=== PATIENT | female | born 1950 | race Caucasian/White ===

== ENCOUNTER 2019-01-16 19:24 | Inpatient (IN) | payer MEDICARE, OTHER ==
[~2019-01-16] VITALS: Ht 172.7 cm; Wt 124.4 kg
[2019-01-16 19:25] VITALS: BP 141/76
--- OUTSIDE RECORDS SUMMARY | 2019-01-16 19:31 | XMS REPORT ---
[facility] Unknown Phone Unavailable Care Team Providers Care Thread Cutter Name Role Phone Unavailable Unavailable Payers Payer Name Policy Type Policy Number Effective Date Expiration Date Problems This patient has no known problems. Allergies, Adverse Reactions, Alerts Allergy Name Allergy Type Status Severity Reaction(s) Onset Date Inactive Date Treating Clinician Comments ciprofloxacin HCl DA Active RI 2018-10-26 00:00:00 Iodinated Contrast- Oral and IV Dye DA Active U 2018-10-26 00:00:00 Penicillins DA Active U 2018-10-26 00:00:00 Sulfa (Sulfonamide Antibiotics) DA Active U 2018-10-26 00:00:00 iodine DA Active RI 2018-10-26 00:00:00 lactose FA Active U 2018-10-26 00:00:00 tetracycline DA Active U 2018-10-26 00:00:00 pineapple FA Active U 2018-10-26 00:00:00 grape FA Active U 2018-10-26 00:00:00 latex DA Active U 2018-10-26 00:00:00 milk FA Active U 2018-10-26 00:00:00 strawberry FA Active U 2018-10-26 00:00:00 lactose DA Active U 2018-10-26 00:00:00 pineapple DA Active U 2018-10-26 00:00:00 grape DA Active U 2018-10-26 00:00:00 milk DA Active U 2018-10-26 00:00:00 MRA CONTRAST DYE DA Active SV 2018-08-31 00:00:00 Iodinated Contrast- Oral and IV Dye DA Active U 2018-05-14 00:00:00 lactose DA Active U 2018-05-14 00:00:00 TAPE DA Active MO 2018-05-14 00:00:00 ciprofloxacin HCl DA Active RI 2018-02-22 00:00:00 Penicillins DA Active U 2018-02-22 00:00:00 Sulfa (Sulfonamide Antibiotics) DA Active U 2018-02-22 00:00:00 iodine DA Active RI 2018-02-22 00:00:00 tetracycline DA Active U 2018-02-22 00:00:00 pineapple DA Active U 2018-02-22 00:00:00 grape DA Active U 2018-02-22 00:00:00 latex DA Active U 2018-02-22 00:00:00 milk DA Active U 2018-02-22 00:00:00 strawberry DA Active U 2018-02-22 00:00:00 strawberry FA Active U 2018-02-22 00:00:00 ciprofloxacin HCl DA Active RI 2017-09-11 00:00:00 Penicillins DA Active U 2017-09-11 00:00:00 Sulfa (Sulfonamide Antibiotics) DA Active U 2017-09-11 00:00:00 iodine DA Active RI 2017-09-11 00:00:00 tetracycline DA Active U 2017-09-11 00:00:00 pineapple DA Active U 2017-09-11 00:00:00 grape DA Active U 2017-09-11 00:00:00 latex DA Active U 2017-09-11 00:00:00 milk DA Active U 2017-09-11 00:00:00 strawberry DA Active U 2017-09-11 00:00:00 Medications This patient has no known medications. Encounters Start Date/Time End Date/Time Encounter Type Admission Type Attending Clinicians Care Facility Care Department Encounter ID 2018-10-10 09:45:00 2018-10-10 06:21:00 Inpatient [facility] [id number] Results Test Description Test Time Test Comments Text Results Atomic Results Result Comments GLUBED 2019-01-07 10:13:00 GLUBED (test code=GLUBED) 95 mg/dL 74-106 Performed by certified cloth doubling machine operator at [facility] [id number] 10:12:00* Test Item Value Reference Range Comments GLUBED (test code=GLUBED) 118 mg/dL 74-106 Performed by certified cloth doubling machine operator at [facility] [id number] 10:12:00* Test Item Value Reference Range Comments GLUBED (test code=GLUBED) 147 mg/dL 74-106 Performed by certified cloth doubling machine operator at [facility] BASIC METABOLIC [id number] 06:51:00* Test Item Value Reference Range Comments SODIUM (test code=NA) 139 mmol/L 136-145 POTASSIUM (test code=K) 3.8 mmol/L 3.5-5.1 CHLORIDE (test code=CL) 106.0 mmol/L 98-107 CARBON DIOXIDE (test code=CO2) 28.0 mmol/L 21-32 ANION GAP (test code=GAP) 8.8 10-20 GLUCOSE (test code=GLU) 147 mg/dL 74-106 BLOOD UREA NITROGEN (test code=BUN) 6 mg/dL 7-18 GLOMERULAR FILTRATION RATE (test code=GFR) > 60 mL/min >=60 Estimated GFR by using Modified MDRD formula.Chronic kidney disease is defined as either kidney damageor GFR <60 mL/min/1.73 m2 for >3 months. CREATININE (test code=CREAT) 0.70 mg/dL 0.55-1.02 Note change in reference range due to change in reagent. BUN/CREATININE RATIO (test code=BUN/CREA) 8.0 10-20 CALCIUM (test code=CA) 8.8 mg/dL 8.5-10.1 BASIC METABOLIC [id number] 06:47:00* Test Item Value Reference Range Comments SODIUM (test code=NA) 139 mmol/L 136-145 POTASSIUM (test code=K) 3.8 mmol/L 3.5-5.1 CHLORIDE (test code=CL) 106.0 mmol/L 98-107 CARBON DIOXIDE (test code=CO2) mmol/L 21-32 ANION GAP (test code=GAP) 10-20 GLUCOSE (test code=GLU) mg/dL 74-106 BLOOD UREA NITROGEN (test code=BUN) mg/dL 7-18 GLOMERULAR FILTRATION RATE (test code=GFR) mL/min >=60 CREATININE (test code=CREAT) mg/dL 0.55-1.02 BUN/CREATININE RATIO (test code=BUN/CREA) 10-20 CALCIUM (test code=CA) 8.8 mg/dL 8.5-10.1 CBC W/AUTO [id number] 06:24:00* Test Item Value Reference Range Comments WHITE BLOOD CELL (test code=WBC) 6.9 K/mm3 4.5-12.5 RED BLOOD CELL (test code=RBC) 3.47 mill/mm3 3.7-5.2 HEMOGLOBIN (test code=HGB) 9.2 gram/dL 11.5-15.5 HEMATOCRIT (test code=HCT) 30.5 % 36.0-46.0 MEAN CELL VOLUME (test code=MCV) 87.9 fL 80-98 MEAN CELL HGB (test code=MCH) 26.5 picogram 27.0-33.0 MEAN CELL HGB CONCETRATION (test code=MCHC) 30.2 gram/dL 33.0-36.0 RED CELL DISTRIBUTION WIDTH (test code=RDW) 17.6 % 11.6-16.2 RED CELL DISTRIBUTION WIDTH SD (test code=RDW-SD) 57.1 fL 37.0-51.0 PLATELET COUNT (test code=PLT) 483 K/mm3 150-450 MEAN PLATELET VOLUME (test code=MPV) 9.4 fL 6.7-11.0 NEUTROPHIL % (test code=NT%) 56.3 % 39.0-69.0 IMMATURE GRANULOCYTE % (test code=IG%) 0.4 % 0.0-5.0 LYMPHOCYTE % (test code=LY%) 25.9 % 25.0-55.0 MONOCYTE % (test code=MO%) 10.0 % 0.0-10.0 EOSINOPHIL % (test code=EO%) 6.5 % 0.0-5.0 BASOPHIL % (test code=BA%) 0.9 % 0.0-1.0 NUCLEATED RBC % (test code=NRBC%) 0.0 % 0-0 NEUTROPHIL # (test code=NT#) 3.87 K/mm3 1.8-7.7 IMMATURE GRANULOCYTE # (test code=IG#) 0.03 x10 3/uL 0-0.03 LYMPHOCYTE # (test code=LY#) 1.78 K/mm3 1.0-5.0 MONOCYTE # (test code=MO#) 0.69 K/mm3 0-0.8 EOSINOPHIL # (test code=EO#) 0.45 K/mm3 0.0-0.5 BASOPHIL # (test code=BA#) 0.06 K/mm3 0.0-0.2 NUCLEATED RBC # (test code=NRBC#) 0.00 K/mm3 0.0-0.1 [id number] 16:09:00* Test Item Value Reference Range Comments VANCOMYCIN (test code=VANCO) 16.9 UG/ML 5.0-45.0 BASIC METABOLIC [id number] 03:42:00* Test Item Value Reference Range Comments SODIUM (test code=NA) 141 mmol/L 136-145 POTASSIUM (test code=K) 3.9 mmol/L 3.5-5.1 CHLORIDE (test code=CL) 101.0 mmol/L 98-107 CARBON DIOXIDE (test code=CO2) 31.0 mmol/L 21-32 ANION GAP (test code=GAP) 12.9 10-20 GLUCOSE (test code=GLU) 136 mg/dL 74-106 BLOOD UREA NITROGEN (test code=BUN) 8 mg/dL 7-18 GLOMERULAR FILTRATION RATE (test code=GFR) > 60 mL/min >=60 Estimated GFR by using Modified MDRD formula.Chronic kidney disease is defined as either kidney damageor GFR <60 mL/min/1.73 m2 for >3 months. CREATININE (test code=CREAT) 0.80 mg/dL 0.55-1.02 Note change in reference range due to change in reagent. BUN/CREATININE RATIO (test code=BUN/CREA) 9.5 10-20 CALCIUM (test code=CA) 8.3 mg/dL 8.5-10.1 COMPREHENSIVE METABOLIC [id number] 03:42:00* Test Item Value Reference Range Comments TOTAL PROTEIN (test code=PROT) 5.4 gram/dL 6.4-8.2 ALBUMIN (test code=ALB) 2.5 g/dL 3.4-5.0 GLOBULIN (test code=GLOB) 2.9 gram/dL 2.7-4.2 ALBUMIN/GLOBULIN RATIO (test code=A/G) 0.9 0.75-1.50 BILIRUBIN TOTAL (test code=BILT) 0.30 mg/dL 0.0-1.0 SGOT/AST (test code=AST) 16 IUnit/L 15-37 SGPT/ALT (test code=ALT) 15 IUnit/L 12-78 ALKALINE PHOSPHATASE TOTAL (test code=ALKP) 157 IUnit/L 45-117 Note change in reference range due to change in reagent. [id number] 03:42:00* Test Item Value Reference Range Comments PHOSPHORUS (test code=PHOS) 2.6 mg/dL 2.5-4.9 [id number] 03:42:00* Test Item Value Reference Range Comments MAGNESIUM (test code=MAG) 2.1 mg/dL 1.8-2.4 CALCIUM [id number] 03:42:00* Test Item Value Reference Range Comments CALCIUM IONIZED (test code=BIJU) 1.22 mmol/L 1.12-1.32 BASIC METABOLIC [id number] 03:37:00* Test Item Value Reference Range Comments SODIUM (test code=NA) 141 mmol/L 136-145 POTASSIUM (test code=K) 3.9 mmol/L 3.5-5.1 CHLORIDE (test code=CL) 101.0 mmol/L 98-107 CARBON DIOXIDE (test code=CO2) mmol/L 21-32 ANION GAP (test code=GAP) 10-20 GLUCOSE (test code=GLU) mg/dL 74-106 BLOOD UREA NITROGEN (test code=BUN) mg/dL 7-18 GLOMERULAR FILTRATION RATE (test code=GFR) mL/min >=60 CREATININE (test code=CREAT) mg/dL 0.55-1.02 BUN/CREATININE RATIO (test code=BUN/CREA) 10-20 CALCIUM (test code=CA) mg/dL 8.5-10.1 COMPREHENSIVE METABOLIC [id number] 03:37:00* Test Item Value Reference Range Comments TOTAL PROTEIN (test code=PROT) gram/dL 6.4-8.2 ALBUMIN (test code=ALB) g/dL 3.4-5.0 GLOBULIN (test code=GLOB) gram/dL 2.7-4.2 ALBUMIN/GLOBULIN RATIO (test code=A/G) 0.75-1.50 BILIRUBIN TOTAL (test code=BILT) mg/dL 0.0-1.0 SGOT/AST (test code=AST) IUnit/L 15-37 SGPT/ALT (test code=ALT) IUnit/L 12-78 ALKALINE PHOSPHATASE TOTAL (test code=ALKP) IUnit/L 45-117 [id number] 03:37:00* Test Item Value Reference Range Comments PHOSPHORUS (test code=PHOS) mg/dL 2.5-4.9 [id number] 03:37:00* Test Item Value Reference Range Comments MAGNESIUM (test code=MAG) mg/dL 1.8-2.4 CALCIUM [id number] 03:37:00* Test Item Value Reference Range Comments CALCIUM IONIZED (test code=BIJU) 1.22 mmol/L 1.12-1.32 BASIC METABOLIC [id number] 03:34:00* Test Item Value Reference Range Comments SODIUM (test code=NA) 141 mmol/L 136-145 POTASSIUM (test code=K) 3.9 mmol/L 3.5-5.1 CHLORIDE (test code=CL) 101.0 mmol/L 98-107 CARBON DIOXIDE (test code=CO2) mmol/L 21-32 ANION GAP (test code=GAP) 10-20 GLUCOSE (test code=GLU) mg/dL 74-106 BLOOD UREA NITROGEN (test code=BUN) mg/dL 7-18 GLOMERULAR FILTRATION RATE (test code=GFR) mL/min >=60 CREATININE (test code=CREAT) mg/dL 0.55-1.02 BUN/CREATININE RATIO (test code=BUN/CREA) 10-20 CALCIUM (test code=CA) mg/dL 8.5-10.1 COMPREHENSIVE METABOLIC [id number] 03:34:00* Test Item Value Reference Range Comments TOTAL PROTEIN (test code=PROT) gram/dL 6.4-8.2 ALBUMIN (test code=ALB) g/dL 3.4-5.0 GLOBULIN (test code=GLOB) gram/dL 2.7-4.2 ALBUMIN/GLOBULIN RATIO (test code=A/G) 0.75-1.50 BILIRUBIN TOTAL (test code=BILT) mg/dL 0.0-1.0 SGOT/AST (test code=AST) IUnit/L 15-37 SGPT/ALT (test code=ALT) IUnit/L 12-78 ALKALINE PHOSPHATASE TOTAL (test code=ALKP) IUnit/L 45-117 [id number] 03:34:00* Test Item Value Reference Range Comments PHOSPHORUS (test code=PHOS) mg/dL 2.5-4.9 [id number] 03:34:00* Test Item Value Reference Range Comments MAGNESIUM (test code=MAG) mg/dL 1.8-2.4 CALCIUM [id number] 03:34:00* Test Item Value Reference Range Comments CALCIUM IONIZED (test code=BIJU) mmol/L 1.12-1.32 COMPREHENSIVE METABOLIC [id number] 02:48:00* Test Item Value Reference Range Comments SODIUM (test code=NA) 138 mmol/L 136-145 POTASSIUM (test code=K) 3.5 mmol/L 3.5-5.1 CHLORIDE (test code=CL) 99.0 mmol/L 98-107 CARBON DIOXIDE (test code=CO2) 31.0 mmol/L 21-32 ANION GAP (test code=GAP) 11.5 10-20 GLUCOSE (test code=GLU) 131 mg/dL 74-106 BLOOD UREA NITROGEN (test code=BUN) 8 mg/dL 7-18 GLOMERULAR FILTRATION RATE (test code=GFR) > 60 mL/min >=60 Estimated GFR by using Modified MDRD formula.Chronic kidney disease is defined as either kidney damageor GFR <60 mL/min/1.73 m2 for >3 months. CREATININE (test code=CREAT) 0.80 mg/dL 0.55-1.02 Note change in reference range due to change in reagent. BUN/CREATININE RATIO (test code=BUN/CREA) 10.5 10-20 TOTAL PROTEIN (test code=PROT) 6.1 gram/dL 6.4-8.2 ALBUMIN (test code=ALB) 2.3 g/dL 3.4-5.0 GLOBULIN (test code=GLOB) 3.8 gram/dL 2.7-4.2 ALBUMIN/GLOBULIN RATIO (test code=A/G) 0.6 0.75-1.50 CALCIUM (test code=CA) 8.7 mg/dL 8.5-10.1 BILIRUBIN TOTAL (test code=BILT) 0.30 mg/dL 0.0-1.0 SGOT/AST (test code=AST) 8 IUnit/L 15-37 SGPT/ALT (test code=ALT) 16 IUnit/L 12-78 ALKALINE PHOSPHATASE TOTAL (test code=ALKP) 147 IUnit/L 45-117 Note change in reference range due to change in reagent. [id number] 02:48:00* Test Item Value Reference Range Comments PHOSPHORUS (test code=PHOS) 2.3 mg/dL 2.5-4.9 [id number] 02:48:00* Test Item Value Reference Range Comments MAGNESIUM (test code=MAG) 2.3 mg/dL 1.8-2.4 CALCIUM [id number] 02:48:00* Test Item Value Reference Range Comments CALCIUM IONIZED (test code=BIJU) 1.21 mmol/L 1.12-1.32 COMPREHENSIVE METABOLIC [id number] 02:27:00* Test Item Value Reference Range Comments SODIUM (test code=NA) mmol/L 136-145 POTASSIUM (test code=K) mmol/L 3.5-5.1 CHLORIDE (test code=CL) mmol/L 98-107 CARBON DIOXIDE (test code=CO2) mmol/L 21-32 ANION GAP (test code=GAP) 10-20 GLUCOSE (test code=GLU) mg/dL 74-106 BLOOD UREA NITROGEN (test code=BUN) mg/dL 7-18 GLOMERULAR FILTRATION RATE (test code=GFR) mL/min >=60 CREATININE (test code=CREAT) mg/dL 0.55-1.02 BUN/CREATININE RATIO (test code=BUN/CREA) 10-20 TOTAL PROTEIN (test code=PROT) gram/dL 6.4-8.2 ALBUMIN (test code=ALB) g/dL 3.4-5.0 GLOBULIN (test code=GLOB) gram/dL 2.7-4.2 ALBUMIN/GLOBULIN RATIO (test code=A/G) 0.75-1.50 CALCIUM (test code=CA) mg/dL 8.5-10.1 BILIRUBIN TOTAL (test code=BILT) mg/dL 0.0-1.0 SGOT/AST (test code=AST) IUnit/L 15-37 SGPT/ALT (test code=ALT) IUnit/L 12-78 ALKALINE PHOSPHATASE TOTAL (test code=ALKP) IUnit/L 45-117 [id number] 02:27:00* Test Item Value Reference Range Comments PHOSPHORUS (test code=PHOS) mg/dL 2.5-4.9 [id number] 02:27:00* Test Item Value Reference Range Comments MAGNESIUM (test code=MAG) mg/dL 1.8-2.4 CALCIUM [id number] 02:27:00* Test Item Value Reference Range Comments CALCIUM IONIZED (test code=BIJU) 1.21 mmol/L 1.12-1.32 BASIC METABOLIC [id number] 04:37:00* Test Item Value Reference Range Comments SODIUM (test code=NA) 139 mmol/L 136-145 POTASSIUM (test code=K) 3.2 mmol/L 3.5-5.1 CHLORIDE (test code=CL) 98.0 mmol/L 98-107 CARBON DIOXIDE (test code=CO2) 31.0 mmol/L 21-32 ANION GAP (test code=GAP) 13.2 10-20 GLUCOSE (test code=GLU) 126 mg/dL 74-106 BLOOD UREA NITROGEN (test code=BUN) 9 mg/dL 7-18 GLOMERULAR FILTRATION RATE (test code=GFR) > 60 mL/min >=60 Estimated GFR by using Modified MDRD formula.Chronic kidney disease is defined as either kidney damageor GFR <60 mL/min/1.73 m2 for >3 months. CREATININE (test code=CREAT) 0.80 mg/dL 0.55-1.02 Note change in reference range due to change in reagent. BUN/CREATININE RATIO (test code=BUN/CREA) 11.1 10-20 CALCIUM (test code=CA) 8.7 mg/dL 8.5-10.1 COMPREHENSIVE METABOLIC [id number] 04:37:00* Test Item Value Reference Range Comments TOTAL PROTEIN (test code=PROT) 5.9 gram/dL 6.4-8.2 ALBUMIN (test code=ALB) 2.4 g/dL 3.4-5.0 GLOBULIN (test code=GLOB) 3.5 gram/dL 2.7-4.2 ALBUMIN/GLOBULIN RATIO (test code=A/G) 0.7 0.75-1.50 BILIRUBIN TOTAL (test code=BILT) 0.40 mg/dL 0.0-1.0 SGOT/AST (test code=AST) 10 IUnit/L 15-37 SGPT/ALT (test code=ALT) 16 IUnit/L 12-78 ALKALINE PHOSPHATASE TOTAL (test code=ALKP) 141 IUnit/L 45-117 Note change in reference range due to change in reagent. [id number] 04:37:00* Test Item Value Reference Range Comments PHOSPHORUS (test code=PHOS) 2.3 mg/dL 2.5-4.9 [id number] 04:37:00* Test Item Value Reference Range Comments MAGNESIUM (test code=MAG) 1.9 mg/dL 1.8-2.4 CALCIUM [id number] 04:37:00* Test Item Value Reference Range Comments CALCIUM IONIZED (test code=BIJU) 1.19 mmol/L 1.12-1.32 BASIC METABOLIC [id number] 04:32:00* Test Item Value Reference Range Comments SODIUM (test code=NA) 139 mmol/L 136-145 POTASSIUM (test code=K) 3.2 mmol/L 3.5-5.1 CHLORIDE (test code=CL) 98.0 mmol/L 98-107 CARBON DIOXIDE (test code=CO2) mmol/L 21-32 ANION GAP (test code=GAP) 10-20 GLUCOSE (test code=GLU) mg/dL 74-106 BLOOD UREA NITROGEN (test code=BUN) mg/dL 7-18 GLOMERULAR FILTRATION RATE (test code=GFR) mL/min >=60 CREATININE (test code=CREAT) mg/dL 0.55-1.02 BUN/CREATININE RATIO (test code=BUN/CREA) 10-20 CALCIUM (test code=CA) mg/dL 8.5-10.1 COMPREHENSIVE METABOLIC [id number] 04:32:00* Test Item Value Reference Range Comments TOTAL PROTEIN (test code=PROT) gram/dL 6.4-8.2 ALBUMIN (test code=ALB) g/dL 3.4-5.0 GLOBULIN (test code=GLOB) gram/dL 2.7-4.2 ALBUMIN/GLOBULIN RATIO (test code=A/G) 0.75-1.50 BILIRUBIN TOTAL (test code=BILT) mg/dL 0.0-1.0 SGOT/AST (test code=AST) IUnit/L 15-37 SGPT/ALT (test code=ALT) IUnit/L 12-78 ALKALINE PHOSPHATASE TOTAL (test code=ALKP) IUnit/L 45-117 [id number] 04:32:00* Test Item Value Reference Range Comments PHOSPHORUS (test code=PHOS) mg/dL 2.5-4.9 [id number] 04:32:00* Test Item Value Reference Range Comments MAGNESIUM (test code=MAG) mg/dL 1.8-2.4 CALCIUM [id number] 04:32:00* Test Item Value Reference Range Comments CALCIUM IONIZED (test code=BIJU) 1.19 mmol/L 1.12-1.32 BASIC METABOLIC [id number] 04:29:00* Test Item Value Reference Range Comments SODIUM (test code=NA) mmol/L 136-145 POTASSIUM (test code=K) mmol/L 3.5-5.1 CHLORIDE (test code=CL) mmol/L 98-107 CARBON DIOXIDE (test code=CO2) mmol/L 21-32 ANION GAP (test code=GAP) 10-20 GLUCOSE (test code=GLU) mg/dL 74-106 BLOOD UREA NITROGEN (test code=BUN) mg/dL 7-18 GLOMERULAR FILTRATION RATE (test code=GFR) mL/min >=60 CREATININE (test code=CREAT) mg/dL 0.55-1.02 BUN/CREATININE RATIO (test code=BUN/CREA) 10-20 CALCIUM (test code=CA) mg/dL 8.5-10.1 COMPREHENSIVE METABOLIC [id number] 04:29:00* Test Item Value Reference Range Comments TOTAL PROTEIN (test code=PROT) gram/dL 6.4-8.2 ALBUMIN (test code=ALB) g/dL 3.4-5.0 GLOBULIN (test code=GLOB) gram/dL 2.7-4.2 ALBUMIN/GLOBULIN RATIO (test code=A/G) 0.75-1.50 BILIRUBIN TOTAL (test code=BILT) mg/dL 0.0-1.0 SGOT/AST (test code=AST) IUnit/L 15-37 SGPT/ALT (test code=ALT) IUnit/L 12-78 ALKALINE PHOSPHATASE TOTAL (test code=ALKP) IUnit/L 45-117 [id number] 04:29:00* Test Item Value Reference Range Comments PHOSPHORUS (test code=PHOS) mg/dL 2.5-4.9 [id number] 04:29:00* Test Item Value Reference Range Comments MAGNESIUM (test code=MAG) mg/dL 1.8-2.4 CALCIUM [id number] 04:29:00* Test Item Value Reference Range Comments CALCIUM IONIZED (test code=BIJU) 1.19 mmol/L 1.12-1.32 BASIC METABOLIC [id number] 04:43:00* Test Item Value Reference Range Comments SODIUM (test code=NA) 136 mmol/L 136-145 POTASSIUM (test code=K) 3.2 mmol/L 3.5-5.1 CHLORIDE (test code=CL) 94.0 mmol/L 98-107 CARBON DIOXIDE (test code=CO2) 34.0 mmol/L 21-32 ANION GAP (test code=GAP) 11.2 10-20 GLUCOSE (test code=GLU) 131 mg/dL 74-106 BLOOD UREA NITROGEN (test code=BUN) 13 mg/dL 7-18 GLOMERULAR FILTRATION RATE (test code=GFR) > 60 mL/min >=60 Estimated GFR by using Modified MDRD formula.Chronic kidney disease is defined as either kidney damageor GFR <60 mL/min/1.73 m2 for >3 months. CREATININE (test code=CREAT) 0.90 mg/dL 0.55-1.02 Note change in reference range due to change in reagent. BUN/CREATININE RATIO (test code=BUN/CREA) 15.2 10-20 CALCIUM (test code=CA) 8.3 mg/dL 8.5-10.1 COMPREHENSIVE METABOLIC [id number] 04:43:00* Test Item Value Reference Range Comments TOTAL PROTEIN (test code=PROT) 5.4 gram/dL 6.4-8.2 ALBUMIN (test code=ALB) 2.7 g/dL 3.4-5.0 GLOBULIN (test code=GLOB) 2.7 gram/dL 2.7-4.2 ALBUMIN/GLOBULIN RATIO (test code=A/G) 1.0 0.75-1.50 BILIRUBIN TOTAL (test code=BILT) 0.60 mg/dL 0.0-1.0 SGOT/AST (test code=AST) 12 IUnit/L 15-37 SGPT/ALT (test code=ALT) 18 IUnit/L 12-78 ALKALINE PHOSPHATASE TOTAL (test code=ALKP) 157 IUnit/L 45-117 Note change in reference range due to change in reagent. [id number] 04:43:00* Test Item Value Reference Range Comments PHOSPHORUS (test code=PHOS) 2.7 mg/dL 2.5-4.9 [id number] 04:43:00* Test Item Value Reference Range Comments MAGNESIUM (test code=MAG) 1.6 mg/dL 1.8-2.4 CALCIUM [id number] 04:43:00* Test Item Value Reference Range Comments CALCIUM IONIZED (test code=BIJU) 1.15 mmol/L 1.12-1.32 BASIC METABOLIC [id number] 04:36:00* Test Item Value Reference Range Comments SODIUM (test code=NA) mmol/L 136-145 POTASSIUM (test code=K) mmol/L 3.5-5.1 CHLORIDE (test code=CL) mmol/L 98-107 CARBON DIOXIDE (test code=CO2) mmol/L 21-32 ANION GAP (test code=GAP) 10-20 GLUCOSE (test code=GLU) mg/dL 74-106 BLOOD UREA NITROGEN (test code=BUN) mg/dL 7-18 GLOMERULAR FILTRATION RATE (test code=GFR) mL/min >=60 CREATININE (test code=CREAT) mg/dL 0.55-1.02 BUN/CREATININE RATIO (test code=BUN/CREA) 10-20 CALCIUM (test code=CA) mg/dL 8.5-10.1 COMPREHENSIVE METABOLIC [id number] 04:36:00* Test Item Value Reference Range Comments TOTAL PROTEIN (test code=PROT) gram/dL 6.4-8.2 ALBUMIN (test code=ALB) g/dL 3.4-5.0 GLOBULIN (test code=GLOB) gram/dL 2.7-4.2 ALBUMIN/GLOBULIN RATIO (test code=A/G) 0.75-1.50 BILIRUBIN TOTAL (test code=BILT) mg/dL 0.0-1.0 SGOT/AST (test code=AST) IUnit/L 15-37 SGPT/ALT (test code=ALT) IUnit/L 12-78 ALKALINE PHOSPHATASE TOTAL (test code=ALKP) IUnit/L 45-117 [id number] 04:36:00* Test Item Value Reference Range Comments PHOSPHORUS (test code=PHOS) mg/dL 2.5-4.9 [id number] 04:36:00* Test Item Value Reference Range Comments MAGNESIUM (test code=MAG) mg/dL 1.8-2.4 CALCIUM [id number] 04:36:00* Test Item Value Reference Range Comments CALCIUM IONIZED (test code=BIJU) 1.15 mmol/L 1.12-1.32 BASIC METABOLIC [id number] 04:36:00* Test Item Value Reference Range Comments SODIUM (test code=NA) 136 mmol/L 136-145 POTASSIUM (test code=K) 3.2 mmol/L 3.5-5.1 CHLORIDE (test code=CL) 94.0 mmol/L 98-107 CARBON DIOXIDE (test code=CO2) mmol/L 21-32 ANION GAP (test code=GAP) 10-20 GLUCOSE (test code=GLU) mg/dL 74-106 BLOOD UREA NITROGEN (test code=BUN) mg/dL 7-18 GLOMERULAR FILTRATION RATE (test code=GFR) mL/min >=60 CREATININE (test code=CREAT) mg/dL 0.55-1.02 BUN/CREATININE RATIO (test code=BUN/CREA) 10-20 CALCIUM (test code=CA) mg/dL 8.5-10.1 COMPREHENSIVE METABOLIC [id number] 04:36:00* Test Item Value Reference Range Comments TOTAL PROTEIN (test code=PROT) gram/dL 6.4-8.2 ALBUMIN (test code=ALB) g/dL 3.4-5.0 GLOBULIN (test code=GLOB) gram/dL 2.7-4.2 ALBUMIN/GLOBULIN RATIO (test code=A/G) 0.75-1.50 BILIRUBIN TOTAL (test code=BILT) mg/dL 0.0-1.0 SGOT/AST (test code=AST) IUnit/L 15-37 SGPT/ALT (test code=ALT) IUnit/L 12-78 ALKALINE PHOSPHATASE TOTAL (test code=ALKP) IUnit/L 45-117 [id number] 04:36:00* Test Item Value Reference Range Comments PHOSPHORUS (test code=PHOS) mg/dL 2.5-4.9 [id number] 04:36:00* Test Item Value Reference Range Comments MAGNESIUM (test code=MAG) mg/dL 1.8-2.4 CALCIUM [id number] 04:36:00* Test Item Value Reference Range Comments CALCIUM IONIZED (test code=BIJU) 1.15 mmol/L 1.12-1.32 BASIC METABOLIC [id number] 07:09:00* Test Item Value Reference Range Comments SODIUM (test code=NA) 133 mmol/L 136-145 POTASSIUM (test code=K) 3.2 mmol/L 3.5-5.1 CHLORIDE (test code=CL) 90.0 mmol/L 98-107 CARBON DIOXIDE (test code=CO2) 34.0 mmol/L 21-32 ANION GAP (test code=GAP) 12.2 10-20 GLUCOSE (test code=GLU) 119 mg/dL 74-106 BLOOD UREA NITROGEN (test code=BUN) 13 mg/dL 7-18 GLOMERULAR FILTRATION RATE (test code=GFR) 55 mL/min >=60 Estimated GFR by using Modified MDRD formula.Chronic kidney disease is defined as either kidney damageor GFR <60 mL/min/1.73 m2 for >3 months. CREATININE (test code=CREAT) 1.00 mg/dL 0.55-1.02 Note change in reference range due to change in reagent. BUN/CREATININE RATIO (test code=BUN/CREA) 13.2 10-20 CALCIUM (test code=CA) 9.2 mg/dL 8.5-10.1 COMPREHENSIVE METABOLIC [id number] 07:09:00* Test Item Value Reference Range Comments TOTAL PROTEIN (test code=PROT) 7.2 gram/dL 6.4-8.2 ALBUMIN (test code=ALB) 3.2 g/dL 3.4-5.0 GLOBULIN (test code=GLOB) 4.0 gram/dL 2.7-4.2 ALBUMIN/GLOBULIN RATIO (test code=A/G) 0.8 0.75-1.50 BILIRUBIN TOTAL (test code=BILT) 1.00 mg/dL 0.0-1.0 SGOT/AST (test code=AST) 19 IUnit/L 15-37 SGPT/ALT (test code=ALT) 25 IUnit/L 12-78 ALKALINE PHOSPHATASE TOTAL (test code=ALKP) 175 IUnit/L 45-117 Note change in reference range due to change in reagent. [id number] 07:09:00* Test Item Value Reference Range Comments PHOSPHORUS (test code=PHOS) 3.2 mg/dL 2.5-4.9 [id number] 07:09:00* Test Item Value Reference Range Comments MAGNESIUM (test code=MAG) 1.9 mg/dL 1.8-2.4 CALCIUM [id number] 07:09:00* Test Item Value Reference Range Comments CALCIUM IONIZED (test code=BIJU) 1.17 mmol/L 1.12-1.32 BASIC METABOLIC [id number] 07:01:00* Test Item Value Reference Range Comments SODIUM (test code=NA) 133 mmol/L 136-145 POTASSIUM (test code=K) 3.2 mmol/L 3.5-5.1 CHLORIDE (test code=CL) 90.0 mmol/L 98-107 CARBON DIOXIDE (test code=CO2) mmol/L 21-32 ANION GAP (test code=GAP) 10-20 GLUCOSE (test code=GLU) mg/dL 74-106 BLOOD UREA NITROGEN (test code=BUN) mg/dL 7-18 GLOMERULAR FILTRATION RATE (test code=GFR) mL/min >=60 CREATININE (test code=CREAT) mg/dL 0.55-1.02 BUN/CREATININE RATIO (test code=BUN/CREA) 10-20 CALCIUM (test code=CA) mg/dL 8.5-10.1 COMPREHENSIVE METABOLIC [id number] 07:01:00* Test Item Value Reference Range Comments TOTAL PROTEIN (test code=PROT) gram/dL 6.4-8.2 ALBUMIN (test code=ALB) g/dL 3.4-5.0 GLOBULIN (test code=GLOB) gram/dL 2.7-4.2 ALBUMIN/GLOBULIN RATIO (test code=A/G) 0.75-1.50 BILIRUBIN TOTAL (test code=BILT) mg/dL 0.0-1.0 SGOT/AST (test code=AST) IUnit/L 15-37 SGPT/ALT (test code=ALT) IUnit/L 12-78 ALKALINE PHOSPHATASE TOTAL (test code=ALKP) IUnit/L 45-117 [id number] 07:01:00* Test Item Value Reference Range Comments PHOSPHORUS (test code=PHOS) mg/dL 2.5-4.9 [id number] 07:01:00* Test Item Value Reference Range Comments MAGNESIUM (test code=MAG) mg/dL 1.8-2.4 CALCIUM [id number] 07:01:00* Test Item Value Reference Range Comments CALCIUM IONIZED (test code=BIJU) mmol/L 1.12-1.32 BASIC METABOLIC [id number] 07:01:00* Test Item Value Reference Range Comments SODIUM (test code=NA) 133 mmol/L 136-145 POTASSIUM (test code=K) 3.2 mmol/L 3.5-5.1 CHLORIDE (test code=CL) 90.0 mmol/L 98-107 CARBON DIOXIDE (test code=CO2) mmol/L 21-32 ANION GAP (test code=GAP) 10-20 GLUCOSE (test code=GLU) mg/dL 74-106 BLOOD UREA NITROGEN (test code=BUN) mg/dL 7-18 GLOMERULAR FILTRATION RATE (test code=GFR) mL/min >=60 CREATININE (test code=CREAT) mg/dL 0.55-1.02 BUN/CREATININE RATIO (test code=BUN/CREA) 10-20 CALCIUM (test code=CA) mg/dL 8.5-10.1 COMPREHENSIVE METABOLIC [id number] 07:01:00* Test Item Value Reference Range Comments TOTAL PROTEIN (test code=PROT) gram/dL 6.4-8.2 ALBUMIN (test code=ALB) g/dL 3.4-5.0 GLOBULIN (test code=GLOB) gram/dL 2.7-4.2 ALBUMIN/GLOBULIN RATIO (test code=A/G) 0.75-1.50 BILIRUBIN TOTAL (test code=BILT) mg/dL 0.0-1.0 SGOT/AST (test code=AST) IUnit/L 15-37 SGPT/ALT (test code=ALT) IUnit/L 12-78 ALKALINE PHOSPHATASE TOTAL (test code=ALKP) IUnit/L 45-117 [id number] 07:01:00* Test Item Value Reference Range Comments PHOSPHORUS (test code=PHOS) mg/dL 2.5-4.9 [id number] 07:01:00* Test Item Value Reference Range Comments MAGNESIUM (test code=MAG) mg/dL 1.8-2.4 CALCIUM [id number] 07:01:00* Test Item Value Reference Range Comments CALCIUM IONIZED (test code=BIJU) 1.17 mmol/L 1.12-1.32 ARTERIAL BLOOD [id number] 18:07:00* Test Item Value Reference Range Comments ARTERIAL BLOOD GAS PH (test code=PHA) 7.26 7.35-7.45 ARTERIAL BLOOD GAS PCO2 (test code=PCO2A) 39.2 mm Hg 35-45 ARTERIAL BLOOD GAS PO2 (test code=PO2A) 104.9 mmHg 80-100 BICARBONATE TOTAL HCO3 (test code=HCO3) 17.0 mmol/L 23.0-27.0 BASE EXCESS (test code=MINDY) -9.4 mmol/L -3.0-5.0 Results called to and read back by DR. Lopez 18:00 - 12/17/2018; by DANIELLE ABG O2 SATURATION (test code=SATA) 97.1 % 90.0-98.0 ABG TYPE (test code=TYPEA) Arterial FIO2 (test code=FIO2A) 98.0 MODIFIED ALLENS (test code=MODALL) Unable CHECK PERFORMED SODIUM (test code=NA/ABG) 142.3 mEq/L 135-148 POTASSIUM (test code=K/ABG) 2.8 mEq/L 3.5-4.5 CHLORIDE (test code=CL/ABG) 110 mEq/L 98-106 GLUCOSE (test code=GLU/ABG) 279 mg/dL 74-99 HEMATOCRIT (test code=HCT/ABG) 39 % 35-47 IONIZED CALCIUM (test code=CAIABG) 1.03 mmol/L 1.1-1.37 TOTAL HGB (test code=THB) 13.1 gram/dL 11.5-15.5 HGB O2 SAT (test code=HBOSAT) 96.2 % 94.00-98.00 CARBOXYHEMOGLOBIN (test code=HOHGBT) 0.3 %totalHg 0.5-1.5 Results called to and read back by DR. Lopez 18:00 - 12/17/2018; by DANIELLE METHEMOGLOBIN (test code=METHGB) 0.6 % 0.0-1.50 O2 CONTENT (test code=O2CT) 17.8 % vol 18.0-22.0 ARTERIAL BLOOD [id number] 18:06:00* Test Item Value Reference Range Comments ARTERIAL BLOOD GAS PH (test code=PHA) 7.23 7.35-7.45 ARTERIAL BLOOD GAS PCO2 (test code=PCO2A) 46.5 mm Hg 35-45 ARTERIAL BLOOD GAS PO2 (test code=PO2A) 149.2 mmHg 80-100 BICARBONATE TOTAL HCO3 (test code=HCO3) 18.9 mmol/L 23.0-27.0 BASE EXCESS (test code=MINDY) -8.7 mmol/L -3.0-5.0 Results called to and read back by DR. Lopez 17:18 - 12/17/2018; by DANIELLE ABG O2 SATURATION (test code=SATA) 98.6 % 90.0-98.0 ABG TYPE (test code=TYPEA) Arterial FIO2 (test code=FIO2A) 100.0 MODIFIED ALLENS (test code=MODALL) Unable CHECK PERFORMED SODIUM (test code=NA/ABG) 144.6 mEq/L 135-148 POTASSIUM (test code=K/ABG) 3.0 mEq/L 3.5-4.5 CHLORIDE (test code=CL/ABG) 109 mEq/L 98-106 GLUCOSE (test code=GLU/ABG) 209 mg/dL 74-99 HEMATOCRIT (test code=HCT/ABG) 42 % 35-47 IONIZED CALCIUM (test code=CAIABG) 1.01 mmol/L 1.1-1.37 TOTAL HGB (test code=THB) 14.4 gram/dL 11.5-15.5 HGB O2 SAT (test code=HBOSAT) 97.2 % 94.00-98.00 CARBOXYHEMOGLOBIN (test code=HOHGBT) 0.8 %totalHg 0.5-1.5 METHEMOGLOBIN (test code=METHGB) 0.6 % 0.0-1.50 O2 CONTENT (test code=O2CT) 19.9 % vol 18.0-22.0 - XR CHEST 1 [id number] 07:05:00 FAX: Raysa Fallon NP [phone] [place]: St: ADM FAX: Calos Mcdowell MD [phone] FAX: Sami Mcdowell MD [phone] FAX: Brijesh Curiel MD Name: DELLA MALLOY [facility] : 1950 Age/S: 68/F [address] [facility] Unit #: [id number] Loc: V[address] [place] [address] Phys: Raysa Fallon NP Acct: [id number] Dis Date: Status: ADM IN PHONE #: [phone] Exam D ate: 12/26/2018 0538 FAX #: [phone] Reason: s ob EXAMS: CPT CODE: [id number] XR CHEST 1 V 57605 CLINICAL HISTORY: Shortness of breath TECHNIQUE: AP chest x-ray COMPARISON: Previous day IMPRESSION: Improved bilateral interstitial opacities. Left basilar atelectasis and small pleural effusion. Normal heart size. Mediastinal silhouette is unremarkable. Left subclavian artery origin stent. at 0705 Reported and signed by: Reyna Taylor D.O. CC: Raysa Fallon NP; Calos Negron; Reyna Negron MD; Brijesh Muse Technologist: DEVIN Riggins Trnvtrd Date/Time/By: 12/26/2018 (0705) : By: [email or web address] Orig Print D/T: S: 12/26/2018 (0757) PAGE 1 Signed Report BASIC METABOLIC [id number] 05:47:00* Test Item Value Reference Range Comments SODIUM (test code=NA) 138 mmol/L 136-145 POTASSIUM (test code=K) 3.5 mmol/L 3.5-5.1 CHLORIDE (test code=CL) 92.0 mmol/L 98-107 CARBON DIOXIDE (test code=CO2) 36.0 mmol/L 21-32 ANION GAP (test code=GAP) 13.5 10-20 GLUCOSE (test code=GLU) 128 mg/dL 74-106 BLOOD UREA NITROGEN (test code=BUN) 10 mg/dL 7-18 GLOMERULAR FILTRATION RATE (test code=GFR) > 60 mL/min >=60 Estimated GFR by using Modified MDRD formula.Chronic kidney disease is defined as either kidney damageor GFR <60 mL/min/1.73 m2 for >3 months. CREATININE (test code=CREAT) 0.80 mg/dL 0.55-1.02 Note change in reference range due to change in reagent. BUN/CREATININE RATIO (test code=BUN/CREA) 12.5 10-20 CALCIUM (test code=CA) 8.2 mg/dL 8.5-10.1 [id number] 05:47:00* Test Item Value Reference Range Comments PHOSPHORUS (test code=PHOS) 3.5 mg/dL 2.5-4.9 [id number] 05:47:00* Test Item Value Reference Range Comments MAGNESIUM (test code=MAG) 1.9 mg/dL 1.8-2.4 CALCIUM [id number] 05:47:00* Test Item Value Reference Range Comments CALCIUM IONIZED (test code=BIJU) 1.13 mmol/L 1.12-1.32 BASIC METABOLIC [id number] 05:21:00* Test Item Value Reference Range Comments SODIUM (test code=NA) 138 mmol/L 136-145 POTASSIUM (test code=K) 3.5 mmol/L 3.5-5.1 CHLORIDE (test code=CL) 92.0 mmol/L 98-107 CARBON DIOXIDE (test code=CO2) mmol/L 21-32 ANION GAP (test code=GAP) 10-20 GLUCOSE (test code=GLU) mg/dL 74-106 BLOOD UREA NITROGEN (test code=BUN) mg/dL 7-18 GLOMERULAR FILTRATION RATE (test code=GFR) mL/min >=60 CREATININE (test code=CREAT) mg/dL 0.55-1.02 BUN/CREATININE RATIO (test code=BUN/CREA) 10-20 CALCIUM (test code=CA) mg/dL 8.5-10.1 [id number] 05:21:00* Test Item Value Reference Range Comments PHOSPHORUS (test code=PHOS) mg/dL 2.5-4.9 [id number] 05:21:00* Test Item Value Reference Range Comments MAGNESIUM (test code=MAG) mg/dL 1.8-2.4 CALCIUM [id number] 05:21:00* Test Item Value Reference Range Comments CALCIUM IONIZED (test code=BIJU) 1.13 mmol/L 1.12-1.32 BASIC METABOLIC [id number] 05:20:00* Test Item Value Reference Range Comments SODIUM (test code=NA) 138 mmol/L 136-145 POTASSIUM (test code=K) 3.5 mmol/L 3.5-5.1 CHLORIDE (test code=CL) 92.0 mmol/L 98-107 CARBON DIOXIDE (test code=CO2) mmol/L 21-32 ANION GAP (test code=GAP) 10-20 GLUCOSE (test code=GLU) mg/dL 74-106 BLOOD UREA NITROGEN (test code=BUN) mg/dL 7-18 GLOMERULAR FILTRATION RATE (test code=GFR) mL/min >=60 CREATININE (test code=CREAT) mg/dL 0.55-1.02 BUN/CREATININE RATIO (test code=BUN/CREA) 10-20 CALCIUM (test code=CA) mg/dL 8.5-10.1 [id number] 05:20:00* Test Item Value Reference Range Comments PHOSPHORUS (test code=PHOS) mg/dL 2.5-4.9 [id number] 05:20:00* Test Item Value Reference Range Comments MAGNESIUM (test code=MAG) mg/dL 1.8-2.4 CALCIUM [id number] 05:20:00* Test Item Value Reference Range Comments CALCIUM IONIZED (test code=BIJU) mmol/L 1.12-1.32 CBC W/AUTO [id number] 05:04:00* Test Item Value Reference Range Comments WHITE BLOOD CELL (test code=WBC) 10.5 K/mm3 4.5-12.5 RED BLOOD CELL (test code=RBC) 4.13 mill/mm3 3.7-5.2 HEMOGLOBIN (test code=HGB) 11.0 gram/dL 11.5-15.5 HEMATOCRIT (test code=HCT) 35.6 % 36.0-46.0 MEAN CELL VOLUME (test code=MCV) 86.2 fL 80-98 MEAN CELL HGB (test code=MCH) 26.6 picogram 27.0-33.0 MEAN CELL HGB CONCETRATION (test code=MCHC) 30.9 gram/dL 33.0-36.0 RED CELL DISTRIBUTION WIDTH (test code=RDW) 18.0 % 11.6-16.2 RED CELL DISTRIBUTION WIDTH SD (test code=RDW-SD) 54.1 fL 37.0-51.0 PLATELET COUNT (test code=PLT) 355 K/mm3 150-450 RESULT VERIFIED BY REPEAT ANALYSIS MEAN PLATELET VOLUME (test code=MPV) 9.5 fL 6.7-11.0 NEUTROPHIL % (test code=NT%) 66.2 % 39.0-69.0 IMMATURE GRANULOCYTE % (test code=IG%) 0.7 % 0.0-5.0 LYMPHOCYTE % (test code=LY%) 15.6 % 25.0-55.0 MONOCYTE % (test code=MO%) 11.8 % 0.0-10.0 EOSINOPHIL % (test code=EO%) 4.8 % 0.0-5.0 BASOPHIL % (test code=BA%) 0.9 % 0.0-1.0 NUCLEATED RBC % (test code=NRBC%) 0.0 % 0-0 NEUTROPHIL # (test code=NT#) 6.94 K/mm3 1.8-7.7 IMMATURE GRANULOCYTE # (test code=IG#) 0.07 x10 3/uL 0-0.03 LYMPHOCYTE # (test code=LY#) 1.63 K/mm3 1.0-5.0 MONOCYTE # (test code=MO#) 1.24 K/mm3 0-0.8 EOSINOPHIL # (test code=EO#) 0.50 K/mm3 0.0-0.5 BASOPHIL # (test code=BA#) 0.09 K/mm3 0.0-0.2 NUCLEATED RBC # (test code=NRBC#) 0.00 K/mm3 0.0-0.1 MANUAL DIFF REQUIRED (test code=MDIFF) NO - XR CHEST 1 [id number] 07:43:00 FAX: Raysa aFllon NP [phone] [place]: B St: ADM FAX: Calos Mcdowell MD [phone] FAX: Sami Mcdowell MD [phone] FAX: Brijesh Curiel MD Name: DELLA MALLOY RADHA [facility] : 1950 Age/S: 68/F [address] [facility] Unit #: [id number] Loc: V[address] [place] [address] Phys: Raysa Fallon NP Acct: [id number] Dis Date: Status: ADM IN PHONE #: [phone] Exam D ate: 12/25/2018 0534 FAX #: [phone] Reason: s ob EXAMS: CPT CODE: [id number] XR CHEST 1 V 22440 CLINICAL HISTORY: Shortness of breath TECHNIQUE: AP chest x-ray COMPARISON: Previous day IMPRESSION: Improved bilateral interstitial opacities. Left basilar atelectasis and possible small pleural effusion. Normal h eart size. Mediastinal silhouette is unremarkable. Left subclavian arter y origin stent. at 0743 Reported and signed by: Jessa Taylor D.OTurner CC: Raysa Fallon NP; Calos Negron; Reyna Negron MD; Brijesh Muse Technologist: DEVIN Riggins Trnscrd Date/Time/By: 12/25/2018 (0743) : By: [email or web address] Orig Print D/T: S: 12/25/2018 (0720) PAGE 1 Signed Report BASIC METABOLIC [id number] 04:04:00* Test Item Value Reference Range Comments SODIUM (test code=NA) 138 mmol/L 136-145 POTASSIUM (test code=K) 3.3 mmol/L 3.5-5.1 CHLORIDE (test code=CL) 94.0 mmol/L 98-107 CARBON DIOXIDE (test code=CO2) 37.0 mmol/L 21-32 ANION GAP (test code=GAP) 10.3 10-20 GLUCOSE (test code=GLU) 141 mg/dL 74-106 BLOOD UREA NITROGEN (test code=BUN) 8 mg/dL 7-18 GLOMERULAR FILTRATION RATE (test code=GFR) > 60 mL/min >=60 Estimated GFR by using Modified MDRD formula.Chronic kidney disease is defined as either kidney damageor GFR <60 mL/min/1.73 m2 for >3 months. CREATININE (test code=CREAT) 0.70 mg/dL 0.55-1.02 Note change in reference range due to change in reagent. BUN/CREATININE RATIO (test code=BUN/CREA) 11.4 10-20 CALCIUM (test code=CA) 8.7 mg/dL 8.5-10.1 [id number] 04:04:00* Test Item Value Reference Range Comments PHOSPHORUS (test code=PHOS) 2.8 mg/dL 2.5-4.9 [id number] 04:04:00* Test Item Value Reference Range Comments MAGNESIUM (test code=MAG) 1.8 mg/dL 1.8-2.4 CALCIUM [id number] 04:04:00* Test Item Value Reference Range Comments CALCIUM IONIZED (test code=BIJU) 1.21 mmol/L 1.12-1.32 BASIC METABOLIC [id number] 03:54:00* Test Item Value Reference Range Comments SODIUM (test code=NA) 138 mmol/L 136-145 POTASSIUM (test code=K) 3.3 mmol/L 3.5-5.1 CHLORIDE (test code=CL) 94.0 mmol/L 98-107 CARBON DIOXIDE (test code=CO2) mmol/L 21-32 ANION GAP (test code=GAP) 10-20 GLUCOSE (test code=GLU) mg/dL 74-106 BLOOD UREA NITROGEN (test code=BUN) mg/dL 7-18 GLOMERULAR FILTRATION RATE (test code=GFR) mL/min >=60 CREATININE (test code=CREAT) mg/dL 0.55-1.02 BUN/CREATININE RATIO (test code=BUN/CREA) 10-20 CALCIUM (test code=CA) mg/dL 8.5-10.1 [id number] 03:54:00* Test Item Value Reference Range Comments PHOSPHORUS (test code=PHOS) mg/dL 2.5-4.9 [id number] 03:54:00* Test Item Value Reference Range Comments MAGNESIUM (test code=MAG) mg/dL 1.8-2.4 CALCIUM [id number] 03:54:00* Test Item Value Reference Range Comments CALCIUM IONIZED (test code=BIJU) mmol/L 1.12-1.32 BASIC METABOLIC [id number] 03:54:00* Test Item Value Reference Range Comments SODIUM (test code=NA) 138 mmol/L 136-145 POTASSIUM (test code=K) 3.3 mmol/L 3.5-5.1 CHLORIDE (test code=CL) 94.0 mmol/L 98-107 CARBON DIOXIDE (test code=CO2) mmol/L 21-32 ANION GAP (test code=GAP) 10-20 GLUCOSE (test code=GLU) mg/dL 74-106 BLOOD UREA NITROGEN (test code=BUN) mg/dL 7-18 GLOMERULAR FILTRATION RATE (test code=GFR) mL/min >=60 CREATININE (test code=CREAT) mg/dL 0.55-1.02 BUN/CREATININE RATIO (test code=BUN/CREA) 10-20 CALCIUM (test code=CA) mg/dL 8.5-10.1 [id number] 03:54:00* Test Item Value Reference Range Comments PHOSPHORUS (test code=PHOS) mg/dL 2.5-4.9 [id number] 03:54:00* Test Item Value Reference Range Comments MAGNESIUM (test code=MAG) mg/dL 1.8-2.4 CALCIUM [id number] 03:54:00* Test Item Value Reference Range Comments CALCIUM IONIZED (test code=BIJU) 1.21 mmol/L 1.12-1.32 CBC W/AUTO [id number] 03:39:00* Test Item Value Reference Range Comments WHITE BLOOD CELL (test code=WBC) 8.6 K/mm3 4.5-12.5 RED BLOOD CELL (test code=RBC) 4.13 mill/mm3 3.7-5.2 HEMOGLOBIN (test code=HGB) 11.1 gram/dL 11.5-15.5 HEMATOCRIT (test code=HCT) 35.7 % 36.0-46.0 MEAN CELL VOLUME (test code=MCV) 86.4 fL 80-98 MEAN CELL HGB (test code=MCH) 26.9 picogram 27.0-33.0 MEAN CELL HGB CONCETRATION (test code=MCHC) 31.1 gram/dL 33.0-36.0 RED CELL DISTRIBUTION WIDTH (test code=RDW) 17.4 % 11.6-16.2 RED CELL DISTRIBUTION WIDTH SD (test code=RDW-SD) 53.3 fL 37.0-51.0 PLATELET COUNT (test code=PLT) 294 K/mm3 150-450 MEAN PLATELET VOLUME (test code=MPV) 9.2 fL 6.7-11.0 NEUTROPHIL % (test code=NT%) 63.2 % 39.0-69.0 IMMATURE GRANULOCYTE % (test code=IG%) 0.6 % 0.0-5.0 LYMPHOCYTE % (test code=LY%) 18.6 % 25.0-55.0 MONOCYTE % (test code=MO%) 10.6 % 0.0-10.0 EOSINOPHIL % (test code=EO%) 6.3 % 0.0-5.0 BASOPHIL % (test code=BA%) 0.7 % 0.0-1.0 NUCLEATED RBC % (test code=NRBC%) 0.0 % 0-0 NEUTROPHIL # (test code=NT#) 5.46 K/mm3 1.8-7.7 IMMATURE GRANULOCYTE # (test code=IG#) 0.05 x10 3/uL 0-0.03 LYMPHOCYTE # (test code=LY#) 1.61 K/mm3 1.0-5.0 MONOCYTE # (test code=MO#) 0.92 K/mm3 0-0.8 EOSINOPHIL # (test code=EO#) 0.54 K/mm3 0.0-0.5 BASOPHIL # (test code=BA#) 0.06 K/mm3 0.0-0.2 NUCLEATED RBC # (test code=NRBC#) 0.00 K/mm3 0.0-0.1 - XR CHEST 1 [id number] 07:14:00 FAX: Raysa Fallon NP [phone] [place]: St: ADM FAX: Calos Mcdowell MD [phone] FAX: Sami Mcdowell MD [phone] FAX: Brijesh Curiel MD Name: DELLA MALLOY RADHA [facility] : 1950 Age/S: 68/F [address] [facility] Unit #: [id number] Loc: V[address] [place] [address] Phys: Raysa Fallon NP Acct: [id number] Dis Date: Status: ADM IN PHONE #: [phone] Exam D ate: 12/24/2018 0540 FAX #: [phone] Reason: s ob EXAMS: CPT CODE: [id number] XR CHEST 1 V 49326 REASON FOR EXAM: sob E XAM ORDER DATE: 12/24/2018 4:00 AM Ordering MJane: Raysa Fallon NP PROCEDURE: - XR CHEST 1 V COMPARISON: 12/23/2018 FINDINGS: Portable AP frontal view of the chest obtained at 5:40 AM shows diffuse airspace opacity of the right lung and left base. The h eart size is minimally enlarged. Pulmonary vasculatures are minimally harris ested. IMPRESSION: New development of vague diffuse airspace op acity in the right lung suggestive of atelectasis. Persistent patchy at electasis at the left base unchanged. Small left pleural effusion may b e present Electronically Signed by Aurea Dietz on 9 at 0714 Reported and signed by: Kong Dietz M.D. CC: Raysa Fallon NP; Calos Negron; Sami Negron MD; Brijesh Muse Technologist: Catalino Richardson RT(R) Trnscrd Date/Time/By: 0 12/24/2018 (713) : By: [email or web address] Orig Print D/T: S: 12/24/2018 (17) PAGE 1 Signed Report COMPREHENSIVE METABOLIC [id number] 06:07:00* Test Item Value Reference Range Comments SODIUM (test code=NA) 139 mmol/L 136-145 RESULT VERIFIED BY REPEAT ANALYSIS POTASSIUM (test code=K) 3.0 mmol/L 3.5-5.1 CHLORIDE (test code=CL) 97.0 mmol/L 98-107 CARBON DIOXIDE (test code=CO2) 32.0 mmol/L 21-32 ANION GAP (test code=GAP) 13.0 10-20 GLUCOSE (test code=GLU) 121 mg/dL 74-106 BLOOD UREA NITROGEN (test code=BUN) 5 mg/dL 7-18 GLOMERULAR FILTRATION RATE (test code=GFR) > 60 mL/min >=60 Estimated GFR by using Modified MDRD formula.Chronic kidney disease is defined as either kidney damageor GFR <60 mL/min/1.73 m2 for >3 months. CREATININE (test code=CREAT) 0.80 mg/dL 0.55-1.02 Note change in reference range due to change in reagent. BUN/CREATININE RATIO (test code=BUN/CREA) 6.3 10-20 TOTAL PROTEIN (test code=PROT) 6.9 gram/dL 6.4-8.2 ALBUMIN (test code=ALB) 3.1 g/dL 3.4-5.0 GLOBULIN (test code=GLOB) 3.8 gram/dL 2.7-4.2 ALBUMIN/GLOBULIN RATIO (test code=A/G) 0.8 0.75-1.50 CALCIUM (test code=CA) 9.4 mg/dL 8.5-10.1 BILIRUBIN TOTAL (test code=BILT) 0.80 mg/dL 0.0-1.0 SGOT/AST (test code=AST) 23 IUnit/L 15-37 SGPT/ALT (test code=ALT) 40 IUnit/L 12-78 ALKALINE PHOSPHATASE TOTAL (test code=ALKP) 147 IUnit/L 45-117 Note change in reference range due to change in reagent. [id number] 06:07:00* Test Item Value Reference Range Comments PHOSPHORUS (test code=PHOS) 2.7 mg/dL 2.5-4.9 [id number] 06:07:00* Test Item Value Reference Range Comments AMYLASE (test code=EMILY) 18 Unit/L 25-115 [id number] 06:07:00* Test Item Value Reference Range Comments LIPASE (test code=LIP) 46 U/L 73.0-393.0 [id number] 06:07:00* Test Item Value Reference Range Comments MAGNESIUM (test code=MAG) 1.9 mg/dL 1.8-2.4 TOTAL IRON BINDING [id number] 06:07:00* Test Item Value Reference Range Comments TOTAL IRON BINDING CAPACITY (test code=TIBC) 273 mcg/dL 250-450 THYROID PROFILE [id number] 06:07:00* Test Item Value Reference Range Comments T3 UPTAKE (test code=T3UP) 38.0 % 30.0-40.0 T4 (THYROXINE) (test code=T4) 13.1 ug/dL 4.5-13.9 T7 (FREE THYROXINE INDEX) (test code=T7) 4.97 FTI 1.3-5.1 THYROID STIMULATING HORMONE (test code=TSH) 3.430 uIU/mL 0.36-3.74 TSH REFERENCE RANGES: EUTHYROID: 0.35 - 4.3 mIU/mL HYPO : > 5.5 mIU/mL HYPER : < 0.35 mIU/mL TOTAL [id number] 06:07:00* Test Item Value Reference Range Comments TOTAL T3 (test code=T3) 164 ng/dL 71-180 Performed At: [facility] [id number] Orellana MD Ph:[phone] T4 [id number] 06:07:00* Test Item Value Reference Range Comments T4 FREE (test code=T4F) 1.71 ng/dL 0.76-1.46 [id number] 06:07:00* Test Item Value Reference Range Comments TROPONIN-I (test code=TROPI) <0.015 ng/mL 0-0.045 CALCIUM [id number] 06:07:00* Test Item Value Reference Range Comments CALCIUM IONIZED (test code=BIJU) 1.24 mmol/L 1.12-1.32 BASIC METABOLIC [id number] 05:32:00* Test Item Value Reference Range Comments SODIUM (test code=NA) 139 mmol/L 136-145 POTASSIUM (test code=K) 3.0 mmol/L 3.5-5.1 CHLORIDE (test code=CL) 94.0 mmol/L 98-107 CARBON DIOXIDE (test code=CO2) 34.0 mmol/L 21-32 ANION GAP (test code=GAP) 14.0 10-20 GLUCOSE (test code=GLU) 125 mg/dL 74-106 BLOOD UREA NITROGEN (test code=BUN) 7 mg/dL 7-18 GLOMERULAR FILTRATION RATE (test code=GFR) > 60 mL/min >=60 Estimated GFR by using Modified MDRD formula.Chronic kidney disease is defined as either kidney damageor GFR <60 mL/min/1.73 m2 for >3 months. CREATININE (test code=CREAT) 0.80 mg/dL 0.55-1.02 Note change in reference range due to change in reagent. BUN/CREATININE RATIO (test code=BUN/CREA) 8.8 10-20 CALCIUM (test code=CA) 9.8 mg/dL 8.5-10.1 [id number] 05:32:00* Test Item Value Reference Range Comments PHOSPHORUS (test code=PHOS) 3.2 mg/dL 2.5-4.9 [id number] 05:32:00* Test Item Value Reference Range Comments MAGNESIUM (test code=MAG) 2.1 mg/dL 1.8-2.4 CALCIUM [id number] 05:32:00* Test Item Value Reference Range Comments CALCIUM IONIZED (test code=BIJU) 1.22 mmol/L 1.12-1.32 BASIC METABOLIC [id number] 05:14:00* Test Item Value Reference Range Comments SODIUM (test code=NA) mmol/L 136-145 POTASSIUM (test code=K) mmol/L 3.5-5.1 CHLORIDE (test code=CL) mmol/L 98-107 CARBON DIOXIDE (test code=CO2) mmol/L 21-32 ANION GAP (test code=GAP) 10-20 GLUCOSE (test code=GLU) mg/dL 74-106 BLOOD UREA NITROGEN (test code=BUN) mg/dL 7-18 GLOMERULAR FILTRATION RATE (test code=GFR) mL/min >=60 CREATININE (test code=CREAT) mg/dL 0.55-1.02 BUN/CREATININE RATIO (test code=BUN/CREA) 10-20 CALCIUM (test code=CA) mg/dL 8.5-10.1 [id number] 05:14:00* Test Item Value Reference Range Comments PHOSPHORUS (test code=PHOS) mg/dL 2.5-4.9 [id number] 05:14:00* Test Item Value Reference Range Comments MAGNESIUM (test code=MAG) mg/dL 1.8-2.4 CALCIUM [id number] 05:14:00* Test Item Value Reference Range Comments CALCIUM IONIZED (test code=BIJU) 1.22 mmol/L 1.12-1.32 LACTIC [id number] 05:14:00* Test Item Value Reference Range Comments LACTIC ACID (test code=LACT) 1.4 mmol/L 0.4-1.9 CBC W/AUTO [id number] 04:50:00* Test Item Value Reference Range Comments WHITE BLOOD CELL (test code=WBC) 7.8 K/mm3 4.5-12.5 RED BLOOD CELL (test code=RBC) 3.84 mill/mm3 3.7-5.2 HEMOGLOBIN (test code=HGB) 10.2 gram/dL 11.5-15.5 HEMATOCRIT (test code=HCT) 32.7 % 36.0-46.0 MEAN CELL VOLUME (test code=MCV) 85.2 fL 80-98 MEAN CELL HGB (test code=MCH) 26.6 picogram 27.0-33.0 MEAN CELL HGB CONCETRATION (test code=MCHC) 31.2 gram/dL 33.0-36.0 RED CELL DISTRIBUTION WIDTH (test code=RDW) 17.4 % 11.6-16.2 RED CELL DISTRIBUTION WIDTH SD (test code=RDW-SD) 52.9 fL 37.0-51.0 PLATELET COUNT (test code=PLT) 294 K/mm3 150-450 MEAN PLATELET VOLUME (test code=MPV) 9.5 fL 6.7-11.0 NEUTROPHIL % (test code=NT%) 60.4 % 39.0-69.0 IMMATURE GRANULOCYTE % (test code=IG%) 0.5 % 0.0-5.0 LYMPHOCYTE % (test code=LY%) 22.8 % 25.0-55.0 MONOCYTE % (test code=MO%) 10.1 % 0.0-10.0 EOSINOPHIL % (test code=EO%) 5.6 % 0.0-5.0 BASOPHIL % (test code=BA%) 0.6 % 0.0-1.0 NUCLEATED RBC % (test code=NRBC%) 0.0 % 0-0 NEUTROPHIL # (test code=NT#) 4.72 K/mm3 1.8-7.7 IMMATURE GRANULOCYTE # (test code=IG#) 0.04 x10 3/uL 0-0.03 LYMPHOCYTE # (test code=LY#) 1.78 K/mm3 1.0-5.0 MONOCYTE # (test code=MO#) 0.79 K/mm3 0-0.8 EOSINOPHIL # (test code=EO#) 0.44 K/mm3 0.0-0.5 BASOPHIL # (test code=BA#) 0.05 K/mm3 0.0-0.2 NUCLEATED RBC # (test code=NRBC#) 0.00 K/mm3 0.0-0.1 MANUAL DIFF REQUIRED (test code=MDIFF) NO LACTIC [id number] 15:18:00* Test Item Value Reference Range Comments LACTIC ACID (test code=LACT) 2.3 mmol/L 0.4-1.9 Results called to [id number] by LOULOU 12/23/18 [id number] results verified and read back by Nurse? Y LACTIC [id number] 10:27:00* Test Item Value Reference Range Comments LACTIC ACID (test code=LACT) 3.1 mmol/L 0.4-1.9 Results called to [id number] by SHANDA 12/23/18 1027Critical results verified and read back by Nurse? Y [id number] 08:19:00* Test Item Value Reference Range Comments AMMONIA (test code=AMM) 21 umol/L 11-32 - XR ABDOMEN AP 1 [id number] 07:56:00 FAX: Calos Mcdowell MD [phone] [place]: B St: ADM FAX: Sami Mcdowell MD [phone] FAX: Brijesh Curiel MD FAX: Corona Leyva MD [phone] Name: MALLOY,DELLA Giancarlo GARCIA [facility] : 1950 Age/S: 68/F [address] [facility]: [id number] Loc: [address] [place] [address] Phys: Corona Navas MD Acct: [id number] Dis Date: Status: ADM IN PHONE #: [phone] Exam D ate: 12/23/2018 0500 FAX #: [phone] Reason: C onstipation EXAMS: CPT CODE: [id number] XR ABDOMEN AP 1 V 19979 HISTORY: Constipation TECHNIQ UE: AP abdomen x-ray COMPARISON: 12/17/18 FINDINGS: Mild fecal retention within the ascending colon and rectum. Gaseous dist ention of the colon. No dilated small bowel. NG tube has been removed. No intra-abdominal mass effect. No abnormal calcifications are observed. Righ t upper quadrant and central abdominal surgical clips. Degenerative change s of the spine and hips. IMPRESSION: Mild fe grady retention within the ascending colon and rectum. at 0756 Reported and signed by: Yin Taylor D.O. CC: Calos Negron; Rob Negron MD; Brijesh Muse; Corona Navas MD Technologist: LYNNE CORREA RT(R); Zaira hinojosa RT(R) Trnscrd Date/Time/By: 12/23/2018 (0756) : By: [email or web address] Orig Print D/T: S: 12/23/2018 (0759) PAGE 1 Signed Report - XR CHEST 1 V 2018-12-23 07:54:00 FAX: Calos Mcdowell MD [phone] [place]: St: ADM FAX: Sami Mcdowell MD [phone] FAX: Brijesh Curiel MD FAX: Corona Leyva MD [phone] Name: DELLA MALLOY [facility] : 1950 Age/S: 68/F [address] [facility] Unit #: [id number] Loc: .[address] [address] Phys: Corona Navas MD Acct: [id number] Dis Date: Status: ADM IN PHONE #: [phone] Exam D ate: 12/23/2018 0500 FAX #: [phone] Reason: A cute pulmonary edema EXAMS: CPT CODE: [id number] XR CHEST 1 V 41101 CLINICAL HISTORY: Acute pulmonary edema TECHNIQUE: AP chest x-ray COMPARISON: 12/21/18 IMPRESSION: Improved bilateral interstitial opacities. Left basilar atelectasis. No evident pleural effusion. Normal heart size. Mediastinal silhouette is unremarkable. Left subclavian artery origin s tent. Electronically Signed by Yin Taylor D.O. on 9 at 0754 Reported and signed by: Yin Taylor D.O. CC: Calos Negron; Sami Negron MD; Brijesh Muse; Corona Navas MD Kiel hnologist: LYNNE CORREA, RT(R); Zaira Flores RT(R) Trnscrd Date/T maricruz/By: 12/23/2018 (0754) : By: [email or web address] Orig Print D/T: S: 9 (0752) PAGE 1 Signed Report LACTIC [id number] 07:03:00* Test Item Value Reference Range Comments LACTIC ACID (test code=LACT) 2.3 mmol/L 0.4-1.9 Results called to [id number] by RAHUL 12/23/18 0703Critical results verified and read back by Nurse? Y COMPREHENSIVE METABOLIC [id number] 06:59:00* Test Item Value Reference Range Comments SODIUM (test code=NA) 139 mmol/L 136-145 RESULT VERIFIED BY REPEAT ANALYSIS POTASSIUM (test code=K) 3.0 mmol/L 3.5-5.1 CHLORIDE (test code=CL) 97.0 mmol/L 98-107 CARBON DIOXIDE (test code=CO2) 32.0 mmol/L 21-32 ANION GAP (test code=GAP) 13.0 10-20 GLUCOSE (test code=GLU) 121 mg/dL 74-106 BLOOD UREA NITROGEN (test code=BUN) 5 mg/dL 7-18 GLOMERULAR FILTRATION RATE (test code=GFR) > 60 mL/min >=60 Estimated GFR by using Modified MDRD formula.Chronic kidney disease is defined as either kidney damageor GFR <60 mL/min/1.73 m2 for >3 months. CREATININE (test code=CREAT) 0.80 mg/dL 0.55-1.02 Note change in reference range due to change in reagent. BUN/CREATININE RATIO (test code=BUN/CREA) 6.3 10-20 TOTAL PROTEIN (test code=PROT) 6.9 gram/dL 6.4-8.2 ALBUMIN (test code=ALB) 3.1 g/dL 3.4-5.0 GLOBULIN (test code=GLOB) 3.8 gram/dL 2.7-4.2 ALBUMIN/GLOBULIN RATIO (test code=A/G) 0.8 0.75-1.50 CALCIUM (test code=CA) 9.4 mg/dL 8.5-10.1 BILIRUBIN TOTAL (test code=BILT) 0.80 mg/dL 0.0-1.0 SGOT/AST (test code=AST) 23 IUnit/L 15-37 SGPT/ALT (test code=ALT) 40 IUnit/L 12-78 ALKALINE PHOSPHATASE TOTAL (test code=ALKP) 147 IUnit/L 45-117 Note change in reference range due to change in reagent. [id number] 06:59:00* Test Item Value Reference Range Comments PHOSPHORUS (test code=PHOS) 2.7 mg/dL 2.5-4.9 [id number] 06:59:00* Test Item Value Reference Range Comments AMYLASE (test code=EMILY) 18 Unit/L 25-115 [id number] 06:59:00* Test Item Value Reference Range Comments LIPASE (test code=LIP) 46 U/L 73.0-393.0 [id number] 06:59:00* Test Item Value Reference Range Comments MAGNESIUM (test code=MAG) 1.9 mg/dL 1.8-2.4 TOTAL IRON BINDING [id number] 06:59:00* Test Item Value Reference Range Comments TOTAL IRON BINDING CAPACITY (test code=TIBC) 273 mcg/dL 250-450 THYROID PROFILE [id number] 06:59:00* Test Item Value Reference Range Comments T3 UPTAKE (test code=T3UP) 38.0 % 30.0-40.0 T4 (THYROXINE) (test code=T4) 13.1 ug/dL 4.5-13.9 T7 (FREE THYROXINE INDEX) (test code=T7) 4.97 FTI 1.3-5.1 THYROID STIMULATING HORMONE (test code=TSH) 3.430 uIU/mL 0.36-3.74 TSH REFERENCE RANGES: EUTHYROID: 0.35 - 4.3 mIU/mL HYPO : > 5.5 mIU/mL HYPER : < 0.35 mIU/mL TOTAL [id number] 06:59:00* Test Item Value Reference Range Comments TOTAL T3 (test code=T3) T4 [id number] 06:59:00* Test Item Value Reference Range Comments T4 FREE (test code=T4F) 1.71 ng/dL 0.76-1.46 [id number] 06:59:00* Test Item Value Reference Range Comments TROPONIN-I (test code=TROPI) <0.015 ng/mL 0-0.045 CALCIUM [id number] 06:59:00* Test Item Value Reference Range Comments CALCIUM IONIZED (test code=BIJU) 1.24 mmol/L 1.12-1.32 CBC W/AUTO [id number] 06:23:00* Test Item Value Reference Range Comments WHITE BLOOD CELL (test code=WBC) 8.9 K/mm3 4.5-12.5 RED BLOOD CELL (test code=RBC) 3.76 mill/mm3 3.7-5.2 HEMOGLOBIN (test code=HGB) 10.0 gram/dL 11.5-15.5 HEMATOCRIT (test code=HCT) 31.8 % 36.0-46.0 MEAN CELL VOLUME (test code=MCV) 84.6 fL 80-98 MEAN CELL HGB (test code=MCH) 26.6 picogram 27.0-33.0 MEAN CELL HGB CONCETRATION (test code=MCHC) 31.4 gram/dL 33.0-36.0 RED CELL DISTRIBUTION WIDTH (test code=RDW) 17.8 % 11.6-16.2 RED CELL DISTRIBUTION WIDTH SD (test code=RDW-SD) 53.5 fL 37.0-51.0 PLATELET COUNT (test code=PLT) 309 K/mm3 150-450 RESULT VERIFIED BY REPEAT ANALYSIS MEAN PLATELET VOLUME (test code=MPV) 9.7 fL 6.7-11.0 NEUTROPHIL % (test code=NT%) 65.8 % 39.0-69.0 IMMATURE GRANULOCYTE % (test code=IG%) 0.6 % 0.0-5.0 LYMPHOCYTE % (test code=LY%) 17.4 % 25.0-55.0 MONOCYTE % (test code=MO%) 10.0 % 0.0-10.0 EOSINOPHIL % (test code=EO%) 5.6 % 0.0-5.0 BASOPHIL % (test code=BA%) 0.6 % 0.0-1.0 NUCLEATED RBC % (test code=NRBC%) 0.0 % 0-0 NEUTROPHIL # (test code=NT#) 5.89 K/mm3 1.8-7.7 IMMATURE GRANULOCYTE # (test code=IG#) 0.05 x10 3/uL 0-0.03 LYMPHOCYTE # (test code=LY#) 1.56 K/mm3 1.0-5.0 MONOCYTE # (test code=MO#) 0.89 K/mm3 0-0.8 EOSINOPHIL # (test code=EO#) 0.50 K/mm3 0.0-0.5 BASOPHIL # (test code=BA#) 0.05 K/mm3 0.0-0.2 NUCLEATED RBC # (test code=NRBC#) 0.00 K/mm3 0.0-0.1 COMPREHENSIVE METABOLIC [id number] 06:15:00* Test Item Value Reference Range Comments SODIUM (test code=NA) mmol/L 136-145 POTASSIUM (test code=K) mmol/L 3.5-5.1 CHLORIDE (test code=CL) mmol/L 98-107 CARBON DIOXIDE (test code=CO2) mmol/L 21-32 ANION GAP (test code=GAP) 10-20 GLUCOSE (test code=GLU) mg/dL 74-106 BLOOD UREA NITROGEN (test code=BUN) mg/dL 7-18 GLOMERULAR FILTRATION RATE (test code=GFR) mL/min >=60 CREATININE (test code=CREAT) mg/dL 0.55-1.02 BUN/CREATININE RATIO (test code=BUN/CREA) 10-20 TOTAL PROTEIN (test code=PROT) gram/dL 6.4-8.2 ALBUMIN (test code=ALB) g/dL 3.4-5.0 GLOBULIN (test code=GLOB) gram/dL 2.7-4.2 ALBUMIN/GLOBULIN RATIO (test code=A/G) 0.75-1.50 CALCIUM (test code=CA) mg/dL 8.5-10.1 BILIRUBIN TOTAL (test code=BILT) mg/dL 0.0-1.0 SGOT/AST (test code=AST) IUnit/L 15-37 SGPT/ALT (test code=ALT) IUnit/L 12-78 ALKALINE PHOSPHATASE TOTAL (test code=ALKP) IUnit/L 45-117 [id number] 06:15:00* Test Item Value Reference Range Comments PHOSPHORUS (test code=PHOS) mg/dL 2.5-4.9 [id number] 06:15:00* Test Item Value Reference Range Comments AMYLASE (test code=EMILY) Unit/L 25-115 [id number] 06:15:00* Test Item Value Reference Range Comments LIPASE (test code=LIP) U/L 73.0-393.0 [id number] 06:15:00* Test Item Value Reference Range Comments MAGNESIUM (test code=MAG) mg/dL 1.8-2.4 TOTAL IRON BINDING [id number] 06:15:00* Test Item Value Reference Range Comments TOTAL IRON BINDING CAPACITY (test code=TIBC) mcg/dL 250-450 THYROID PROFILE [id number] 06:15:00* Test Item Value Reference Range Comments T3 UPTAKE (test code=T3UP) % 30.0-40.0 T4 (THYROXINE) (test code=T4) ug/dL 4.5-13.9 T7 (FREE THYROXINE INDEX) (test code=T7) FTI 1.3-5.1 THYROID STIMULATING HORMONE (test code=TSH) uIU/mL 0.36-3.74 TOTAL [id number] 06:15:00* Test Item Value Reference Range Comments TOTAL T3 (test code=T3) T4 [id number] 06:15:00* Test Item Value Reference Range Comments T4 FREE (test code=T4F) ng/dL 0.76-1.46 [id number] 06:15:00* Test Item Value Reference Range Comments TROPONIN-I (test code=TROPI) ng/mL 0-0.045 CALCIUM [id number] 06:15:00* Test Item Value Reference Range Comments CALCIUM IONIZED (test code=BIJU) 1.24 mmol/L 1.12-1.32 COMPREHENSIVE METABOLIC [id number] 18:02:00* Test Item Value Reference Range Comments SODIUM (test code=NA) 144 mmol/L 136-145 POTASSIUM (test code=K) 3.5 mmol/L 3.5-5.1 CHLORIDE (test code=CL) 107.0 mmol/L 98-107 CARBON DIOXIDE (test code=CO2) 29.0 mmol/L 21-32 ANION GAP (test code=GAP) 11.5 10-20 GLUCOSE (test code=GLU) 107 mg/dL 74-106 BLOOD UREA NITROGEN (test code=BUN) 4 mg/dL 7-18 GLOMERULAR FILTRATION RATE (test code=GFR) > 60 mL/min >=60 Estimated GFR by using Modified MDRD formula.Chronic kidney disease is defined as either kidney damageor GFR <60 mL/min/1.73 m2 for >3 months. CREATININE (test code=CREAT) 0.70 mg/dL 0.55-1.02 Note change in reference range due to change in reagent. BUN/CREATININE RATIO (test code=BUN/CREA) 5.7 10-20 TOTAL PROTEIN (test code=PROT) 5.9 gram/dL 6.4-8.2 ALBUMIN (test code=ALB) 2.7 g/dL 3.4-5.0 GLOBULIN (test code=GLOB) 3.2 gram/dL 2.7-4.2 ALBUMIN/GLOBULIN RATIO (test code=A/G) 0.8 0.75-1.50 CALCIUM (test code=CA) 8.7 mg/dL 8.5-10.1 BILIRUBIN TOTAL (test code=BILT) 0.70 mg/dL 0.0-1.0 SGOT/AST (test code=AST) 26 IUnit/L 15-37 SGPT/ALT (test code=ALT) 37 IUnit/L 12-78 ALKALINE PHOSPHATASE TOTAL (test code=ALKP) 123 IUnit/L 45-117 Note change in reference range due to change in reagent. CALCIUM [id number] 18:02:00* Test Item Value Reference Range Comments CALCIUM IONIZED (test code=BIJU) 1.26 mmol/L 1.12-1.32 [id number] 18:01:00* Test Item Value Reference Range Comments MAGNESIUM (test code=MAG) 2.1 mg/dL 1.8-2.4 COMPREHENSIVE METABOLIC [id number] 17:53:00* Test Item Value Reference Range Comments SODIUM (test code=NA) 144 mmol/L 136-145 POTASSIUM (test code=K) 3.5 mmol/L 3.5-5.1 CHLORIDE (test code=CL) 107.0 mmol/L 98-107 CARBON DIOXIDE (test code=CO2) mmol/L 21-32 ANION GAP (test code=GAP) 10-20 GLUCOSE (test code=GLU) mg/dL 74-106 BLOOD UREA NITROGEN (test code=BUN) mg/dL 7-18 GLOMERULAR FILTRATION RATE (test code=GFR) mL/min >=60 CREATININE (test code=CREAT) mg/dL 0.55-1.02 BUN/CREATININE RATIO (test code=BUN/CREA) 10-20 TOTAL PROTEIN (test code=PROT) gram/dL 6.4-8.2 ALBUMIN (test code=ALB) g/dL 3.4-5.0 GLOBULIN (test code=GLOB) gram/dL 2.7-4.2 ALBUMIN/GLOBULIN RATIO (test code=A/G) 0.75-1.50 CALCIUM (test code=CA) mg/dL 8.5-10.1 BILIRUBIN TOTAL (test code=BILT) mg/dL 0.0-1.0 SGOT/AST (test code=AST) IUnit/L 15-37 SGPT/ALT (test code=ALT) IUnit/L 12-78 ALKALINE PHOSPHATASE TOTAL (test code=ALKP) IUnit/L 45-117 CALCIUM [id number] 17:53:00* Test Item Value Reference Range Comments CALCIUM IONIZED (test code=BIJU) 1.26 mmol/L 1.12-1.32 COMPREHENSIVE METABOLIC [id number] 17:49:00* Test Item Value Reference Range Comments SODIUM (test code=NA) mmol/L 136-145 POTASSIUM (test code=K) mmol/L 3.5-5.1 CHLORIDE (test code=CL) mmol/L 98-107 CARBON DIOXIDE (test code=CO2) mmol/L 21-32 ANION GAP (test code=GAP) 10-20 GLUCOSE (test code=GLU) mg/dL 74-106 BLOOD UREA NITROGEN (test code=BUN) mg/dL 7-18 GLOMERULAR FILTRATION RATE (test code=GFR) mL/min >=60 CREATININE (test code=CREAT) mg/dL 0.55-1.02 BUN/CREATININE RATIO (test code=BUN/CREA) 10-20 TOTAL PROTEIN (test code=PROT) gram/dL 6.4-8.2 ALBUMIN (test code=ALB) g/dL 3.4-5.0 GLOBULIN (test code=GLOB) gram/dL 2.7-4.2 ALBUMIN/GLOBULIN RATIO (test code=A/G) 0.75-1.50 CALCIUM (test code=CA) mg/dL 8.5-10.1 BILIRUBIN TOTAL (test code=BILT) mg/dL 0.0-1.0 SGOT/AST (test code=AST) IUnit/L 15-37 SGPT/ALT (test code=ALT) IUnit/L 12-78 ALKALINE PHOSPHATASE TOTAL (test code=ALKP) IUnit/L 45-117 CALCIUM [id number] 17:49:00* Test Item Value Reference Range Comments CALCIUM IONIZED (test code=BIJU) 1.26 mmol/L 1.12-1.32 B-TYPE NATRIURETIC [id number] 06:03:00* Test Item Value Reference Range Comments B-TYPE NATRIURETIC PEPTIDE (test code=BNP) 49.53 pgram/mL 0-100 Has Patient received Natrecor? NOBASIC METABOLIC [id number] 05:23:00* Test Item Value Reference Range Comments SODIUM (test code=NA) 143 mmol/L 136-145 POTASSIUM (test code=K) 3.8 mmol/L 3.5-5.1 CHLORIDE (test code=CL) 107.0 mmol/L 98-107 CARBON DIOXIDE (test code=CO2) 29.0 mmol/L 21-32 ANION GAP (test code=GAP) 10.8 10-20 GLUCOSE (test code=GLU) 103 mg/dL 74-106 BLOOD UREA NITROGEN (test code=BUN) 5 mg/dL 7-18 GLOMERULAR FILTRATION RATE (test code=GFR) > 60 mL/min >=60 Estimated GFR by using Modified MDRD formula.Chronic kidney disease is defined as either kidney damageor GFR <60 mL/min/1.73 m2 for >3 months. CREATININE (test code=CREAT) 0.60 mg/dL 0.55-1.02 Note change in reference range due to change in reagent. BUN/CREATININE RATIO (test code=BUN/CREA) 8.3 10-20 CALCIUM (test code=CA) 8.8 mg/dL 8.5-10.1 [id number] 05:23:00* Test Item Value Reference Range Comments PHOSPHORUS (test code=PHOS) 2.9 mg/dL 2.5-4.9 [id number] 05:23:00* Test Item Value Reference Range Comments MAGNESIUM (test code=MAG) 2.3 mg/dL 1.8-2.4 BASIC METABOLIC [id number] 05:11:00* Test Item Value Reference Range Comments SODIUM (test code=NA) 143 mmol/L 136-145 POTASSIUM (test code=K) 3.8 mmol/L 3.5-5.1 CHLORIDE (test code=CL) 107.0 mmol/L 98-107 CARBON DIOXIDE (test code=CO2) mmol/L 21-32 ANION GAP (test code=GAP) 10-20 GLUCOSE (test code=GLU) mg/dL 74-106 BLOOD UREA NITROGEN (test code=BUN) mg/dL 7-18 GLOMERULAR FILTRATION RATE (test code=GFR) mL/min >=60 CREATININE (test code=CREAT) mg/dL 0.55-1.02 BUN/CREATININE RATIO (test code=BUN/CREA) 10-20 CALCIUM (test code=CA) mg/dL 8.5-10.1 [id number] 05:11:00* Test Item Value Reference Range Comments PHOSPHORUS (test code=PHOS) mg/dL 2.5-4.9 [id number] 05:11:00* Test Item Value Reference Range Comments MAGNESIUM (test code=MAG) mg/dL 1.8-2.4 CBC W/AUTO [id number] 04:51:00* Test Item Value Reference Range Comments WHITE BLOOD CELL (test code=WBC) 6.4 K/mm3 4.5-12.5 RED BLOOD CELL (test code=RBC) 3.13 mill/mm3 3.7-5.2 HEMOGLOBIN (test code=HGB) 8.5 gram/dL 11.5-15.5 HEMATOCRIT (test code=HCT) 27.9 % 36.0-46.0 MEAN CELL VOLUME (test code=MCV) 89.1 fL 80-98 MEAN CELL HGB (test code=MCH) 27.2 picogram 27.0-33.0 MEAN CELL HGB CONCETRATION (test code=MCHC) 30.5 gram/dL 33.0-36.0 RED CELL DISTRIBUTION WIDTH (test code=RDW) 17.7 % 11.6-16.2 RED CELL DISTRIBUTION WIDTH SD (test code=RDW-SD) 57.1 fL 37.0-51.0 PLATELET COUNT (test code=PLT) 221 K/mm3 150-450 MEAN PLATELET VOLUME (test code=MPV) 9.5 fL 6.7-11.0 NEUTROPHIL % (test code=NT%) 61.9 % 39.0-69.0 IMMATURE GRANULOCYTE % (test code=IG%) 0.6 % 0.0-5.0 LYMPHOCYTE % (test code=LY%) 22.6 % 25.0-55.0 MONOCYTE % (test code=MO%) 8.5 % 0.0-10.0 EOSINOPHIL % (test code=EO%) 5.8 % 0.0-5.0 BASOPHIL % (test code=BA%) 0.6 % 0.0-1.0 NUCLEATED RBC % (test code=NRBC%) 0.0 % 0-0 NEUTROPHIL # (test code=NT#) 3.93 K/mm3 1.8-7.7 IMMATURE GRANULOCYTE # (test code=IG#) 0.04 x10 3/uL 0-0.03 LYMPHOCYTE # (test code=LY#) 1.44 K/mm3 1.0-5.0 MONOCYTE # (test code=MO#) 0.54 K/mm3 0-0.8 EOSINOPHIL # (test code=EO#) 0.37 K/mm3 0.0-0.5 BASOPHIL # (test code=BA#) 0.04 K/mm3 0.0-0.2 NUCLEATED RBC # (test code=NRBC#) 0.00 K/mm3 0.0-0.1 MANUAL DIFF REQUIRED (test code=MDIFF) NO LACTIC [id number] 11:31:00* Test Item Value Reference Range Comments LACTIC ACID (test code=LACT) 1.1 mmol/L 0.4-1.9 PROCALCITONIN (PCT)2018-12-21 11:19:00* Test Item Value Reference Range Comments PROCALCITONIN (PCT) (test code=PROCAL) 0.66 ng/ml Concentration Interpretation (ng/mL) <0.51 Sepsis is not likely. Local bacterial infection is possible. (LOW RISK for progression to Sepsis) 0.51 - 2.00 Sepsis is possible, but other conditions are known to elevate PCT as well. (MODERATE RISK for progression to Sepsis) > 2.00 Sepsis is likely, unless other causes are known. (HIGH RISK for progression to Severe Sepsis or Septic Shock) 10.00 High likelihood of Severe Sepsis or Septic or higher Shock. *Increased PCT levels may not always be related to systemic bacterial infection.*Low PCT levels do not automatically exclude the presence of bacterial infection.*All results should be interpreted taking into account the patients history. ADD ON TO MORNING LABSBASIC METABOLIC [id number] 06:39:00* Test Item Value Reference Range Comments SODIUM (test code=NA) 142 mmol/L 136-145 POTASSIUM (test code=K) 3.4 mmol/L 3.5-5.1 CHLORIDE (test code=CL) 105.0 mmol/L 98-107 CARBON DIOXIDE (test code=CO2) 31.0 mmol/L 21-32 ANION GAP (test code=GAP) 9.4 10-20 GLUCOSE (test code=GLU) 98 mg/dL 74-106 BLOOD UREA NITROGEN (test code=BUN) 8 mg/dL 7-18 GLOMERULAR FILTRATION RATE (test code=GFR) > 60 mL/min >=60 Estimated GFR by using Modified MDRD formula.Chronic kidney disease is defined as either kidney damageor GFR <60 mL/min/1.73 m2 for >3 months. CREATININE (test code=CREAT) 0.60 mg/dL 0.55-1.02 Note change in reference range due to change in reagent. BUN/CREATININE RATIO (test code=BUN/CREA) 14.2 10-20 CALCIUM (test code=CA) 8.3 mg/dL 8.5-10.1 [id number] 06:39:00* Test Item Value Reference Range Comments PHOSPHORUS (test code=PHOS) 2.6 mg/dL 2.5-4.9 [id number] 06:39:00* Test Item Value Reference Range Comments MAGNESIUM (test code=MAG) 2.2 mg/dL 1.8-2.4 CALCIUM [id number] 06:39:00* Test Item Value Reference Range Comments CALCIUM IONIZED (test code=BIJU) 1.18 mmol/L 1.12-1.32 - XR CHEST 1 [id number] 06:08:00 FAX: Calos Mcdowell MD [phone] [place]: St: ADM FAX: Sami Mcdowell MD [phone] FAX: Brijesh Curiel MD FAX: Heath Blackmon [employer] [phone] Name: DELLA MALLOY [facility] : 1950 Age/S: 68/F [address] [facility] Unit #: [id number] Loc: V.[address] [place] [address] Phys: Heath Blackmon NP Acct: [id number] Dis Date: Status: ADM IN PHONE #: [phone] Exam D ate: 12/21/2018 0524 FAX #: [phone] Reason: i nterstitial edema EXAMS: CPT CODE: [id number] XR CHEST 1 V 52109 Location: T 18 Chest x-ray exam, AP frontal projection, one view, 12/21/18 Comparison exam: 11/23 01/10 chest x-ray exam CLINICAL HISTORY: Interstitial edema Heart size is prominent with interstitial edema similar extent and with small left-sided pleural effusion. Previously seen left-sided central venous line has been removed. Lung volume is shallow. IMPRESSIO N: Fluid overload similar to the prior exam Removal left-sided central venous line at 0608 Reported and signed by: Allyson ace M.D. CC: Calos Negron; Sami Negron MD; Johanna Muse; Heath Blackmon NP Technologist: DEVIN Farris rnscrd Date/Time/By: 12/21/2018 (0608) : By: [email or web address] Orig Print D/T: S: 12/21/2018 (0611) PAGE 1 Sign ed Report BASIC METABOLIC [id number] 06:06:00 * Test Item Value Reference Range Comments SODIUM (test code=NA) 142 mmol/L 136-145 POTASSIUM (test code=K) 3.4 mmol/L 3.5-5.1 CHLORIDE (test code=CL) 105.0 mmol/L 98-107 CARBON DIOXIDE (test code=CO2) 31.0 mmol/L 21-32 ANION GAP (test code=GAP) 9.4 10-20 GLUCOSE (test code=GLU) 98 mg/dL 74-106 BLOOD UREA NITROGEN (test code=BUN) 8 mg/dL 7-18 GLOMERULAR FILTRATION RATE (test code=GFR) > 60 mL/min >=60 Estimated GFR by using Modified MDRD formula.Chronic kidney disease is defined as either kidney damageor GFR <60 mL/min/1.73 m2 for >3 months. CREATININE (test code=CREAT) 0.60 mg/dL 0.55-1.02 Note change in reference range due to change in reagent. BUN/CREATININE RATIO (test code=BUN/CREA) 14.2 10-20 CALCIUM (test code=CA) 8.3 mg/dL 8.5-10.1 [id number] 06:06:00* Test Item Value Reference Range Comments PHOSPHORUS (test code=PHOS) 2.6 mg/dL 2.5-4.9 [id number] 06:06:00* Test Item Value Reference Range Comments MAGNESIUM (test code=MAG) 2.2 mg/dL 1.8-2.4 CALCIUM [id number] 06:06:00* Test Item Value Reference Range Comments CALCIUM IONIZED (test code=BIJU) mmol/L 1.12-1.32 BASIC METABOLIC [id number] 06:01:00* Test Item Value Reference Range Comments SODIUM (test code=NA) 142 mmol/L 136-145 POTASSIUM (test code=K) 3.4 mmol/L 3.5-5.1 CHLORIDE (test code=CL) 105.0 mmol/L 98-107 CARBON DIOXIDE (test code=CO2) mmol/L 21-32 ANION GAP (test code=GAP) 10-20 GLUCOSE (test code=GLU) mg/dL 74-106 BLOOD UREA NITROGEN (test code=BUN) mg/dL 7-18 GLOMERULAR FILTRATION RATE (test code=GFR) mL/min >=60 CREATININE (test code=CREAT) mg/dL 0.55-1.02 BUN/CREATININE RATIO (test code=BUN/CREA) 10-20 CALCIUM (test code=CA) mg/dL 8.5-10.1 [id number] 06:01:00* Test Item Value Reference Range Comments PHOSPHORUS (test code=PHOS) mg/dL 2.5-4.9 [id number] 06:01:00* Test Item Value Reference Range Comments MAGNESIUM (test code=MAG) mg/dL 1.8-2.4 CALCIUM [id number] 06:01:00* Test Item Value Reference Range Comments CALCIUM IONIZED (test code=BIJU) mmol/L 1.12-1.32 CBC W/AUTO [id number] 05:44:00* Test Item Value Reference Range Comments WHITE BLOOD CELL (test code=WBC) 7.0 K/mm3 4.5-12.5 RED BLOOD CELL (test code=RBC) 2.88 mill/mm3 3.7-5.2 HEMOGLOBIN (test code=HGB) 7.7 gram/dL 11.5-15.5 HEMATOCRIT (test code=HCT) 24.8 % 36.0-46.0 MEAN CELL VOLUME (test code=MCV) 86.1 fL 80-98 MEAN CELL HGB (test code=MCH) 26.7 picogram 27.0-33.0 MEAN CELL HGB CONCETRATION (test code=MCHC) 31.0 gram/dL 33.0-36.0 RED CELL DISTRIBUTION WIDTH (test code=RDW) 17.6 % 11.6-16.2 RED CELL DISTRIBUTION WIDTH SD (test code=RDW-SD) 55.3 fL 37.0-51.0 PLATELET COUNT (test code=PLT) 182 K/mm3 150-450 MEAN PLATELET VOLUME (test code=MPV) 9.4 fL 6.7-11.0 NEUTROPHIL % (test code=NT%) 64.2 % 39.0-69.0 IMMATURE GRANULOCYTE % (test code=IG%) 0.3 % 0.0-5.0 LYMPHOCYTE % (test code=LY%) 24.9 % 25.0-55.0 MONOCYTE % (test code=MO%) 7.0 % 0.0-10.0 EOSINOPHIL % (test code=EO%) 3.0 % 0.0-5.0 BASOPHIL % (test code=BA%) 0.6 % 0.0-1.0 NUCLEATED RBC % (test code=NRBC%) 0.0 % 0-0 NEUTROPHIL # (test code=NT#) 4.52 K/mm3 1.8-7.7 IMMATURE GRANULOCYTE # (test code=IG#) 0.02 x10 3/uL 0-0.03 LYMPHOCYTE # (test code=LY#) 1.75 K/mm3 1.0-5.0 MONOCYTE # (test code=MO#) 0.49 K/mm3 0-0.8 EOSINOPHIL # (test code=EO#) 0.21 K/mm3 0.0-0.5 BASOPHIL # (test code=BA#) 0.04 K/mm3 0.0-0.2 NUCLEATED RBC # (test code=NRBC#) 0.00 K/mm3 0.0-0.1 MANUAL DIFF REQUIRED (test code=MDIFF) NO [id number] 12:02:00* Test Item Value Reference Range Comments TROPONIN-I (test code=TROPI) <0.015 ng/mL 0-0.045 [id number] 10:56:00* Test Item Value Reference Range Comments GLUBED (test code=GLUBED) 107 mg/dL 74-106 Performed by certified cloth doubling machine operator at [facility] BASIC METABOLIC [id number] 07:34:00* Test Item Value Reference Range Comments SODIUM (test code=NA) 145 mmol/L 136-145 POTASSIUM (test code=K) 3.8 mmol/L 3.5-5.1 CHLORIDE (test code=CL) 108.0 mmol/L 98-107 CARBON DIOXIDE (test code=CO2) 28.0 mmol/L 21-32 ANION GAP (test code=GAP) 12.8 10-20 GLUCOSE (test code=GLU) 94 mg/dL 74-106 BLOOD UREA NITROGEN (test code=BUN) 10 mg/dL 7-18 GLOMERULAR FILTRATION RATE (test code=GFR) > 60 mL/min >=60 Estimated GFR by using Modified MDRD formula.Chronic kidney disease is defined as either kidney damageor GFR <60 mL/min/1.73 m2 for >3 months. CREATININE (test code=CREAT) 0.60 mg/dL 0.55-1.02 Note change in reference range due to change in reagent. BUN/CREATININE RATIO (test code=BUN/CREA) 16.4 10-20 CALCIUM (test code=CA) 8.0 mg/dL 8.5-10.1 [id number] 07:34:00* Test Item Value Reference Range Comments PHOSPHORUS (test code=PHOS) 2.5 mg/dL 2.5-4.9 [id number] 07:34:00* Test Item Value Reference Range Comments MAGNESIUM (test code=MAG) 2.1 mg/dL 1.8-2.4 CALCIUM [id number] 07:34:00* Test Item Value Reference Range Comments CALCIUM IONIZED (test code=BIJU) 1.21 mmol/L 1.12-1.32 BASIC METABOLIC [id number] 07:16:00* Test Item Value Reference Range Comments SODIUM (test code=NA) 145 mmol/L 136-145 POTASSIUM (test code=K) 3.8 mmol/L 3.5-5.1 CHLORIDE (test code=CL) 108.0 mmol/L 98-107 CARBON DIOXIDE (test code=CO2) 28.0 mmol/L 21-32 ANION GAP (test code=GAP) 12.8 10-20 GLUCOSE (test code=GLU) 94 mg/dL 74-106 BLOOD UREA NITROGEN (test code=BUN) 10 mg/dL 7-18 GLOMERULAR FILTRATION RATE (test code=GFR) > 60 mL/min >=60 Estimated GFR by using Modified MDRD formula.Chronic kidney disease is defined as either kidney damageor GFR <60 mL/min/1.73 m2 for >3 months. CREATININE (test code=CREAT) 0.60 mg/dL 0.55-1.02 Note change in reference range due to change in reagent. BUN/CREATININE RATIO (test code=BUN/CREA) 16.4 10-20 CALCIUM (test code=CA) 8.0 mg/dL 8.5-10.1 [id number] 07:16:00* Test Item Value Reference Range Comments PHOSPHORUS (test code=PHOS) 2.5 mg/dL 2.5-4.9 [id number] 07:16:00* Test Item Value Reference Range Comments MAGNESIUM (test code=MAG) 2.1 mg/dL 1.8-2.4 CALCIUM [id number] 07:16:00* Test Item Value Reference Range Comments CALCIUM IONIZED (test code=BIJU) mmol/L 1.12-1.32 BASIC METABOLIC [id number] 07:09:00* Test Item Value Reference Range Comments SODIUM (test code=NA) 145 mmol/L 136-145 POTASSIUM (test code=K) 3.8 mmol/L 3.5-5.1 CHLORIDE (test code=CL) 108.0 mmol/L 98-107 CARBON DIOXIDE (test code=CO2) mmol/L 21-32 ANION GAP (test code=GAP) 10-20 GLUCOSE (test code=GLU) mg/dL 74-106 BLOOD UREA NITROGEN (test code=BUN) mg/dL 7-18 GLOMERULAR FILTRATION RATE (test code=GFR) mL/min >=60 CREATININE (test code=CREAT) mg/dL 0.55-1.02 BUN/CREATININE RATIO (test code=BUN/CREA) 10-20 CALCIUM (test code=CA) mg/dL 8.5-10.1 [id number] 07:09:00* Test Item Value Reference Range Comments PHOSPHORUS (test code=PHOS) mg/dL 2.5-4.9 [id number] 07:09:00* Test Item Value Reference Range Comments MAGNESIUM (test code=MAG) mg/dL 1.8-2.4 CALCIUM [id number] 07:09:00* Test Item Value Reference Range Comments CALCIUM IONIZED (test code=BIJU) mmol/L 1.12-1.32 CBC W/AUTO [id number] 06:50:00* Test Item Value Reference Range Comments WHITE BLOOD CELL (test code=WBC) 8.9 K/mm3 4.5-12.5 RED BLOOD CELL (test code=RBC) 3.18 mill/mm3 3.7-5.2 HEMOGLOBIN (test code=HGB) 8.6 gram/dL 11.5-15.5 HEMATOCRIT (test code=HCT) 27.8 % 36.0-46.0 MEAN CELL VOLUME (test code=MCV) 87.4 fL 80-98 MEAN CELL HGB (test code=MCH) 27.0 picogram 27.0-33.0 MEAN CELL HGB CONCETRATION (test code=MCHC) 30.9 gram/dL 33.0-36.0 RED CELL DISTRIBUTION WIDTH (test code=RDW) 18.2 % 11.6-16.2 RED CELL DISTRIBUTION WIDTH SD (test code=RDW-SD) 58.7 fL 37.0-51.0 PLATELET COUNT (test code=PLT) 180 K/mm3 150-450 MEAN PLATELET VOLUME (test code=MPV) 9.5 fL 6.7-11.0 NEUTROPHIL % (test code=NT%) 67.6 % 39.0-69.0 IMMATURE GRANULOCYTE % (test code=IG%) 0.5 % 0.0-5.0 LYMPHOCYTE % (test code=LY%) 22.3 % 25.0-55.0 MONOCYTE % (test code=MO%) 8.0 % 0.0-10.0 EOSINOPHIL % (test code=EO%) 1.1 % 0.0-5.0 BASOPHIL % (test code=BA%) 0.5 % 0.0-1.0 NUCLEATED RBC % (test code=NRBC%) 0.0 % 0-0 NEUTROPHIL # (test code=NT#) 5.99 K/mm3 1.8-7.7 IMMATURE GRANULOCYTE # (test code=IG#) 0.04 x10 3/uL 0-0.03 LYMPHOCYTE # (test code=LY#) 1.98 K/mm3 1.0-5.0 MONOCYTE # (test code=MO#) 0.71 K/mm3 0-0.8 EOSINOPHIL # (test code=EO#) 0.10 K/mm3 0.0-0.5 BASOPHIL # (test code=BA#) 0.04 K/mm3 0.0-0.2 NUCLEATED RBC # (test code=NRBC#) 0.00 K/mm3 0.0-0.1 MANUAL DIFF REQUIRED (test code=MDIFF) NO - XR CHEST 1 [id number] 06:10:00 FAX: Raysa Fallon NP [phone] [place]: St: ADM FAX: Calos Mcdowell MD [phone] FAX: Sami Mcdowell MD [phone] FAX: Brijesh Curiel MD Name: DELLA MALLOY [facility] : 1950 Age/S: 68/F [address] [facility] Unit #: [id number] Loc: V[address] [place] [address] Phys: Raysa Fallon NP Acct: [id number] Dis Date: Status: ADM IN PHONE #: [phone] Exam D ate: 12/20/2018 05 FAX #: [phone] Reason: s ob EXAMS: CPT CODE: [id number] XR CHEST 1 V 18242 CLINICAL HISTORY: Shortness of breath TECHNIQUE: AP chest x-ray COMPARISON: Previous day. IMPRESSION: Low lung volumes with increased bibasilar atelectasis. Normal heart size. Left subclavian artery stent. Left kev tral venous catheter remains in place. E lectronically Signed by Yin Taylor D.O. on 12/20/2018 at 0610 Reported and signed by: Yin Taylor D.O. CC: Branden Fallon NP; Calos Negron; Sami Negron MD; Brijesh Mues Technologist: DEVIN ALTMAN JR Trnvtrd Date/Time/By: 12/20/2018 (0610) : By: [email or web address] Orig Print D/T: S: 12/20/2018 (0626) PAGE 1 Signed Report GLUBED 2018-12-20 05:19:00* Test Item Value Reference Range Comments GLUBED (test code=GLUBED) 89 mg/dL 74-106 Performed by certified cloth doubling machine operator at [facility] [id number] 22:25:00* Test Item Value Reference Range Comments GLUBED (test code=GLUBED) 94 mg/dL 74-106 Performed by certified cloth doubling machine operator at [facility] [id number] 17:13:00* Test Item Value Reference Range Comments GLUBED (test code=GLUBED) 112 mg/dL 74-106 Performed by certified cloth doubling machine operator at [facility] [id number] 10:26:00* Test Item Value Reference Range Comments TROPONIN-I (test code=TROPI) 0.042 ng/mL 0-0.045 LACTIC [id number] 10:25:00* Test Item Value Reference Range Comments LACTIC ACID (test code=LACT) 1.4 mmol/L 0.4-1.9 BASIC METABOLIC [id number] 06:50:00* Test Item Value Reference Range Comments SODIUM (test code=NA) 144 mmol/L 136-145 POTASSIUM (test code=K) 4.0 mmol/L 3.5-5.1 CHLORIDE (test code=CL) 109.0 mmol/L 98-107 CARBON DIOXIDE (test code=CO2) 28.0 mmol/L 21-32 ANION GAP (test code=GAP) 11.0 10-20 GLUCOSE (test code=GLU) 111 mg/dL 74-106 BLOOD UREA NITROGEN (test code=BUN) 11 mg/dL 7-18 GLOMERULAR FILTRATION RATE (test code=GFR) > 60 mL/min >=60 Estimated GFR by using Modified MDRD formula.Chronic kidney disease is defined as either kidney damageor GFR <60 mL/min/1.73 m2 for >3 months. CREATININE (test code=CREAT) 0.60 mg/dL 0.55-1.02 Note change in reference range due to change in reagent. BUN/CREATININE RATIO (test code=BUN/CREA) 18.3 10-20 CALCIUM (test code=CA) 8.0 mg/dL 8.5-10.1 [id number] 06:50:00* Test Item Value Reference Range Comments PHOSPHORUS (test code=PHOS) 2.9 mg/dL 2.5-4.9 [id number] 06:50:00* Test Item Value Reference Range Comments MAGNESIUM (test code=MAG) 2.1 mg/dL 1.8-2.4 CALCIUM [id number] 06:50:00* Test Item Value Reference Range Comments CALCIUM IONIZED (test code=BIJU) 1.17 mmol/L 1.12-1.32 BASIC METABOLIC [id number] 06:16:00* Test Item Value Reference Range Comments SODIUM (test code=NA) 144 mmol/L 136-145 POTASSIUM (test code=K) 4.0 mmol/L 3.5-5.1 CHLORIDE (test code=CL) 109.0 mmol/L 98-107 CARBON DIOXIDE (test code=CO2) mmol/L 21-32 ANION GAP (test code=GAP) 10-20 GLUCOSE (test code=GLU) mg/dL 74-106 BLOOD UREA NITROGEN (test code=BUN) mg/dL 7-18 GLOMERULAR FILTRATION RATE (test code=GFR) mL/min >=60 CREATININE (test code=CREAT) mg/dL 0.55-1.02 BUN/CREATININE RATIO (test code=BUN/CREA) 10-20 CALCIUM (test code=CA) mg/dL 8.5-10.1 [id number] 06:16:00* Test Item Value Reference Range Comments PHOSPHORUS (test code=PHOS) mg/dL 2.5-4.9 [id number] 06:16:00* Test Item Value Reference Range Comments MAGNESIUM (test code=MAG) mg/dL 1.8-2.4 CALCIUM [id number] 06:16:00* Test Item Value Reference Range Comments CALCIUM IONIZED (test code=BIJU) 1.17 mmol/L 1.12-1.32 - XR CHEST 1 [id number] 06:12:00 FAX: Raysa Fallon NP [phone] [place]: B St: ADM FAX: Calos Mcdowell MD [phone] FAX: Sami Mcdowell MD [phone] FAX: Brijesh Curiel MD Name: DELLA MALLOY [facility] : 1950 Age/S: 68/F [address] [facility] Unit #: [id number] Loc: V[address] [place] [address] Phys: Raysa Fallon NP Acct: [id number] Dis Date: Status: ADM IN PHONE #: [phone] Exam D ate: 12/19/2018514 FAX #: [phone] Reason: s ob EXAMS: CPT CODE: [id number] XR CHEST 1 V 15566 CLINICAL HISTORY: Shortness of breath TECHNIQUE: AP chest x-ray COMPARISON: Previous day. IMPRESSION: Low lung volumes. Left retrocardiac atel ectasis/consolidation. Normal heart size. Left subclavian artery stent. ET and NG tubes have been removed. Left central venous catheter remains in place. Electronically Signed by Yin Taylor D.O. on 12/19 at 0612 Reported and signed by: Yin Taylor D.O. CC: Raysa Fallon NP; Calos Negron; Sami Negron MD; Brijesh Muse Technologist: DEVIN ALTMAN JR Trnscrd Da te/Time/By: 12/19/2018 (0612) : By: [email or web address] Orig Print D/T: S: 12/19 (0615) PAGE 1 Signed Report BASIC METABOLIC [id number] 06:08:00* Test Item Value Reference Range Comments SODIUM (test code=NA) mmol/L 136-145 POTASSIUM (test code=K) mmol/L 3.5-5.1 CHLORIDE (test code=CL) mmol/L 98-107 CARBON DIOXIDE (test code=CO2) mmol/L 21-32 ANION GAP (test code=GAP) 10-20 GLUCOSE (test code=GLU) mg/dL 74-106 BLOOD UREA NITROGEN (test code=BUN) mg/dL 7-18 GLOMERULAR FILTRATION RATE (test code=GFR) mL/min >=60 CREATININE (test code=CREAT) mg/dL 0.55-1.02 BUN/CREATININE RATIO (test code=BUN/CREA) 10-20 CALCIUM (test code=CA) mg/dL 8.5-10.1 [id number] 06:08:00* Test Item Value Reference Range Comments PHOSPHORUS (test code=PHOS) mg/dL 2.5-4.9 [id number] 06:08:00* Test Item Value Reference Range Comments MAGNESIUM (test code=MAG) mg/dL 1.8-2.4 CALCIUM [id number] 06:08:00* Test Item Value Reference Range Comments CALCIUM IONIZED (test code=BIJU) 1.17 mmol/L 1.12-1.32 CBC W/AUTO [id number] 05:46:00* Test Item Value Reference Range Comments WHITE BLOOD CELL (test code=WBC) 11.5 K/mm3 4.5-12.5 RED BLOOD CELL (test code=RBC) 3.52 mill/mm3 3.7-5.2 HEMOGLOBIN (test code=HGB) 9.3 gram/dL 11.5-15.5 HEMATOCRIT (test code=HCT) 30.1 % 36.0-46.0 MEAN CELL VOLUME (test code=MCV) 85.5 fL 80-98 MEAN CELL HGB (test code=MCH) 26.4 picogram 27.0-33.0 MEAN CELL HGB CONCETRATION (test code=MCHC) 30.9 gram/dL 33.0-36.0 RED CELL DISTRIBUTION WIDTH (test code=RDW) 18.4 % 11.6-16.2 RED CELL DISTRIBUTION WIDTH SD (test code=RDW-SD) 57.8 fL 37.0-51.0 PLATELET COUNT (test code=PLT) 182 K/mm3 150-450 MEAN PLATELET VOLUME (test code=MPV) 9.7 fL 6.7-11.0 NEUTROPHIL % (test code=NT%) 77.0 % 39.0-69.0 IMMATURE GRANULOCYTE % (test code=IG%) 0.3 % 0.0-5.0 LYMPHOCYTE % (test code=LY%) 13.4 % 25.0-55.0 MONOCYTE % (test code=MO%) 8.8 % 0.0-10.0 EOSINOPHIL % (test code=EO%) 0.2 % 0.0-5.0 BASOPHIL % (test code=BA%) 0.3 % 0.0-1.0 NUCLEATED RBC % (test code=NRBC%) 0.0 % 0-0 NEUTROPHIL # (test code=NT#) 8.84 K/mm3 1.8-7.7 IMMATURE GRANULOCYTE # (test code=IG#) 0.04 x10 3/uL 0-0.03 LYMPHOCYTE # (test code=LY#) 1.54 K/mm3 1.0-5.0 MONOCYTE # (test code=MO#) 1.01 K/mm3 0-0.8 EOSINOPHIL # (test code=EO#) 0.02 K/mm3 0.0-0.5 BASOPHIL # (test code=BA#) 0.03 K/mm3 0.0-0.2 NUCLEATED RBC # (test code=NRBC#) 0.00 K/mm3 0.0-0.1 [id number] 05:33:00* Test Item Value Reference Range Comments GLUBED (test code=GLUBED) 114 mg/dL 74-106 Performed by certified cloth doubling machine operator at [facility] [id number] 22:42:00* Test Item Value Reference Range Comments GLUBED (test code=GLUBED) 141 mg/dL 74-106 Performed by certified cloth doubling machine operator at [facility] [id number] 20:24:00* Test Item Value Reference Range Comments GLUBED (test code=GLUBED) 146 mg/dL 74-106 Performed by certified cloth doubling machine operator at [facility] [id number] 20:24:00* Test Item Value Reference Range Comments GLUBED (test code=GLUBED) 143 mg/dL 74-106 Performed by certified cloth doubling machine operator at [facility] LACTIC [id number] 20:00:00* Test Item Value Reference Range Comments LACTIC ACID (test code=LACT) 2.3 mmol/L 0.4-1.9 Results called to [id number] by V.[facility] 12/18/18 2000Critical results verified and read back by Nurse? Y CBC W/AUTO [id number] 17:02:00* Test Item Value Reference Range Comments WHITE BLOOD CELL (test code=WBC) 12.7 K/mm3 4.5-12.5 RED BLOOD CELL (test code=RBC) 3.61 mill/mm3 3.7-5.2 HEMOGLOBIN (test code=HGB) 9.7 gram/dL 11.5-15.5 HEMATOCRIT (test code=HCT) 31.6 % 36.0-46.0 MEAN CELL VOLUME (test code=MCV) 87.5 fL 80-98 MEAN CELL HGB (test code=MCH) 26.9 picogram 27.0-33.0 MEAN CELL HGB CONCETRATION (test code=MCHC) 30.7 gram/dL 33.0-36.0 RED CELL DISTRIBUTION WIDTH (test code=RDW) 18.1 % 11.6-16.2 RED CELL DISTRIBUTION WIDTH SD (test code=RDW-SD) 58.4 fL 37.0-51.0 PLATELET COUNT (test code=PLT) 191 K/mm3 150-450 MEAN PLATELET VOLUME (test code=MPV) 9.6 fL 6.7-11.0 NEUTROPHIL % (test code=NT%) 79.9 % 39.0-69.0 IMMATURE GRANULOCYTE % (test code=IG%) 0.6 % 0.0-5.0 LYMPHOCYTE % (test code=LY%) 7.5 % 25.0-55.0 MONOCYTE % (test code=MO%) 11.8 % 0.0-10.0 EOSINOPHIL % (test code=EO%) 0.0 % 0.0-5.0 BASOPHIL % (test code=BA%) 0.2 % 0.0-1.0 NUCLEATED RBC % (test code=NRBC%) 0.0 % 0-0 NEUTROPHIL # (test code=NT#) 10.16 K/mm3 1.8-7.7 IMMATURE GRANULOCYTE # (test code=IG#) 0.07 x10 3/uL 0-0.03 LYMPHOCYTE # (test code=LY#) 0.95 K/mm3 1.0-5.0 MONOCYTE # (test code=MO#) 1.50 K/mm3 0-0.8 EOSINOPHIL # (test code=EO#) 0.00 K/mm3 0.0-0.5 BASOPHIL # (test code=BA#) 0.03 K/mm3 0.0-0.2 NUCLEATED RBC # (test code=NRBC#) 0.00 K/mm3 0.0-0.1 MANUAL DIFF REQUIRED (test code=MDIFF) NO [id number] 16:24:00* Test Item Value Reference Range Comments GLUBED (test code=GLUBED) 150 mg/dL 74-106 Performed by certified cloth doubling machine operator at [facility] [id number] 16:24:00* Test Item Value Reference Range Comments GLUBED (test code=GLUBED) 146 mg/dL 74-106 Performed by certified cloth doubling machine operator at [facility] BASIC METABOLIC [id number] 16:10:00* Test Item Value Reference Range Comments SODIUM (test code=NA) 144 mmol/L 136-145 POTASSIUM (test code=K) 4.7 mmol/L 3.5-5.1 CHLORIDE (test code=CL) 113.0 mmol/L 98-107 CARBON DIOXIDE (test code=CO2) 23.0 mmol/L 21-32 ANION GAP (test code=GAP) 12.7 10-20 GLUCOSE (test code=GLU) 152 mg/dL 74-106 BLOOD UREA NITROGEN (test code=BUN) 8 mg/dL 7-18 GLOMERULAR FILTRATION RATE (test code=GFR) > 60 mL/min >=60 Estimated GFR by using Modified MDRD formula.Chronic kidney disease is defined as either kidney damageor GFR <60 mL/min/1.73 m2 for >3 months. CREATININE (test code=CREAT) 0.80 mg/dL 0.55-1.02 Note change in reference range due to change in reagent. BUN/CREATININE RATIO (test code=BUN/CREA) 10.0 10-20 CALCIUM (test code=CA) 8.1 mg/dL 8.5-10.1 [id number] 16:10:00* Test Item Value Reference Range Comments PHOSPHORUS (test code=PHOS) 3.3 mg/dL 2.5-4.9 [id number] 16:10:00* Test Item Value Reference Range Comments MAGNESIUM (test code=MAG) 2.1 mg/dL 1.8-2.4 LACTIC [id number] 16:05:00* Test Item Value Reference Range Comments LACTIC ACID (test code=LACT) 2.4 mmol/L 0.4-1.9 Results called to [id number] by [facility] 12/18/18 1605Critical results verified and read back by Nurse? Y BASIC METABOLIC [id number] 16:00:00* Test Item Value Reference Range Comments SODIUM (test code=NA) 144 mmol/L 136-145 POTASSIUM (test code=K) 4.7 mmol/L 3.5-5.1 CHLORIDE (test code=CL) 113.0 mmol/L 98-107 CARBON DIOXIDE (test code=CO2) mmol/L 21-32 ANION GAP (test code=GAP) 10-20 GLUCOSE (test code=GLU) mg/dL 74-106 BLOOD UREA NITROGEN (test code=BUN) mg/dL 7-18 GLOMERULAR FILTRATION RATE (test code=GFR) mL/min >=60 CREATININE (test code=CREAT) mg/dL 0.55-1.02 BUN/CREATININE RATIO (test code=BUN/CREA) 10-20 CALCIUM (test code=CA) mg/dL 8.5-10.1 [id number] 16:00:00* Test Item Value Reference Range Comments PHOSPHORUS (test code=PHOS) mg/dL 2.5-4.9 [id number] 16:00:00* Test Item Value Reference Range Comments MAGNESIUM (test code=MAG) mg/dL 1.8-2.4 - XR CHEST 1 [id number] 14:21:00 FAX: Calos Mcdowell MD [phone] [place]: St: ADM FAX: Sami Mcdowell MD [phone] FAX: Brijesh Curiel MD FAX: Daria Leigh Name: DELLA MALLOY [facility] : 1950 Age/S: 68/F [address] Unit #: [id number] Loc: [address] [place] [address] Phys: Daria Maza NP Acct: [id number] Dis Date: Status: ADM IN PHONE #: [phone] Exam D ate: 12/18/2018 1407 FAX #: [phone] Reason: s /p axillary- femoral bypass EXAMS: CPT CODE: [id number] XR CHEST 1 V 49386 REASON FOR EXAM: s/p axillary- femoral bypass Exam Order Date: 12/18/2018 12:00 AM Ordering Aurea: Daria Maza NP PROCEDURE: - XR CHEST 1 V COMPARISON: Frontal chest x-ray earlier today at 5:29 AM FINDINGS: Enteric suction tube has been advanced further into the stoma ch. ET tube and left IJ central line and left subclavian artery stent are unchanged in appearance. Low lung volumes with bibasilar sub segmental atelectasis. Cardiac mediastinal silhouette, right axill james surgical clips, cholecystectomy clips, and musculoskeletal findings ar e unchanged. IMPRESSION: No significant change f rom prior exam. Redemonstration of low lung volumes with bibasilar subse gmental atelectasis. Electronically Signed by Galen Daniels MD on 11/23 at 1421 Reported and signed by: Galen Daniels MD CC: Calos Negron; Sami Negron MD; Brijesh Muse; Daria Maza NP Technologist: EVANGELIST HILL, RT(R) Trnscrd Date/Time/By: 12/18/2018 (4026) : By: [email or web address] Orig Print D/T: S: 12/18/2018 (6325) PAGE 1 Signed Report [id number] 13:12:00* Test Item Value Reference Range Comments TROPONIN-I (test code=TROPI) 0.049 ng/mL 0-0.045 PREVIOUSLY CALLED [id number] 12:27:00* Test Item Value Reference Range Comments GLUBED (test code=GLUBED) 158 mg/dL 74-106 Performed by certified cloth doubling machine operator at [facility] [id number] 10:39:00* Test Item Value Reference Range Comments GLUBED (test code=GLUBED) 141 mg/dL 74-106 Performed by certified cloth doubling machine operator at [facility] [id number] 10:39:00* Test Item Value Reference Range Comments GLUBED (test code=GLUBED) 170 mg/dL 74-106 Performed by certified cloth doubling machine operator at [facility] [id number] 10:39:00* Test Item Value Reference Range Comments GLUBED (test code=GLUBED) 179 mg/dL 74-106 Performed by certified cloth doubling machine operator at [facility] [id number] 10:39:00* Test Item Value Reference Range Comments GLUBED (test code=GLUBED) 205 mg/dL 74-106 Performed by certified cloth doubling machine operator at [facility] LACTIC [id number] 09:01:00* Test Item Value Reference Range Comments LACTIC ACID (test code=LACT) 2.6 mmol/L 0.4-1.9 Results called to [id number] by V.LAB.JOSÉ MIGUEL 12/18/18 0901Critical results verified and read back by Nurse? Y [id number] 07:49:00* Test Item Value Reference Range Comments TROPONIN-I (test code=TROPI) 0.116 ng/mL 0-0.045 PREVIOUSLY CALLED [id number] 07:08:00* Test Item Value Reference Range Comments GLYCOSYLATED HEMOGLOBIN (HA1C) (test code=GLYHGB) 5.8 % HbA1 4.8-6.0 ESTIMATED AVERAGE GLUCOSE (test code=EAG) 120 MG/DL BASIC METABOLIC [id number] 06:50:00* Test Item Value Reference Range Comments SODIUM (test code=NA) 144 mmol/L 136-145 POTASSIUM (test code=K) 4.5 mmol/L 3.5-5.1 CHLORIDE (test code=CL) 114.0 mmol/L 98-107 CARBON DIOXIDE (test code=CO2) 22.0 mmol/L 21-32 ANION GAP (test code=GAP) 12.5 10-20 GLUCOSE (test code=GLU) 246 mg/dL 74-106 BLOOD UREA NITROGEN (test code=BUN) 7 mg/dL 7-18 GLOMERULAR FILTRATION RATE (test code=GFR) 55 mL/min >=60 Estimated GFR by using Modified MDRD formula.Chronic kidney disease is defined as either kidney damageor GFR <60 mL/min/1.73 m2 for >3 months. CREATININE (test code=CREAT) 1.00 mg/dL 0.55-1.02 Note change in reference range due to change in reagent. BUN/CREATININE RATIO (test code=BUN/CREA) 7.0 10-20 CALCIUM (test code=CA) 7.8 mg/dL 8.5-10.1 [id number] 06:50:00* Test Item Value Reference Range Comments PHOSPHORUS (test code=PHOS) 0.6 mg/dL 2.5-4.9 [id number] 06:50:00* Test Item Value Reference Range Comments MAGNESIUM (test code=MAG) 1.8 mg/dL 1.8-2.4 CALCIUM [id number] 06:50:00* Test Item Value Reference Range Comments CALCIUM IONIZED (test code=BIJU) 1.18 mmol/L 1.12-1.32 BASIC METABOLIC [id number] 06:49:00* Test Item Value Reference Range Comments SODIUM (test code=NA) 144 mmol/L 136-145 POTASSIUM (test code=K) 4.5 mmol/L 3.5-5.1 CHLORIDE (test code=CL) 114.0 mmol/L 98-107 CARBON DIOXIDE (test code=CO2) 22.0 mmol/L 21-32 ANION GAP (test code=GAP) 12.5 10-20 GLUCOSE (test code=GLU) 246 mg/dL 74-106 BLOOD UREA NITROGEN (test code=BUN) 7 mg/dL 7-18 GLOMERULAR FILTRATION RATE (test code=GFR) 55 mL/min >=60 Estimated GFR by using Modified MDRD formula.Chronic kidney disease is defined as either kidney damageor GFR <60 mL/min/1.73 m2 for >3 months. CREATININE (test code=CREAT) 1.00 mg/dL 0.55-1.02 Note change in reference range due to change in reagent. BUN/CREATININE RATIO (test code=BUN/CREA) 7.0 10-20 CALCIUM (test code=CA) 7.8 mg/dL 8.5-10.1 [id number] 06:49:00* Test Item Value Reference Range Comments PHOSPHORUS (test code=PHOS) 0.6 mg/dL 2.5-4.9 [id number] 06:49:00* Test Item Value Reference Range Comments MAGNESIUM (test code=MAG) 1.8 mg/dL 1.8-2.4 CALCIUM [id number] 06:49:00* Test Item Value Reference Range Comments CALCIUM IONIZED (test code=BIJU) mmol/L 1.12-1.32 LACTIC [id number] 06:48:00* Test Item Value Reference Range Comments LACTIC ACID (test code=LACT) 3.5 mmol/L 0.4-1.9 Results called to [id number] by [email or web address] 12/18/18 [id number] results verified and read back by Nurse? Y BASIC METABOLIC [id number] 06:39:00* Test Item Value Reference Range Comments SODIUM (test code=NA) 144 mmol/L 136-145 POTASSIUM (test code=K) 4.5 mmol/L 3.5-5.1 CHLORIDE (test code=CL) 114.0 mmol/L 98-107 CARBON DIOXIDE (test code=CO2) mmol/L 21-32 ANION GAP (test code=GAP) 10-20 GLUCOSE (test code=GLU) mg/dL 74-106 BLOOD UREA NITROGEN (test code=BUN) mg/dL 7-18 GLOMERULAR FILTRATION RATE (test code=GFR) mL/min >=60 CREATININE (test code=CREAT) mg/dL 0.55-1.02 BUN/CREATININE RATIO (test code=BUN/CREA) 10-20 CALCIUM (test code=CA) mg/dL 8.5-10.1 [id number] 06:39:00* Test Item Value Reference Range Comments PHOSPHORUS (test code=PHOS) mg/dL 2.5-4.9 [id number] 06:39:00* Test Item Value Reference Range Comments MAGNESIUM (test code=MAG) mg/dL 1.8-2.4 CALCIUM [id number] 06:39:00* Test Item Value Reference Range Comments CALCIUM IONIZED (test code=BIJU) mmol/L 1.12-1.32 CBC W/AUTO [id number] 06:32:00* Test Item Value Reference Range Comments WHITE BLOOD CELL (test code=WBC) 14.9 K/mm3 4.5-12.5 RED BLOOD CELL (test code=RBC) 3.62 mill/mm3 3.7-5.2 HEMOGLOBIN (test code=HGB) 9.7 gram/dL 11.5-15.5 RESULT VERIFIED BY REPEAT ANALYSIS HEMATOCRIT (test code=HCT) 31.3 % 36.0-46.0 MEAN CELL VOLUME (test code=MCV) 86.5 fL 80-98 MEAN CELL HGB (test code=MCH) 26.8 picogram 27.0-33.0 MEAN CELL HGB CONCETRATION (test code=MCHC) 31.0 gram/dL 33.0-36.0 RED CELL DISTRIBUTION WIDTH (test code=RDW) 17.5 % 11.6-16.2 RED CELL DISTRIBUTION WIDTH SD (test code=RDW-SD) 55.7 fL 37.0-51.0 PLATELET COUNT (test code=PLT) 201 K/mm3 150-450 RESULT VERIFIED BY REPEAT ANALYSIS MEAN PLATELET VOLUME (test code=MPV) 9.4 fL 6.7-11.0 NEUTROPHIL % (test code=NT%) 85.8 % 39.0-69.0 IMMATURE GRANULOCYTE % (test code=IG%) 0.9 % 0.0-5.0 LYMPHOCYTE % (test code=LY%) 4.4 % 25.0-55.0 MONOCYTE % (test code=MO%) 8.7 % 0.0-10.0 EOSINOPHIL % (test code=EO%) 0.0 % 0.0-5.0 BASOPHIL % (test code=BA%) 0.2 % 0.0-1.0 NUCLEATED RBC % (test code=NRBC%) 0.0 % 0-0 NEUTROPHIL # (test code=NT#) 12.77 K/mm3 1.8-7.7 IMMATURE GRANULOCYTE # (test code=IG#) 0.14 x10 3/uL 0-0.03 LYMPHOCYTE # (test code=LY#) 0.65 K/mm3 1.0-5.0 MONOCYTE # (test code=MO#) 1.30 K/mm3 0-0.8 EOSINOPHIL # (test code=EO#) 0.00 K/mm3 0.0-0.5 BASOPHIL # (test code=BA#) 0.03 K/mm3 0.0-0.2 NUCLEATED RBC # (test code=NRBC#) 0.00 K/mm3 0.0-0.1 MANUAL DIFF REQUIRED (test code=MDIFF) NO - XR CHEST 1 [id number] 05:53:00 FAX: Calos Mcdowell MD [phone] [place]: St: ADM FAX: Sami Mcdowell MD [phone] FAX: Brijesh Curiel MD FAX: Heath Blakcmon STAFF [employer] OFFICER [phone] Name: DELLA MALLOY [facility] : 1950 Age/S: 68/F [address] [facility] Unit #: [id number] Loc: V.S [address] [place] [address] Phys: Heath Blackmon NP Acct: [id number] Dis Date: Status: ADM IN PHONE #: [phone] Exam D ate: 12/18/2018 1022 FAX #: [phone] Reason: i ntubated EXAMS: CPT CODE: [id number] XR CHEST 1 V [id number] Location: T 18 Chest x-ray exam, AP frontal projection, one view conducted on 12/18/18 [facility] exam: 12/17/18 chest x-ray exam CLINICAL HISTORY: Intubate d patient, respiratory distress FINDINGS: Life suppo rting apparatus again seen. Surgical clips along the right axillary region likely indicative note resection. No pneumothorax is identified. Probable mild residual atelectatic change remains at the left lung base similar in appearance versus slightly improved. No evolving process. IMPRESSION: Life supporting apparatus in similar position wit hout pneumothorax Left basilar atelectatic changes similar esau yanira minimally improved at 0553 Reported and signed by: Allyson Pearce M.D. CC: Calos Negron; Sami Negron MD; Brijesh Muse; Heath Blackmon NP Technologist: Brittney Real(R); Eliza PORRAS(R) Trnscrd Date/Time/By: 12/18/2018 (0553) : By: [email or web address] Orig Print D/T: S: 12/18/2018 (1027) PAGE 1 Signed Report [id number] 05:20:00* Test Item Value Reference Range Comments GLUBED (test code=GLUBED) 219 mg/dL 74-106 Performed by certified cloth doubling machine operator at [facility] ARTERIAL BLOOD [id number] 05:20:00* Test Item Value Reference Range Comments ARTERIAL BLOOD GAS PH (test code=PHA) 7.34 7.35-7.45 ARTERIAL BLOOD GAS PCO2 (test code=PCO2A) 38.5 mm Hg 35-45 ARTERIAL BLOOD GAS PO2 (test code=PO2A) 133.7 mmHg 80-100 BICARBONATE TOTAL HCO3 (test code=HCO3) 20.4 mmol/L 23.0-27.0 BASE EXCESS (test code=MINDY) -4.9 mmol/L -3.0-5.0 Results called to and read back by HEATH Alexander 05:20 - 12/18/2018; by SVETLANA TRAYLOR, CORE MACHINE TENDER ABG O2 SATURATION (test code=SATA) 97.9 % 90.0-98.0 ABG TYPE (test code=TYPEA) Arterial FIO2 (test code=FIO2A) 70.0 ABG L/M (test code=L/M) 50.00 L/MIN ABG VENT MODE (test code=MODEA) VC+ ABG VENT RESP RATE (test code=RRA) 16.0 per min ABG TIDAL VOLUME (test code=TVA) 450.0 mL ABG PEEP (test code=PEEPA) 8.0 cmH2O ABG SITE (test code=SITEA) ARTERIAL LINE MODIFIED ALLENS (test code=MODALL) Unable CHECK PERFORMED SODIUM (test code=NA/ABG) 138.2 mEq/L 135-148 POTASSIUM (test code=K/ABG) 4.3 mEq/L 3.5-4.5 CHLORIDE (test code=CL/ABG) 110 mEq/L 98-106 GLUCOSE (test code=GLU/ABG) 240 mg/dL 74-99 HEMATOCRIT (test code=HCT/ABG) 32 % 35-47 IONIZED CALCIUM (test code=CAIABG) 1.10 mmol/L 1.1-1.37 TOTAL HGB (test code=THB) 10.8 gram/dL 11.5-15.5 HGB O2 SAT (test code=HBOSAT) 97.2 % 94.00-98.00 CARBOXYHEMOGLOBIN (test code=HOHGBT) 0.2 %totalHg 0.5-1.5 Results called to and read back by HEATH Alexander 05:20 - 12/18/2018; by SVETLANA TRAYLOR, TANNA METHEMOGLOBIN (test code=METHGB) 0.5 % 0.0-1.50 O2 CONTENT (test code=O2CT) 15.0 % vol 18.0-22.0 [id number] 05:20:00* Test Item Value Reference Range Comments GLUBED (test code=GLUBED) 212 mg/dL 74-106 Performed by certified cloth doubling machine operator at [facility] [id number] 05:20:00* Test Item Value Reference Range Comments GLUBED (test code=GLUBED) 292 mg/dL 74-106 Performed by certified cloth doubling machine operator at [facility] [id number] 05:20:00* Test Item Value Reference Range Comments GLUBED (test code=GLUBED) 330 mg/dL 74-106 Performed by certified cloth doubling machine operator at [facility] [id number] 03:00:00* Test Item Value Reference Range Comments TROPONIN-I (test code=TROPI) 0.155 ng/mL 0-0.045 Results called to [id number] by MARIO ALBERTOJP1 12/18/18 0259Critical results verified and read back by Nurse? Y LACTIC [id number] 03:00:00* Test Item Value Reference Range Comments LACTIC ACID (test code=LACT) 8.0 mmol/L 0.4-1.9 Results called to [id number] by TIO 12/18/18 0300Critical results verified and read back by Nurse? Y PROTHROMBIN [id number] 02:45:00* Test Item Value Reference Range Comments PROTHROMBIN TIME PATIENT (test code=PTP) 12.4 seconds 9.0-14.0 INTERNATIONAL NORMAL RATIO (test code=INR) 1.1 0.8-1.2 The therapeutic range for oral anticoagulant therapy formost indications is an international normalized ratio (INR)of between 2.0 and 3.0. The recommended therapeutic INRrange for various clinical situations is listed below: Clinical Situation INR range Pulmonary e mbolism treatment (2.0-3.0)Venous thrombosis treatmentVenous thrombosis prophylaxis (high risk surgery)Prevention of systemic embolism from: Acute myocardial infarction Valvular heart disease Atrial fibrillation Mechanical prosthetic heart valves (2.5-3.5) IS PATIENT ON ANTICOAGULANTS? NTHROMBOPLASTIN TIME [id number] 02:45:00* Test Item Value Reference Range Comments THROMBOPLASTIN TIME PARTIAL (test code=PTT) 23.1 seconds 25.0-36.5 IS PATIENT ON ANTICOAGULANTS? NARTERIAL BLOOD [id number] 02:10:00* Test Item Value Reference Range Comments ARTERIAL BLOOD GAS PH (test code=PHA) 7.28 7.35-7.45 ARTERIAL BLOOD GAS PCO2 (test code=PCO2A) 41.0 mm Hg 35-45 ARTERIAL BLOOD GAS PO2 (test code=PO2A) 97.7 mmHg 80-100 BICARBONATE TOTAL HCO3 (test code=HCO3) 18.8 mmol/L 23.0-27.0 BASE EXCESS (test code=MINDY) -7.5 mmol/L -3.0-5.0 Results called to and read back by Heath Masoodat : - 12/18/2018; by Svetlana Traylor, research professional ABG O2 SATURATION (test code=SATA) 96.5 % 90.0-98.0 ABG TYPE (test code=TYPEA) Arterial FIO2 (test code=FIO2A) 70.0 ABG L/M (test code=L/M) 50.00 L/MIN ABG VENT MODE (test code=MODEA) VC+ ABG VENT RESP RATE (test code=RRA) 16.0 per min ABG TIDAL VOLUME (test code=TVA) 450.0 mL ABG PEEP (test code=PEEPA) 8.0 cmH2O ABG SITE (test code=SITEA) ARTERIAL LINE MODIFIED ALLENS (test code=MODALL) Unable CHECK PERFORMED SODIUM (test code=NA/ABG) 138.8 mEq/L 135-148 POTASSIUM (test code=K/ABG) 3.8 mEq/L 3.5-4.5 CHLORIDE (test code=CL/ABG) 109 mEq/L 98-106 GLUCOSE (test code=GLU/ABG) 372 mg/dL 74-99 HEMATOCRIT (test code=HCT/ABG) 32 % 35-47 IONIZED CALCIUM (test code=CAIABG) 1.10 mmol/L 1.1-1.37 TOTAL HGB (test code=THB) 10.9 gram/dL 11.5-15.5 HGB O2 SAT (test code=HBOSAT) 95.9 % 94.00-98.00 CARBOXYHEMOGLOBIN (test code=HOHGBT) 0.2 %totalHg 0.5-1.5 Results called to and read back by Heath Alexander - 12/18/2018; by Svetlana Traylor, Tanna METHEMOGLOBIN (test code=METHGB) 0.4 % 0.0-1.50 O2 CONTENT (test code=O2CT) 14.8 % vol 18.0-22.0 BASIC METABOLIC [id number] 02:08:00* Test Item Value Reference Range Comments SODIUM (test code=NA) 145 mmol/L 136-145 POTASSIUM (test code=K) 3.4 mmol/L 3.5-5.1 CHLORIDE (test code=CL) 110.0 mmol/L 98-107 CARBON DIOXIDE (test code=CO2) 16.0 mmol/L 21-32 ANION GAP (test code=GAP) 22.4 10-20 GLUCOSE (test code=GLU) 415 mg/dL 74-106 BLOOD UREA NITROGEN (test code=BUN) 7 mg/dL 7-18 GLOMERULAR FILTRATION RATE (test code=GFR) 45 mL/min >=60 Estimated GFR by using Modified MDRD formula.Chronic kidney disease is defined as either kidney damageor GFR <60 mL/min/1.73 m2 for >3 months. CREATININE (test code=CREAT) 1.20 mg/dL 0.55-1.02 Note change in reference range due to change in reagent. BUN/CREATININE RATIO (test code=BUN/CREA) 5.8 10-20 CALCIUM (test code=CA) 7.7 mg/dL 8.5-10.1 COMPREHENSIVE METABOLIC [id number] 02:08:00* Test Item Value Reference Range Comments TOTAL PROTEIN (test code=PROT) 5.4 gram/dL 6.4-8.2 ALBUMIN (test code=ALB) 2.8 g/dL 3.4-5.0 GLOBULIN (test code=GLOB) 2.6 gram/dL 2.7-4.2 ALBUMIN/GLOBULIN RATIO (test code=A/G) 1.1 0.75-1.50 BILIRUBIN TOTAL (test code=BILT) 0.80 mg/dL 0.0-1.0 SGOT/AST (test code=AST) 132 IUnit/L 15-37 SGPT/ALT (test code=ALT) 89 IUnit/L 12-78 ALKALINE PHOSPHATASE TOTAL (test code=ALKP) 187 IUnit/L 45-117 Note change in reference range due to change in reagent. [id number] 02:08:00* Test Item Value Reference Range Comments PHOSPHORUS (test code=PHOS) 2.9 mg/dL 2.5-4.9 [id number] 02:08:00* Test Item Value Reference Range Comments AMYLASE (test code=EMILY) 26 Unit/L 25-115 [id number] 02:08:00* Test Item Value Reference Range Comments LIPASE (test code=LIP) 50 U/L 73.0-393.0 [id number] 02:08:00* Test Item Value Reference Range Comments MAGNESIUM (test code=MAG) 2.0 mg/dL 1.8-2.4 T4 [id number] 02:08:00* Test Item Value Reference Range Comments T4 FREE (test code=T4F) 1.15 ng/dL 0.76-1.46 THYROID STIMULATING [id number] 02:08:00* Test Item Value Reference Range Comments THYROID STIMULATING HORMONE (test code=TSH) 0.964 uIU/mL 0.36-3.74 TSH REFERENCE RANGES: EUTHYROID: 0.35 - 4.3 mIU/mL HYPO : > 5.5 mIU/mL HYPER : < 0.35 mIU/mL CALCIUM [id number] 02:08:00* Test Item Value Reference Range Comments CALCIUM IONIZED (test code=BIJU) 1.11 mmol/L 1.12-1.32 [id number] 02:08:00* Test Item Value Reference Range Comments CORTISOL (test code=CORTR) 29.43 mcg/dL 3.44-22.45 Please Note Change in REFERENCE RANGE ARTERIAL BLOOD [id number] 02:05:00* Test Item Value Reference Range Comments ARTERIAL BLOOD GAS PH (test code=PHA) 7.15 7.35-7.45 Results called to and read back by Heath Alexander : - 12/17/2018; by Svetlana Traylor, CORE MACHINE TENDER ARTERIAL BLOOD GAS PCO2 (test code=PCO2A) 35.9 mm Hg 35-45 ARTERIAL BLOOD GAS PO2 (test code=PO2A) 146.4 mmHg 80-100 BICARBONATE TOTAL HCO3 (test code=HCO3) 12.2 mmol/L 23.0-27.0 BASE EXCESS (test code=MINDY) -15.7 mmol/L -3.0-5.0 Results called to and read back by Heath Alexander : - 12/17/2018; by Svetlana Traylor, CORE MACHINE TENDER ABG O2 SATURATION (test code=SATA) 97.9 % 90.0-98.0 ABG TYPE (test code=TYPEA) Arterial FIO2 (test code=FIO2A) 100.0 ABG VENT MODE (test code=MODEA) VC+ ABG VENT RESP RATE (test code=RRA) 16.0 per min ABG TIDAL VOLUME (test code=TVA) 450.0 mL ABG PEEP (test code=PEEPA) 8.0 cmH2O ABG SITE (test code=SITEA) ARTERIAL LINE MODIFIED ALLENS (test code=MODALL) Unable CHECK PERFORMED SODIUM (test code=NA/ABG) 137.6 mEq/L 135-148 POTASSIUM (test code=K/ABG) 3.2 mEq/L 3.5-4.5 CHLORIDE (test code=CL/ABG) 105 mEq/L 98-106 GLUCOSE (test code=GLU/ABG) 421 mg/dL 74-99 HEMATOCRIT (test code=HCT/ABG) 35 % 35-47 IONIZED CALCIUM (test code=CAIABG) 1.05 mmol/L 1.1-1.37 TOTAL HGB (test code=THB) 11.9 gram/dL 11.5-15.5 HGB O2 SAT (test code=HBOSAT) 97.0 % 94.00-98.00 CARBOXYHEMOGLOBIN (test code=HOHGBT) 0.3 %totalHg 0.5-1.5 Results called to and read back by Heath Alexander 23:05 - 12/17/2018; by Svetlana Traylor, CORE MACHINE TENDER METHEMOGLOBIN (test code=METHGB) 0.6 % 0.0-1.50 O2 CONTENT (test code=O2CT) 16.5 % vol 18.0-22.0 PROCALCITONIN (PCT)2018-12-18 00:11:00* Test Item Value Reference Range Comments PROCALCITONIN (PCT) (test code=PROCAL) 1.79 ng/ml Concentration Interpretation (ng/mL) <0.51 Sepsis is not likely. Local bacterial infection is possible. (LOW RISK for progression to Sepsis) 0.51 - 2.00 Sepsis is possible, but other conditions are known to elevate PCT as well. (MODERATE RISK for progression to Sepsis) > 2.00 Sepsis is likely, unless other causes are known. (HIGH RISK for progression to Severe Sepsis or Septic Shock) 10.00 High likelihood of Severe Sepsis or Septic or higher Shock. *Increased PCT levels may not always be related to systemic bacterial infection.*Low PCT levels do not automatically exclude the presence of bacterial infection.*All results should be interpreted taking into account the patients history. LACTIC [id number] 23:38:00* Test Item Value Reference Range Comments LACTIC ACID (test code=LACT) 11.7 mmol/L 0.4-1.9 Results called to [id number] by RAHUL 12/17/18 2337Critical results verified and read back by Nurse? Y BASIC METABOLIC [id number] 23:36:00* Test Item Value Reference Range Comments SODIUM (test code=NA) 145 mmol/L 136-145 POTASSIUM (test code=K) 3.4 mmol/L 3.5-5.1 CHLORIDE (test code=CL) 110.0 mmol/L 98-107 CARBON DIOXIDE (test code=CO2) 16.0 mmol/L 21-32 ANION GAP (test code=GAP) 22.4 10-20 GLUCOSE (test code=GLU) 415 mg/dL 74-106 BLOOD UREA NITROGEN (test code=BUN) 7 mg/dL 7-18 GLOMERULAR FILTRATION RATE (test code=GFR) 45 mL/min >=60 Estimated GFR by using Modified MDRD formula.Chronic kidney disease is defined as either kidney damageor GFR <60 mL/min/1.73 m2 for >3 months. CREATININE (test code=CREAT) 1.20 mg/dL 0.55-1.02 Note change in reference range due to change in reagent. BUN/CREATININE RATIO (test code=BUN/CREA) 5.8 10-20 CALCIUM (test code=CA) 7.7 mg/dL 8.5-10.1 COMPREHENSIVE METABOLIC [id number] 23:36:00* Test Item Value Reference Range Comments TOTAL PROTEIN (test code=PROT) 5.4 gram/dL 6.4-8.2 ALBUMIN (test code=ALB) 2.8 g/dL 3.4-5.0 GLOBULIN (test code=GLOB) 2.6 gram/dL 2.7-4.2 ALBUMIN/GLOBULIN RATIO (test code=A/G) 1.1 0.75-1.50 BILIRUBIN TOTAL (test code=BILT) 0.80 mg/dL 0.0-1.0 SGOT/AST (test code=AST) 132 IUnit/L 15-37 SGPT/ALT (test code=ALT) 89 IUnit/L 12-78 ALKALINE PHOSPHATASE TOTAL (test code=ALKP) 187 IUnit/L 45-117 Note change in reference range due to change in reagent. [id number] 23:36:00* Test Item Value Reference Range Comments PHOSPHORUS (test code=PHOS) 2.9 mg/dL 2.5-4.9 [id number] 23:36:00* Test Item Value Reference Range Comments AMYLASE (test code=EMILY) 26 Unit/L 25-115 [id number] 23:36:00* Test Item Value Reference Range Comments LIPASE (test code=LIP) 50 U/L 73.0-393.0 [id number] 23:36:00* Test Item Value Reference Range Comments MAGNESIUM (test code=MAG) 2.0 mg/dL 1.8-2.4 T4 [id number] 23:36:00* Test Item Value Reference Range Comments T4 FREE (test code=T4F) 1.15 ng/dL 0.76-1.46 THYROID STIMULATING [id number] 23:36:00* Test Item Value Reference Range Comments THYROID STIMULATING HORMONE (test code=TSH) 0.964 uIU/mL 0.36-3.74 TSH REFERENCE RANGES: EUTHYROID: 0.35 - 4.3 mIU/mL HYPO : > 5.5 mIU/mL HYPER : < 0.35 mIU/mL CALCIUM [id number] 23:36:00* Test Item Value Reference Range Comments CALCIUM IONIZED (test code=BIJU) 1.11 mmol/L 1.12-1.32 [id number] 23:36:00* Test Item Value Reference Range Comments CORTISOL (test code=CORTR) mcg/dL 3.44-22.45 URINALYSIS [id number] 23:20:00* Test Item Value Reference Range Comments UA COLOR (test code=COLU) Light-Yellow YELLOW UA APPEARANCE (test code=APPU) CLEAR CLEAR UA GLUCOSE DIPSTICK (test code=DGLUU) >1000 (4+) mg/dL NEGATIVE UA BILIRUBIN DIPSTICK (test code=BILU) NEGATIVE mg/dL NEGATIVE UA KETONE DIPSTICK (test code=KETU) 10 (1+) mg/dL NEGATIVE UA SPECIFIC GRAVITY (test code=SGU) 1.014 1.001-1.035 UA BLOOD DIPSTICK (test code=XIMENA) >1.0 mg/dL NEGATIVE UA PH DIPSTICK (test code=GEOFF) 5.0 5.0-8.0 UA PROTEIN DIPSTICK (test code=PROU) 20 (Trace) mg/dL NEGATIVE UA UROBILINIOGEN DIPSTICK (test code=URO) Normal mg/dL NEGATIVE UA NITRITE DIPSTICK (test code=NELDA) NEGATIVE NEGATIVE UA LEUKOCYTE ESTERASE W REFLEX (test code=LEUUR) NEGATIVE Fredy/uL NEGATIVE UA WBC (test code=WBCU) 0-5 per HPF 0-5 UA RBC (test code=RBCU) 6-10 #/HPF 0-5 UA EPITHELIAL CELLS (test code=EPIU) FEW per HPF FEW UA BACTERIA (test code=BACU) FEW #/HPF NONE UA HYALINE CAST (test code=HYALU) 3-5 #/LPF 0-5 UA MUCUS (test code=MUCU) FEW #/LPF FEW Urine Source? BaggedBASIC METABOLIC [id number] 23:11:00* Test Item Value Reference Range Comments SODIUM (test code=NA) 145 mmol/L 136-145 POTASSIUM (test code=K) 3.4 mmol/L 3.5-5.1 CHLORIDE (test code=CL) 110.0 mmol/L 98-107 CARBON DIOXIDE (test code=CO2) mmol/L 21-32 ANION GAP (test code=GAP) 10-20 GLUCOSE (test code=GLU) mg/dL 74-106 BLOOD UREA NITROGEN (test code=BUN) mg/dL 7-18 GLOMERULAR FILTRATION RATE (test code=GFR) mL/min >=60 CREATININE (test code=CREAT) mg/dL 0.55-1.02 BUN/CREATININE RATIO (test code=BUN/CREA) 10-20 CALCIUM (test code=CA) mg/dL 8.5-10.1 COMPREHENSIVE METABOLIC [id number] 23:11:00* Test Item Value Reference Range Comments TOTAL PROTEIN (test code=PROT) gram/dL 6.4-8.2 ALBUMIN (test code=ALB) g/dL 3.4-5.0 GLOBULIN (test code=GLOB) gram/dL 2.7-4.2 ALBUMIN/GLOBULIN RATIO (test code=A/G) 0.75-1.50 BILIRUBIN TOTAL (test code=BILT) mg/dL 0.0-1.0 SGOT/AST (test code=AST) IUnit/L 15-37 SGPT/ALT (test code=ALT) IUnit/L 12-78 ALKALINE PHOSPHATASE TOTAL (test code=ALKP) IUnit/L 45-117 [id number] 23:11:00* Test Item Value Reference Range Comments PHOSPHORUS (test code=PHOS) mg/dL 2.5-4.9 [id number] 23:11:00* Test Item Value Reference Range Comments AMYLASE (test code=EMILY) Unit/L 25-115 [id number] 23:11:00* Test Item Value Reference Range Comments LIPASE (test code=LIP) U/L 73.0-393.0 [id number] 23:11:00* Test Item Value Reference Range Comments MAGNESIUM (test code=MAG) mg/dL 1.8-2.4 T4 [id number] 23:11:00* Test Item Value Reference Range Comments T4 FREE (test code=T4F) ng/dL 0.76-1.46 THYROID STIMULATING [id number] 23:11:00* Test Item Value Reference Range Comments THYROID STIMULATING HORMONE (test code=TSH) uIU/mL 0.36-3.74 CALCIUM [id number] 23:11:00* Test Item Value Reference Range Comments CALCIUM IONIZED (test code=BIJU) 1.11 mmol/L 1.12-1.32 [id number] 23:11:00* Test Item Value Reference Range Comments CORTISOL (test code=CORTR) mcg/dL 3.44-22.45 BASIC METABOLIC [id number] 23:03:00* Test Item Value Reference Range Comments SODIUM (test code=NA) mmol/L 136-145 POTASSIUM (test code=K) mmol/L 3.5-5.1 CHLORIDE (test code=CL) mmol/L 98-107 CARBON DIOXIDE (test code=CO2) mmol/L 21-32 ANION GAP (test code=GAP) 10-20 GLUCOSE (test code=GLU) mg/dL 74-106 BLOOD UREA NITROGEN (test code=BUN) mg/dL 7-18 GLOMERULAR FILTRATION RATE (test code=GFR) mL/min >=60 CREATININE (test code=CREAT) mg/dL 0.55-1.02 BUN/CREATININE RATIO (test code=BUN/CREA) 10-20 CALCIUM (test code=CA) mg/dL 8.5-10.1 COMPREHENSIVE METABOLIC [id number] 23:03:00* Test Item Value Reference Range Comments TOTAL PROTEIN (test code=PROT) gram/dL 6.4-8.2 ALBUMIN (test code=ALB) g/dL 3.4-5.0 GLOBULIN (test code=GLOB) gram/dL 2.7-4.2 ALBUMIN/GLOBULIN RATIO (test code=A/G) 0.75-1.50 BILIRUBIN TOTAL (test code=BILT) mg/dL 0.0-1.0 SGOT/AST (test code=AST) IUnit/L 15-37 SGPT/ALT (test code=ALT) IUnit/L 12-78 ALKALINE PHOSPHATASE TOTAL (test code=ALKP) IUnit/L 45-117 [id number] 23:03:00* Test Item Value Reference Range Comments PHOSPHORUS (test code=PHOS) mg/dL 2.5-4.9 [id number] 23:03:00* Test Item Value Reference Range Comments AMYLASE (test code=EMILY) Unit/L 25-115 [id number] 23:03:00* Test Item Value Reference Range Comments LIPASE (test code=LIP) U/L 73.0-393.0 [id number] 23:03:00* Test Item Value Reference Range Comments MAGNESIUM (test code=MAG) mg/dL 1.8-2.4 T4 [id number] 23:03:00* Test Item Value Reference Range Comments T4 FREE (test code=T4F) ng/dL 0.76-1.46 THYROID STIMULATING [id number] 23:03:00* Test Item Value Reference Range Comments THYROID STIMULATING HORMONE (test code=TSH) uIU/mL 0.36-3.74 CALCIUM [id number] 23:03:00* Test Item Value Reference Range Comments CALCIUM IONIZED (test code=BIJU) 1.11 mmol/L 1.12-1.32 [id number] 23:03:00* Test Item Value Reference Range Comments CORTISOL (test code=CORTR) mcg/dL 3.44-22.45 B-TYPE NATRIURETIC [id number] 21:47:00* Test Item Value Reference Range Comments B-TYPE NATRIURETIC PEPTIDE (test code=BNP) 13.02 pgram/mL 0-100 Has Patient received Natrecor? NOCBC W/MANUAL [id number] 21:45:00* Test Item Value Reference Range Comments WHITE BLOOD CELL (test code=WBC) 35.3 K/mm3 4.5-12.5 RED BLOOD CELL (test code=RBC) 4.85 mill/mm3 3.7-5.2 HEMOGLOBIN (test code=HGB) 13.1 gram/dL 11.5-15.5 HEMATOCRIT (test code=HCT) 43.3 % 36.0-46.0 MEAN CELL VOLUME (test code=MCV) 89.3 fL 80-98 MEAN CELL HGB (test code=MCH) 27.0 picogram 27.0-33.0 MEAN CELL HGB CONCETRATION (test code=MCHC) 30.3 gram/dL 33.0-36.0 RED CELL DISTRIBUTION WIDTH (test code=RDW) 17.5 % 11.6-16.2 RED CELL DISTRIBUTION WIDTH SD (test code=RDW-SD) 57.5 fL 37.0-51.0 PLATELET COUNT (test code=PLT) 320 K/mm3 150-450 MEAN PLATELET VOLUME (test code=MPV) 9.8 fL 6.7-11.0 IMMATURE GRANULOCYTE % (test code=IG%) 3.8 % 0.0-5.0 NUCLEATED RBC % (test code=NRBC%) 0.0 % 0-0 NEUTROPHIL # (test code=NT#) 26.10 K/mm3 1.8-7.7 IMMATURE GRANULOCYTE # (test code=IG#) 1.35 x10 3/uL 0-0.03 LYMPHOCYTE # (test code=LY#) 5.49 K/mm3 1.0-5.0 MONOCYTE # (test code=MO#) 2.07 K/mm3 0-0.8 EOSINOPHIL # (test code=EO#) 0.04 K/mm3 0.0-0.5 BASOPHIL # (test code=BA#) 0.21 K/mm3 0.0-0.2 NUCLEATED RBC # (test code=NRBC#) 0.00 K/mm3 0.0-0.1 MANUAL DIFF REQUIRED (test code=MDIFF) YES STAIN ACCEPTABILITY (test code=STN ACCEPTABLE) STAIN ACCEPTABLE TOTAL CELLS COUNTED (test code=TCC) 115 #CELLS SEGMENTED NEUTROPHILS (test code=SEG) 79.1 % 39-69 BAND NEUTROPHIL (test code=BAND) 7.8 % 0-10 LYMPHOCYTE (test code=LYMPH) 8.7 % 25-55 REACTIVE LYMPH (test code=RELYMPH) 0 % MONOCYTE (test code=MON) 4.4 % 0-10 EOSINOPHIL (test code=EOS) 0 % 0.0-5.0 BASOPHIL (test code=BASO) 0 % 0-1.0 METAMYELOCYTE (test code=META) 0 % 0-0 MYELOCYTE (test code=MYELO) 0 % 0.0-0.0 PROMYELOCYTE (test code=PROM) 0 % 0-0 POIKILOCYTOSIS (test code=POIK) 3+ CRENATED CELLS (test code=CREN) 3+ PLATELET ESTIMATE (test code=PLTEST) ADEQUATE PLATELET MORPHOLOGY (test code=PLTMORPH) NORMAL IMMATURE FORMS (test code=IMMAT) 0 % 0-0 ARTERIAL BLOOD [id number] 21:43:00* Test Item Value Reference Range Comments ARTERIAL BLOOD GAS PH (test code=PHA) 7.15 7.35-7.45 Results called to and read back by HEATH Alexander 21:42 - 12/17/2018; by SVETLANA TRAYLOR, TANNA ARTERIAL BLOOD GAS PCO2 (test code=PCO2A) 36.3 mm Hg 35-45 ARTERIAL BLOOD GAS PO2 (test code=PO2A) 67.8 mmHg 80-100 BICARBONATE TOTAL HCO3 (test code=HCO3) 12.5 mmol/L 23.0-27.0 BASE EXCESS (test code=MINDY) -15.4 mmol/L -3.0-5.0 Results called to and read back by HEATH Alexander 21:42 - 12/17/2018; by SVETLANA TRAYLOR, CORE MACHINE TENDER ABG O2 SATURATION (test code=SATA) 88.7 % 90.0-98.0 ABG TYPE (test code=TYPEA) Arterial FIO2 (test code=FIO2A) 100.0 ABG L/M (test code=L/M) 60.00 L/MIN ABG VENT MODE (test code=MODEA) VC+ ABG VENT RESP RATE (test code=RRA) 16.0 per min ABG TIDAL VOLUME (test code=TVA) 450.0 mL ABG PEEP (test code=PEEPA) 5.0 cmH2O ABG SITE (test code=SITEA) ARTERIAL LINE MODIFIED ALLENS (test code=MODALL) Unable CHECK PERFORMED SODIUM (test code=NA/ABG) 139.2 mEq/L 135-148 POTASSIUM (test code=K/ABG) 3.6 mEq/L 3.5-4.5 CHLORIDE (test code=CL/ABG) 106 mEq/L 98-106 GLUCOSE (test code=GLU/ABG) 413 mg/dL 74-99 HEMATOCRIT (test code=HCT/ABG) 39 % 35-47 IONIZED CALCIUM (test code=CAIABG) 1.02 mmol/L 1.1-1.37 TOTAL HGB (test code=THB) 13.1 gram/dL 11.5-15.5 HGB O2 SAT (test code=HBOSAT) 88.3 % 94.00-98.00 CARBOXYHEMOGLOBIN (test code=HOHGBT) 0.0 %totalHg 0.5-1.5 Results called to and read back by HEATH Alexander :42 - 12/17/2018; by SVETLANA TRAYLOR, TANNA METHEMOGLOBIN (test code=METHGB) 0.5 % 0.0-1.50 O2 CONTENT (test code=O2CT) 16.3 % vol 18.0-22.0 CBC W/MANUAL [id number] 20:55:00* Test Item Value Reference Range Comments WHITE BLOOD CELL (test code=WBC) 35.3 K/mm3 4.5-12.5 RED BLOOD CELL (test code=RBC) 4.85 mill/mm3 3.7-5.2 HEMOGLOBIN (test code=HGB) 13.1 gram/dL 11.5-15.5 HEMATOCRIT (test code=HCT) 43.3 % 36.0-46.0 MEAN CELL VOLUME (test code=MCV) 89.3 fL 80-98 MEAN CELL HGB (test code=MCH) 27.0 picogram 27.0-33.0 MEAN CELL HGB CONCETRATION (test code=MCHC) 30.3 gram/dL 33.0-36.0 RED CELL DISTRIBUTION WIDTH (test code=RDW) 17.5 % 11.6-16.2 RED CELL DISTRIBUTION WIDTH SD (test code=RDW-SD) 57.5 fL 37.0-51.0 PLATELET COUNT (test code=PLT) 320 K/mm3 150-450 MEAN PLATELET VOLUME (test code=MPV) 9.8 fL 6.7-11.0 IMMATURE GRANULOCYTE % (test code=IG%) 3.8 % 0.0-5.0 NUCLEATED RBC % (test code=NRBC%) 0.0 % 0-0 NEUTROPHIL # (test code=NT#) 26.10 K/mm3 1.8-7.7 IMMATURE GRANULOCYTE # (test code=IG#) 1.35 x10 3/uL 0-0.03 LYMPHOCYTE # (test code=LY#) 5.49 K/mm3 1.0-5.0 MONOCYTE # (test code=MO#) 2.07 K/mm3 0-0.8 EOSINOPHIL # (test code=EO#) 0.04 K/mm3 0.0-0.5 BASOPHIL # (test code=BA#) 0.21 K/mm3 0.0-0.2 NUCLEATED RBC # (test code=NRBC#) 0.00 K/mm3 0.0-0.1 MANUAL DIFF REQUIRED (test code=MDIFF) YES STAIN ACCEPTABILITY (test code=STN ACCEPTABLE) TOTAL CELLS COUNTED (test code=TCC) #CELLS SEGMENTED NEUTROPHILS (test code=SEG) % 39-69 LYMPHOCYTE (test code=LYMPH) % 25-55 MONOCYTE (test code=MON) % 0-10 EOSINOPHIL (test code=EOS) % 0.0-5.0 CABOT RINGS (test code=CAB) MORPHOLOGY COMMENT (test code=MOC) PLATELET ESTIMATE (test code=PLTEST) PLATELET MORPHOLOGY (test code=PLTMORPH) CBC W/MANUAL [id number] 20:55:00* Test Item Value Reference Range Comments WHITE BLOOD CELL (test code=WBC) 35.3 K/mm3 4.5-12.5 RED BLOOD CELL (test code=RBC) 4.85 mill/mm3 3.7-5.2 HEMOGLOBIN (test code=HGB) 13.1 gram/dL 11.5-15.5 HEMATOCRIT (test code=HCT) 43.3 % 36.0-46.0 MEAN CELL VOLUME (test code=MCV) 89.3 fL 80-98 MEAN CELL HGB (test code=MCH) 27.0 picogram 27.0-33.0 MEAN CELL HGB CONCETRATION (test code=MCHC) 30.3 gram/dL 33.0-36.0 RED CELL DISTRIBUTION WIDTH (test code=RDW) 17.5 % 11.6-16.2 RED CELL DISTRIBUTION WIDTH SD (test code=RDW-SD) 57.5 fL 37.0-51.0 PLATELET COUNT (test code=PLT) 320 K/mm3 150-450 MEAN PLATELET VOLUME (test code=MPV) 9.8 fL 6.7-11.0 IMMATURE GRANULOCYTE % (test code=IG%) 3.8 % 0.0-5.0 NUCLEATED RBC % (test code=NRBC%) 0.0 % 0-0 NEUTROPHIL # (test code=NT#) 26.10 K/mm3 1.8-7.7 IMMATURE GRANULOCYTE # (test code=IG#) 1.35 x10 3/uL 0-0.03 LYMPHOCYTE # (test code=LY#) 5.49 K/mm3 1.0-5.0 MONOCYTE # (test code=MO#) 2.07 K/mm3 0-0.8 EOSINOPHIL # (test code=EO#) 0.04 K/mm3 0.0-0.5 BASOPHIL # (test code=BA#) 0.21 K/mm3 0.0-0.2 NUCLEATED RBC # (test code=NRBC#) 0.00 K/mm3 0.0-0.1 MANUAL DIFF REQUIRED (test code=MDIFF) YES STAIN ACCEPTABILITY (test code=STN ACCEPTABLE) TOTAL CELLS COUNTED (test code=TCC) #CELLS SEGMENTED NEUTROPHILS (test code=SEG) % 39-69 LYMPHOCYTE (test code=LYMPH) % 25-55 MONOCYTE (test code=MON) % 0-10 EOSINOPHIL (test code=EOS) % 0.0-5.0 CABOT RINGS (test code=CAB) MORPHOLOGY COMMENT (test code=MOC) PLATELET ESTIMATE (test code=PLTEST) PLATELET MORPHOLOGY (test code=PLTMORPH) CBC W/MANUAL [id number] 20:55:00* Test Item Value Reference Range Comments WHITE BLOOD CELL (test code=WBC) 35.3 K/mm3 4.5-12.5 RED BLOOD CELL (test code=RBC) 4.85 mill/mm3 3.7-5.2 HEMOGLOBIN (test code=HGB) 13.1 gram/dL 11.5-15.5 HEMATOCRIT (test code=HCT) 43.3 % 36.0-46.0 MEAN CELL VOLUME (test code=MCV) 89.3 fL 80-98 MEAN CELL HGB (test code=MCH) 27.0 picogram 27.0-33.0 MEAN CELL HGB CONCETRATION (test code=MCHC) 30.3 gram/dL 33.0-36.0 RED CELL DISTRIBUTION WIDTH (test code=RDW) 17.5 % 11.6-16.2 RED CELL DISTRIBUTION WIDTH SD (test code=RDW-SD) 57.5 fL 37.0-51.0 PLATELET COUNT (test code=PLT) 320 K/mm3 150-450 MEAN PLATELET VOLUME (test code=MPV) 9.8 fL 6.7-11.0 IMMATURE GRANULOCYTE % (test code=IG%) 3.8 % 0.0-5.0 NUCLEATED RBC % (test code=NRBC%) 0.0 % 0-0 NEUTROPHIL # (test code=NT#) 26.10 K/mm3 1.8-7.7 IMMATURE GRANULOCYTE # (test code=IG#) 1.35 x10 3/uL 0-0.03 LYMPHOCYTE # (test code=LY#) 5.49 K/mm3 1.0-5.0 MONOCYTE # (test code=MO#) 2.07 K/mm3 0-0.8 EOSINOPHIL # (test code=EO#) 0.04 K/mm3 0.0-0.5 BASOPHIL # (test code=BA#) 0.21 K/mm3 0.0-0.2 NUCLEATED RBC # (test code=NRBC#) 0.00 K/mm3 0.0-0.1 MANUAL DIFF REQUIRED (test code=MDIFF) YES STAIN ACCEPTABILITY (test code=STN ACCEPTABLE) TOTAL CELLS COUNTED (test code=TCC) #CELLS SEGMENTED NEUTROPHILS (test code=SEG) % 39-69 LYMPHOCYTE (test code=LYMPH) % 25-55 MONOCYTE (test code=MON) % 0-10 EOSINOPHIL (test code=EOS) % 0.0-5.0 MORPHOLOGY COMMENT (test code=MOC) PLATELET ESTIMATE (test code=PLTEST) PLATELET MORPHOLOGY (test code=PLTMORPH) CBC W/MANUAL [id number] 20:55:00* Test Item Value Reference Range Comments WHITE BLOOD CELL (test code=WBC) 35.3 K/mm3 4.5-12.5 RED BLOOD CELL (test code=RBC) 4.85 mill/mm3 3.7-5.2 HEMOGLOBIN (test code=HGB) 13.1 gram/dL 11.5-15.5 HEMATOCRIT (test code=HCT) 43.3 % 36.0-46.0 MEAN CELL VOLUME (test code=MCV) 89.3 fL 80-98 MEAN CELL HGB (test code=MCH) 27.0 picogram 27.0-33.0 MEAN CELL HGB CONCETRATION (test code=MCHC) 30.3 gram/dL 33.0-36.0 RED CELL DISTRIBUTION WIDTH (test code=RDW) 17.5 % 11.6-16.2 RED CELL DISTRIBUTION WIDTH SD (test code=RDW-SD) 57.5 fL 37.0-51.0 PLATELET COUNT (test code=PLT) 320 K/mm3 150-450 MEAN PLATELET VOLUME (test code=MPV) 9.8 fL 6.7-11.0 IMMATURE GRANULOCYTE % (test code=IG%) 3.8 % 0.0-5.0 NUCLEATED RBC % (test code=NRBC%) 0.0 % 0-0 NEUTROPHIL # (test code=NT#) 26.10 K/mm3 1.8-7.7 IMMATURE GRANULOCYTE # (test code=IG#) 1.35 x10 3/uL 0-0.03 LYMPHOCYTE # (test code=LY#) 5.49 K/mm3 1.0-5.0 MONOCYTE # (test code=MO#) 2.07 K/mm3 0-0.8 EOSINOPHIL # (test code=EO#) 0.04 K/mm3 0.0-0.5 BASOPHIL # (test code=BA#) 0.21 K/mm3 0.0-0.2 NUCLEATED RBC # (test code=NRBC#) 0.00 K/mm3 0.0-0.1 MANUAL DIFF REQUIRED (test code=MDIFF) YES STAIN ACCEPTABILITY (test code=STN ACCEPTABLE) TOTAL CELLS COUNTED (test code=TCC) #CELLS SEGMENTED NEUTROPHILS (test code=SEG) % 39-69 LYMPHOCYTE (test code=LYMPH) % 25-55 MONOCYTE (test code=MON) % 0-10 MORPHOLOGY COMMENT (test code=MOC) PLATELET ESTIMATE (test code=PLTEST) PLATELET MORPHOLOGY (test code=PLTMORPH) CBC W/MANUAL [id number] 20:55:00* Test Item Value Reference Range Comments WHITE BLOOD CELL (test code=WBC) 35.3 K/mm3 4.5-12.5 RED BLOOD CELL (test code=RBC) 4.85 mill/mm3 3.7-5.2 HEMOGLOBIN (test code=HGB) 13.1 gram/dL 11.5-15.5 HEMATOCRIT (test code=HCT) 43.3 % 36.0-46.0 MEAN CELL VOLUME (test code=MCV) 89.3 fL 80-98 MEAN CELL HGB (test code=MCH) 27.0 picogram 27.0-33.0 MEAN CELL HGB CONCETRATION (test code=MCHC) 30.3 gram/dL 33.0-36.0 RED CELL DISTRIBUTION WIDTH (test code=RDW) 17.5 % 11.6-16.2 RED CELL DISTRIBUTION WIDTH SD (test code=RDW-SD) 57.5 fL 37.0-51.0 PLATELET COUNT (test code=PLT) 320 K/mm3 150-450 MEAN PLATELET VOLUME (test code=MPV) 9.8 fL 6.7-11.0 IMMATURE GRANULOCYTE % (test code=IG%) 3.8 % 0.0-5.0 NUCLEATED RBC % (test code=NRBC%) 0.0 % 0-0 NEUTROPHIL # (test code=NT#) 26.10 K/mm3 1.8-7.7 IMMATURE GRANULOCYTE # (test code=IG#) 1.35 x10 3/uL 0-0.03 LYMPHOCYTE # (test code=LY#) 5.49 K/mm3 1.0-5.0 MONOCYTE # (test code=MO#) 2.07 K/mm3 0-0.8 EOSINOPHIL # (test code=EO#) 0.04 K/mm3 0.0-0.5 BASOPHIL # (test code=BA#) 0.21 K/mm3 0.0-0.2 NUCLEATED RBC # (test code=NRBC#) 0.00 K/mm3 0.0-0.1 MANUAL DIFF REQUIRED (test code=MDIFF) YES STAIN ACCEPTABILITY (test code=STN ACCEPTABLE) TOTAL CELLS COUNTED (test code=TCC) #CELLS SEGMENTED NEUTROPHILS (test code=SEG) % 39-69 LYMPHOCYTE (test code=LYMPH) % 25-55 MONOCYTE (test code=MON) % 0-10 EOSINOPHIL (test code=EOS) % 0.0-5.0 CABOT RINGS (test code=CAB) MORPHOLOGY COMMENT (test code=MOC) PLATELET ESTIMATE (test code=PLTEST) PLATELET MORPHOLOGY (test code=PLTMORPH) - XR CHEST 1 [id number] 20:48:00 FAX: Calos Mcdowell MD [phone] [place]: B St: ADM FAX: Sami Mcdowell MD [phone] FAX: Brijesh Curiel MD FAX: Yolanda Taylor MD Name: DELLA MALLOY [facility] : 1950 Age/S: 68/F [address] Unit #: [id number] Loc: V[address]S [address] [place] [address] Phys: Yolanda Taylor MD Acct: [id number] Dis Date: Status: ADM IN PHONE #: [phone] Exam D ate: 12/17/20182004 FAX #: [phone] Reason: S P SURGERY EXAMS: CPT CODE: [id number] XR CHEST 1 V 12017 EXAM: Chest x-ray, one view; I NFORMATION: Critical limb ischemia; status post surgery; IMPRESS ION: 1. The tip of a nasogastric tube is positioned in the gastric jefferson us. 2. The tip of an endotracheal tube is positioned 1 cm above the ashwini. 3. Increased interstitial markings in both lungs probably reflecting interstitial edema. 4. Atelectatic changes in the le ft lower lobe. 5. The heart is borderline in size. 6. Metallic stent in the left subclavian artery. 7. Surgical clips in the right ax illa as well as in the gallbladder fossa and the epigastric region. at 2047 Reported and signed by: Siva Reid M.D. CC: Calos Negron; Sami Negron MD; Brijesh Muse; Yolanda Taylor MD Technologist: MANNY POSADA RT Trnvtrd Date/Time/By: 12/17/2018 (2047) : By: TseringGRW Orig Print D/T: S: 12/17/2018 (2051) PAGE 1 Signed Report - XR ABDOMEN AP 1 V 2018-12-17 20:47:00 FAX: Calos Mcdowell MD [phone] [place]: St: [facility] FAX: Sami Mcdowell MD [phone] FAX: Brijesh Curiel MD FAX: Yolanda Taylor MD Name: DELLA MALLOY [facility] : 1950 Age/S: 68/F [address] Unit #: [id number] Loc: .S [address] [place] [id number] Phys: Yolanda Taylor MD Acct: [id number] Dis Date: Status: ADM IN PHONE #: [phone] Exam D ate: 12/17/20182004 FAX #: [phone] Reason: N G TUBE PLACEMENT EXAMS: CPT CODE: [id number] XR ABDOMEN AP 1 V 57577 EXAM: Abdomen, one view; INFOR MATION: NG tube placement; IMPRESSION: 1. Well-position ed NG tube; its tip is in the gastric corpus. 2. No acute bowel abnorma lities. at 2046 Reported and signed by: Siva Reid M.D. CC: Calos Pritchard; Sami Negron MD; Brijesh Muse; Yolanda Taylor MD Technologist: GUALBERTO POSADA Trnscrd Date/Time/By: 12/17/2018 () : By: TseringGRW Orig Print D/T: S: 12/17/2018 (2049) PAGE 1 Signed Report ARTERIAL BLOOD [id number] 20:40:00* Test Item Value Reference Range Comments ARTERIAL BLOOD GAS PH (test code=PHA) 7.06 7.35-7.45 Results called to and read back by Heath Alexander 20:39 - 12/17/2018; by Svetlana Traylor ARTERIAL BLOOD GAS PCO2 (test code=PCO2A) 40.6 mm Hg 35-45 ARTERIAL BLOOD GAS PO2 (test code=PO2A) 99.9 mmHg 80-100 BICARBONATE TOTAL HCO3 (test code=HCO3) 11.3 mmol/L 23.0-27.0 BASE EXCESS (test code=MINDY) -18.4 mmol/L -3.0-5.0 Results called to and read back by Heath Alexander 20:39 - 12/17/2018; by Svetlana Traylor ABG O2 SATURATION (test code=SATA) 94.7 % 90.0-98.0 ABG TYPE (test code=TYPEA) Arterial FIO2 (test code=FIO2A) 100.0 ABG VENT MODE (test code=MODEA) VC+ ABG VENT RESP RATE (test code=RRA) 16.0 per min ABG TIDAL VOLUME (test code=TVA) 450.0 mL ABG PEEP (test code=PEEPA) 5.0 cmH2O ABG SITE (test code=SITEA) ARTERIAL LINE MODIFIED ALLENS (test code=MODALL) Unable CHECK PERFORMED SODIUM (test code=NA/ABG) 141.5 mEq/L 135-148 POTASSIUM (test code=K/ABG) 3.0 mEq/L 3.5-4.5 CHLORIDE (test code=CL/ABG) 106 mEq/L 98-106 GLUCOSE (test code=GLU/ABG) 389 mg/dL 74-99 HEMATOCRIT (test code=HCT/ABG) 41 % 35-47 IONIZED CALCIUM (test code=CAIABG) 1.03 mmol/L 1.1-1.37 TOTAL HGB (test code=THB) 14.1 gram/dL 11.5-15.5 HGB O2 SAT (test code=HBOSAT) 94.2 % 94.00-98.00 CARBOXYHEMOGLOBIN (test code=HOHGBT) 0.0 %totalHg 0.5-1.5 Results called to and read back by Heath Alexander 20:39 - 12/17/2018; by Svetlana Traylor METHEMOGLOBIN (test code=METHGB) 0.5 % 0.0-1.50 O2 CONTENT (test code=O2CT) 18.8 % vol 18.0-22.0 LACTIC [id number] 20:35:00* Test Item Value Reference Range Comments LACTIC ACID (test code=LACT) 9.6 mmol/L 0.4-1.9 Results called to [id number] by MARIO ALBERTO 12/17/184Critical results verified and read back by Nurse? Y [id number] 20:35:00* Test Item Value Reference Range Comments CKMB (test code=CKMBT) 2.0 ng/mL 0-6.0 [id number] 20:35:00* Test Item Value Reference Range Comments TROPONIN-I (test code=TROPI) 0.028 ng/mL 0-0.045 BASIC METABOLIC [id number] 20:31:00* Test Item Value Reference Range Comments SODIUM (test code=NA) 144 mmol/L 136-145 POTASSIUM (test code=K) 3.1 mmol/L 3.5-5.1 CHLORIDE (test code=CL) mmol/L 98-107 CARBON DIOXIDE (test code=CO2) mmol/L 21-32 ANION GAP (test code=GAP) 10-20 GLUCOSE (test code=GLU) mg/dL 74-106 BLOOD UREA NITROGEN (test code=BUN) mg/dL 7-18 GLOMERULAR FILTRATION RATE (test code=GFR) mL/min >=60 CREATININE (test code=CREAT) mg/dL 0.55-1.02 BUN/CREATININE RATIO (test code=BUN/CREA) 10-20 CALCIUM (test code=CA) mg/dL 8.5-10.1 [id number] 20:31:00* Test Item Value Reference Range Comments PHOSPHORUS (test code=PHOS) mg/dL 2.5-4.9 [id number] 20:31:00* Test Item Value Reference Range Comments MAGNESIUM (test code=MAG) mg/dL 1.8-2.4 CALCIUM [id number] 20:31:00* Test Item Value Reference Range Comments CALCIUM IONIZED (test code=BIJU) 1.15 mmol/L 1.12-1.32 BASIC METABOLIC [id number] 20:31:00* Test Item Value Reference Range Comments SODIUM (test code=NA) 144 mmol/L 136-145 POTASSIUM (test code=K) 3.1 mmol/L 3.5-5.1 CHLORIDE (test code=CL) 111.0 mmol/L 98-107 CARBON DIOXIDE (test code=CO2) 15.0 mmol/L 21-32 ANION GAP (test code=GAP) 21.1 10-20 GLUCOSE (test code=GLU) 371 mg/dL 74-106 BLOOD UREA NITROGEN (test code=BUN) 7 mg/dL 7-18 GLOMERULAR FILTRATION RATE (test code=GFR) 55 mL/min >=60 Estimated GFR by using Modified MDRD formula.Chronic kidney disease is defined as either kidney damageor GFR <60 mL/min/1.73 m2 for >3 months. CREATININE (test code=CREAT) 1.00 mg/dL 0.55-1.02 Note change in reference range due to change in reagent. BUN/CREATININE RATIO (test code=BUN/CREA) 7.0 10-20 CALCIUM (test code=CA) 7.8 mg/dL 8.5-10.1 [id number] 20:31:00* Test Item Value Reference Range Comments PHOSPHORUS (test code=PHOS) 5.2 mg/dL 2.5-4.9 [id number] 20:31:00* Test Item Value Reference Range Comments MAGNESIUM (test code=MAG) 1.8 mg/dL 1.8-2.4 CALCIUM [id number] 20:31:00* Test Item Value Reference Range Comments CALCIUM IONIZED (test code=BIJU) 1.15 mmol/L 1.12-1.32 [id number] 20:23:00* Test Item Value Reference Range Comments GLUBED (test code=GLUBED) 248 mg/dL 74-106 Performed by certified cloth doubling machine operator at [facility] BASIC METABOLIC [id number] 20:20:00* Test Item Value Reference Range Comments SODIUM (test code=NA) mmol/L 136-145 POTASSIUM (test code=K) mmol/L 3.5-5.1 CHLORIDE (test code=CL) mmol/L 98-107 CARBON DIOXIDE (test code=CO2) mmol/L 21-32 ANION GAP (test code=GAP) 10-20 GLUCOSE (test code=GLU) mg/dL 74-106 BLOOD UREA NITROGEN (test code=BUN) mg/dL 7-18 GLOMERULAR FILTRATION RATE (test code=GFR) mL/min >=60 CREATININE (test code=CREAT) mg/dL 0.55-1.02 BUN/CREATININE RATIO (test code=BUN/CREA) 10-20 CALCIUM (test code=CA) mg/dL 8.5-10.1 [id number] 20:20:00* Test Item Value Reference Range Comments PHOSPHORUS (test code=PHOS) mg/dL 2.5-4.9 [id number] 20:20:00* Test Item Value Reference Range Comments MAGNESIUM (test code=MAG) mg/dL 1.8-2.4 CALCIUM [id number] 20:20:00* Test Item Value Reference Range Comments CALCIUM IONIZED (test code=BIJU) 1.15 mmol/L 1.12-1.32 - XR CHEST 1 [id number] 18:55:00 FAX: Calos Mcdowell MD [phone] [place]: B St: ADM FAX: Sami Mcdowell MD [phone] FAX: Brijesh Curiel MD FAX: Bassam Benavides MD [phone] Name: DELLA MALLOY [facility] : 1950 Age/S: 68/F [address] [facility] Unit #: [id number] Loc: [address] [place] [address] Phys: Bassam Chiu MD Acct: [id number] Dis Date: Status: ADM IN PHONE #: [phone] Exam D ate: 12/17/2018 1845 FAX #: [phone] Reason: I NCORRECT COUNT EXAMS: CPT CODE: [id number] XR CHEST 1 V 18877 EXAM: Abdomen and pelvis, 3 views and lower neck and upper chest region, one view; INFORMATION: Patient with critical limb ischemia; status post axillary femoral bypass; missing instrument; IMPRESSION: 1. No evidence of a radiopaque, metallic instrument projecting over the imaged body parts. 2. Va scular stents are seen in the proximal left subclavian artery and the ri ght common iliac artery. 3. The tip of an endotracheal tube is positione d at the level of the ashwini. 4. The tip of a left IJ central li ne is positioned in the left brachiocephalic vein. 5. Surgical c lips and staple lines are seen in the groin region bilaterally. at 2345 Reported and si gned by: Siva Reid M.D. CC: Calos Negron; Sami Negron MD; Brijesh Muse; Bassam Chiu MD Technologist: MARCUS CAZARES RT(R) Trnvtrd Date/Time/By: 12/17/2018 (1854) : By: [email or web address] Orig Print D/T: S: 12/17/2018 (1857) PAGE 1 Signed Report - XR ABDOMEN [id number] 18:55:00 FAX: Calos Mcdowell MD [phone] [place]: St: ADM FAX: Sami Mcdowell MD [phone] FAX: Brijesh Curiel MD FAX: Bassam Benavides MD [phone] Name: LIAM MALLOY [facility] : 1950 Age/S: 68/F [address] Unit #: [id number] Loc: V[address] [place] [address] Phys: Bassam Chiu MD Acct: [id number] Dis Date: Status: ADM IN PHONE #: [phone] Exam Date: 12/17/2018 1845 FAX #: [phone] Reason: INCORRECT COUNT EXAMS: CPT CODE: [id number] XR ABDOMEN 2V 61025 EXAM: Abdomen and pelvis, 3 views and lower neck and upper chest region, one view; INFORMATION: Patient with critical limb ischemia; status post axillary femoral bypass; missing instrument; IMPRESSION: 1. No evidence of a radiopaque, metallic instrument projecting over the imaged body parts. 2. Vascular stents are seen in the proximal left subclavian artery and the right common iliac artery. 3. The tip of an endotracheal tube is positioned at the level of the ashwini. 4. The tip of a left IJ central line is positioned in the left brachiocephalic vein. 5. Surgical clips and staple lines are seen in the groin region bilaterally. at 1855 Reported and signed by: Siva Reid M.D. CC: Calos Negron; Sami Negron MD; Brijesh Muse; Bassam Chiu MD Technologist: MARCUS PORRAS(R) Trnscrd Date/Time/By: 12/17/2018 (1854) : By: [email or web address] Orig Print D/T: S: 12/17/2018 (602) PAGE 1 Signed Report BASIC METABOLIC [id number] 06:20:00* Test Item Value Reference Range Comments SODIUM (test code=NA) 143 mmol/L 136-145 POTASSIUM (test code=K) 3.2 mmol/L 3.5-5.1 CHLORIDE (test code=CL) 106.0 mmol/L 98-107 CARBON DIOXIDE (test code=CO2) 30.0 mmol/L 21-32 ANION GAP (test code=GAP) 10.2 10-20 GLUCOSE (test code=GLU) 139 mg/dL 74-106 BLOOD UREA NITROGEN (test code=BUN) 6 mg/dL 7-18 GLOMERULAR FILTRATION RATE (test code=GFR) > 60 mL/min >=60 Estimated GFR by using Modified MDRD formula.Chronic kidney disease is defined as either kidney damageor GFR <60 mL/min/1.73 m2 for >3 months. CREATININE (test code=CREAT) 0.70 mg/dL 0.55-1.02 Note change in reference range due to change in reagent. BUN/CREATININE RATIO (test code=BUN/CREA) 8.2 10-20 CALCIUM (test code=CA) 8.9 mg/dL 8.5-10.1 [id number] 06:20:00* Test Item Value Reference Range Comments MAGNESIUM (test code=MAG) 2.0 mg/dL 1.8-2.4 BASIC METABOLIC [id number] 06:16:00* Test Item Value Reference Range Comments SODIUM (test code=NA) 143 mmol/L 136-145 POTASSIUM (test code=K) 3.2 mmol/L 3.5-5.1 CHLORIDE (test code=CL) 106.0 mmol/L 98-107 CARBON DIOXIDE (test code=CO2) mmol/L 21-32 ANION GAP (test code=GAP) 10-20 GLUCOSE (test code=GLU) mg/dL 74-106 BLOOD UREA NITROGEN (test code=BUN) mg/dL 7-18 GLOMERULAR FILTRATION RATE (test code=GFR) mL/min >=60 CREATININE (test code=CREAT) mg/dL 0.55-1.02 BUN/CREATININE RATIO (test code=BUN/CREA) 10-20 CALCIUM (test code=CA) mg/dL 8.5-10.1 [id number] 06:16:00* Test Item Value Reference Range Comments MAGNESIUM (test code=MAG) mg/dL 1.8-2.4 PROTHROMBIN [id number] 06:15:00* Test Item Value Reference Range Comments PROTHROMBIN TIME PATIENT (test code=PTP) 11.1 seconds 9.0-14.0 INTERNATIONAL NORMAL RATIO (test code=INR) 0.9 0.8-1.2 The therapeutic range for oral anticoagulant therapy formost indications is an international normalized ratio (INR)of between 2.0 and 3.0. The recommended therapeutic INRrange for various clinical situations is listed below: Clinical Situation INR range Pulmonary e mbolism treatment (2.0-3.0)Venous thrombosis treatmentVenous thrombosis prophylaxis (high risk surgery)Prevention of systemic embolism from: Acute myocardial infarction Valvular heart disease Atrial fibrillation Mechanical prosthetic heart valves (2.5-3.5) IS PATIENT ON ANTICOAGULANTS? NTHROMBOPLASTIN TIME [id number] 06:15:00* Test Item Value Reference Range Comments THROMBOPLASTIN TIME PARTIAL (test code=PTT) 29.0 seconds 25.0-36.5 IS PATIENT ON ANTICOAGULANTS? NCBC W/AUTO [id number] 06:08:00* Test Item Value Reference Range Comments WHITE BLOOD CELL (test code=WBC) 7.1 K/mm3 4.5-12.5 RED BLOOD CELL (test code=RBC) 4.50 mill/mm3 3.7-5.2 HEMOGLOBIN (test code=HGB) 12.2 gram/dL 11.5-15.5 HEMATOCRIT (test code=HCT) 38.9 % 36.0-46.0 MEAN CELL VOLUME (test code=MCV) 86.4 fL 80-98 MEAN CELL HGB (test code=MCH) 27.1 picogram 27.0-33.0 MEAN CELL HGB CONCETRATION (test code=MCHC) 31.4 gram/dL 33.0-36.0 RED CELL DISTRIBUTION WIDTH (test code=RDW) 17.6 % 11.6-16.2 RED CELL DISTRIBUTION WIDTH SD (test code=RDW-SD) 55.7 fL 37.0-51.0 PLATELET COUNT (test code=PLT) 286 K/mm3 150-450 MEAN PLATELET VOLUME (test code=MPV) 9.2 fL 6.7-11.0 NEUTROPHIL % (test code=NT%) 52.6 % 39.0-69.0 IMMATURE GRANULOCYTE % (test code=IG%) 0.3 % 0.0-5.0 LYMPHOCYTE % (test code=LY%) 31.8 % 25.0-55.0 MONOCYTE % (test code=MO%) 10.8 % 0.0-10.0 EOSINOPHIL % (test code=EO%) 3.9 % 0.0-5.0 BASOPHIL % (test code=BA%) 0.6 % 0.0-1.0 NUCLEATED RBC % (test code=NRBC%) 0.0 % 0-0 NEUTROPHIL # (test code=NT#) 3.76 K/mm3 1.8-7.7 IMMATURE GRANULOCYTE # (test code=IG#) 0.02 x10 3/uL 0-0.03 LYMPHOCYTE # (test code=LY#) 2.27 K/mm3 1.0-5.0 MONOCYTE # (test code=MO#) 0.77 K/mm3 0-0.8 EOSINOPHIL # (test code=EO#) 0.28 K/mm3 0.0-0.5 BASOPHIL # (test code=BA#) 0.04 K/mm3 0.0-0.2 NUCLEATED RBC # (test code=NRBC#) 0.00 K/mm3 0.0-0.1 MANUAL DIFF REQUIRED (test code=MDIFF) NO CBC W/AUTO [id number] 06:06:00* Test Item Value Reference Range Comments WHITE BLOOD CELL (test code=WBC) K/mm3 4.5-12.5 RED BLOOD CELL (test code=RBC) mill/mm3 3.7-5.2 HEMOGLOBIN (test code=HGB) 12.2 gram/dL 11.5-15.5 HEMATOCRIT (test code=HCT) 38.9 % 36.0-46.0 MEAN CELL VOLUME (test code=MCV) fL 80-98 MEAN CELL HGB (test code=MCH) picogram 27.0-33.0 MEAN CELL HGB CONCETRATION (test code=MCHC) gram/dL 33.0-36.0 RED CELL DISTRIBUTION WIDTH (test code=RDW) % 11.6-16.2 RED CELL DISTRIBUTION WIDTH SD (test code=RDW-SD) fL 37.0-51.0 PLATELET COUNT (test code=PLT) K/mm3 150-450 MEAN PLATELET VOLUME (test code=MPV) fL 6.7-11.0 NEUTROPHIL % (test code=NT%) % 39.0-69.0 IMMATURE GRANULOCYTE % (test code=IG%) % 0.0-5.0 LYMPHOCYTE % (test code=LY%) % 25.0-55.0 MONOCYTE % (test code=MO%) % 0.0-10.0 EOSINOPHIL % (test code=EO%) % 0.0-5.0 BASOPHIL % (test code=BA%) % 0.0-1.0 NEUTROPHIL # (test code=NT#) K/mm3 1.8-7.7 LYMPHOCYTE # (test code=LY#) K/mm3 1.0-5.0 MONOCYTE # (test code=MO#) K/mm3 0-0.8 EOSINOPHIL # (test code=EO#) K/mm3 0.0-0.5 BASOPHIL # (test code=BA#) K/mm3 0.0-0.2 - XR CHEST 1 [id number] 20:12:00 FAX: Calos Mcdowell MD [phone] [place]: [address] St: ADM FAX: Sami Mcdowell MD [phone] FAX: Brijesh Curiel MD FAX: Daria Leigh Name: DELLA MALLOY [facility] : 1950 Age/S: 68/F [address] [facility] Unit #: [id number] Loc: V.4 [address] [place] [address] Phys: Daria Maza NP Acct: [id number] Dis Date: Status: ADM IN PHONE #: [phone] Exam D ate: 12/14/2018 1900 FAX #: [phone] Reason: P RESURGICAL EXAMS: CPT CODE: [id number] XR CHEST 1 V [id number] REASON FOR EXAM: PRESURGICAL Exam Order Date: 12/14/2018 12:00 AM Ordering M.D.: Daria Maza NP PROCEDURE: - XR CHEST 1 V COMPARISON: 2 view chest x-ray August 31, 2018. CT angiogram of the neck December 08, 2018 was also reviewed. FINDINGS: The lungs are clear other than mild subsegmental atelectasis in the left lung base. There is no p leural effusion or pneumothorax. Pulmonary vascularity is within normal li mits. Cardiomediastinal silhouette is normal in size for technique . The mediastinal contours are within normal limits. Left subclavian arter y stent is redemonstrated. No change in position. Musculoske letal structures are within normal limits. The visualized upper ab domen is within normal limits. IMPRESSION: No ac eklutna cardiopulmonary process. at 2012 Reported and signed by: Galen rodriguez MD CC: Calos Negron; Sami Negron MD; Brijesh Muse; Daria Maza NP Techno logist: Hasmukh Shelley RT(R Trnscrd Date/Time /By: 12/14/2018 (2011) : By: [email or web address] Orig Print D/T: S: 12/14/2018 ( 2014) PAGE 1 Signed Report BASIC METABOLIC [id number] 18:29:00* Test Item Value Reference Range Comments SODIUM (test code=NA) 144 mmol/L 136-145 POTASSIUM (test code=K) 3.5 mmol/L 3.5-5.1 CHLORIDE (test code=CL) 107.0 mmol/L 98-107 CARBON DIOXIDE (test code=CO2) 26.0 mmol/L 21-32 ANION GAP (test code=GAP) 14.5 10-20 GLUCOSE (test code=GLU) 133 mg/dL 74-106 BLOOD UREA NITROGEN (test code=BUN) 7 mg/dL 7-18 GLOMERULAR FILTRATION RATE (test code=GFR) > 60 mL/min >=60 Estimated GFR by using Modified MDRD formula.Chronic kidney disease is defined as either kidney damageor GFR <60 mL/min/1.73 m2 for >3 months. CREATININE (test code=CREAT) 0.80 mg/dL 0.55-1.02 Note change in reference range due to change in reagent. BUN/CREATININE RATIO (test code=BUN/CREA) 8.9 10-20 CALCIUM (test code=CA) 9.5 mg/dL 8.5-10.1 CBC W/AUTO [id number] 18:06:00* Test Item Value Reference Range Comments WHITE BLOOD CELL (test code=WBC) 8.0 K/mm3 4.5-12.5 RED BLOOD CELL (test code=RBC) 5.31 mill/mm3 3.7-5.2 HEMOGLOBIN (test code=HGB) 13.9 gram/dL 11.5-15.5 HEMATOCRIT (test code=HCT) 44.9 % 36.0-46.0 MEAN CELL VOLUME (test code=MCV) 84.6 fL 80-98 MEAN CELL HGB (test code=MCH) 26.2 picogram 27.0-33.0 MEAN CELL HGB CONCETRATION (test code=MCHC) 31.0 gram/dL 33.0-36.0 RED CELL DISTRIBUTION WIDTH (test code=RDW) 17.7 % 11.6-16.2 RED CELL DISTRIBUTION WIDTH SD (test code=RDW-SD) 53.9 fL 37.0-51.0 PLATELET COUNT (test code=PLT) 298 K/mm3 150-450 MEAN PLATELET VOLUME (test code=MPV) 9.4 fL 6.7-11.0 NEUTROPHIL % (test code=NT%) 50.1 % 39.0-69.0 IMMATURE GRANULOCYTE % (test code=IG%) 0.1 % 0.0-5.0 LYMPHOCYTE % (test code=LY%) 34.9 % 25.0-55.0 MONOCYTE % (test code=MO%) 9.1 % 0.0-10.0 EOSINOPHIL % (test code=EO%) 4.9 % 0.0-5.0 BASOPHIL % (test code=BA%) 0.9 % 0.0-1.0 NUCLEATED RBC % (test code=NRBC%) 0.0 % 0-0 NEUTROPHIL # (test code=NT#) 4.02 K/mm3 1.8-7.7 IMMATURE GRANULOCYTE # (test code=IG#) 0.01 x10 3/uL 0-0.03 LYMPHOCYTE # (test code=LY#) 2.80 K/mm3 1.0-5.0 MONOCYTE # (test code=MO#) 0.73 K/mm3 0-0.8 EOSINOPHIL # (test code=EO#) 0.39 K/mm3 0.0-0.5 BASOPHIL # (test code=BA#) 0.07 K/mm3 0.0-0.2 NUCLEATED RBC # (test code=NRBC#) 0.00 K/mm3 0.0-0.1 MANUAL DIFF REQUIRED (test code=MDIFF) NO CBC W/AUTO [id number] 18:02:00* Test Item Value Reference Range Comments WHITE BLOOD CELL (test code=WBC) K/mm3 4.5-12.5 RED BLOOD CELL (test code=RBC) mill/mm3 3.7-5.2 HEMOGLOBIN (test code=HGB) 13.9 gram/dL 11.5-15.5 HEMATOCRIT (test code=HCT) 44.9 % 36.0-46.0 MEAN CELL VOLUME (test code=MCV) fL 80-98 MEAN CELL HGB (test code=MCH) picogram 27.0-33.0 MEAN CELL HGB CONCETRATION (test code=MCHC) gram/dL 33.0-36.0 RED CELL DISTRIBUTION WIDTH (test code=RDW) % 11.6-16.2 RED CELL DISTRIBUTION WIDTH SD (test code=RDW-SD) fL 37.0-51.0 PLATELET COUNT (test code=PLT) K/mm3 150-450 MEAN PLATELET VOLUME (test code=MPV) fL 6.7-11.0 NEUTROPHIL % (test code=NT%) % 39.0-69.0 IMMATURE GRANULOCYTE % (test code=IG%) % 0.0-5.0 LYMPHOCYTE % (test code=LY%) % 25.0-55.0 MONOCYTE % (test code=MO%) % 0.0-10.0 EOSINOPHIL % (test code=EO%) % 0.0-5.0 BASOPHIL % (test code=BA%) % 0.0-1.0 NEUTROPHIL # (test code=NT#) K/mm3 1.8-7.7 LYMPHOCYTE # (test code=LY#) K/mm3 1.0-5.0 MONOCYTE # (test code=MO#) K/mm3 0-0.8 EOSINOPHIL # (test code=EO#) K/mm3 0.0-0.5 BASOPHIL # (test code=BA#) K/mm3 0.0-0.2 UR ELECTROPHORESIS ORESTES [id number] 18:07:00* Test Item Value Reference Range Comments IMMUNOFIXATION URINE (test code=IMMFIXU) SCREEN () An apparent normal immunofixation pattern. UR TOTAL PROTEIN (test code=PROTEU) 15.9 mg/dL Not Estab. UR ONIHT-3-KGGPUOBO (test code=A1GU) 8.7 % () UR GLORC-6-QRRWMLEN (test code=A2GU) 15.0 % () UR BETA GLOBULIN (test code=BGU) 16.7 % () UR GAMMA GLOBULIN (test code=GGU) 22.9 % () MONOCLONAL SPIKE (test code=MONOSPIKE) Not Observed % Not Observed UR ALBUMIN QUANT (test code=ALBU) 36.7 % () - [facility] [id number] 01:35:00 Name: LIAM MALLOY [facility] : 1950 Age/S: 68 / F [address] Unit #: [id number] Loc: [place] [address] Phys: Calos Negron MD Acct: [id number] Dis Date: Status: ADM IN PHONE #: [phone] Exam Date: 12/08/2018 2353 FAX #: [phone] Reason: Left Subclavian Stenosis Previous Left Subclavi EXAMS: CPT CODE: [id number] CTA NECK 74130 Dictation location: [facility]. CT ANGIOGRAM OF THE NECK WITH IV CONTRAST; MIP AND 3-D RECONSTRUCTIONS HISTORY: Left Subclavian Stenosis Previous Left Subclavian stent COMPARISON: None TECHNIQUE: Axial CT images of the neck were obtained with coronal and/or sagittal reformatted views with MIP and/or 3-D reconstruction of the carotid arteries. Automated exposure control, iterative reconstruction technique, and/or adjustment of mA and/or kV according to patient's size was utilized for radiation dose reduction. FINDINGS: Mild atelectasis seen in both upper lungs. The thyroid is mildly prominent otherwise unremarkable. The airway is patent. No definite mucosal lesion. The parotid and submandibular glands are unremarkable. No cervical adenopathy. Mild cervical spondylosis. Aortic arch: Mild atherosclerotic disease of the aortic arch. The right brachiocephalic and common carotid artery likely share a common origin suggestive of a bovine arch without signif icant stenosis. A left subclavian stent is seen beginning at its origin e xtending to before the vertebral takeoff. Limited assessment due to strea k artifact from the stent. The stent is likely patent. Contrast op acification is seen distally. Right carotid: Atherosclerotic calci fications are seen at the right carotid bulb causing up to 30% stenosis. The common, internal and external carotid arteries are otherwise patent. No carotid dissection. Left carotid: Calcified and soft plaq ue formation seen involving the left carotid bulb with up to 30% stenosis. The common, internal and external carotid arteries are otherwise patent. No evidence of a carotid dissection. Surgical clips is seen near the left carotid bulb. Vertebral arteries: Both vertebral arteries are patent. The left is PAGE 1 Signed Report (CONTINUED) Name: LIAM MALLOY [facility] : 1950 Age/S: 68 / F [address] [facility] Unit #: [id number] Loc: [place] [address] Phys: Calos Negron MD Acct: [id number] Dis Date: Status: ADM IN PHONE #: [phone] Exam Date: 12/08/2018 3387 FAX #: [phone] Reason: Left Subclavian Stenosis Previous Left Subclavi EXAMS: CPT CODE: [id number] CTA NECK 49571 < Continued> hypoplastic. IMPRESSION: Left subclavian artery stent beginning at its origin and is likely patent. Bilateral carotid stenosis of to 30%. Hypoplastic and patent left vertebral artery. at 0135 Reported and signed by: Alexis Garber M.D. CC: Calos Negron; Sami Negron MD; Brijesh Muse Technologist:RT Krys(R)(CT) CTDI: DLP: Trnscb Date/Time: 12/09/2018 (013) [email or web address] Orig Print D/T: S: 12/10/2018 (2659) PAGE 2 Signed Report COMPREHENSIVE METABOLIC [id number] 19:22:00* Test Item Value Reference Range Comments SODIUM (test code=NA) 145 mmol/L 136-145 POTASSIUM (test code=K) 4.4 mmol/L 3.5-5.1 CHLORIDE (test code=CL) 110.0 mmol/L 98-107 CARBON DIOXIDE (test code=CO2) 25.0 mmol/L 21-32 ANION GAP (test code=GAP) 14.4 10-20 GLUCOSE (test code=GLU) 113 mg/dL 74-106 BLOOD UREA NITROGEN (test code=BUN) 10 mg/dL 7-18 GLOMERULAR FILTRATION RATE (test code=GFR) > 60 mL/min >=60 Estimated GFR by using Modified MDRD formula.Chronic kidney disease is defined as either kidney damageor GFR <60 mL/min/1.73 m2 for >3 months. CREATININE (test code=CREAT) 0.70 mg/dL 0.55-1.02 Note change in reference range due to change in reagent. BUN/CREATININE RATIO (test code=BUN/CREA) 14.3 10-20 TOTAL PROTEIN (test code=PROT) 5.8 gram/dL 6.4-8.2 ALBUMIN (test code=ALB) 3.0 g/dL 3.4-5.0 GLOBULIN (test code=GLOB) 2.8 gram/dL 2.7-4.2 ALBUMIN/GLOBULIN RATIO (test code=A/G) 1.1 0.75-1.50 CALCIUM (test code=CA) 9.0 mg/dL 8.5-10.1 BILIRUBIN TOTAL (test code=BILT) 0.20 mg/dL 0.0-1.0 SGOT/AST (test code=AST) 14 IUnit/L 15-37 SGPT/ALT (test code=ALT) 24 IUnit/L 12-78 ALKALINE PHOSPHATASE TOTAL (test code=ALKP) 182 IUnit/L 45-117 Note change in reference range due to change in reagent. COMPREHENSIVE METABOLIC [id number] 19:14:00* Test Item Value Reference Range Comments SODIUM (test code=NA) 145 mmol/L 136-145 POTASSIUM (test code=K) 4.4 mmol/L 3.5-5.1 CHLORIDE (test code=CL) 110.0 mmol/L 98-107 CARBON DIOXIDE (test code=CO2) mmol/L 21-32 ANION GAP (test code=GAP) 10-20 GLUCOSE (test code=GLU) mg/dL 74-106 BLOOD UREA NITROGEN (test code=BUN) mg/dL 7-18 GLOMERULAR FILTRATION RATE (test code=GFR) mL/min >=60 CREATININE (test code=CREAT) mg/dL 0.55-1.02 BUN/CREATININE RATIO (test code=BUN/CREA) 10-20 TOTAL PROTEIN (test code=PROT) gram/dL 6.4-8.2 ALBUMIN (test code=ALB) g/dL 3.4-5.0 GLOBULIN (test code=GLOB) gram/dL 2.7-4.2 ALBUMIN/GLOBULIN RATIO (test code=A/G) 0.75-1.50 CALCIUM (test code=CA) mg/dL 8.5-10.1 BILIRUBIN TOTAL (test code=BILT) mg/dL 0.0-1.0 SGOT/AST (test code=AST) IUnit/L 15-37 SGPT/ALT (test code=ALT) IUnit/L 12-78 ALKALINE PHOSPHATASE TOTAL (test code=ALKP) IUnit/L 45-117 CBC W/AUTO [id number] 18:44:00* Test Item Value Reference Range Comments WHITE BLOOD CELL (test code=WBC) 7.8 K/mm3 4.5-12.5 RED BLOOD CELL (test code=RBC) 4.43 mill/mm3 3.7-5.2 HEMOGLOBIN (test code=HGB) 11.7 gram/dL 11.5-15.5 HEMATOCRIT (test code=HCT) 37.9 % 36.0-46.0 MEAN CELL VOLUME (test code=MCV) 85.6 fL 80-98 MEAN CELL HGB (test code=MCH) 26.4 picogram 27.0-33.0 MEAN CELL HGB CONCETRATION (test code=MCHC) 30.9 gram/dL 33.0-36.0 RED CELL DISTRIBUTION WIDTH (test code=RDW) 18.0 % 11.6-16.2 RED CELL DISTRIBUTION WIDTH SD (test code=RDW-SD) 56.8 fL 37.0-51.0 PLATELET COUNT (test code=PLT) 293 K/mm3 150-450 MEAN PLATELET VOLUME (test code=MPV) 9.1 fL 6.7-11.0 NEUTROPHIL % (test code=NT%) 59.4 % 39.0-69.0 IMMATURE GRANULOCYTE % (test code=IG%) 0.3 % 0.0-5.0 LYMPHOCYTE % (test code=LY%) 28.5 % 25.0-55.0 MONOCYTE % (test code=MO%) 8.0 % 0.0-10.0 EOSINOPHIL % (test code=EO%) 3.2 % 0.0-5.0 BASOPHIL % (test code=BA%) 0.6 % 0.0-1.0 NUCLEATED RBC % (test code=NRBC%) 0.0 % 0-0 NEUTROPHIL # (test code=NT#) 4.65 K/mm3 1.8-7.7 IMMATURE GRANULOCYTE # (test code=IG#) 0.02 x10 3/uL 0-0.03 LYMPHOCYTE # (test code=LY#) 2.23 K/mm3 1.0-5.0 MONOCYTE # (test code=MO#) 0.63 K/mm3 0-0.8 EOSINOPHIL # (test code=EO#) 0.25 K/mm3 0.0-0.5 BASOPHIL # (test code=BA#) 0.05 K/mm3 0.0-0.2 NUCLEATED RBC # (test code=NRBC#) 0.00 K/mm3 0.0-0.1 CREATININE W ESTIMATED [id number] 10:18:00* Test Item Value Reference Range Comments BEDSIDE CREATININE (test code=CREATBED) mg/dL 0.7-1.3 GLOMERULAR FILTRATION RATE POC (test code=GFRBED) 66 >60 CREATININE W ESTIMATED [id number] 10:18:00* Test Item Value Reference Range Comments BEDSIDE CREATININE (test code=CREATBED) 0.86 mg/dL 0.7-1.3 GLOMERULAR FILTRATION RATE POC (test code=GFRBED) > 60 >60 Previously reported result: 66 Edited by: ANTONIO on 09/24/18:192758 1018: GFRBED previously reported as: 66 H - CTA ABD AORTA IF LWEX [id number] 13:08:00 Name: LIAM MALLOY [facility] : 1950 Age/S: 68 / F [address] [place] [address] Unit #: [id number] Loc: [place] [address] Phys: Calos Negron MD Acct: [id number] Dis Date: Status: ADM IN PHONE #: [phone] Exam Date: 09/04/2018 1006 FAX #: [phone] Reason: AORTIC DISEASE EXAMS: CPT CODE: [id number] [place] [id number] ABDOMEN AND BILATERAL LOWER EXTREMITY RUNOFF CT ANGIOGRAM WITH IV CONTRAST AND MULTIPLANAR REFORMATS AND 3-D RECONSTRUCTIONS 09/04/2018. MEDICAL HISTORY: Aortic/vascular disease. Past surgical history of hysterectomy, appendectomy, cholecy stectomy, hernia repair and bypass surgery x2. COMPARISON ST UDIES: Runoff CT angiogram studies 07/11/2017 and 10/27/2012. ADMINISTE RED CONTRAST: 100 mL of Isovue 370 intravenously. DLP: 2285.9 mGy-cm FINDINGS: Contiguous 2 mm axial images of the abdomen, pelvis and bilateral lower extremities were obtained after IV contrast administration using the runoff CT angiogram protocol. The acquired data was used to cr eate multiplanar reformatted images as well as 3-D volume rendering recons tructions with the use of the Workstation. Vessel probe analysis of the re nal arterial circulation was also performed with the use of the workstatio n. ABDOMEN AND PELVIS: No abdominal aortic aneurysm or dissection. The celiac, mesenteric and renal arterial circulation are patent. Chronic bilateral common iliac artery occlusions with patent posterior aort obiiliac bypass graft showing diffuse segmental calcification. Preserved b ilateral internal iliac and right external iliac artery runoff with patent right external iliac artery stent. The proximal left external iliac artery is occluded at and distally to the anastomosis with distal reconstitution from EULALIA and inferior epigastric collaterals. No abnormal solid organ enhancement. Prior cholecystectomy without biliary dilatation. No free intraperitoneal air or fluid. Mild sigmoid diverticulosis with no signs of diverticulitis. Moderate thoracolumbar/lumbosacral spondylos is without destructive bone lesions. Absent uterus. BILATERA L THIGHS: Patent common femoral, superficial/deep femoral and popliteal ar teries without flow-limiting stenosis or arterial dissection. TRIFURCATION VESSELS: Bilateral 3 vessel trifurcation runoffs to the lev el of the ankles/feet. IMPRESSION: 1. Chronic bilateral common iliac artery occlusion with patent, albeit PAGE 1 Signed Report (CONTINUED) Name: LIAM MALLOY [facility] : 1950 Age/S: 68 / F [address] [place] [address] Unit #: [id number] Loc: [place] [address] Phys: Calos Negron MD Acct: [id number] Dis Date: Status: A DM IN PHONE #: [phone] Exam Date: 08/22 1006 FAX #: [phone] Reason: AORTIC DISEASE EXAMS: CPT CODE: [id number] CTA ABD AORTA IF LWEX RO 7 5674 <Continued> calcified aortoiliac bifemoral bypass graft. 2. Patent right external iliac artery stent without in-stent stenosis or intimal hyperplasia. 3. Proximal left external iliac artery occlusion at and distal to the graft anastomosis. The distal left external iliac artery is reconstituted by EULALIA and inferior epigastric collaterals. 4. Preserved femoropopliteal runoff bilaterally without flow-limiting stenosis or segmental occlusion. 5. Bilateral 3 vessel trifurcation runoffs. 6. Cholecystectomy and hysterectomy. 7. Mild sigmoid diverticulosis. ____ CT imaging performed at this location utilizes radiation dose optimization techniques which include one or more of the following: - Automated exposure control -Adjustment of the mA and/or kV according to patient size -Use of iterative reconstruction technique SL: ER-H at 1308 Reported and signed by: Audie Malone M.D. CC: Calos Negron MD; Yuri Hale DO Technologist:RT Mika(R) CTDI: DLP: Trnscb Date/Time: 09/05/2018 (6650) [email or web address] Orig Print D/T: S: 09/05/2018 (0742) PAGE 2 Signed Report BASIC METABOLIC [id number] 08:09:00* Test Item Value Reference Range Comments SODIUM (test code=NA) 141 mEq/L 134-147 POTASSIUM (test code=K) 3.9 mEq/L 3.4-5.0 CHLORIDE (test code=CL) 108 mEq/L 100-108 CARBON DIOXIDE (test code=CO2) 25 mEq/L 21-33 ANION GAP (test code=GAP) 12 0-20 GLUCOSE (test code=GLU) 135 mg/dL 70-110 BLOOD UREA NITROGEN (test code=BUN) 12 mg/dL 7-18 GLOMERULAR FILTRATION RATE (test code=GFR) 71.3 80-90 Units of measure=ml/min/1.73 m2 CREATININE (test code=CREAT) 0.8 mg/dL 0.6-1.3 CALCIUM (test code=CA) 9.1 mg/dL 8.0-10.5 COMPREHENSIVE METABOLIC [id number] 08:09:00* Test Item Value Reference Range Comments TOTAL PROTEIN (test code=PROT) 6.6 g/dL 6.4-8.2 ALBUMIN (test code=ALB) 3.00 g/dL 3.4-5.0 BILIRUBIN TOTAL (test code=BILT) 0.20 mg/dL 0.0-1.0 SGOT/AST (test code=AST) 14 IUnit/L 15-37 SGPT/ALT (test code=ALT) 20 IUnit/L 15-65 ALKALINE PHOSPHATASE TOTAL (test code=ALKP) 139 IUnit/L 20-125 LIPID PROFILE (CORONARY RISK)2018-09-04 08:09:00* Test Item Value Reference Range Comments TRIGLYCERIDES (test code=TRIG) 62 mg/dL 40-150 CHOLESTEROL (test code=CHOL) 210 mg/dL <200 CHOLESTEROL/HDL RATIO (test code=CHOLHDL) 2.53 RATIO 3.27-4.44 RISK ASSOCIATED WITH CHOL/HDL RATIOS: RISK MALE FEMALE1/2 AVERAGE 3.43 3.27AVERAGE 4.97 4.442X AVERAGE 9.55 7.053X AVERAGE 23.39 11.04 NOTE THAT THE REFERENCE VALUE IS RELATEDTO RISK LEVELS RECOMMENDED BY THE NATL.HEART, LUNG, AND BLOOD INST. HDL CHOLESTEROL (test code=HDL) 83.0 mg/dL 39-96 LIPOPROTEIN LDL (test code=LDL) 112 mg/dL 0-100 <100 [id number] NEAR OPTIMAL/ABOVE [id number] HIGH>PN=693 VERY HIGH*Guidelines provided by the National Cholesterol EducationProgram Adult Treatment Panel III CBC W/AUTO [id number] 07:34:00* Test Item Value Reference Range Comments WHITE BLOOD CELL (test code=WBC) 10.21 x10 3/uL 4.5-11.0 RED BLOOD CELL (test code=RBC) 4.53 x10 6/uL 3.54-5.02 HEMOGLOBIN (test code=HGB) 11.8 g/dL 11.0-15.0 HEMATOCRIT (test code=HCT) 39.3 % 33.0-45.0 MEAN CELL VOLUME (test code=MCV) 86.8 fL 81.0-99.0 MEAN CELL HGB (test code=MCH) 26.0 pg 27.0-33.0 MEAN CELL HGB CONCETRATION (test code=MCHC) 30.0 g/dL 33.0-37.0 RED CELL DISTRIBUTION WIDTH CV (test code=RDW) 15.6 % 11.5-14.5 RED CELL DISTRIBUTION WIDTH SD (test code=RDW-SD) 49.4 fL 37.0-54.0 PLATELET COUNT (test code=PLT) 346 x10 3/uL 150-400 MEAN PLATELET VOLUME (test code=MPV) 9.5 fL 7.0-9.0 NEUTROPHIL % (test code=NT%) 84.3 % 56.0-77.0 IMMATURE GRANULOCYTE % (test code=IG%) 0.4 % 0.0-2.0 LYMPHOCYTE % (test code=LY%) 12.8 % 14.0-32.0 MONOCYTE % (test code=MO%) 2.4 % 4.8-9.0 EOSINOPHIL % (test code=EO%) 0.0 % 0.3-3.7 BASOPHIL % (test code=BA%) 0.1 % 0.0-2.0 NUCLEATED RBC % (test code=NRBC%) 0.0 % 0-0 NEUTROPHIL # (test code=NT#) 8.61 x10 3/uL 2.0-7.6 IMMATURE GRANULOCYTE # (test code=IG#) 0.04 x10 3/uL 0.00-0.03 LYMPHOCYTE # (test code=LY#) 1.31 x10 3/uL 1.0-3.8 MONOCYTE # (test code=MO#) 0.24 x10 3/uL 0.1-0.8 EOSINOPHIL # (test code=EO#) 0.00 x10 3/uL 0.0-0.2 BASOPHIL # (test code=BA#) 0.01 x10 3/uL 0.0-0.2 NUCLEATED RBC # (test code=NRBC#) 0.00 x10 3/uL 0.0-0.1 MANUAL DIFF REQUIRED (test code=MDIFF) NO - XR CHEST 2 [id number] 10:20:00 FAX: Calso Mcdowell MD [phone] [place]: St: PRE FAX: Yuri Mayorga DO [phone] Name: LIAM MALLOY [facility] : 1950 Age/S: 68/F [address] [place] [address] Bl Unit #: [id number] Loc: [place] [address] Phys: Calos Negron MD Acct: [id number] Dis Date: Status: PRE SDC PHONE #: [phone] Exam Date: 08/31/2018 1010 FAX #: [phone] Reason: PRE PROCEDURE/PAD/PVD EXAMS: CPT CODE: [id number] XR CHEST 2 V 11453 CLINICAL HISTORY: PRE PROCEDURE/PAD/PVD COMPARISON: May 14, 2018. PA and lateral films of the chest demonstrate that heart size is normal. Lung olivera are clear. No evidence of pneumonia or congestive failure is seen. Regional skeletal structures are within normal limits. IMPRESSION: No evidence of pneumonia or congestive failure is seen. at 1020 Reported and signed by: Duc Noble M.D. CC: Calos Negron MD; Yuri Hale DO Technologist: RT Pk(R) Trnscrd Date/Time/By: 08/31/2018 (1020) : By: TseringYOMelisa Orig Print D/T: S: 08/31/2018 (1024) PAGE 1 Signed Report BASIC METABOLIC [id number] 09:58:00* Test Item Value Reference Range Comments SODIUM (test code=NA) 142 mEq/L 134-147 POTASSIUM (test code=K) 3.8 mEq/L 3.4-5.0 CHLORIDE (test code=CL) 108 mEq/L 100-108 CARBON DIOXIDE (test code=CO2) 27 mEq/L 21-33 ANION GAP (test code=GAP) 11 0-20 GLUCOSE (test code=GLU) 72 mg/dL 70-110 BLOOD UREA NITROGEN (test code=BUN) 11 mg/dL 7-18 GLOMERULAR FILTRATION RATE (test code=GFR) 71.3 80-90 Units of measure=ml/min/1.73 m2 CREATININE (test code=CREAT) 0.8 mg/dL 0.6-1.3 CALCIUM (test code=CA) 9.4 mg/dL 8.0-10.5 PROTHROMBIN [id number] 09:46:00* Test Item Value Reference Range Comments PROTHROMBIN TIME PATIENT (test code=PTP) 11.3 SECONDS 9.3-12.9 INTERNATIONAL NORMAL RATIO (test code=INR) 1.0 0.8-1.2 TARGET INR BY INDICATION Indication INR1. Prophylaxis of venous thrombosis 2.0 - 3.0 (orthopedic surgery), Prophylaxis of venous thrombosis (other than high-risk surgery), Treatment of Deep Vein Thrombosis/Pulmonary Embolism, Prevention of systemic embolism - Tissue heart valves, Acute Myocardial Infarction (to prevent systemic embolism), Valvular heart disease, Atrial Fibrillation, Bileaflet mechanical valve in aortic position.2. Mechanical prosthetic valves (high risk), 2.5 - 3.5 Presence of Lupus Anticoagulant or Antiphospholipid Antibodies, Prevention of systemic embolism - Acute Myocardial Infarction (to prevent recurrent infarct). CBC W/AUTO [id number] 09:35:00* Test Item Value Reference Range Comments WHITE BLOOD CELL (test code=WBC) 8.78 x10 3/uL 4.5-11.0 RED BLOOD CELL (test code=RBC) 5.17 x10 6/uL 3.54-5.02 HEMOGLOBIN (test code=HGB) 13.3 g/dL 11.0-15.0 HEMATOCRIT (test code=HCT) 44.1 % 33.0-45.0 MEAN CELL VOLUME (test code=MCV) 85.3 fL 81.0-99.0 MEAN CELL HGB (test code=MCH) 25.7 pg 27.0-33.0 MEAN CELL HGB CONCETRATION (test code=MCHC) 30.2 g/dL 33.0-37.0 RED CELL DISTRIBUTION WIDTH CV (test code=RDW) 15.6 % 11.5-14.5 RED CELL DISTRIBUTION WIDTH SD (test code=RDW-SD) 48.6 fL 37.0-54.0 PLATELET COUNT (test code=PLT) 335 x10 3/uL 150-400 MEAN PLATELET VOLUME (test code=MPV) 9.0 fL 7.0-9.0 NEUTROPHIL % (test code=NT%) 62.3 % 56.0-77.0 IMMATURE GRANULOCYTE % (test code=IG%) 0.3 % 0.0-2.0 LYMPHOCYTE % (test code=LY%) 26.8 % 14.0-32.0 MONOCYTE % (test code=MO%) 6.8 % 4.8-9.0 EOSINOPHIL % (test code=EO%) 3.0 % 0.3-3.7 BASOPHIL % (test code=BA%) 0.8 % 0.0-2.0 NUCLEATED RBC % (test code=NRBC%) 0.0 % 0-0 NEUTROPHIL # (test code=NT#) 5.47 x10 3/uL 2.0-7.6 IMMATURE GRANULOCYTE # (test code=IG#) 0.03 x10 3/uL 0.00-0.03 LYMPHOCYTE # (test code=LY#) 2.35 x10 3/uL 1.0-3.8 MONOCYTE # (test code=MO#) 0.60 x10 3/uL 0.1-0.8 EOSINOPHIL # (test code=EO#) 0.26 x10 3/uL 0.0-0.2 BASOPHIL # (test code=BA#) 0.07 x10 3/uL 0.0-0.2 NUCLEATED RBC # (test code=NRBC#) 0.00 x10 3/uL 0.0-0.1 MANUAL DIFF REQUIRED (test code=MDIFF) DONG JENSEN,[id number] 14:27:00 RUN DATE: 07/19/18 [facility] PAGE 1 RUN TIME: 1427 Specimen Inqui ry RUN USER: INTERFACE PATIENT: LIAM MALLOY ACCT #: V [id number] LOC: KYLE U #: [id number] AGE/SX: 68/F ROOM: [id number] DR: Jonas Russell : 50 BED: DIS: STATUS: [facility] TLOC: SPEC #: [id number] RECD: 07/18/18 STATUS: ALBERTO THOMAS #: [id number] ARACELI: 07/18/[address] [facility] [address]: Jonas Russell MD ENTERED: 07/18/18 SP TYPE: BX DUODEN OTHR DR: Yuri Gupta od, DO ORDERED: GROSS COPIES TO: Jonas Russell MD [address], [address] [place], [place] [id number] Yuri Hale DO [address] [place] [address] PROCEDURES: GROSS (07/19/18- 1143) TISSUES: 1. DUODENUM, NOS - BX 2. ANTRUM - BX 3. ESOPHAGUS, NOS - BX CLINICAL HISTORY COLLECTION DATE: 07/18/2018 ANEMIA, WHITEHEAD'S, HIATAL HERNIA, HISTORY OF COLON POLYPS, EPIGASTRIC PAIN POST-OP DIAGNOSIS: GASTRITIS, HIATAL HERNIA, WHITEHEAD'S ESOPHAGUS COM MENT Intradepartmental consultation: DMW FINAL DIAGNOSIS Duodenum, biopsy: DUODENAL MUCOSA WITH UNREMARKABLE VILLOUS ARCHITECTURE AND MILD CHRONIC INFLAMMATION IN LAMINA PROPRIA NO INTRAEPITHELIAL INFLAM MATION PRESENT NEGATIVE FOR MALIGNANCY Gastric antrum, biopsy: GASTRIC MUCOSA WITH NO SIGNIFICANT ACUTE OR CHRONIC INFLAMMATION NO AR EAS OF MUCOSAL EROSION OR ULCERATION NEGATIVE FOR INTESTINAL METAPLASIA NEGATIVE FOR HELICOBACTER ORGANISMS CONT INUED ON NEXT PAGE RUN DATE: 07/19/18 [place] - [facility] PAGE 2 RUN TIME: 7 Specimen Inquiry RUN USER: INTERFACE SPEC #: [id number] PATIENT: LIAM MALLOY #[id number] (Continued) FINAL DIAGNOSIS (Continued) NEGATIVE FOR MALIGNANCY Esophagus, biopsy: GASTRIC TYPE GLANDULAR MUCOSA WITH PATCHY INTESTINAL METAPLASIA, MILD EPITHELIAL DYSPLASIA, AND MINIMAL CHRONIC INFLAMMA TION SMALL FRAGMENT OF SQUAMOUS MUCOSA WITH MILD ELONGATION OF SQUAMOUS PAPILLAE NO INCREASED NUMBER OF INTRAEPITHELIAL EOSINOPHILS NEGATIVE FOR MALIGNANCY WHITEHEAD'S ESOPHAGUS WITH MILD DYSPLASIA RRB/sm D [phone] MACROSCOPIC The first specimen is received in formalin, labeled with the patient's name, identified as "du odenum", and consists of two portions of alcaraz-pink soft biopsy tissue measuring 0.2 and 0.3 cm, submitted as (1). The second specimen is received in form carrie, labeled with the patient's name, identified as "antrum bx", and consists of two portions of alcaraz-pink soft biopsy tissue measuring 0.2 and 0.4 cm, subm itted as (2) for H E and Giemsa stains. The third specimen is received in formalin, labeled with the patient's name, identified as "esophagus", and cons ists of three portions of alcaraz-pink biopsy tissue measuring 0.2 to 0.4 cm, subm itted as (3). GROSS PERFORMED AT [facility] [address] [place] [address] [phone] MICROSCOPIC All of the stains, including any controls perfor med, stain appropriately. MICROSCOPIC PERFORMED AT [facility] [address] [place], [place] [address] [phone]) [phone] CONTINUED ON NEXT PAGE ----- -------RUN DATE: 07/19/18 [facility] PAGE 3 RUN TIME: 1427 Specimen Inquiry RUN USER: INTERFACE SPEC #: [id number] PATIENT: LIAM MALLOY LA[place] EN #[id number] (Continued) PERFORMING SITE Diagnosis performed at: [facility] [address] [place] [address] Signed S IGNATURE ON FILE Joseph Rosenbaum MD 07/19/18 1427 ----- ------- END OF REPORT BASIC METABOLIC [id number] 08:57:00* Test Item Value Reference Range Comments SODIUM (test code=NA) 142 mmol/L 136-145 POTASSIUM (test code=K) 3.7 mmol/L 3.5-5.1 CHLORIDE (test code=CL) 107.0 mmol/L 98-107 CARBON DIOXIDE (test code=CO2) 29.0 mmol/L 21-32 ANION GAP (test code=GAP) 9.7 10-20 GLUCOSE (test code=GLU) 91 mg/dL 74-106 BLOOD UREA NITROGEN (test code=BUN) 18 mg/dL 7-18 GLOMERULAR FILTRATION RATE (test code=GFR) > 60 mL/min >=60 Estimated GFR by using Modified MDRD formula.Chronic kidney disease is defined as either kidney damageor GFR <60 mL/min/1.73 m2 for >3 months. CREATININE (test code=CREAT) 0.90 mg/dL 0.55-1.02 Note change in reference range due to change in reagent. BUN/CREATININE RATIO (test code=BUN/CREA) 20.0 10-20 CALCIUM (test code=CA) 9.1 mg/dL 8.5-10.1 BASIC METABOLIC [id number] 08:50:00* Test Item Value Reference Range Comments SODIUM (test code=NA) 142 mmol/L 136-145 POTASSIUM (test code=K) 3.7 mmol/L 3.5-5.1 CHLORIDE (test code=CL) 107.0 mmol/L 98-107 CARBON DIOXIDE (test code=CO2) mmol/L 21-32 ANION GAP (test code=GAP) 10-20 GLUCOSE (test code=GLU) mg/dL 74-106 BLOOD UREA NITROGEN (test code=BUN) mg/dL 7-18 GLOMERULAR FILTRATION RATE (test code=GFR) mL/min >=60 CREATININE (test code=CREAT) mg/dL 0.55-1.02 BUN/CREATININE RATIO (test code=BUN/CREA) 10-20 CALCIUM (test code=CA) mg/dL 8.5-10.1 CBC W/AUTO [id number] 08:37:00* Test Item Value Reference Range Comments WHITE BLOOD CELL (test code=WBC) 10.5 K/mm3 4.5-12.5 RED BLOOD CELL (test code=RBC) 5.00 mill/mm3 3.7-5.2 HEMOGLOBIN (test code=HGB) 12.2 gram/dL 11.5-15.5 HEMATOCRIT (test code=HCT) 42.2 % 36.0-46.0 MEAN CELL VOLUME (test code=MCV) 84.4 fL 80-98 MEAN CELL HGB (test code=MCH) 24.4 picogram 27.0-33.0 MEAN CELL HGB CONCETRATION (test code=MCHC) 28.9 gram/dL 33.0-36.0 RED CELL DISTRIBUTION WIDTH (test code=RDW) 17.9 % 11.6-16.2 RED CELL DISTRIBUTION WIDTH SD (test code=RDW-SD) 54.4 fL 37.0-51.0 PLATELET COUNT (test code=PLT) 386 K/mm3 150-450 MEAN PLATELET VOLUME (test code=MPV) 8.9 fL 6.7-11.0 NEUTROPHIL % (test code=NT%) 64.5 % 39.0-69.0 IMMATURE GRANULOCYTE % (test code=IG%) 0.4 % 0.0-5.0 LYMPHOCYTE % (test code=LY%) 26.3 % 25.0-55.0 MONOCYTE % (test code=MO%) 6.6 % 0.0-10.0 EOSINOPHIL % (test code=EO%) 1.6 % 0.0-5.0 BASOPHIL % (test code=BA%) 0.6 % 0.0-1.0 NUCLEATED RBC % (test code=NRBC%) 0.0 % 0-0 NEUTROPHIL # (test code=NT#) 6.79 K/mm3 1.8-7.7 IMMATURE GRANULOCYTE # (test code=IG#) 0.04 x10 3/uL 0-0.03 LYMPHOCYTE # (test code=LY#) 2.77 K/mm3 1.0-5.0 MONOCYTE # (test code=MO#) 0.69 K/mm3 0-0.8 EOSINOPHIL # (test code=EO#) 0.17 K/mm3 0.0-0.5 BASOPHIL # (test code=BA#) 0.06 K/mm3 0.0-0.2 NUCLEATED RBC # (test code=NRBC#) 0.00 K/mm3 0.0-0.1 MANUAL DIFF REQUIRED (test code=MDIFF) NO, ONLY SCAN NEEDED DIFFERENTIAL [id number] 08:37:00* Test Item Value Reference Range Comments STAIN ACCEPTABILITY (test code=STN ACCEPTABLE) STAIN ACCEPTABLE POLYCHROMASIA (test code=POLC) 1+ PLATELET ESTIMATE (test code=PLTEST) ADEQUATE PLATELET MORPHOLOGY (test code=PLTMORPH) APPEAR LARGE CBC W/AUTO [id number] 08:12:00* Test Item Value Reference Range Comments WHITE BLOOD CELL (test code=WBC) 10.5 K/mm3 4.5-12.5 RED BLOOD CELL (test code=RBC) 5.00 mill/mm3 3.7-5.2 HEMOGLOBIN (test code=HGB) 12.2 gram/dL 11.5-15.5 HEMATOCRIT (test code=HCT) 42.2 % 36.0-46.0 MEAN CELL VOLUME (test code=MCV) 84.4 fL 80-98 MEAN CELL HGB (test code=MCH) 24.4 picogram 27.0-33.0 MEAN CELL HGB CONCETRATION (test code=MCHC) 28.9 gram/dL 33.0-36.0 RED CELL DISTRIBUTION WIDTH (test code=RDW) 17.9 % 11.6-16.2 RED CELL DISTRIBUTION WIDTH SD (test code=RDW-SD) 54.4 fL 37.0-51.0 PLATELET COUNT (test code=PLT) 386 K/mm3 150-450 MEAN PLATELET VOLUME (test code=MPV) 8.9 fL 6.7-11.0 NEUTROPHIL % (test code=NT%) 64.5 % 39.0-69.0 IMMATURE GRANULOCYTE % (test code=IG%) 0.4 % 0.0-5.0 LYMPHOCYTE % (test code=LY%) 26.3 % 25.0-55.0 MONOCYTE % (test code=MO%) 6.6 % 0.0-10.0 EOSINOPHIL % (test code=EO%) 1.6 % 0.0-5.0 BASOPHIL % (test code=BA%) 0.6 % 0.0-1.0 NUCLEATED RBC % (test code=NRBC%) 0.0 % 0-0 NEUTROPHIL # (test code=NT#) 6.79 K/mm3 1.8-7.7 IMMATURE GRANULOCYTE # (test code=IG#) 0.04 x10 3/uL 0-0.03 LYMPHOCYTE # (test code=LY#) 2.77 K/mm3 1.0-5.0 MONOCYTE # (test code=MO#) 0.69 K/mm3 0-0.8 EOSINOPHIL # (test code=EO#) 0.17 K/mm3 0.0-0.5 BASOPHIL # (test code=BA#) 0.06 K/mm3 0.0-0.2 NUCLEATED RBC # (test code=NRBC#) 0.00 K/mm3 0.0-0.1 MANUAL DIFF REQUIRED (test code=MDIFF) NO, ONLY SCAN NEEDED DIFFERENTIAL [id number] 08:12:00* Test Item Value Reference Range Comments STAIN ACCEPTABILITY (test code=STN ACCEPTABLE) CABOT RINGS (test code=CAB) MORPHOLOGY COMMENT (test code=MOC) PLATELET ESTIMATE (test code=PLTEST) PLATELET MORPHOLOGY (test code=PLTMORPH) CBC W/AUTO [id number] 08:12:00* Test Item Value Reference Range Comments WHITE BLOOD CELL (test code=WBC) 10.5 K/mm3 4.5-12.5 RED BLOOD CELL (test code=RBC) 5.00 mill/mm3 3.7-5.2 HEMOGLOBIN (test code=HGB) 12.2 gram/dL 11.5-15.5 HEMATOCRIT (test code=HCT) 42.2 % 36.0-46.0 MEAN CELL VOLUME (test code=MCV) 84.4 fL 80-98 MEAN CELL HGB (test code=MCH) 24.4 picogram 27.0-33.0 MEAN CELL HGB CONCETRATION (test code=MCHC) 28.9 gram/dL 33.0-36.0 RED CELL DISTRIBUTION WIDTH (test code=RDW) 17.9 % 11.6-16.2 RED CELL DISTRIBUTION WIDTH SD (test code=RDW-SD) 54.4 fL 37.0-51.0 PLATELET COUNT (test code=PLT) 386 K/mm3 150-450 MEAN PLATELET VOLUME (test code=MPV) 8.9 fL 6.7-11.0 NEUTROPHIL % (test code=NT%) 64.5 % 39.0-69.0 IMMATURE GRANULOCYTE % (test code=IG%) 0.4 % 0.0-5.0 LYMPHOCYTE % (test code=LY%) 26.3 % 25.0-55.0 MONOCYTE % (test code=MO%) 6.6 % 0.0-10.0 EOSINOPHIL % (test code=EO%) 1.6 % 0.0-5.0 BASOPHIL % (test code=BA%) 0.6 % 0.0-1.0 NUCLEATED RBC % (test code=NRBC%) 0.0 % 0-0 NEUTROPHIL # (test code=NT#) 6.79 K/mm3 1.8-7.7 IMMATURE GRANULOCYTE # (test code=IG#) 0.04 x10 3/uL 0-0.03 LYMPHOCYTE # (test code=LY#) 2.77 K/mm3 1.0-5.0 MONOCYTE # (test code=MO#) 0.69 K/mm3 0-0.8 EOSINOPHIL # (test code=EO#) 0.17 K/mm3 0.0-0.5 BASOPHIL # (test code=BA#) 0.06 K/mm3 0.0-0.2 NUCLEATED RBC # (test code=NRBC#) 0.00 K/mm3 0.0-0.1 MANUAL DIFF REQUIRED (test code=MDIFF) NO, ONLY SCAN NEEDED DIFFERENTIAL [id number] 08:12:00* Test Item Value Reference Range Comments STAIN ACCEPTABILITY (test code=STN ACCEPTABLE) CABOT RINGS (test code=CAB) MORPHOLOGY COMMENT (test code=MOC) PLATELET ESTIMATE (test code=PLTEST) PLATELET MORPHOLOGY (test code=PLTMORPH) CBC W/AUTO [id number] 08:12:00* Test Item Value Reference Range Comments WHITE BLOOD CELL (test code=WBC) 10.5 K/mm3 4.5-12.5 RED BLOOD CELL (test code=RBC) 5.00 mill/mm3 3.7-5.2 HEMOGLOBIN (test code=HGB) 12.2 gram/dL 11.5-15.5 HEMATOCRIT (test code=HCT) 42.2 % 36.0-46.0 MEAN CELL VOLUME (test code=MCV) 84.4 fL 80-98 MEAN CELL HGB (test code=MCH) 24.4 picogram 27.0-33.0 MEAN CELL HGB CONCETRATION (test code=MCHC) 28.9 gram/dL 33.0-36.0 RED CELL DISTRIBUTION WIDTH (test code=RDW) 17.9 % 11.6-16.2 RED CELL DISTRIBUTION WIDTH SD (test code=RDW-SD) 54.4 fL 37.0-51.0 PLATELET COUNT (test code=PLT) 386 K/mm3 150-450 MEAN PLATELET VOLUME (test code=MPV) 8.9 fL 6.7-11.0 NEUTROPHIL % (test code=NT%) 64.5 % 39.0-69.0 IMMATURE GRANULOCYTE % (test code=IG%) 0.4 % 0.0-5.0 LYMPHOCYTE % (test code=LY%) 26.3 % 25.0-55.0 MONOCYTE % (test code=MO%) 6.6 % 0.0-10.0 EOSINOPHIL % (test code=EO%) 1.6 % 0.0-5.0 BASOPHIL % (test code=BA%) 0.6 % 0.0-1.0 NUCLEATED RBC % (test code=NRBC%) 0.0 % 0-0 NEUTROPHIL # (test code=NT#) 6.79 K/mm3 1.8-7.7 IMMATURE GRANULOCYTE # (test code=IG#) 0.04 x10 3/uL 0-0.03 LYMPHOCYTE # (test code=LY#) 2.77 K/mm3 1.0-5.0 MONOCYTE # (test code=MO#) 0.69 K/mm3 0-0.8 EOSINOPHIL # (test code=EO#) 0.17 K/mm3 0.0-0.5 BASOPHIL # (test code=BA#) 0.06 K/mm3 0.0-0.2 NUCLEATED RBC # (test code=NRBC#) 0.00 K/mm3 0.0-0.1 MANUAL DIFF REQUIRED (test code=MDIFF) NO, ONLY SCAN NEEDED DIFFERENTIAL [id number] 08:12:00* Test Item Value Reference Range Comments STAIN ACCEPTABILITY (test code=STN ACCEPTABLE) MORPHOLOGY COMMENT (test code=MOC) PLATELET ESTIMATE (test code=PLTEST) PLATELET MORPHOLOGY (test code=PLTMORPH) CBC W/AUTO [id number] 08:12:00* Test Item Value Reference Range Comments WHITE BLOOD CELL (test code=WBC) 10.5 K/mm3 4.5-12.5 RED BLOOD CELL (test code=RBC) 5.00 mill/mm3 3.7-5.2 HEMOGLOBIN (test code=HGB) 12.2 gram/dL 11.5-15.5 HEMATOCRIT (test code=HCT) 42.2 % 36.0-46.0 MEAN CELL VOLUME (test code=MCV) 84.4 fL 80-98 MEAN CELL HGB (test code=MCH) 24.4 picogram 27.0-33.0 MEAN CELL HGB CONCETRATION (test code=MCHC) 28.9 gram/dL 33.0-36.0 RED CELL DISTRIBUTION WIDTH (test code=RDW) 17.9 % 11.6-16.2 RED CELL DISTRIBUTION WIDTH SD (test code=RDW-SD) 54.4 fL 37.0-51.0 PLATELET COUNT (test code=PLT) 386 K/mm3 150-450 MEAN PLATELET VOLUME (test code=MPV) 8.9 fL 6.7-11.0 NEUTROPHIL % (test code=NT%) 64.5 % 39.0-69.0 IMMATURE GRANULOCYTE % (test code=IG%) 0.4 % 0.0-5.0 LYMPHOCYTE % (test code=LY%) 26.3 % 25.0-55.0 MONOCYTE % (test code=MO%) 6.6 % 0.0-10.0 EOSINOPHIL % (test code=EO%) 1.6 % 0.0-5.0 BASOPHIL % (test code=BA%) 0.6 % 0.0-1.0 NUCLEATED RBC % (test code=NRBC%) 0.0 % 0-0 NEUTROPHIL # (test code=NT#) 6.79 K/mm3 1.8-7.7 IMMATURE GRANULOCYTE # (test code=IG#) 0.04 x10 3/uL 0-0.03 LYMPHOCYTE # (test code=LY#) 2.77 K/mm3 1.0-5.0 MONOCYTE # (test code=MO#) 0.69 K/mm3 0-0.8 EOSINOPHIL # (test code=EO#) 0.17 K/mm3 0.0-0.5 BASOPHIL # (test code=BA#) 0.06 K/mm3 0.0-0.2 NUCLEATED RBC # (test code=NRBC#) 0.00 K/mm3 0.0-0.1 MANUAL DIFF REQUIRED (test code=MDIFF) NO, ONLY SCAN NEEDED DIFFERENTIAL [id number] 08:12:00* Test Item Value Reference Range Comments STAIN ACCEPTABILITY (test code=STN ACCEPTABLE) CABOT RINGS (test code=CAB) MORPHOLOGY COMMENT (test code=MOC) PLATELET ESTIMATE (test code=PLTEST) PLATELET MORPHOLOGY (test code=PLTMORPH) CBC W/AUTO [id number] 08:09:00* Test Item Value Reference Range Comments WHITE BLOOD CELL (test code=WBC) K/mm3 4.5-12.5 RED BLOOD CELL (test code=RBC) mill/mm3 3.7-5.2 HEMOGLOBIN (test code=HGB) 12.2 gram/dL 11.5-15.5 HEMATOCRIT (test code=HCT) 42.2 % 36.0-46.0 MEAN CELL VOLUME (test code=MCV) fL 80-98 MEAN CELL HGB (test code=MCH) picogram 27.0-33.0 MEAN CELL HGB CONCETRATION (test code=MCHC) gram/dL 33.0-36.0 RED CELL DISTRIBUTION WIDTH (test code=RDW) % 11.6-16.2 RED CELL DISTRIBUTION WIDTH SD (test code=RDW-SD) fL 37.0-51.0 PLATELET COUNT (test code=PLT) K/mm3 150-450 MEAN PLATELET VOLUME (test code=MPV) fL 6.7-11.0 NEUTROPHIL % (test code=NT%) % 39.0-69.0 IMMATURE GRANULOCYTE % (test code=IG%) % 0.0-5.0 LYMPHOCYTE % (test code=LY%) % 25.0-55.0 MONOCYTE % (test code=MO%) % 0.0-10.0 EOSINOPHIL % (test code=EO%) % 0.0-5.0 BASOPHIL % (test code=BA%) % 0.0-1.0 NEUTROPHIL # (test code=NT#) K/mm3 1.8-7.7 LYMPHOCYTE # (test code=LY#) K/mm3 1.0-5.0 MONOCYTE # (test code=MO#) K/mm3 0-0.8 EOSINOPHIL # (test code=EO#) K/mm3 0.0-0.5 BASOPHIL # (test code=BA#) K/mm3 0.0-0.2 - SP TRANSCATH RTRV FB S [id number] 15:56:00 Name: LIAM MALLOY [facility] SP : 1950 Age/S: 68 / F [address] [facility] Unit #: [id number] Loc: [place], [place] [address] Phys: Rafy Vaughan MD Acct: [id number] Dis Date: Status: ADM IN PHONE #: [phone] Exam Date: 05/16/2018 1308 FAX #: [phone] Reason: EXAMS: CPT CODE: [id number] SP TRAN[place] I [id number] Fluoro Time: 198 DAP (Gy m2): 587302 Air Kerma (mGy): 450.2 REASON FOR EXAM:Left subclavian stenosis PROCEDURE: 1. Ultrasound-guided vascular access of the left brachial artery 2. Ultrasound-guided vascular access of the right common femoral artery 3. Angioplasty of high-grade stenosis of the right iliac artery 4. Snare technique to obtain through and through access from the left arm to the right groin 5. Angioplasty of high-grade IntraStent stenosis of the proximal portion left subclavian artery stent Anesthesia: General Anesthesiologist: Dr. Allan FINDINGS: After informed consent was obtained, the patient was brought to special procedures and placed supine on the table. The left arm was prepped was draped in the usual fashion. All elements of maximal sterile barrier te chniques were applied. Ultrasound demonstrates patency of the left brachi al artery. Images of the artery were submitted to PACS. Under real time ultrasound guidance, a micropuncture needle was used to access the artery. A 4 [place] vascular sheath was inserted. A Giles catheter was advanced over the guidewire into the proximal left subclavian artery and an angiogram was performed. This demonstrated high-grade stenosis of the pro ximal and of the left subclavian stent. A guidewire was successfully advan marielle past the stenosis into the abdominal aorta Ultrasound demonstr ates patency of the right common femoral artery. Images of the artery were submitted to PACS. Under real time ultrasound guidance, a micropuncture n eedle was used to access the right common femoral artery. Attempt to advan ce a guidewire into the abdominal aorta metastases resistance secondary to a high-grade stenosis of the right common iliac artery. Angiogram was per formed to confirm the high-grade stenosis. Angioplasty of the right common iliac artery was performed using a 10 mm balloon. A 6 [place]ar[place]uan vascular she ath was inserted. A snare was used to retrieve the guidewire from the left brachial artery access through the right common femoral artery sheath. Angioplasty of the stent stenosis was performed using a drug coated ba lloon. Post angioplasty angiogram shows patency restored to the subclavian artery with brisk flow to the left internal mammary artery, left vertebral artery and left subclavian artery. The sheath was removed and hemostasis was obtained using a Perclose device. MEDICATIONS: None COM PLICATIONS: None PAGE 1 Signed Report (CONTINUED) Name: GAMADELLAY RADHA [facility] SP : 1950 Age/S: 68 / F [address] [facility] Unit #: [id number] [place] [address] Phys: Rafy Vaughan MD Acct: [id number] Dis Date: Status: ADM IN PHONE #: [phone] Exam Date: 05/16/2018 1308 FAX #: [phone] Reason: EXAMS: CPT CODE: [id number] SP [place] I [id number] Fluoro Time: 198 DAP (Gy m2): 529539 Air Kerma (mGy): 450.2 <Continued> Blood loss: Less than 5 mL Fluoroscopic time: 198 seconds Radiation dose: 450 mGy IMPRESSION: Technically successful angioplasty of high-grade stenosis at the origin of the left subclavian artery stent. Technically successful angioplasty of high-grade stenosis of the right common iliac artery. Brisk flow restored to the left inter nal mammary, left vertebral, and left subclavian arteries. E lectronically Signed by Aurea Dietz on 05/16/2018 at 1555 Reported and signed by: Kong Dietz M.D. CC: Rafy Vaughan MD Technologist: Jadyn Moralez RT (R) Trnscb Date/Time: 05/16/2018 (2638) t.SDR .VTL Orig Print D/T: S: 05/16/2018 (3060) PAGE 2 Signed Report - Trl bl angio 1st [id number] 15:56:00 Name: MALLOY,LIAM RADHA [facility] SP : 1950 Age/S: 68 / F [address] [facility] Unit #: [id number] [place] [address] Phys: Rafy Vaughan MD Acct: [id number] Dis Date: Status: ADM IN PHONE #: [phone] Exam Date: 05/16/2018 1308 FAX #: [phone] Reason: EXAMS: CPT CODE: [id number] Trlml bl angio 1st art 24450 Fluoro Time: 198 DAP (Gy m2): 249444 Air Kerma (mGy): 450.2 REASON FOR EXAM:Left subclavian stenosis PROCEDURE: 1. Ultrasound- guided vascular access of the left brachial artery 2. Ultrasound-guided vascular access of the right common femoral artery 3. Angioplasty of high-grade stenosis of the right iliac artery 4. Snare technique to obtain through and through access from the left arm to the right groin 5. Angioplasty of high-grade IntraStent stenosis of the proximal portion left subclavian artery stent Anesthesia: General Anesthesiologist: Dr. Allan FINDINGS: After informed consent was obtained, the patient was brought to special procedures and placed supine on the table. The left arm was prepped was draped in the usual fashion. All elements of maximal sterile barrier techniques were applied. Ultrasound demonstrates patency of the left brachial artery. Images of the artery were submitted to PACS. Under real time ultrasound guidance, a micropuncture needle was used to access the artery. A 4 [place]ar[place]uan vascular sheath was inserted. A Giles catheter was advanced over the guidewire into the proximal left subclavian artery and an angiogram was performed. This demonstrated high-grade stenosis of the proximal and of the left subclavian stent. A guidewire was successfully advanced past the stenosis into the abdominal aorta Ultrasound demonstrates patency of the right common femoral artery. Images of the artery were submitted to PACS. Under real time ultrasound guidance, a micropuncture needle was used to access the right common femoral artery. Attempt to advance a guidewire into the abdominal aorta metastases resistance secondary to a high-grade stenosis of the right common iliac artery. Angiogram was performed to confirm the high-grade stenosis. Angioplasty of the right common iliac artery was performed using a 10 mm balloon. A 6 [place] vascular sheath was inserted. A snare was used to retrieve the guidewire from the left brachial artery access through the right common femoral artery sheath. Angioplasty of the stent stenosis was performed using a drug coated ba lloon. Post angioplasty angiogram shows patency restored to the subclavian artery with brisk flow to the left internal mammary artery, left vertebral artery and left subclavian artery. The sheath was removed and hemostasis was obtained using a Perclose device. MEDICATIONS: None COM PLICATIONS: None PAGE 1 Signed Report (CONTINUED) Name: MALLOYLIAM JONES [facility] SP : 1950 Age/S: 68 / F [address] [facility] Unit #: [id number] Loc: [place] [address] Phys: Rafy Vaughan MD Acct: [id number] Dis Date: Status: ADM IN PHONE #: [phone] Exam Date: 05/16/2018 1308 FAX #: [phone] Reason: EXAMS: CPT CODE: [id number] Trlml bl angio 1st art 51501 Fluoro Time: 198 DAP (Gy m2): 623310 Air Kerma (mGy): 450.2 <Continued> Blood loss: Less than 5 mL Fluoroscopic time: 198 seconds Radiation dose: 450 mGy IMPRESSION: Technically successful angioplasty of high-grade stenosis at the origin of the left subclavian artery stent. Technically successful angioplasty of high-grade stenosis of the right common iliac artery. Brisk flow restored to the left inter nal mammary, left vertebral, and left subclavian arteries. E lectronically Signed by Aurea Dietz on 05/16/2018 at 1556 Reported and signed by: Kong Dietz M.D. CC: Rafy Vaughan MD Technologist: Jadyn Moralez RT (R) Trnvtb Date/Time: 05/16/2018 (5159) t.PEDROR .VTL Orig Print D/T: S: 05/16/2018 (3795) PAGE 2 Signed Report - [facility] [id number] 15:56:00 Name: MALLOYLIAM JONES [facility] SP : 1950 Age/S: 68 / F [address] [facility] Unit #: [id number] Loc: [place] [address] Phys: Rafy Vaughan MD Acct: [id number] Dis Date: Status: ADM IN PHONE #: [phone] Exam Date: 05/16/2018 1308 FAX #: [phone] Reason: EXAMS: CPT CODE: [id number] [facility] ACCESS [address]011 Fluoro Time: 0 DAP (Gy m2): 0 Air Kerma (mGy): 0 REASON FOR EXAM:Left subclavian stenosis PROCEDURE: 1. Ultrasound- guided vascular access of the left brachial artery 2. Ultrasound-guided vascular access of the right common femoral artery 3. Angioplasty of high-grade stenosis of the right iliac artery 4. Snare technique to obtain through and through access from the left arm to the right groin 5. Angioplasty of high-grade IntraStent stenosis of the proximal portion left subclavian artery stent Anesthesia: General Anesthesiologist: Dr. Allan FINDINGS: After informed consent was obtained, the patient was brought to special procedures and placed supine on the table. The left arm was prepped was draped in the usual fashion. All elements of maximal sterile barrier techniques were applied. Ultrasound demonstrates patency of the left brachial artery. Images of the artery were submitted to PACS. Under real time ultrasound guidance, a micropuncture needle was used to access the artery. A 4 [place]ar[place] vascular sheath was inserted. A Giles catheter was advanced over the guidewire into the proximal left subclavian artery and an angiogram was performed. This demonstrated high-grade stenosis of the proximal and of the left subclavian stent. A guidewire was successfully advanced past the stenosis into the abdominal aorta Ultrasound demonstrates patency of the right common femoral artery. Images of the artery were submitted to PACS. Under real time ultrasound guidance, a micropuncture needle was used to access the right common femoral artery. Attempt to advance a guidewire into the abdominal aorta metastases resistance secondary to a high-grade stenosis of the right common iliac artery. Angiogram was performed to confirm the high-grade stenosis. Angioplasty of the right common iliac artery was performed using a 10 mm balloon. A 6 [place] vascular sheath was inserted. A snare was used to retrieve the guidewire from the left brachial artery access through the right common femoral artery sheath. Angioplasty of the stent stenosis was performed using a drug coated ba lloon. Post angioplasty angiogram shows patency restored to the subclavian artery with brisk flow to the left internal mammary artery, left vertebral artery and left subclavian artery. The sheath was removed and hemostasis was obtained using a Perclose device. MEDICATIONS: None COM PLICATIONS: None PAGE 1 Signed Report (CONTINUED) Name: LIAM MALLOY [facility] SP : 1950 Age/S: 68 / F [address] [facility] Unit #: [id number] Loc: [place] [address] Phys: Rafy Vaughan MD Acct: [id number] Dis Date: Status: ADM IN PHONE #: [phone] Exam Date: 05/16/2018 1306 FAX #: [phone] Reason: EXAMS: CPT CODE: [id number] US GUIDANCE VASC ACCESS 12928 Fluoro Time: 0 DAP (Gy m2): 0 Air Kerma (mGy): 0 <Continued> Blood loss: Less than 5 mL Fluoroscopic time: 198 seconds Radiation dose: 450 mGy IMPRESSION: Technically successful angioplasty of high-grade stenosis at the origin of the left subclavian artery stent. Technically successful angioplasty of high-grade stenosis of the right common iliac artery. Brisk flow restored to the left inter nal mammary, left vertebral, and left subclavian arteries. E lectronically Signed by Aurea Dietz on 05/16/2018 at 1556 Reported and signed by: Kong Dietz M.D. CC: Rafy Vaughan MD Technologist: Jadyn Moralez RT (R) Trnscb Date/Time: 05/16/2018 (0870) t.PEDROR .VTL Orig Print D/T: S: 05/16/2018 (3776) PAGE 2 Signed Report CBC W/AUTO DIFF 2018-05-16 14:53:00* Test Item Value Reference Range Comments WHITE BLOOD CELL (test code=WBC) 9.4 K/mm3 4.5-12.5 Previously reported result: 10.5 K/mr3Rnuggz by: STANISLAW on 05/16/18:1108 RED BLOOD CELL (test code=RBC) 4.76 mill/mm3 3.7-5.2 Previously reported result: 5.17 mill/ih4Fxovgu by: STANISLAW on 05/16/18:1109 HEMOGLOBIN (test code=HGB) 11.8 gram/dL 11.5-15.5 Previously reported result: 12.6 gram/dLEdited by: STANISLAW on 05/16/18:1109 HEMATOCRIT (test code=HCT) 40.6 % 36.0-46.0 Previously reported result: 45.3 %Edited by: STANISLAW on 05/16/18:1109 05/16/18 1109: HCT previously reported as: 45.3 % MEAN CELL VOLUME (test code=MCV) 85.3 fL 80-98 Previously reported result: 87.6 fLEdited by: STANISLAW on 05/16/18:681338 1109: MCV previously reported as: 87.6 fL MEAN CELL HGB (test code=MCH) 24.8 picogram 27.0-33.0 Previously reported result: 24.4 picogramEdited by: STANISLAW on 05/16/18:1109 MEAN CELL HGB CONCETRATION (test code=MCHC) 29.1 gram/dL 33.0-36.0 Previously reported result: 27.8 gram/dLEdited by: BRENyoonew on 05/16/18:1109 RED CELL DISTRIBUTION WIDTH (test code=RDW) 19.3 % 11.6-16.2 Previously reported result: 19.6 %Edited by: mSilicaTHOyoonew on 05/16/18:1109 RED CELL DISTRIBUTION WIDTH SD (test code=RDW-SD) 58.7 fL 37.0-51.0 Previously reported result: 61.4 fLEdited by: mSilicaTHOyoonew on 05/16/18:1110 PLATELET COUNT (test code=PLT) 303 K/mm3 150-450 RESULT VERIFIED BY REPEAT ANALYSISPreviously reported result: 194 K/nk5Ckoanr by: mSilicaOSCAR on 05/16/18:1110 MEAN PLATELET VOLUME (test code=MPV) 8.9 fL 6.7-11.0 Previously reported result: 9.6 fLEdited by: mSilicaTHOyoonew on 05/16/18:1110 NEUTROPHIL % (test code=NT%) 82.2 % 39.0-69.0 Previously reported result: 81.6 %Edited by: [employer] on 05/16/18:1110 IMMATURE GRANULOCYTE % (test code=IG%) 0.4 % 0.0-5.0 Previously reported result: 0.6 %Edited by: CurioosJESSIEyoonew on 05/16/18:1110 LYMPHOCYTE % (test code=LY%) 15.7 % 25.0-55.0 Previously reported result: 15.0 %Edited by: [employer] on 05/16/18:1111 MONOCYTE % (test code=MO%) 1.7 % 0.0-10.0 Previously reported result: 2.6 %Edited by: [employer] on 05/16/18:1111 EOSINOPHIL % (test code=EO%) 0.0 % 0.0-5.0 Previously reported result: 0.1 %Edited by: [employer] on 05/16/18:1111 BASOPHIL % (test code=BA%) 0.0 % 0.0-1.0 Previously reported result: 0.1 %Edited by: [employer] on 05/16/18:1111 NUCLEATED RBC % (test code=NRBC%) 0.0 % 0-0 NEUTROPHIL # (test code=NT#) 7.72 K/mm3 1.8-7.7 Previously reported result: 8.57 K/cu2Ckeadi by: [employer] on 05/16/18:1111 IMMATURE GRANULOCYTE # (test code=IG#) 0.04 x10 3/uL 0-0.03 Previously reported result: 0.06 x10\\S\\3/uLEdited by: [employer] on 05/16/18:1111 LYMPHOCYTE # (test code=LY#) 1.47 K/mm3 1.0-5.0 Previously reported result: 1.58 K/pj6Iwswky by: [employer] on 05/16/18:1111 MONOCYTE # (test code=MO#) 0.16 K/mm3 0-0.8 Previously reported result: 0.27 K/iz2Ocrire by: [employer] on 05/16/18:1112 EOSINOPHIL # (test code=EO#) 0.00 K/mm3 0.0-0.5 Previously reported result: 0.01 K/rp9Xmulyu by: [employer] on 05/16/18:1112 BASOPHIL # (test code=BA#) 0.00 K/mm3 0.0-0.2 Previously reported result: 0.01 K/hr5Yobxtd by: [employer] on 05/16/18:1112 NUCLEATED RBC # (test code=NRBC#) 0.00 K/mm3 0.0-0.1 MANUAL DIFF REQUIRED (test code=MDIFF) NO, ONLY SCAN NEEDED DIFFERENTIAL [id number] 14:53:00* Test Item Value Reference Range Comments STAIN ACCEPTABILITY (test code=STN ACCEPTABLE) STAIN ACCEPTABLE HYPOCHROMIA (test code=HYPO) 1+ ANISOCYTOSIS (test code=ANISO) 1+ PLATELET ESTIMATE (test code=PLTEST) ADEQUATE PLATELET MORPHOLOGY (test code=PLTMORPH) SIZE VARIABLE COAGULATION TIME [id number] 12:46:00* Test Item Value Reference Range Comments COAGULATION TIME ACTIVATED (test code=ACT) 127 seconds 62.8-88.0 PROTHROMBIN [id number] 11:29:00* Test Item Value Reference Range Comments PROTHROMBIN TIME PATIENT (test code=PTP) 11.3 seconds 9.0-14.0 INTERNATIONAL NORMAL RATIO (test code=INR) 0.9 0.8-1.2 The therapeutic range for oral anticoagulant therapy formost indications is an international normalized ratio (INR)of between 2.0 and 3.0. The recommended therapeutic INRrange for various clinical situations is listed below: Clinical Situation INR range Pulmonary e mbolism treatment (2.0-3.0)Venous thrombosis treatmentVenous thrombosis prophylaxis (high risk surgery)Prevention of systemic embolism from: Acute myocardial infarction Valvular heart disease Atrial fibrillation Mechanical prosthetic heart valves (2.5-3.5) IS PATIENT ON ANTICOAGULANTS? YLIST ANTICOAGULANTS LOVENOX PLAVIXCOMMENT S TO LUGGER: NEED BEFORE PROCEDURE COMMENTS TO LUGGER: NEED BEFORE P ROCEDURETHROMBOPLASTIN TIME [id number] 11:29:00* Test Item Value Reference Range Comments THROMBOPLASTIN TIME PARTIAL (test code=PTT) 22.0 seconds 25.0-36.5 RESULT VERIFIED BY REPEAT ANALYSIS IS PATIENT ON ANTICOAGULANTS? YLIST ANTICOAGULANTS LOVENOX PLAVIXCOMMENT S TO LUGGER: NEED BEFORE PROCEDURE COMMENTS TO LUGGER: NEED BEFORE P ROCEDURECBC W/AUTO [id number] 11:12:00* Test Item Value Reference Range Comments WHITE BLOOD CELL (test code=WBC) 9.4 K/mm3 4.5-12.5 Previously reported result: 10.5 K/si5Tdwtmz by: STANISLAW on 05/16/18:1108 RED BLOOD CELL (test code=RBC) 4.76 mill/mm3 3.7-5.2 Previously reported result: 5.17 mill/qx4Gvlzud by: STANISLAW on 05/16/18:1109 HEMOGLOBIN (test code=HGB) 11.8 gram/dL 11.5-15.5 Previously reported result: 12.6 gram/dLEdited by: STANISLAW on 05/16/18:1109 HEMATOCRIT (test code=HCT) 40.6 % 36.0-46.0 Previously reported result: 45.3 %Edited by: STANISLAW on 05/16/18:1109 05/16/18 1109: HCT previously reported as: 45.3 % MEAN CELL VOLUME (test code=MCV) 85.3 fL 80-98 Previously reported result: 87.6 fLEdited by: STANISLAW on 05/16/18:327719 110: MCV previously reported as: 87.6 fL MEAN CELL HGB (test code=MCH) 24.8 picogram 27.0-33.0 Previously reported result: 24.4 picogramEdited by: STANISLAW on 05/16/18:110 MEAN CELL HGB CONCETRATION (test code=MCHC) 29.1 gram/dL 33.0-36.0 Previously reported result: 27.8 gram/dLEdited by: STANISLAW on 05/16/18:110 RED CELL DISTRIBUTION WIDTH (test code=RDW) 19.3 % 11.6-16.2 Previously reported result: 19.6 %Edited by: STANISLAW on 05/16/18:110 RED CELL DISTRIBUTION WIDTH SD (test code=RDW-SD) 58.7 fL 37.0-51.0 Previously reported result: 61.4 fLEdited by: STANISLAW on 05/16/18:111 PLATELET COUNT (test code=PLT) 303 K/mm3 150-450 RESULT VERIFIED BY REPEAT ANALYSISPreviously reported result: 194 K/sc8Witfsx by: STANISLAW on 05/16/18:1110 MEAN PLATELET VOLUME (test code=MPV) 8.9 fL 6.7-11.0 Previously reported result: 9.6 fLEdited by: STANISLAW on 05/16/18:1110 NEUTROPHIL % (test code=NT%) 82.2 % 39.0-69.0 Previously reported result: 81.6 %Edited by: [employer] on 05/16/18:1110 IMMATURE GRANULOCYTE % (test code=IG%) 0.4 % 0.0-5.0 Previously reported result: 0.6 %Edited by: [employer] on 05/16/18:1110 LYMPHOCYTE % (test code=LY%) 15.7 % 25.0-55.0 Previously reported result: 15.0 %Edited by: [employer] on 05/16/18:1111 MONOCYTE % (test code=MO%) 1.7 % 0.0-10.0 Previously reported result: 2.6 %Edited by: [employer] on 05/16/18:1111 EOSINOPHIL % (test code=EO%) 0.0 % 0.0-5.0 Previously reported result: 0.1 %Edited by: [employer] on 05/16/18:1111 BASOPHIL % (test code=BA%) 0.0 % 0.0-1.0 Previously reported result: 0.1 %Edited by: [employer] on 05/16/18:1111 NUCLEATED RBC % (test code=NRBC%) 0.0 % 0-0 NEUTROPHIL # (test code=NT#) 7.72 K/mm3 1.8-7.7 Previously reported result: 8.57 K/rk2Jtsxhh by: [employer] on 05/16/18:1111 IMMATURE GRANULOCYTE # (test code=IG#) 0.04 x10 3/uL 0-0.03 Previously reported result: 0.06 x10\\S\\3/uLEdited by: [employer] on 05/16/18:1111 LYMPHOCYTE # (test code=LY#) 1.47 K/mm3 1.0-5.0 Previously reported result: 1.58 K/xa2Ehrcxa by: [employer] on 05/16/18:1111 MONOCYTE # (test code=MO#) 0.16 K/mm3 0-0.8 Previously reported result: 0.27 K/mq3Azxhcz by: [employer] on 05/16/18:1112 EOSINOPHIL # (test code=EO#) 0.00 K/mm3 0.0-0.5 Previously reported result: 0.01 K/jf3Spnxbv by: BREN on 05/16/18:1112 BASOPHIL # (test code=BA#) 0.00 K/mm3 0.0-0.2 Previously reported result: 0.01 K/hm6Qdzbsk by: BREN on 05/16/18:1112 NUCLEATED RBC # (test code=NRBC#) 0.00 K/mm3 0.0-0.1 MANUAL DIFF REQUIRED (test code=MDIFF) NO, ONLY SCAN NEEDED DIFFERENTIAL [id number] 11:12:00* Test Item Value Reference Range Comments STAIN ACCEPTABILITY (test code=STN ACCEPTABLE) MORPHOLOGY COMMENT (test code=MOC) PLATELET ESTIMATE (test code=PLTEST) PLATELET MORPHOLOGY (test code=PLTMORPH) CBC W/AUTO [id number] 10:12:00* Test Item Value Reference Range Comments WHITE BLOOD CELL (test code=WBC) 10.5 K/mm3 4.5-12.5 RED BLOOD CELL (test code=RBC) 5.17 mill/mm3 3.7-5.2 HEMOGLOBIN (test code=HGB) 12.6 gram/dL 11.5-15.5 HEMATOCRIT (test code=HCT) 45.3 % 36.0-46.0 MEAN CELL VOLUME (test code=MCV) 87.6 fL 80-98 MEAN CELL HGB (test code=MCH) 24.4 picogram 27.0-33.0 MEAN CELL HGB CONCETRATION (test code=MCHC) 27.8 gram/dL 33.0-36.0 RED CELL DISTRIBUTION WIDTH (test code=RDW) 19.6 % 11.6-16.2 RED CELL DISTRIBUTION WIDTH SD (test code=RDW-SD) 61.4 fL 37.0-51.0 PLATELET COUNT (test code=PLT) 194 K/mm3 150-450 RESULT VERIFIED BY REPEAT ANALYSIS MEAN PLATELET VOLUME (test code=MPV) 9.6 fL 6.7-11.0 NEUTROPHIL % (test code=NT%) 81.6 % 39.0-69.0 IMMATURE GRANULOCYTE % (test code=IG%) 0.6 % 0.0-5.0 LYMPHOCYTE % (test code=LY%) 15.0 % 25.0-55.0 MONOCYTE % (test code=MO%) 2.6 % 0.0-10.0 EOSINOPHIL % (test code=EO%) 0.1 % 0.0-5.0 BASOPHIL % (test code=BA%) 0.1 % 0.0-1.0 NUCLEATED RBC % (test code=NRBC%) 0.0 % 0-0 NEUTROPHIL # (test code=NT#) 8.57 K/mm3 1.8-7.7 IMMATURE GRANULOCYTE # (test code=IG#) 0.06 x10 3/uL 0-0.03 LYMPHOCYTE # (test code=LY#) 1.58 K/mm3 1.0-5.0 MONOCYTE # (test code=MO#) 0.27 K/mm3 0-0.8 EOSINOPHIL # (test code=EO#) 0.01 K/mm3 0.0-0.5 BASOPHIL # (test code=BA#) 0.01 K/mm3 0.0-0.2 NUCLEATED RBC # (test code=NRBC#) 0.00 K/mm3 0.0-0.1 MANUAL DIFF REQUIRED (test code=MDIFF) NO, ONLY SCAN NEEDED DIFFERENTIAL [id number] 10:12:00* Test Item Value Reference Range Comments STAIN ACCEPTABILITY (test code=STN ACCEPTABLE) CABOT RINGS (test code=CAB) MORPHOLOGY COMMENT (test code=MOC) PLATELET ESTIMATE (test code=PLTEST) PLATELET MORPHOLOGY (test code=PLTMORPH) CBC W/AUTO [id number] 10:12:00* Test Item Value Reference Range Comments WHITE BLOOD CELL (test code=WBC) 10.5 K/mm3 4.5-12.5 RED BLOOD CELL (test code=RBC) 5.17 mill/mm3 3.7-5.2 HEMOGLOBIN (test code=HGB) 12.6 gram/dL 11.5-15.5 HEMATOCRIT (test code=HCT) 45.3 % 36.0-46.0 MEAN CELL VOLUME (test code=MCV) 87.6 fL 80-98 MEAN CELL HGB (test code=MCH) 24.4 picogram 27.0-33.0 MEAN CELL HGB CONCETRATION (test code=MCHC) 27.8 gram/dL 33.0-36.0 RED CELL DISTRIBUTION WIDTH (test code=RDW) 19.6 % 11.6-16.2 RED CELL DISTRIBUTION WIDTH SD (test code=RDW-SD) 61.4 fL 37.0-51.0 PLATELET COUNT (test code=PLT) 194 K/mm3 150-450 RESULT VERIFIED BY REPEAT ANALYSIS MEAN PLATELET VOLUME (test code=MPV) 9.6 fL 6.7-11.0 NEUTROPHIL % (test code=NT%) 81.6 % 39.0-69.0 IMMATURE GRANULOCYTE % (test code=IG%) 0.6 % 0.0-5.0 LYMPHOCYTE % (test code=LY%) 15.0 % 25.0-55.0 MONOCYTE % (test code=MO%) 2.6 % 0.0-10.0 EOSINOPHIL % (test code=EO%) 0.1 % 0.0-5.0 BASOPHIL % (test code=BA%) 0.1 % 0.0-1.0 NUCLEATED RBC % (test code=NRBC%) 0.0 % 0-0 NEUTROPHIL # (test code=NT#) 8.57 K/mm3 1.8-7.7 IMMATURE GRANULOCYTE # (test code=IG#) 0.06 x10 3/uL 0-0.03 LYMPHOCYTE # (test code=LY#) 1.58 K/mm3 1.0-5.0 MONOCYTE # (test code=MO#) 0.27 K/mm3 0-0.8 EOSINOPHIL # (test code=EO#) 0.01 K/mm3 0.0-0.5 BASOPHIL # (test code=BA#) 0.01 K/mm3 0.0-0.2 NUCLEATED RBC # (test code=NRBC#) 0.00 K/mm3 0.0-0.1 MANUAL DIFF REQUIRED (test code=MDIFF) NO, ONLY SCAN NEEDED DIFFERENTIAL [id number] 10:12:00* Test Item Value Reference Range Comments STAIN ACCEPTABILITY (test code=STN ACCEPTABLE) CABOT RINGS (test code=CAB) MORPHOLOGY COMMENT (test code=MOC) PLATELET ESTIMATE (test code=PLTEST) PLATELET MORPHOLOGY (test code=PLTMORPH) CBC W/AUTO [id number] 10:12:00* Test Item Value Reference Range Comments WHITE BLOOD CELL (test code=WBC) 10.5 K/mm3 4.5-12.5 RED BLOOD CELL (test code=RBC) 5.17 mill/mm3 3.7-5.2 HEMOGLOBIN (test code=HGB) 12.6 gram/dL 11.5-15.5 HEMATOCRIT (test code=HCT) 45.3 % 36.0-46.0 MEAN CELL VOLUME (test code=MCV) 87.6 fL 80-98 MEAN CELL HGB (test code=MCH) 24.4 picogram 27.0-33.0 MEAN CELL HGB CONCETRATION (test code=MCHC) 27.8 gram/dL 33.0-36.0 RED CELL DISTRIBUTION WIDTH (test code=RDW) 19.6 % 11.6-16.2 RED CELL DISTRIBUTION WIDTH SD (test code=RDW-SD) 61.4 fL 37.0-51.0 PLATELET COUNT (test code=PLT) 194 K/mm3 150-450 RESULT VERIFIED BY REPEAT ANALYSIS MEAN PLATELET VOLUME (test code=MPV) 9.6 fL 6.7-11.0 NEUTROPHIL % (test code=NT%) 81.6 % 39.0-69.0 IMMATURE GRANULOCYTE % (test code=IG%) 0.6 % 0.0-5.0 LYMPHOCYTE % (test code=LY%) 15.0 % 25.0-55.0 MONOCYTE % (test code=MO%) 2.6 % 0.0-10.0 EOSINOPHIL % (test code=EO%) 0.1 % 0.0-5.0 BASOPHIL % (test code=BA%) 0.1 % 0.0-1.0 NUCLEATED RBC % (test code=NRBC%) 0.0 % 0-0 NEUTROPHIL # (test code=NT#) 8.57 K/mm3 1.8-7.7 IMMATURE GRANULOCYTE # (test code=IG#) 0.06 x10 3/uL 0-0.03 LYMPHOCYTE # (test code=LY#) 1.58 K/mm3 1.0-5.0 MONOCYTE # (test code=MO#) 0.27 K/mm3 0-0.8 EOSINOPHIL # (test code=EO#) 0.01 K/mm3 0.0-0.5 BASOPHIL # (test code=BA#) 0.01 K/mm3 0.0-0.2 NUCLEATED RBC # (test code=NRBC#) 0.00 K/mm3 0.0-0.1 MANUAL DIFF REQUIRED (test code=MDIFF) NO, ONLY SCAN NEEDED DIFFERENTIAL [id number] 10:12:00* Test Item Value Reference Range Comments STAIN ACCEPTABILITY (test code=STN ACCEPTABLE) MORPHOLOGY COMMENT (test code=MOC) PLATELET ESTIMATE (test code=PLTEST) PLATELET MORPHOLOGY (test code=PLTMORPH) CBC W/AUTO [id number] 10:12:00* Test Item Value Reference Range Comments WHITE BLOOD CELL (test code=WBC) 10.5 K/mm3 4.5-12.5 RED BLOOD CELL (test code=RBC) 5.17 mill/mm3 3.7-5.2 HEMOGLOBIN (test code=HGB) 12.6 gram/dL 11.5-15.5 HEMATOCRIT (test code=HCT) 45.3 % 36.0-46.0 MEAN CELL VOLUME (test code=MCV) 87.6 fL 80-98 MEAN CELL HGB (test code=MCH) 24.4 picogram 27.0-33.0 MEAN CELL HGB CONCETRATION (test code=MCHC) 27.8 gram/dL 33.0-36.0 RED CELL DISTRIBUTION WIDTH (test code=RDW) 19.6 % 11.6-16.2 RED CELL DISTRIBUTION WIDTH SD (test code=RDW-SD) 61.4 fL 37.0-51.0 PLATELET COUNT (test code=PLT) 194 K/mm3 150-450 RESULT VERIFIED BY REPEAT ANALYSIS MEAN PLATELET VOLUME (test code=MPV) 9.6 fL 6.7-11.0 NEUTROPHIL % (test code=NT%) 81.6 % 39.0-69.0 IMMATURE GRANULOCYTE % (test code=IG%) 0.6 % 0.0-5.0 LYMPHOCYTE % (test code=LY%) 15.0 % 25.0-55.0 MONOCYTE % (test code=MO%) 2.6 % 0.0-10.0 EOSINOPHIL % (test code=EO%) 0.1 % 0.0-5.0 BASOPHIL % (test code=BA%) 0.1 % 0.0-1.0 NUCLEATED RBC % (test code=NRBC%) 0.0 % 0-0 NEUTROPHIL # (test code=NT#) 8.57 K/mm3 1.8-7.7 IMMATURE GRANULOCYTE # (test code=IG#) 0.06 x10 3/uL 0-0.03 LYMPHOCYTE # (test code=LY#) 1.58 K/mm3 1.0-5.0 MONOCYTE # (test code=MO#) 0.27 K/mm3 0-0.8 EOSINOPHIL # (test code=EO#) 0.01 K/mm3 0.0-0.5 BASOPHIL # (test code=BA#) 0.01 K/mm3 0.0-0.2 NUCLEATED RBC # (test code=NRBC#) 0.00 K/mm3 0.0-0.1 MANUAL DIFF REQUIRED (test code=MDIFF) NO, ONLY SCAN NEEDED DIFFERENTIAL [id number] 10:12:00* Test Item Value Reference Range Comments STAIN ACCEPTABILITY (test code=STN ACCEPTABLE) CABOT RINGS (test code=CAB) MORPHOLOGY COMMENT (test code=MOC) PLATELET ESTIMATE (test code=PLTEST) PLATELET MORPHOLOGY (test code=PLTMORPH) BASIC METABOLIC [id number] 08:59:00* Test Item Value Reference Range Comments SODIUM (test code=NA) 138 mmol/L 136-145 POTASSIUM (test code=K) 4.7 mmol/L 3.5-5.1 CHLORIDE (test code=CL) 108.0 mmol/L 98-107 CARBON DIOXIDE (test code=CO2) 22.0 mmol/L 21-32 ANION GAP (test code=GAP) 12.7 10-20 GLUCOSE (test code=GLU) 115 mg/dL 74-106 BLOOD UREA NITROGEN (test code=BUN) 12 mg/dL 7-18 GLOMERULAR FILTRATION RATE (test code=GFR) > 60 mL/min >=60 Estimated GFR by using Modified MDRD formula.Chronic kidney disease is defined as either kidney damageor GFR <60 mL/min/1.73 m2 for >3 months. CREATININE (test code=CREAT) 0.70 mg/dL 0.55-1.02 Note change in reference range due to change in reagent. BUN/CREATININE RATIO (test code=BUN/CREA) 16.1 10-20 CALCIUM (test code=CA) 9.3 mg/dL 8.5-10.1 BASIC METABOLIC [id number] 07:05:00* Test Item Value Reference Range Comments SODIUM (test code=NA) 138 mmol/L 136-145 POTASSIUM (test code=K) 4.4 mmol/L 3.5-5.1 CHLORIDE (test code=CL) 106.0 mmol/L 98-107 CARBON DIOXIDE (test code=CO2) 25.0 mmol/L 21-32 ANION GAP (test code=GAP) 11.4 10-20 GLUCOSE (test code=GLU) 161 mg/dL 74-106 BLOOD UREA NITROGEN (test code=BUN) 10 mg/dL 7-18 GLOMERULAR FILTRATION RATE (test code=GFR) > 60 mL/min >=60 Estimated GFR by using Modified MDRD formula.Chronic kidney disease is defined as either kidney damageor GFR <60 mL/min/1.73 m2 for >3 months. CREATININE (test code=CREAT) 0.70 mg/dL 0.55-1.02 Note change in reference range due to change in reagent. BUN/CREATININE RATIO (test code=BUN/CREA) 14.0 10-20 CALCIUM (test code=CA) 9.7 mg/dL 8.5-10.1 CBC W/AUTO [id number] 06:55:00* Test Item Value Reference Range Comments WHITE BLOOD CELL (test code=WBC) 5.2 K/mm3 4.5-12.5 RED BLOOD CELL (test code=RBC) 4.76 mill/mm3 3.7-5.2 HEMOGLOBIN (test code=HGB) 11.5 gram/dL 11.5-15.5 HEMATOCRIT (test code=HCT) 39.5 % 36.0-46.0 MEAN CELL VOLUME (test code=MCV) 83.0 fL 80-98 MEAN CELL HGB (test code=MCH) 24.2 picogram 27.0-33.0 MEAN CELL HGB CONCETRATION (test code=MCHC) 29.1 gram/dL 33.0-36.0 RED CELL DISTRIBUTION WIDTH (test code=RDW) 18.5 % 11.6-16.2 RED CELL DISTRIBUTION WIDTH SD (test code=RDW-SD) 55.4 fL 37.0-51.0 PLATELET COUNT (test code=PLT) 328 K/mm3 150-450 MEAN PLATELET VOLUME (test code=MPV) 9.0 fL 6.7-11.0 NEUTROPHIL % (test code=NT%) 67.3 % 39.0-69.0 IMMATURE GRANULOCYTE % (test code=IG%) 0.2 % 0.0-5.0 LYMPHOCYTE % (test code=LY%) 30.4 % 25.0-55.0 MONOCYTE % (test code=MO%) 1.9 % 0.0-10.0 EOSINOPHIL % (test code=EO%) 0.0 % 0.0-5.0 BASOPHIL % (test code=BA%) 0.2 % 0.0-1.0 NUCLEATED RBC % (test code=NRBC%) 0.0 % 0-0 NEUTROPHIL # (test code=NT#) 3.49 K/mm3 1.8-7.7 IMMATURE GRANULOCYTE # (test code=IG#) 0.01 x10 3/uL 0-0.03 LYMPHOCYTE # (test code=LY#) 1.58 K/mm3 1.0-5.0 MONOCYTE # (test code=MO#) 0.10 K/mm3 0-0.8 EOSINOPHIL # (test code=EO#) 0.00 K/mm3 0.0-0.5 BASOPHIL # (test code=BA#) 0.01 K/mm3 0.0-0.2 NUCLEATED RBC # (test code=NRBC#) 0.00 K/mm3 0.0-0.1 MANUAL DIFF REQUIRED (test code=MDIFF) NO, ONLY SCAN NEEDED DIFFERENTIAL [id number] 06:55:00* Test Item Value Reference Range Comments STAIN ACCEPTABILITY (test code=STN ACCEPTABLE) STAIN ACCEPTABLE POLYCHROMASIA (test code=POLC) 1+ ANISOCYTOSIS (test code=ANISO) 1+ MICROCYTOSIS (test code=MICR) 1+ PLATELET ESTIMATE (test code=PLTEST) ADEQUATE PLATELET MORPHOLOGY (test code=PLTMORPH) NORMAL BASIC METABOLIC [id number] 06:52:00* Test Item Value Reference Range Comments SODIUM (test code=NA) 138 mmol/L 136-145 POTASSIUM (test code=K) 4.4 mmol/L 3.5-5.1 CHLORIDE (test code=CL) 106.0 mmol/L 98-107 CARBON DIOXIDE (test code=CO2) mmol/L 21-32 ANION GAP (test code=GAP) 10-20 GLUCOSE (test code=GLU) mg/dL 74-106 BLOOD UREA NITROGEN (test code=BUN) mg/dL 7-18 GLOMERULAR FILTRATION RATE (test code=GFR) mL/min >=60 CREATININE (test code=CREAT) mg/dL 0.55-1.02 BUN/CREATININE RATIO (test code=BUN/CREA) 10-20 CALCIUM (test code=CA) mg/dL 8.5-10.1 CBC W/AUTO [id number] 06:43:00* Test Item Value Reference Range Comments WHITE BLOOD CELL (test code=WBC) 5.2 K/mm3 4.5-12.5 RED BLOOD CELL (test code=RBC) 4.76 mill/mm3 3.7-5.2 HEMOGLOBIN (test code=HGB) 11.5 gram/dL 11.5-15.5 HEMATOCRIT (test code=HCT) 39.5 % 36.0-46.0 MEAN CELL VOLUME (test code=MCV) 83.0 fL 80-98 MEAN CELL HGB (test code=MCH) 24.2 picogram 27.0-33.0 MEAN CELL HGB CONCETRATION (test code=MCHC) 29.1 gram/dL 33.0-36.0 RED CELL DISTRIBUTION WIDTH (test code=RDW) 18.5 % 11.6-16.2 RED CELL DISTRIBUTION WIDTH SD (test code=RDW-SD) 55.4 fL 37.0-51.0 PLATELET COUNT (test code=PLT) 328 K/mm3 150-450 MEAN PLATELET VOLUME (test code=MPV) 9.0 fL 6.7-11.0 NEUTROPHIL % (test code=NT%) 67.3 % 39.0-69.0 IMMATURE GRANULOCYTE % (test code=IG%) 0.2 % 0.0-5.0 LYMPHOCYTE % (test code=LY%) 30.4 % 25.0-55.0 MONOCYTE % (test code=MO%) 1.9 % 0.0-10.0 EOSINOPHIL % (test code=EO%) 0.0 % 0.0-5.0 BASOPHIL % (test code=BA%) 0.2 % 0.0-1.0 NUCLEATED RBC % (test code=NRBC%) 0.0 % 0-0 NEUTROPHIL # (test code=NT#) 3.49 K/mm3 1.8-7.7 IMMATURE GRANULOCYTE # (test code=IG#) 0.01 x10 3/uL 0-0.03 LYMPHOCYTE # (test code=LY#) 1.58 K/mm3 1.0-5.0 MONOCYTE # (test code=MO#) 0.10 K/mm3 0-0.8 EOSINOPHIL # (test code=EO#) 0.00 K/mm3 0.0-0.5 BASOPHIL # (test code=BA#) 0.01 K/mm3 0.0-0.2 NUCLEATED RBC # (test code=NRBC#) 0.00 K/mm3 0.0-0.1 MANUAL DIFF REQUIRED (test code=MDIFF) NO, ONLY SCAN NEEDED DIFFERENTIAL [id number] 06:43:00* Test Item Value Reference Range Comments STAIN ACCEPTABILITY (test code=STN ACCEPTABLE) CABOT RINGS (test code=CAB) MORPHOLOGY COMMENT (test code=MOC) PLATELET ESTIMATE (test code=PLTEST) PLATELET MORPHOLOGY (test code=PLTMORPH) CBC W/AUTO [id number] 06:43:00* Test Item Value Reference Range Comments WHITE BLOOD CELL (test code=WBC) 5.2 K/mm3 4.5-12.5 RED BLOOD CELL (test code=RBC) 4.76 mill/mm3 3.7-5.2 HEMOGLOBIN (test code=HGB) 11.5 gram/dL 11.5-15.5 HEMATOCRIT (test code=HCT) 39.5 % 36.0-46.0 MEAN CELL VOLUME (test code=MCV) 83.0 fL 80-98 MEAN CELL HGB (test code=MCH) 24.2 picogram 27.0-33.0 MEAN CELL HGB CONCETRATION (test code=MCHC) 29.1 gram/dL 33.0-36.0 RED CELL DISTRIBUTION WIDTH (test code=RDW) 18.5 % 11.6-16.2 RED CELL DISTRIBUTION WIDTH SD (test code=RDW-SD) 55.4 fL 37.0-51.0 PLATELET COUNT (test code=PLT) 328 K/mm3 150-450 MEAN PLATELET VOLUME (test code=MPV) 9.0 fL 6.7-11.0 NEUTROPHIL % (test code=NT%) 67.3 % 39.0-69.0 IMMATURE GRANULOCYTE % (test code=IG%) 0.2 % 0.0-5.0 LYMPHOCYTE % (test code=LY%) 30.4 % 25.0-55.0 MONOCYTE % (test code=MO%) 1.9 % 0.0-10.0 EOSINOPHIL % (test code=EO%) 0.0 % 0.0-5.0 BASOPHIL % (test code=BA%) 0.2 % 0.0-1.0 NUCLEATED RBC % (test code=NRBC%) 0.0 % 0-0 NEUTROPHIL # (test code=NT#) 3.49 K/mm3 1.8-7.7 IMMATURE GRANULOCYTE # (test code=IG#) 0.01 x10 3/uL 0-0.03 LYMPHOCYTE # (test code=LY#) 1.58 K/mm3 1.0-5.0 MONOCYTE # (test code=MO#) 0.10 K/mm3 0-0.8 EOSINOPHIL # (test code=EO#) 0.00 K/mm3 0.0-0.5 BASOPHIL # (test code=BA#) 0.01 K/mm3 0.0-0.2 NUCLEATED RBC # (test code=NRBC#) 0.00 K/mm3 0.0-0.1 MANUAL DIFF REQUIRED (test code=MDIFF) NO, ONLY SCAN NEEDED DIFFERENTIAL [id number] 06:43:00* Test Item Value Reference Range Comments STAIN ACCEPTABILITY (test code=STN ACCEPTABLE) MORPHOLOGY COMMENT (test code=MOC) PLATELET ESTIMATE (test code=PLTEST) PLATELET MORPHOLOGY (test code=PLTMORPH) CBC W/AUTO [id number] 06:42:00* Test Item Value Reference Range Comments WHITE BLOOD CELL (test code=WBC) 5.2 K/mm3 4.5-12.5 RED BLOOD CELL (test code=RBC) 4.76 mill/mm3 3.7-5.2 HEMOGLOBIN (test code=HGB) 11.5 gram/dL 11.5-15.5 HEMATOCRIT (test code=HCT) 39.5 % 36.0-46.0 MEAN CELL VOLUME (test code=MCV) 83.0 fL 80-98 MEAN CELL HGB (test code=MCH) 24.2 picogram 27.0-33.0 MEAN CELL HGB CONCETRATION (test code=MCHC) 29.1 gram/dL 33.0-36.0 RED CELL DISTRIBUTION WIDTH (test code=RDW) 18.5 % 11.6-16.2 RED CELL DISTRIBUTION WIDTH SD (test code=RDW-SD) 55.4 fL 37.0-51.0 PLATELET COUNT (test code=PLT) 328 K/mm3 150-450 MEAN PLATELET VOLUME (test code=MPV) 9.0 fL 6.7-11.0 NEUTROPHIL % (test code=NT%) 67.3 % 39.0-69.0 IMMATURE GRANULOCYTE % (test code=IG%) 0.2 % 0.0-5.0 LYMPHOCYTE % (test code=LY%) 30.4 % 25.0-55.0 MONOCYTE % (test code=MO%) 1.9 % 0.0-10.0 EOSINOPHIL % (test code=EO%) 0.0 % 0.0-5.0 BASOPHIL % (test code=BA%) 0.2 % 0.0-1.0 NUCLEATED RBC % (test code=NRBC%) 0.0 % 0-0 NEUTROPHIL # (test code=NT#) 3.49 K/mm3 1.8-7.7 IMMATURE GRANULOCYTE # (test code=IG#) 0.01 x10 3/uL 0-0.03 LYMPHOCYTE # (test code=LY#) 1.58 K/mm3 1.0-5.0 MONOCYTE # (test code=MO#) 0.10 K/mm3 0-0.8 EOSINOPHIL # (test code=EO#) 0.00 K/mm3 0.0-0.5 BASOPHIL # (test code=BA#) 0.01 K/mm3 0.0-0.2 NUCLEATED RBC # (test code=NRBC#) 0.00 K/mm3 0.0-0.1 MANUAL DIFF REQUIRED (test code=MDIFF) NO, ONLY SCAN NEEDED DIFFERENTIAL [id number] 06:42:00* Test Item Value Reference Range Comments STAIN ACCEPTABILITY (test code=STN ACCEPTABLE) CABOT RINGS (test code=CAB) MORPHOLOGY COMMENT (test code=MOC) PLATELET ESTIMATE (test code=PLTEST) PLATELET MORPHOLOGY (test code=PLTMORPH) CBC W/AUTO [id number] 06:42:00* Test Item Value Reference Range Comments WHITE BLOOD CELL (test code=WBC) 5.2 K/mm3 4.5-12.5 RED BLOOD CELL (test code=RBC) 4.76 mill/mm3 3.7-5.2 HEMOGLOBIN (test code=HGB) 11.5 gram/dL 11.5-15.5 HEMATOCRIT (test code=HCT) 39.5 % 36.0-46.0 MEAN CELL VOLUME (test code=MCV) 83.0 fL 80-98 MEAN CELL HGB (test code=MCH) 24.2 picogram 27.0-33.0 MEAN CELL HGB CONCETRATION (test code=MCHC) 29.1 gram/dL 33.0-36.0 RED CELL DISTRIBUTION WIDTH (test code=RDW) 18.5 % 11.6-16.2 RED CELL DISTRIBUTION WIDTH SD (test code=RDW-SD) 55.4 fL 37.0-51.0 PLATELET COUNT (test code=PLT) 328 K/mm3 150-450 MEAN PLATELET VOLUME (test code=MPV) 9.0 fL 6.7-11.0 NEUTROPHIL % (test code=NT%) 67.3 % 39.0-69.0 IMMATURE GRANULOCYTE % (test code=IG%) 0.2 % 0.0-5.0 LYMPHOCYTE % (test code=LY%) 30.4 % 25.0-55.0 MONOCYTE % (test code=MO%) 1.9 % 0.0-10.0 EOSINOPHIL % (test code=EO%) 0.0 % 0.0-5.0 BASOPHIL % (test code=BA%) 0.2 % 0.0-1.0 NUCLEATED RBC % (test code=NRBC%) 0.0 % 0-0 NEUTROPHIL # (test code=NT#) 3.49 K/mm3 1.8-7.7 IMMATURE GRANULOCYTE # (test code=IG#) 0.01 x10 3/uL 0-0.03 LYMPHOCYTE # (test code=LY#) 1.58 K/mm3 1.0-5.0 MONOCYTE # (test code=MO#) 0.10 K/mm3 0-0.8 EOSINOPHIL # (test code=EO#) 0.00 K/mm3 0.0-0.5 BASOPHIL # (test code=BA#) 0.01 K/mm3 0.0-0.2 NUCLEATED RBC # (test code=NRBC#) 0.00 K/mm3 0.0-0.1 MANUAL DIFF REQUIRED (test code=MDIFF) NO, ONLY SCAN NEEDED DIFFERENTIAL [id number] 06:42:00* Test Item Value Reference Range Comments STAIN ACCEPTABILITY (test code=STN ACCEPTABLE) CABOT RINGS (test code=CAB) MORPHOLOGY COMMENT (test code=MOC) PLATELET ESTIMATE (test code=PLTEST) PLATELET MORPHOLOGY (test code=PLTMORPH) - CTA UPPER [id number] 19:19:00 Name: LIAM MALLOY [facility] : 1950 Age/S: 68 / F [address] [facility] Unit #: [id number] Loc: [place] [address] Phys: Frankie Arndt DO Acct: [id number] Dis Date: Status: REG ER PHONE #: [phone] Exam Date: 05/14/2018 181 FAX #: [phone] Reason: pain EXAMS: CPT CODE: [id number] CTA UPPER EXTREMITY [id number] EXAM: CT angiography of the left upper extremity; INFORMATION: Severe left arm pain; history of stenting of the left subclavian artery; TECHNIQUE AND FINDINGS: CT dose reduction protocol; Helical scans through the left upper extremity including the aortic arch; curvilinear reconstructions were obtained; 3-D angiographic studies were generated on an independent workstation, using volume rendering and maximum intensity projection algorithms. There are some motion artifacts secondary to cardiac motion and it seems that there is a stenosis within the proximal portion of the left subclavian stent. More distally the stent is patent and in its further course the left subclavian artery and the vertebral artery are patent. The left axillary and brachial artery is patent. Distal forearm vessels were not evaluated. The thoracic aorta is unremarkable, except for calcified plaques; no evidence of dissection or aneurysm. IMPRESSION: 1. Suspicion of stenosis within the proximal portion of the left subclavian stent. 2. In its further course the left subclavian, axillary and brachial arteries as well as the left vertebral artery are patent. 3. No evidence of aortic dissection or aneurysm. Electronically Signed by Aurea Reid on at 1919 Reported and signed by: Orlin Reid M.D. CC: Frankie Arndt DO Technologist:Angie Mendoza RT(R); ZAIRA Field CTDI: DLP: T [email or web address] Date/Time: 05/14/2018 (1918) [email or web address] Orig Print D /T: S: 05/14/2018 (1921) CTDI: DLP: PAGE 1 Signed Report BASIC METABOLIC PANEL 2018-05-14 15:20:00* Test Item Value Reference Range Comments SODIUM (test code=NA) 136 mmol/L 136-145 POTASSIUM (test code=K) 4.3 mmol/L 3.5-5.1 CHLORIDE (test code=CL) 104.0 mmol/L 98-107 CARBON DIOXIDE (test code=CO2) 25.0 mmol/L 21-32 ANION GAP (test code=GAP) 11.3 10-20 GLUCOSE (test code=GLU) 103 mg/dL 74-106 BLOOD UREA NITROGEN (test code=BUN) 9 mg/dL 7-18 GLOMERULAR FILTRATION RATE (test code=GFR) > 60 mL/min >=60 Estimated GFR by using Modified MDRD formula.Chronic kidney disease is defined as either kidney damageor GFR <60 mL/min/1.73 m2 for >3 months. CREATININE (test code=CREAT) 0.70 mg/dL 0.55-1.02 Note change in reference range due to change in reagent. BUN/CREATININE RATIO (test code=BUN/CREA) 13.7 10-20 CALCIUM (test code=CA) 9.7 mg/dL 8.5-10.1 [id number] 15:20:00* Test Item Value Reference Range Comments TROPONIN-I (test code=TROPI) <0.015 ng/mL 0-0.045 BASIC METABOLIC [id number] 15:08:00* Test Item Value Reference Range Comments SODIUM (test code=NA) 136 mmol/L 136-145 POTASSIUM (test code=K) 4.3 mmol/L 3.5-5.1 CHLORIDE (test code=CL) 104.0 mmol/L 98-107 CARBON DIOXIDE (test code=CO2) mmol/L 21-32 ANION GAP (test code=GAP) 10-20 GLUCOSE (test code=GLU) mg/dL 74-106 BLOOD UREA NITROGEN (test code=BUN) mg/dL 7-18 GLOMERULAR FILTRATION RATE (test code=GFR) mL/min >=60 CREATININE (test code=CREAT) mg/dL 0.55-1.02 BUN/CREATININE RATIO (test code=BUN/CREA) 10-20 CALCIUM (test code=CA) mg/dL 8.5-10.1 [id number] 15:08:00* Test Item Value Reference Range Comments TROPONIN-I (test code=TROPI) ng/mL 0-0.045 CBC W/O [id number] 15:01:00* Test Item Value Reference Range Comments WHITE BLOOD CELL (test code=WBC) 7.5 K/mm3 4.5-12.5 RED BLOOD CELL (test code=RBC) 4.68 mill/mm3 3.7-5.2 HEMOGLOBIN (test code=HGB) 11.4 gram/dL 11.5-15.5 HEMATOCRIT (test code=HCT) 39.5 % 36.0-46.0 MEAN CELL VOLUME (test code=MCV) 84.4 fL 80-98 MEAN CELL HGB (test code=MCH) 24.4 picogram 27.0-33.0 MEAN CELL HGB CONCETRATION (test code=MCHC) 28.9 gram/dL 33.0-36.0 RED CELL DISTRIBUTION WIDTH (test code=RDW) 18.7 % 11.6-16.2 PLATELET COUNT (test code=PLT) 339 K/mm3 150-450 MEAN PLATELET VOLUME (test code=MPV) 8.6 fL 6.7-11.0 - XR CHEST 1 [id number] 14:44:00 FAX: Lucia Hylton NP [place]: B St: REG Name: LIAM ALEGRE [facility] : [birth year] Age/S: 68/F [address] Unit #: [id number] Loc: [place] [address] Phys: Lucia Hylton STAFF [employer] OFFICER Acct: [id number] Dis Date: Status: REG ER PHONE #: [phone] Exam Date: 05/14/2018 1416 FAX #: [phone] Reason: CHEST PAIN EXAMS: CPT CODE: [id number] XR CHEST 1 V 41892 EXAM: Chest x-ray, one view; INFORMATION: Severe pain left arm and chest pain; FINDINGS: Lungs are clear; no infiltrates, no edema; no effusions, no pneum othorax. The heart is normal in size. A stent is seen in the proxima l portion of the left subclavian artery. IMPRESSION: 1. No evidence of active cardiopulmonary disease. 2. Given the patient's history I recommend CT angiography for evaluation of the arterial supply of the left arm and in particular of the left subclavian artery. at 4139 Reported and signed by: Siva Reid M.D. CC: Lucia Hylton NP Technologist: Brittney Webb) Trnscrd Date/Time/By: 05/14/2018 (9527) : By: TseringGRW Orig Print D/T: S: 05/14/2018 (4590) PAGE 1 Signed Report
--- OUTSIDE RECORDS SUMMARY | 2019-01-16 19:31 | XMS REPORT | Summary of Care ---
Author Author [facility] - Health Organization [facility] - Health Address Unknown Phone Unavailable Care Team Providers Care Acls Specialist Name Role Phone Yuri Hale PCP Reason for Visit * Reason Comments Notification about stents Encounter Details Care Team Description Date Type Department Uziel Rainey MD [id number] [place] [address] Notification (about stents) 11/21/2018 Telephone [facility] [address] [place] [address] Allergies Comments Active Allergy Reactions Severity Noted Date Ciprofloxacin Hives 11/26/2012 Iodine Hives 09/12/2013 Latex Rash High 01/01/2013 Penicillins Rash 11/26/2012 Really large hives all over Iodine And Iodide Hives 11/26/2012 Containing Products [place] Sulfair Rash 11/26/2012 Tetracycline Rash 11/26/2012 documented as of this encounter (statuses as of 11/22/2018) Medications End Date Status Medication Sig Dispensed Refills Start Date Active cetirizine (ZYRTEC) 10 mg Take 10 mg by 0 tablet mouth at bedtime. Active tiotropium (SPIRIVA) 18 Inhale 18 mcg 0 mcg inhalation daily. Active clopidogrel (PLAVIX) 75 Take 75 mg by 0 mg tablet mouth daily. Active DICYCLOMINE HCL (BENTYL Take 10 mg by 0 ORAL) mouth 2 (two) times daily. Active zolpidem (AMBIEN) 10 mg Take 10 mg by 0 tablet mouth at bedtime as needed. Active verapamil (CALAN SR) 240 Take 240 mg 0 mg SR tablet by mouth daily. Active atorvastatin (LIPITOR) 80 Take 80 mg by 0 mg tablet mouth every morning. Active ERGOCALCIFEROL, VITAMIN Take 800 0 D2, (VITAMIN D ORAL) Units by mouth daily. Active CALCIUM/MAGNESIUM Take 1,200 0 (CALCIUM AND MAGNESIUM Units by ORAL) mouth. Calcium 8308-9319 units Active RANITIDINE HCL (ZANTAC 75 Take by 0 ORAL) mouth 2 (two) times daily. Active meclizine (ANTIVERT) 25 Take 25 mg by 0 mg tablet mouth 3 (three) times daily as needed. Active linaclotide (LINZESS) 290 Take by 0 mcg Cap mouth. Active HYDROcodone-acetaminophen Take 1 Tab by 30 Tab 0 (NORCO) 10-325 mg tablet mouth every 6 4 (six) hours as needed for Pain (scale 7-10). Active acetaminophen-codeine TAKE 1 TABLET 1 300-60 mg tablet BY MOUTH 4 8 TIMES A DAY FOR 30 DAYS Active PROAIR HFA 90 INL 2 PFS PO 12 mcg/actuation inhaler Q 4 H PRN 9 Active PROAIR HFA 90 0 mcg/actuation inhaler 9 Active cilostazol 100 mg tablet TK 1 T PO BID 4 30 MIN B OR 2 9 H AFTER SHAKILA AND DINNER Active cyclobenzaprine 10 mg TK 1 T PO TID 0 tablet PRN 8 Active NEXIUM 40 mg capsule TAKE ONE 8 CAPSULE BY 9 MOUTH ONCE DAILY Active FLOVENT HFA 110 INHALE 1 PUFF 1 mcg/actuation inhaler PO D UTD 9 Active furosemide 20 mg tablet TK 1 T PO QD 0 9 Active gabapentin 300 mg capsule 0 9 Active gabapentin 100 mg capsule TK 1 C PO TID 0 PRN 8 Active metoprolol succinate XL TK 1 T PO QD 0 50 mg 24 hr tablet 9 Active metoprolol tartrate 50 mg TK 1 T PO BID 1 tablet WF 9 Active metoprolol tartrate 25 mg TK 1/2 T PO Q 3 tablet 12 H 9 Active pregabalin (LYRICA) 100 Take 1 90 capsule 1 mg capsuleIndications: capsule by 9 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 Active cyclobenzaprine 10 mg Take 1 tablet 90 tablet 3 tabletIndications: Lumbar by mouth 3 9 spondylosis (three) times daily. Active acetaminophen-codeine Take 1 tablet 90 tablet 3 300-30 mg by mouth 3 9 tabletIndications: Lumbar (three) times spondylosis daily. Active gabapentin 800 mg Take 1 tablet 90 tablet 2 tabletIndications: Lumbar by mouth 3 9 spondylosis (three) times daily. documented as of this encounter (statuses as of 11/22/2018) Active Problems Problem Noted Date Nodule, subcutaneous 11/26/2012 documented as of this encounter (statuses as of 11/22/2018) Social History Date Tobacco Use Types Packs/Day Years Used Never Smoker Drinks/Week oz/Week Comments Alcohol Use Not Asked Sex Assigned at Date Recorded Not on file Industry Job Start Date Occupation Not on file Not on file Not on file Travel End Travel History Travel Start No recent travel history available. documented as of this encounter Last Filed Vital Signs Not on filedocumented in this encounter Plan of Treatment Care Team Description Date Type Specialty Uziel Rainey MD [id number] [place] [address] [phone] 01/31/2019 Office Visit Pain Medicine Health Maintenance Due Date Last Done Comments HEPATITIS C (HCV) SCREEN 1950 DTaP,Tdap,and Td Vaccines 1969 (1 - Tdap) MAMMOGRAM 1990 COLONOSCOPY 02/02/2000 Zoster Recombinant 02/02/2000 Vaccine (SHINGRIX) (1 of 2) Medicare Wellness Visit 2015 Osteoporosis Screening 2015 PNEUMOCOCCAL VACCINES 65+ 2015 (1 of 2 - PCV13) INFLUENZA VACCINE 12/23/2018 documented as of this encounter Results Not on filedocumented in this encounter Insurance Type Payer Benefit Subscriber ID Effective Phone Address Plan / Dates Group Medicaid [employer] [place] xxxxxxxxx 2012-P PLAN - MANAGED MEDICAID STAR PLUS resent documented as of this encounter
[2019-01-16 19:46] VITALS: BP 141/76
--- NOTE | 2019-01-16 19:46 | NUR ---
PT IS RESTING IN BED. RESPIRATION IS EVEN AND UNLABORED, NO DISTRESS NOTED. BED IN THE LOWEST POSITION, LOCKED, BED ALARM ON, AND CALL LIGHT WITHIN REACH. WILL CONTINUE TO MONITOR.
[2019-01-16 21:17] LABS: BASOPHILS # (AUTO) 0.1 (0.0-0.1); BASOPHILS % 0.8 % (0.0-1.0); EOSINOPHILS # (AUTO) 0.5 (0.0-0.4); EOSINOPHILS % 5.8 % (0.0-6.0); HEMATOCRIT 35.9 % (34.2-44.1); HEMOGLOBIN 10.7 g/dL (12.0-16.0); LYMPHOCYTES # (AUTO) 2.6 (1.0-3.2); LYMPHOCYTES % 30.2 % (18.0-39.1); MEAN CORPUSCULAR HEMOGLOBIN 25.8 pg (28-32); MEAN CORPUSCULAR HGB CONC 29.8 g/dL (31-35); MEAN CORPUSCULAR VOLUME 86.7 fL (81-99); MONOCYTES # (AUTO) 0.9 (0.2-0.8); MONOCYTES % 10.5 % (4.4-11.3); NEUTROPHILS # (AUTO) 4.4 (2.1-6.9); NEUTROPHILS % 52.5 % (38.7-80.0); PLATELET COUNT 340 x10e3/uL (140-360); RED BLOOD COUNT 4.14 x10e6/uL (3.6-5.1); RED CELL DISTRIBUTION WIDTH 16.7 % (11.7-14.4)
[2019-01-16] MEDS ORDERED: SODIUM CHLORIDE 0.9% 250ML 250 ML ONE (21:17)
[2019-01-16 21:34] LABS: ANION GAP 13.8 mmol/L (8-16); BLOOD UREA NITROGEN 9 mg/dL (7-26); BUN/CREATININE RATIO 11 (6-25); CALCIUM 9.7 mg/dL (8.4-10.2); CARBON DIOXIDE 26 mmol/L (22-29); CHLORIDE 103 mmol/L (98-107); CREATININE, SERUM 0.81 mg/dL (0.57-1.11); EST GLOMERULAR FILTRATION RATE > 60 ML/MIN (60-); GLUCOSE 114 mg/dL (74-118); POTASSIUM 3.8 mmol/L (3.5-5.1); SODIUM 139 mmol/L (136-145)
--- NOTE | 2019-01-16 21:50 | Diagnostic Imaging Report ---
EXAMINATION: CHEST 2 VIEWS INDICATION: ^WOUND INFECTION/ PA/LATERAL ^20190116 ^2114 COMPARISON: None FINDINGS: PA and lateral views TUBES and LINES: None. LUNGS: Limited by body habitus. Lungs are well inflated. Mildly prominent interstitial lung markings. Minimal left basilar subsegmental atelectasis. PLEURA: No pleural effusion or pneumothorax. HEART AND MEDIASTINUM: The cardiomediastinal silhouette is unremarkable. BONES AND SOFT TISSUES: Generalized mineralization. No acute osseous lesion. Surgical clips projecting over right axilla and lateral right upper lung field. UPPER ABDOMEN: No free air under the diaphragm. IMPRESSION: Mildly prominent interstitial lung markings, could be chronic or represent mild interstitial edema. Signed by: Dr. Alessio Mahoney MD on 01/16/2019 9:47 PM
[2019-01-16] MEDS ORDERED: TYLENOL WITH C1 EACH PO (22:15)
[2019-01-16] MEDS ORDERED: AMBIEN10 MG PO (22:15)
[2019-01-16] MEDS ORDERED: CYCLOBENZAPRINE10 MG PO (22:15)
--- NOTE | 2019-01-16 22:18 | NUR ---
PAGE DR GRAF FOR ORDERS. AWAITING CALL BACK. WILL CONTINUE TO MONITOR.
[2019-01-16] MEDS ORDERED: VERAPAMIL ER120 MG (23:11)
[2019-01-16] MEDS ORDERED: PLAVIX75 MG PO (23:11)
[2019-01-16] MEDS ORDERED: FUROSEMIDE10 MG/1 M1 IV (23:11)
[2019-01-16] MEDS ORDERED: CILOSTAZOL100 MG PO (23:11)
[2019-01-16] MEDS ORDERED: FLOVENT HFA12 G1 (23:11)
[2019-01-16] MEDS ORDERED: GABAPENTIN800 MG PO (23:11)
[2019-01-16] MEDS ORDERED: METOPROLOL TART25 MG PO (23:11)
[2019-01-16] MEDS ORDERED: DEXILANT60 MG (23:11)
[2019-01-16] MEDS ORDERED: DIGOXIN125 MCG PO (23:11)
[2019-01-16] MEDS ORDERED: ZYRTEC10 M3 (23:11)
[2019-01-16] MEDS ORDERED: ATORVASTATIN CA20 MG PO (23:11)
[2019-01-17] VITALS (9 sets, daily range): BP systolic 112–168; BP diastolic 62–88
[2019-01-17] MEDS ORDERED: PROAIR HFA INH8.5 GM IH (04:02)
--- NOTE | 2019-01-17 07:20 | NUR ---
PATIENT IS AWAKE AND IN STABLE CONDITION WITH NO S/S OF RESPIRATORY DISTRESS. PATIENT C/O BILATERAL FEET PAIN /- PATIENT AWARE NO PAIN MEDICATION IS AVAILABLE AND CALL OUTS HAVE BEEN PLACED. BILATERAL LATERAL ABD SURGICAL WOUNDS NOTED- LIBIA NOTED AND MINIMUM DRAINAGE NOTED TO DRESSINGS. BED ALARM. CALL LIGHT IS WITHIN REACH, PATIENT INSTRUCTED TO CALL FOR ASSISTANCE NEEDED.
--- NOTE | 2019-01-17 10:04 | NUR ---
CALL PLACED OUT TO DR. GRAF REGARDING PATIENT'S REQUEST FOR PAIN MEDICATION FOR BILATERAL FEET PAIN 01/[address] INFORM DR. GRAF ON SEPSIS SIRS ALERT. AWAITING CALLBACK.
--- NOTE | 2019-01-17 12:50 | NUR ---
WOUND CARE CONSULTATION: THIS IS A 68 YEAR OLD FEMALE PATIENT ADMITTED TO [facility] FOR SURGICAL WOUND INFECTION. HEAD TO TOE SKIN ASSESSMENT PERFORMED. PATIENT HAS A RLQ ABDOMINAL WOUND MEASURING 1.5X1.3X6.2CM, WITH 80% PINK GRANULATION AND 20% FIBRIN/SLOUGH;MALODOROUS SMELL, LIBIA INTACT TO INCISION LINE. PATIENT HAS A LLQ ABDOMINAL WOUND MEASURING 1.7X2.4X3.3CM, 75% PINK GRANULATION AND 25% SLOUGH/FIBRIN; MALODOROUS SMELL, LIBIA INTACT TO INCISION LINE. PATIENT HAD CARDIAC THORACIC SURGERY APPROXIMATELY [address] GRAF. DISCUSSED RECOMMENDATION OF WOUND VAC TO PATIENT DUE TO THE DEPTH OF BOTH WOUNDS; PATIENT AND SAID THEY WILL REFUSE THE VAC BECAUSE THE PATIENT DID NOT RESPOND WELL WITH A WOUND VAC IN PAST AND VAC TAPE TORE UP PATIENT SKIN. LABS: WBC8.47 [id number] WOUND CULTURES = COLLECTED AND PENDING. RECOMMEDATION: -APPLY ALTERNATING PRESSURE RELIEF MATTRESS. -APPLY BILATERAL HEEL PROTECTORS WITH PILLOW SUSPENSION. -TURN EVERY 2 HOURS AND PRN. -NURSING TO CLEAN RIGHT AND LEFT ABDOMINAL WOUNDS WITH NORMAL SALINE, PAT DRY, PACK WITH IODOFORM GAUZE, APPLY XEROFORM TO STAPLED INCISION, COVER WITH MAXORB AG, 4X4 GAUZE AND SECURE WITH TAPE; CHANGE DAILY AND PRN. THANK YOU FOR THIS WOUND CARE CONSULT. Addendum: 01/17/19 at 1308 by Maria Del Carmen Vargas RN Amended: Links added.
[2019-01-17] MEDS ORDERED: CEPHALEXIN250 MG PO (13:59)
[2019-01-17] MEDS: CYCLOBENZAPRINE HCL 10 MG TAB PO SCH ×2 (14:02→20:03)
[2019-01-17] MEDS: METOPROLOL TARTRATE 25 MG TAB PO SCH (14:02)
[2019-01-17] MEDS: GABAPENTIN 400 MG CAP PO SCH ×2 (14:02→20:03)
[2019-01-17] MEDS: ONDANSETRON HCL INJ 2MG/ML 2ML 2 MG/ML VIAL IV PRN ×2 (14:02→20:03)
[2019-01-17] MEDS: ACETAMINOPHEN/CODEINE 300MG - 30MG TAB PO SCH ×2 (14:03→20:03)
[2019-01-17] MEDS ORDERED: NON-FORMULARY MEDICATION (Gabapentin 800 MG) PO SCH (15:00)
[2019-01-17] MEDS: CILOSTAZOL 100 MG TAB PO SCH (15:40)
[2019-01-17] MEDS: MORPHINE SULFATE 2 MG/ML SYR 1ML IV PRN (15:41)
--- NOTE | 2019-01-17 16:12 | NUR ---
AIR PUMP APPLIED TO BED AND HEEL PROTECTORS APPLIED TO BILATERAL FEET. PATIENT TURN SELF.
--- NOTE | 2019-01-17 19:07 | NUR ---
PATIENT IS AWAKE AND IN STABLE CONDITION WITH NO S/S OF RESPIRATORY DISTRESS. NO PAIN VOICED. DRESSING TO LEFT AND RIGHT ABD WOUNDS INTACT- DRAINAGE NOTED. FAMILY MEMBER PRESENT IN ROOM. HEEL PROTECTORS APPLIED. CALL LIGHT IS WITHIN REACH, PATIENT INSTRUCTED TO CALL FOR ASSISTANCE NEEDED. BEDSIDE REPORT GIVEN TO ONCOMING NURSE.
--- NOTE | 2019-01-17 19:25 | NUR ---
Received pt awake, not in distress, no complaints of pain at this time, call light within easy reach, advised to call for assistance when needed, will continue to monitor
[2019-01-17] MEDS: VANCOMYCIN 1GM/NS 250 ML 250 ML IV SCH ×3 (20:00→20:04)
--- NOTE | 2019-01-17 20:00 | NUR ---
Right AC 20G IV access infiltrated, removed. Inserted IV access to the right hand 22G, flushed with good blood return.
[2019-01-17] MEDS: ATORVASTATIN 40 MG TAB PO SCH (20:03)
--- NOTE | 2019-01-17 20:05 | NUR ---
second dose of Vancomycin IV given tonight 01/17/19, first dose given last night per report
[2019-01-17] MEDS: ZOLPIDEM TARTRATE 10 MG TAB PO PRN (20:30)
--- NOTE | 2019-01-17 22:46 | History and Physical ---
REASON FOR ADMISSION: Status post axillobifemoral graft. COKE STILL CLEANER: Calos Negron MD. KEY PUNCH TEACHER: Brijesh Muse MD. HISTORY: This is a 68-year-old lady with a long history of peripheral arterial disease as well as CAD, hypertension, TIA, history of carotid endarterectomy, aortic bifurcation grafting, and small bowel obstruction. She developed progressive pain in both lower extremities. A CTA of the abdomen and aorta performed on 09/04/2018 showed chronic bilateral common iliac artery occlusions and an occluded aortoiliac graft, a patent right external iliac artery stent, a proximal left external iliac artery occlusion, preserved femoropopliteal runoff bilaterally with bilateral three-vessel trifurcation runoff. A subsequent abdominal aortogram with bilateral runoff performed by Dr. Calos Negron on 09/03/2018 showed a 60% stenosis of the infrarenal aorta, a 60% left common iliac artery stenosis, occlusion of the left common femoral artery, a 60% stenosis of the right common femoral artery, and a patent right SFA stent with a 40% to 50% stenosis just beyond the stent. The popliteal arteries were patent bilaterally with good runoff. The patient had been having increasing claudication and rest pain. A right axillary bifemoral graft was performed at [facility]. At the conclusion of surgery, the patient became hypotensive requiring resuscitation (possibly due to protamine reaction). She subsequently recovered and did well. The perfusion of both lower extremities improved markedly and her rest pain and claudication have resolved. However, she has developed erythema at both groin wounds with some drainage, complicated by her diabetes and obesity. At home, the wounds have been difficult to care for. They have started to drain serous fluid superficially. She has been maintained on oral antibiotics. Her has been doing the wound care, but this has become increasingly difficult. There is a history of carotid endarterectomy that I performed about 10 years ago. She had an aortic bifurcation graft in 2006. Last year, she had a small bowel obstruction, which required abdominal surgery. Her GI problems resolved, but after the operation, she had an open draining wound at the laparotomy site, which took months to heal as well as a wound VAC. REVIEW OF SYSTEMS: GENERAL: Negative for chills or fatigue. HEENT: Negative for decreased vision or decreased hearing. CARDIAC: Negative for chest pain or palpitation. PULMONARY: Negative for shortness of breath or wheezing. GI: No constipation or diarrhea. : Negative for hematuria or dysuria. ENDOCRINE: Negative for polyuria or polydipsia. VASCULAR: Negative for claudication. SKIN: Negative for rashes or angioedema. HEMATOLOGIC: Negative for clotting or bleeding. INFECTIOUS: Negative for fevers or chills. PSYCHIATRIC: Negative for depression or anxiety. PHYSICAL EXAMINATION: GENERAL: Obese lady lying flat in bed. is at the bedside. VITAL SIGNS: Blood pressure 140/70, pulse 80 and regular, respirations 16 and unlabored. NECK: Supple. Nontender. No JVD. CARDIAC: Shows a regular rate and rhythm. There is a normal S1 and S2. There is no S3, S4, rub, or murmur. LUNGS: Clear to auscultation and percussion bilaterally. ABDOMEN: Obese and benign. The midline laparotomy is well healed. BACK: No CVA tenderness. No muscle spasm. EXTREMITIES: Both groin wounds have some surrounding erythema inferiorly. There is some drainage. The janel are intact. Both lower extremities are warm and well perfused. VASCULAR: Carotids and radials 2+/2+ bilaterally. Femoral pulses are not palpable. This is secondary to the bilateral groin wounds, obesity and some minimal edema. MUSCULOSKELETAL: Full range of motion at all joints. No joint swelling. NEUROLOGIC: Cranial nerves 2 through 12 are intact. Sensation intact to light touch and pinprick bilaterally. Strength is 5/5 in all extremities. LYMPHATICS: Negative for cervical, clavicular, or femoral adenopathy. LABORATORY DATA: White count 8.4, hemoglobin 10.7, hematocrit 35.9, and platelet count 340,000. Sodium 139, BUN 9, creatinine 0.8, and potassium 3.8. IMPRESSION: Problematic bilateral groin wounds in an obese diabetic patient with an axillobifemoral graft. I have admitted for wound care since wounds have been deteriorating at home and there is concern for infection potential. Does not appear infected at present. Wound care initiated. I have consulted Dr. Negron and Dr. Muse. MD PEPPER Thompson/BEE /[id number]
[2019-01-18] VITALS (9 sets, daily range): BP systolic 96–128; BP diastolic 54–87
[2019-01-18] MEDS: METOPROLOL TARTRATE 25 MG TAB PO SCH ×2 (01:00→12:23)
--- NOTE | 2019-01-18 04:00 | NUR ---
Maxorb, 4x4 and transparent dressing applied to abdominal wounds
[2019-01-18] MEDS: MORPHINE SULFATE 2 MG/ML SYR 1ML IV PRN ×2 (04:05→09:20)
[2019-01-18] MEDS: ONDANSETRON HCL INJ 2MG/ML 2ML 2 MG/ML VIAL IV PRN ×2 (04:05→09:20)
[2019-01-18 06:21] LABS: BASOPHILS # (AUTO) 0.1 (0.0-0.1); BASOPHILS % 0.8 % (0.0-1.0); EOSINOPHILS # (AUTO) 0.4 (0.0-0.4); EOSINOPHILS % 5.9 % (0.0-6.0); HEMATOCRIT 33.4 % (34.2-44.1); HEMOGLOBIN 9.8 g/dL (12.0-16.0); LYMPHOCYTES # (AUTO) 1.8 (1.0-3.2); LYMPHOCYTES % 24.7 % (18.0-39.1); MEAN CORPUSCULAR HEMOGLOBIN 25.5 pg (28-32); MEAN CORPUSCULAR HGB CONC 29.3 g/dL (31-35); MEAN CORPUSCULAR VOLUME 86.8 fL (81-99); MONOCYTES # (AUTO) 0.9 (0.2-0.8); MONOCYTES % 12.8 % (4.4-11.3); NEUTROPHILS % 55.5 % (38.7-80.0); PLATELET COUNT 292 x10e3/uL (140-360); RED BLOOD COUNT 3.85 x10e6/uL (3.6-5.1); RED CELL DISTRIBUTION WIDTH 16.7 % (11.7-14.4)
--- NOTE | 2019-01-18 07:03 | NUR ---
bedside report received from night court magistrate RN, pt awake, alert, oriented, no distress noted, call light within reach, will continue to assess
[2019-01-18] MEDS ORDERED: FLUTICASONE PROPIONATE 110 MCG SCH (09:00)
[2019-01-18] MEDS: VERAPAMIL HCL 120 MG TABSR PO SCH (09:08)
[2019-01-18] MEDS: PANTOPRAZOLE SOD 40 MG TABEC PO SCH (09:08)
[2019-01-18] MEDS: LORATADINE 10 MG TAB PO SCH (09:09)
[2019-01-18] MEDS: CYCLOBENZAPRINE HCL 10 MG TAB PO SCH ×3 (09:10→21:13)
[2019-01-18] MEDS: DIGOXIN 0.125 MG TAB PO SCH (09:11)
[2019-01-18] MEDS: GABAPENTIN 400 MG CAP PO SCH ×3 (09:11→21:13)
[2019-01-18] MEDS: CLOPIDOGREL BISULFATE 75 MG TAB PO SCH (09:11)
[2019-01-18] MEDS: CILOSTAZOL 100 MG TAB PO SCH ×2 (09:12→16:47)
[2019-01-18] MEDS: ACETAMINOPHEN/CODEINE 300MG - 30MG TAB PO SCH ×3 (09:12→21:13)
[2019-01-18] MEDS: FUROSEMIDE INJ 10 MG/ML 2 ML VIAL IV SCH (09:17)
--- NOTE | 2019-01-18 12:23 | NUR ---
dressing change done to bilateral inguinal wounds per MD order, mild drainage noted to left side. pt tolerated well, will continue to assess
[2019-01-18] MEDS: VANCOMYCIN 1GM/NS 250 ML 250 ML IV SCH (19:33)
[2019-01-18] MEDS: ATORVASTATIN 40 MG TAB PO SCH (21:13)
--- NOTE | 2019-01-18 23:39 | Consultation ---
DATE OF CONSULTATION: Cardiology consultation. CHIEF COMPLAINT: Wound infection. HISTORY OF PRESENT ILLNESS: The patient is 68-year-old female with severe peripheral vascular disease, who had recent bilateral axillary to femoral grafting bilaterally due to an occlusion of the previously placed aortobifemoral graft. The patient developed some drainage from bilateral groin incisions with poor skin healing. The patient has had no chest pain, no shortness of breath. No nausea, no vomiting. The patient has had no fevers. PAST MEDICAL HISTORY: Significant for, 1. Previous carotid endarterectomy. 2. Severe peripheral vascular disease. 3. Previous aortobifemoral graft placement, which was occluded and nonfunctioning. 4. Recent bilateral axillary to femoral graft placement. 5. History of hypertension. 6. History of diabetes mellitus. 7. Previous coronary artery bypass grafting. MEDICATIONS: At home include atorvastatin, Pletal, clopidogrel, digoxin, gabapentin, and metoprolol. SOCIAL HISTORY: The patient does not drink and does not smoke. FAMILY HISTORY: There is a known family history of coronary artery disease. PHYSICAL EXAMINATION: GENERAL: The patient is a well-developed, well-nourished female, in no obvious distress. VITAL SIGNS: Include a temperature of 98.8, blood pressure 130/70, and pulse was 63. THE HEAD, EARS, EYES, NOSE, AND THROAT EXAM: The patient's cranium was normocephalic and atraumatic. Extraocular muscles were intact. Sclerae were anicteric. Pupils were equal, round, reactive to light. No pallor or cyanosis of the oral mucosa. There is no erythema or edema of the throat. NECK: Supple. No jugular venous distention. No carotid bruits. CHEST EXAM: Demonstrated rhonchi bilaterally. CARDIAC EXAM: Demonstrated normal S1 and S2 with a short 2/6 systolic murmur. ABDOMINAL EXAM: Demonstrated good bowel sounds. There was some superficial wounds in the both groin, which had some drainage. NEUROLOGIC: The patient was alert and oriented x3. Cranial nerves II through XII are intact. Motor strength was +5/+5 in all limbs. EKG: Demonstrated normal sinus rhythm with some nonspecific ST and T-wave changes. IMPRESSION: The patient is a 68-year-old with a superficial wound infection from the recent axillary to bifemoral graft placement. PLAN: As follows: 1. The cardiac status seems to be stable with no chest pain and no shortness of breath. 2. The patient will require IV antibiotics. 3. The patient will require frequent dressing changes. 4. The patient has been seen by the Wound Care team. MD ALEX Crabtree/MODL /[id number] cc: Bassam Chiu MD
[2019-01-19] VITALS (10 sets, daily range): BP systolic 91–157; BP diastolic 52–129
[2019-01-19] MEDS: METOPROLOL TARTRATE 25 MG TAB PO SCH ×2 (00:32→12:09)
[2019-01-19] MEDS: MORPHINE SULFATE 2 MG/ML SYR 1ML IV PRN ×3 (06:17→20:24)
--- NOTE | 2019-01-19 07:06 | NUR ---
BEDSIDE ROUNDING COMPLETE AT THIS TIME WITH JHONNY CARVALHO. PATIENT RESTING COMFORTABLY IN BED AND IN NO APPARENT DISTRESS. CALL LIGHT IS IN REACH OF PT.
[2019-01-19] MEDS: PANTOPRAZOLE SOD 40 MG TABEC PO SCH (09:39)
[2019-01-19] MEDS: VERAPAMIL HCL 120 MG TABSR PO SCH (09:40)
[2019-01-19] MEDS: LORATADINE 10 MG TAB PO SCH (09:42)
[2019-01-19] MEDS: CYCLOBENZAPRINE HCL 10 MG TAB PO SCH ×3 (09:42→20:24)
[2019-01-19] MEDS: CLOPIDOGREL BISULFATE 75 MG TAB PO SCH (09:43)
[2019-01-19] MEDS: DIGOXIN 0.125 MG TAB PO SCH (09:43)
[2019-01-19] MEDS: GABAPENTIN 400 MG CAP PO SCH ×3 (09:43→20:24)
[2019-01-19] MEDS: ACETAMINOPHEN/CODEINE 300MG - 30MG TAB PO SCH ×3 (09:44→21:54)
[2019-01-19] MEDS: CILOSTAZOL 100 MG TAB PO SCH ×2 (09:44→17:17)
[2019-01-19] MEDS: FUROSEMIDE INJ 10 MG/ML 2 ML VIAL IV SCH (09:50)
[2019-01-19] MEDS: CEFEPIME 1GM/NS 0.9% 50 ML 50 ML IV SCH ×2 (11:17→21:54)
--- NOTE | 2019-01-19 14:31 | NUR ---
Nutrition Screen Note RD Recommendation for Physician: Continue diet as ordered Plan of Care: RD following, monitoring for tolerance and adequacy Nutrition reason for involvement: MD Consult for protein supplement Primary Diagnose(s): Surgical wound infection PMH: PVD, T2DM, CABG, HTN Ht: 68in Wt:269.13lb BMI:40.9 kg/m2 IBW:140lb +/-10% RD Assessment: (01/19/2019) Chart reviewed. Labs and meds reviewed. Initial encounter with patient. RD explained reason for visit was for a protein supplement per MD consult. Pt informed RD that she has a milk allergy and that she is refusing the protein supplement. There was no milk allergy documented, so the RD entered the allergy in MT/EMR. Pt states that she becomes nauseated when she tried a protein supplement a [place]. Pt encouraged to eat foods with protein. Pt denies any N,V,D, nor has any difficulty chewing or swallowing. Pt denies any wt changes. Current Diet: regular diet Malnutrition Evaluation (01/19/2019) The patient does not meet criteria for a specified degree of malnutrition at this time. Will re-evaluate at follow-up as appropriate. Diet Education Needs Assessment: Diet education indicated, Learner(s): Pt Barriers: none Cultural/Language Modifications: none Readiness: Willing Method: Verbal Topics: Protein Understanding/Compliance: Expect compliance Nutrition Care Level: Low Signed: Melchor Petty RD, LD, [facility]
[2019-01-19] MEDS: FAMOTIDINE 20 MG TAB PO SCH (17:15)
[2019-01-19] MEDS: ZINC SULFATE 220 MG CAP PO SCH (17:16)
[2019-01-19] MEDS: MAGNESIUM OXIDE 400 MG TAB PO SCH (17:16)
[2019-01-19] MEDS: OYST-CAL-D 500MG TABLET PO SCH (17:16)
[2019-01-19] MEDS: ASCORBIC ACID 500 MG TAB PO SCH (17:17)
--- NOTE | 2019-01-19 19:00 | NUR ---
received report from day nurse. patient is resting comfortably in bed. bed is in lowest position and call blas is within reach. will continue to monitor patient.
--- NOTE | 2019-01-19 19:43 | Diagnostic Imaging Report ---
EXAMINATION: CHEST XRAY LINE PLACEMENT INDICATION: ^PICC line confirmation ^[id number] ^[id number] COMPARISON: 01/16/2019 FINDINGS: AP view TUBES and LINES: Right PICC in place with tip projecting over SVC. LUNGS: Limited by body habitus and low lung volumes. Pulmonary vascular congestion and suspected mild interstitial edema. PLEURA: No significant pleural effusion or pneumothorax. HEART AND MEDIASTINUM: The cardiac silhouette is enlarged. BONES AND SOFT TISSUES: No acute osseous lesion. Again seen surgical clips projecting over lateral right upper chest and right axilla. Soft tissues are unremarkable. UPPER ABDOMEN: No free air under the diaphragm. IMPRESSION: Right PICC in place with tip projecting over SVC. No visible pneumothorax. Pulmonary vascular congestion and suspected mild interstitial edema. Signed by: Dr. Alessio Mahoney MD on 01/19/2019 7:40 PM
[2019-01-19] MEDS: VANCOMYCIN 1GM/NS 250 ML 250 ML IV SCH (20:23)
[2019-01-19] MEDS: ATORVASTATIN 40 MG TAB PO SCH (20:24)
[2019-01-20] VITALS (7 sets, daily range): BP systolic 95–140; BP diastolic 56–98
[2019-01-20] MEDS: METOPROLOL TARTRATE 25 MG TAB PO SCH ×2 (01:49→12:18)
[2019-01-20] MEDS: MORPHINE SULFATE 2 MG/ML SYR 1ML IV PRN ×2 (01:55→21:48)
[2019-01-20 05:42] LABS: BASOPHILS % 0.7 % (0.0-1.0); EOSINOPHILS # (AUTO) 0.5 (0.0-0.4); EOSINOPHILS % 8.2 % (0.0-6.0); HEMATOCRIT 30.5 % (34.2-44.1); LYMPHOCYTES # (AUTO) 1.9 (1.0-3.2); LYMPHOCYTES % 32.1 % (18.0-39.1); MEAN CORPUSCULAR HEMOGLOBIN 25.6 pg (28-32); MEAN CORPUSCULAR HGB CONC 29.5 g/dL (31-35); MEAN CORPUSCULAR VOLUME 86.9 fL (81-99); MONOCYTES # (AUTO) 0.6 (0.2-0.8); MONOCYTES % 10.6 % (4.4-11.3); NEUTROPHILS # (AUTO) 2.8 (2.1-6.9); NEUTROPHILS % 48.1 % (38.7-80.0); PLATELET COUNT 284 x10e3/uL (140-360); RED BLOOD COUNT 3.51 x10e6/uL (3.6-5.1); RED CELL DISTRIBUTION WIDTH 16.9 % (11.7-14.4)
[2019-01-20 06:04] LABS: % IRON SATURATION 7 % (15-50); ALANINE AMINOTRANSFERASE 13 IU/L (0-55); ALBUMIN 2.5 g/dL (3.5-5.0); ALKALINE PHOSPHATASE 198 IU/L (40-150); ANION GAP 9.4 mmol/L (8-16); BILIRUBIN,DIRECT 0.2 mg/dL (0.0-0.5); BLOOD UREA NITROGEN 7 mg/dL (7-26); BUN/CREATININE RATIO 9 (6-25); CALCIUM 8.9 mg/dL (8.4-10.2); CARBON DIOXIDE 29 mmol/L (22-29); CHLORIDE 105 mmol/L (98-107); CREATININE, SERUM 0.74 mg/dL (0.57-1.11); EST GLOMERULAR FILTRATION RATE > 60 ML/MIN (60-); GLUCOSE 102 mg/dL (74-118); IRON 23 ug/dL (50-170); POTASSIUM 3.4 mmol/L (3.5-5.1); SODIUM 140 mmol/L (136-145); TOTAL IRON BINDING CAPACITY 315 ug/dL (261-478); TRANSFERRIN 225 mg/dL (180-382)
[2019-01-20 06:28] LABS: THYROID STIMULATING HORMONE 5.356 uIU/mL (0.350-4.940)
--- NOTE | 2019-01-20 06:53 | NUR ---
report given to day nurse. patient is resting comfortably in the bed. bed is in the lowest position and call light is within reach. will continue to monitor patient.
--- NOTE | 2019-01-20 06:54 | NUR ---
bedside report received from artist color separation RN, pt laying bed, semi-fowlers, awake, alert, oriented, no distress noted, call light within reach, will continue to assess.
[2019-01-20] MEDS ORDERED: POTASSIUM CHLORIDE 20 MEQ TAB CR PO SCH ×2 (10:15→14:45)
[2019-01-20] MEDS: FAMOTIDINE 20 MG TAB PO SCH ×2 (10:20→17:13)
[2019-01-20] MEDS: PANTOPRAZOLE SOD 40 MG TABEC PO SCH (10:20)
[2019-01-20] MEDS: FUROSEMIDE INJ 10 MG/ML 2 ML VIAL IV SCH (10:21)
[2019-01-20] MEDS: VERAPAMIL HCL 120 MG TABSR PO SCH (10:22)
[2019-01-20] MEDS: LORATADINE 10 MG TAB PO SCH (10:22)
[2019-01-20] MEDS: CYCLOBENZAPRINE HCL 10 MG TAB PO SCH ×3 (10:23→20:35)
[2019-01-20] MEDS: DIGOXIN 0.125 MG TAB PO SCH (10:23)
[2019-01-20] MEDS: OYST-CAL-D 500MG TABLET PO SCH ×2 (10:24→17:13)
[2019-01-20] MEDS: GABAPENTIN 400 MG CAP PO SCH ×3 (10:24→20:35)
[2019-01-20] MEDS: MAGNESIUM OXIDE 400 MG TAB PO SCH ×2 (10:24→17:13)
[2019-01-20] MEDS: CLOPIDOGREL BISULFATE 75 MG TAB PO SCH (10:25)
[2019-01-20] MEDS: CILOSTAZOL 100 MG TAB PO SCH ×2 (10:25→17:17)
[2019-01-20] MEDS: ACETAMINOPHEN/CODEINE 300MG - 30MG TAB PO SCH ×3 (10:25→20:35)
[2019-01-20] MEDS: ASCORBIC ACID 500 MG TAB PO SCH ×2 (10:29→17:14)
[2019-01-20] MEDS: CEFEPIME 1GM/NS 0.9% 50 ML 50 ML IV SCH ×2 (11:32→21:48)
[2019-01-20] MEDS: ZINC SULFATE 220 MG CAP PO SCH (17:13)
--- NOTE | 2019-01-20 18:57 | NUR ---
bedside walking rounds completed with onion topper RN. pt in stable condition.
[2019-01-20] MEDS: VANCOMYCIN 1GM/NS 250 ML 250 ML IV SCH (19:19)
[2019-01-20] MEDS: ATORVASTATIN 40 MG TAB PO SCH (20:35)
[2019-01-20] MEDS: ZOLPIDEM TARTRATE 10 MG TAB PO PRN (20:50)
[2019-01-21] VITALS (11 sets, daily range): BP systolic 77–130; BP diastolic 57–73
[2019-01-21] MEDS: METOPROLOL TARTRATE 25 MG TAB PO SCH ×2 (01:00→12:08)
[2019-01-21 03:33] LABS: BASOPHILS # (AUTO) 0.1 (0.0-0.1); BASOPHILS % 0.9 % (0.0-1.0); EOSINOPHILS # (AUTO) 0.5 (0.0-0.4); HEMATOCRIT 29.1 % (34.2-44.1); HEMOGLOBIN 8.5 g/dL (12.0-16.0); LYMPHOCYTES # (AUTO) 1.7 (1.0-3.2); LYMPHOCYTES % 32.1 % (18.0-39.1); MEAN CORPUSCULAR HEMOGLOBIN 25.4 pg (28-32); MEAN CORPUSCULAR HGB CONC 29.2 g/dL (31-35); MEAN CORPUSCULAR VOLUME 86.9 fL (81-99); MONOCYTES # (AUTO) 0.6 (0.2-0.8); MONOCYTES % 11.3 % (4.4-11.3); NEUTROPHILS # (AUTO) 2.5 (2.1-6.9); NEUTROPHILS % 45.5 % (38.7-80.0); PLATELET COUNT 276 x10e3/uL (140-360); RED BLOOD COUNT 3.35 x10e6/uL (3.6-5.1); RED CELL DISTRIBUTION WIDTH 16.8 % (11.7-14.4)
[2019-01-21 03:48] LABS: ANION GAP 12.5 mmol/L (8-16); BLOOD UREA NITROGEN 8 mg/dL (7-26); BUN/CREATININE RATIO 11 (6-25); CALCIUM 8.7 mg/dL (8.4-10.2); CARBON DIOXIDE 28 mmol/L (22-29); CHLORIDE 103 mmol/L (98-107); CREATININE, SERUM 0.75 mg/dL (0.57-1.11); EST GLOMERULAR FILTRATION RATE > 60 ML/MIN (60-); GLUCOSE 107 mg/dL (74-118); POTASSIUM 3.5 mmol/L (3.5-5.1); SODIUM 140 mmol/L (136-145)
[2019-01-21] MEDS: LEVOTHYROXINE SODIUM 25 MCG TABLET PO SCH (05:11)
--- NOTE | 2019-01-21 06:58 | NUR ---
RECEIVED PATIENT RESTING IN BED. NO ACUTE DISTRESS NOTED. PAIN AT A TOLERABLE LEVEL OF 5 AT THIS TIME, PATIENT WOULD LIKE TO WAIT FOR SCHEDULED PAIN MEDICINE. CALL LIGHT WITHIN REACH. BED IN THE LOWEST POSITION.
--- NOTE | 2019-01-21 07:08 | NUR ---
report given to day nurse and walking rounds complete. patient is resting comfortably in bed. bed is in lowest position and call blas is within reach.
[2019-01-21] MEDS ORDERED: CEFEPIME 2 GM/NS 0.9% 100 ML 100 ML IV SCH (09:00)
[2019-01-21] MEDS ORDERED: BISACODYL 5 MG TAB EC PO PRN (09:15)
[2019-01-21] MEDS: PANTOPRAZOLE SOD 40 MG TABEC PO SCH (09:26)
[2019-01-21] MEDS: FAMOTIDINE 20 MG TAB PO SCH ×2 (09:26→18:05)
[2019-01-21] MEDS: LORATADINE 10 MG TAB PO SCH (09:26)
[2019-01-21] MEDS: ASCORBIC ACID 500 MG TAB PO SCH ×2 (09:29→18:05)
[2019-01-21] MEDS: ACETAMINOPHEN/CODEINE 300MG - 30MG TAB PO SCH ×3 (09:29→20:24)
[2019-01-21] MEDS: OYST-CAL-D 500MG TABLET PO SCH ×2 (09:29→18:05)
[2019-01-21] MEDS: CYCLOBENZAPRINE HCL 10 MG TAB PO SCH ×3 (09:29→20:23)
[2019-01-21] MEDS: CILOSTAZOL 100 MG TAB PO SCH ×2 (09:29→18:05)
[2019-01-21] MEDS: CLOPIDOGREL BISULFATE 75 MG TAB PO SCH (09:29)
[2019-01-21] MEDS: DIGOXIN 0.125 MG TAB PO SCH (09:29)
[2019-01-21] MEDS: MAGNESIUM OXIDE 400 MG TAB PO SCH ×2 (09:29→18:05)
[2019-01-21] MEDS: GABAPENTIN 400 MG CAP PO SCH ×3 (09:29→20:23)
[2019-01-21] MEDS: DOCUSATE SODIUM 100 MG CAP PO SCH ×2 (09:37→18:05)
[2019-01-21] MEDS ORDERED: CEFEPIME 1GM/NS 0.9% 50 ML 50 ML IV SCH (09:45)
--- NOTE | 2019-01-21 10:00 | NUR ---
Notified RT of the inhaler order that has been missed previously.
[2019-01-21] MEDS: FUROSEMIDE INJ 10 MG/ML 2 ML VIAL IV SCH (12:08)
[2019-01-21] MEDS: VERAPAMIL HCL 120 MG TABSR PO SCH (12:08)
[2019-01-21] MEDS: FLUTICASONE PROPIONATE 110MCG INH INH SCH (15:45)
--- NOTE | 2019-01-21 16:34 | NUR ---
This is a 68-year-old lady with a long history of peripheral arterial disease as well as CAD, hypertension, TIA, history of carotid endarterectomy, aortic bifurcation grafting, and small bowel obstruction. She developed progressive pain in both lower extremities. A CTA of the abdomen and aorta performed on 09/04/2018 showed chronic bilateral common iliac artery occlusions and an occluded aortoiliac graft, a patent right external iliac artery stent, a proximal left external iliac artery occlusion, preserved femoropopliteal runoff bilaterally with bilateral three-vessel trifurcation runoff. A subsequent abdominal aortogram with bilateral runoff performed by Dr. Calos Negron on 09/03/2018 showed a 60% stenosis of the infrarenal aorta, a 60% left common iliac artery stenosis, occlusion of the left common femoral artery, a 60% stenosis of the right common femoral artery, and a patent right SFA stent with a 40% to 50% stenosis just beyond the stent. The popliteal arteries were patent bilaterally with good runoff. The patient had been having increasing claudication and rest pain. A right axillary bifemoral graft was performed at [facility]. At the conclusion of surgery, the patient became hypotensive requiring resuscitation (possibly due to protamine reaction). She subsequently recovered and did well. The perfusion of both lower extremities improved markedly and her rest pain and claudication have resolved. However, she has developed erythema at both groin wounds with some drainage, complicated by her diabetes and obesity. At home, the wounds have been difficult to care for. They have started to drain serous fluid superficially. She has been maintained on oral antibiotics. Her has been doing the wound care, but this has become increasingly difficult. There is a history of carotid endarterectomy t performed about 10 years ago. She had an aortic bifurcation graft in 2006. Last year, she had a small bowel obstruction, which required abdominal surgery. Her GI problems resolved, but after the operation, she had an open draining wound at the laparotomy site, which took months to heal as well as a wound VAC. [id number]
--- NOTE | 2019-01-21 17:08 | Consultation ---
DATE OF CONSULTATION: Wound Consultation Thank you, Dr. Muse, for asking us to see this patient with bilateral lower abdominal wound. HISTORY OF PRESENT ILLNESS: A 68-year-old morbidly obese female patient, history of smoking, stopped smoking in 2008, peripheral vascular disease, recently underwent axillobifemoral graft. The patient has postsurgical wound on bilateral groin with janel on. Wound looks clean, however, wound VAC will be advisable, however, the patient has been refusing. I talked to the patient at length and she agreed to try. PAST MEDICAL HISTORY: Peripheral vascular disease, hypertension, hypothyroidism, and hyperlipidemia. MEDICATIONS: Levothyroxine 25 mcg daily, metoprolol 12.5 mg b.i.d., verapamil 240 mg daily, gabapentin 800 mg t.i.d., magnesium, and digoxin 0.125 mg daily. ALLERGIES: TO TETRACYCLINES, SULFA, PENICILLIN, AND IODINATED CONTRAST. PHYSICAL EXAMINATION: VITAL SIGNS: Blood pressure 114/60, pulse of 94, temperature 96.8, weight 269 pounds, and height 5 feet 8 inches. HEENT: Normal. NECK: No JVD. LUNGS: Bilateral normal. ABDOMEN: Soft. Bilateral groin wound noted with surgical janel on. There is area in the center. The right wound measures 1.5 x 1.5 x 3 cm and the left wound measures 3 x 2 cm x 3.5 cm. No drainage noted at this time. ASSESSMENT: Bilateral groin wound, status post axillofemoral graft. Culture growing Klebsiella and Proteus mirabilis. PLAN: We will pack the right groin wound with white foam. Left groin wound with a black foam. I wound VAC at 125 continuous negative pressure. Thank you for consultation. MD ABRAHAM Chambers/BERNARDOL /[id number]
--- NOTE | 2019-01-21 17:24 | NUR ---
ORDER RECEIVED FOR LTAC EVAL. MET W THE PT AND AT THE BEDSIDE. PT EXPRESSED SHE DID NOT WANT TO GO TO AN LTAC; AGREED. STATES HE TOOK CARE OF HER ABDOMINAL WOUND FOR SEVERAL MOS AND WOULD BE WILLING TO LEARN TO CARE FOR HER FOOT WOUND. EXPLAINED THE PT WAS TO GET A WOUND VAC APPLIED AND STAFF ARE TRAINED TO CARE FOR WOUND VACS. VERBALIZED UNDERSTANDING. DISCUSSED HOME HEALTH AND WOUND CARE CLINIC. PT STATES SHE WOULD BE WILLING TO RECEIVE HH AND THE SAID HE WOULD BE OK W EITHER. WILL F/U
--- NOTE | 2019-01-21 17:30 | NUR ---
PLACED A CALL OUT TO DR. GRAF TO NOTIFY HIM THAT PATIENT WOULD LIKE TO KNOW IF HE'S OK WITH HER GETTING THE WOUND VAC. WAITING FIRESETTER BACK.
--- NOTE | 2019-01-21 17:38 | NUR ---
PAGED DR. CHRISTINA TO NOTIFY HIM THAT PATIENT IS ALLERGIC TO IODINE AND HE ORDERED FOR CT WITH CONTRAST. WAITING LONG TERM CARE ADMINISTRATOR BACK.
[2019-01-21] MEDS: ZINC SULFATE 220 MG CAP PO SCH (18:05)
[2019-01-21] MEDS: CEFEPIME 1GM/NS 0.9% 50 ML 50 ML IV SCH (18:05)
--- NOTE | 2019-01-21 19:48 | NUR ---
REPORT GIVEN TO ONCOMING NURSE. WALKING ROUNDS DONE. PATIENT IS RESTING IN BED. NO ACUTE DISTRESS NOTED. AT BEDSIDE. CALL LIGHT WITHIN REACH. BED IN THE LOWEST POSITION.
[2019-01-21] MEDS: ZOLPIDEM TARTRATE 10 MG TAB PO PRN (20:24)
--- NOTE | 2019-01-21 20:43 | Diagnostic Imaging Report ---
EXAM: CT Abdomen and Pelvis WITHOUT contrast INDICATION: 1 infection. COMPARISON: None. TECHNIQUE: Abdomen and pelvis were scanned utilizing a multidetector helical scanner from the lung base to the pubic symphysis without administration of IV contrast. Absence of intravenous contrast decreases sensitivity for detection of focal lesions and vascular pathology. Coronal and sagittal reformations were obtained. Routine protocol was performed. IV CONTRAST: None. ORAL CONTRAST: Water RADIATION DOSE: Total DLP: 885.75 mGy*cm Estimated effective dose: (DLP x 0.015 x size factor) mSv COMPLICATIONS: None FINDINGS: LINES and TUBES: Right femoral axillofemoral bypass graft not evaluated with absence of contrast. Femoral-femoral bypass graft also not evaluated without contrast medium. LOWER THORAX: Unremarkable HEPATOBILIARY: No focal hepatic lesions. No biliary ductal dilation. GALLBLADDER: There are cholecystectomy clips. SPLEEN: No splenomegaly. PANCREAS: No focal masses or ductal dilatation. ADRENALS: No adrenal nodules KIDNEYS/URETERS: No hydronephrosis. No cystic or solid mass lesions. No stones. GI TRACT: No abnormal distention, wall thickening, or evidence of bowel obstruction. Appendix is normal. PELVIC ORGANS/BLADDER: The uterus is absent. LYMPH NODES: No lymphadenopathy. VESSELS: There is moderate atherosclerotic disease in the aorta and major arterial branches. PERITONEUM / RETROPERITONEUM: No free air or fluid. Surgical clips are present in the retroperitoneal, periaortic region. BONES: Wedge compression fracture of L1 of uncertain age. SOFT TISSUES: Postoperative changes with stranding of the subcutaneous fat in the inguinal region bilaterally, with trace fluid in the right inguinal region containing gas bubbles which could be related to recent postoperative intervention, however, a small infected fluid collection cannot excluded as seen on image 86 series 2 (measuring 2.7 cm on coronal image 44). IMPRESSION: 1. Postoperative changes in the bilateral inguinal region, with a small, 2.7 cm gas containing fluid collection in the right inguinal region, not unusual postoperatively, however, cannot exclude a small abscess. Consider follow-up examination with CT examination of pelvis with contrast. Signed by: Dr. Che Glover M.D. on 01/21/2019 8:40 PM
--- NOTE | 2019-01-21 20:46 | NUR ---
RECEIVED PT IN BED AOX3 .C/O PAIN RESPIRATIONS ARE EVEN AND UNLABORED .FAMILY ATHTHE BEDSIDE CALL LIGHT WITH IN REACH .CONTINUE TO MONITOR
[2019-01-21] MEDS: ATORVASTATIN 40 MG TAB PO SCH (21:39)
[2019-01-22] VITALS (10 sets, daily range): BP systolic 95–135; BP diastolic 52–65
--- NOTE | 2019-01-22 00:39 | Consultation ---
DATE OF CONSULTATION: 01/16/2019 REASON FOR CONSULTATION: Bilateral groin wound infection. HISTORY OF PRESENT ILLNESS: This patient who is a 68-year-old morbidly obese patient with severe peripheral vascular disease, coronary artery disease, hypertension, TIA, carotid endarterectomy for aortic bifurcation and grafting, small bowel obstruction before, which was complicated with dehiscence of the wound with prolonged therapy. The patient recently had surgery on September 04, 2018. She had a CTA of the abdomen that showed chronic common bilateral iliac artery occlusion, occluded aortic and iliac graft with a patent right external iliac artery stenting, possible left external iliac and arterial occlusion with preserved femoral-popliteal runoff with bilateral 3-vessel trifurcation runoff. The patient had abdominal aortogram with bilateral runoff performed by Dr. Calos Negron on September 03, 2018, shows 60% stenosis of the infrarenal aorta and 60% left common iliac artery stenosis, occlusion of the left common femoral artery, 60% stenosis of the right common femoral artery, and patent right SFA stent with 40% to 50% stenosis. The patient had surgery done in [facility]. The patient is coming now with dehiscence of bilateral wound in the groin area. The patient also felt fevers and chills. The patient is being admitted. The patient is having drainage from the wound. I was asked to see her. She does not want to go to an LTAC. The patient has a complicated medical history. Morbidly obese patient, peripheral vascular disease, carotid enterectomy, previous aortic femoral graft placement which was occluded, recent bilateral axillary to femoral graft placement, history of hypertension, diabetes mellitus, comes in with the above complaints of groin wound drainage and dehiscence. The patient grew Klebsiella pneumoniae and Proteus mirabilis, which were pretty much sensitive except Klebsiella was resistant to ampicillin. LABORATORY DATA: Labs showed a white count of 5.4, hemoglobin 8.5, hematocrit 29. Sodium 140, potassium 3.8, creatinine 0.75. The patient had a chest x-ray, which showed mildly prominent interstitial lungs. MEDICATIONS: The patient has been on Neurontin, Flexeril, Lopressor, cefepime, Protonix, and Claritin. PHYSICAL EXAMINATION: GENERAL: Reveals she is a morbidly obese patient, does not seem to be in acute distress. VITAL SIGNS: Her vitals are stable, currently afebrile. HEENT: She is not icteric. NECK: Supple. CHEST: Clear. HEART: S1 and S2. She does not seem to be in acute distress. SKIN: She has chronic wounds noted in bilateral femoral area with some yellow serosanguineous drainage. IMPRESSION: Chronic wounds in the femoral area bilaterally, concerned about infection all the way to the graft. Agree with cefepime; however, I would suggest 2 g q.8 since she is morbidly obese. Local care is consulted. The patient does not want to go to an LTAC. She wants to go home. We will discuss with the medical team. She will need a PICC line plus wound care. We will follow with you. We will keep antibiotic until I get the CAT scan. MD GEORGETTE Lemus/BEE /[id number]
[2019-01-22] MEDS: METOPROLOL TARTRATE 25 MG TAB PO SCH ×2 (01:00→15:09)
[2019-01-22] MEDS: CEFEPIME 1GM/NS 0.9% 50 ML 50 ML IV SCH ×3 (01:36→17:30)
[2019-01-22 03:52] LABS: BASOPHILS # (AUTO) 0.1 (0.0-0.1); BASOPHILS % 0.8 % (0.0-1.0); EOSINOPHILS # (AUTO) 0.6 (0.0-0.4); EOSINOPHILS % 9.3 % (0.0-6.0); HEMATOCRIT 31.7 % (34.2-44.1); HEMOGLOBIN 9.5 g/dL (12.0-16.0); LYMPHOCYTES # (AUTO) 2.3 (1.0-3.2); LYMPHOCYTES % 35.3 % (18.0-39.1); MEAN CORPUSCULAR HEMOGLOBIN 25.7 pg (28-32); MEAN CORPUSCULAR VOLUME 85.7 fL (81-99); MONOCYTES # (AUTO) 0.6 (0.2-0.8); MONOCYTES % 9.2 % (4.4-11.3); NEUTROPHILS % 45.1 % (38.7-80.0); PLATELET COUNT 320 x10e3/uL (140-360); RED CELL DISTRIBUTION WIDTH 16.9 % (11.7-14.4)
[2019-01-22 04:09] LABS: ANION GAP 13.7 mmol/L (8-16); BLOOD UREA NITROGEN 6 mg/dL (7-26); BUN/CREATININE RATIO 8 (6-25); CALCIUM 9.4 mg/dL (8.4-10.2); CARBON DIOXIDE 27 mmol/L (22-29); CHLORIDE 105 mmol/L (98-107); CREATININE, SERUM 0.78 mg/dL (0.57-1.11); EST GLOMERULAR FILTRATION RATE > 60 ML/MIN (60-); GLUCOSE 108 mg/dL (74-118); POTASSIUM 3.7 mmol/L (3.5-5.1); SODIUM 142 mmol/L (136-145)
--- NOTE | 2019-01-22 04:25 | Progress Note ---
DATE: REASON FOR ADMISSION: Status post axillobifemoral graft. SUBJECTIVE: The patient is lying flat in bed. Dressing changes are being performed. Breathing comfortably. OBJECTIVE: VITAL SIGNS: Blood pressure 130/70, pulse 80 and regular, respirations 16 and unlabored. CHEST: Lungs clear to auscultation and percussion. CARDIAC: Regular rate and rhythm. Normal S1 and S2. ABDOMEN: Globoid, benign. Good bowel sounds. GROINS: Both groins are dressed. There is no surrounding erythema. There is some serous drainage, but this is decreasing. No foul smell. EXTREMITIES: No cyanosis, clubbing, or edema. LABORATORY DATA: White count 5.4, hemoglobin 8.5, hematocrit 29.1, and platelet count 16.8. Sodium 140, potassium 3.5, BUN 6, creatinine 0.75. Liver function tests: Normal on admission except for somewhat elevated alkaline phosphatase at 198. IMPRESSION: Doing well with dressing changes. I discussed the situation with the patient and her . I told them both and I agreed with a wound VAC as recommended by her other physicians. I also told them that hospitalization at a chronic care facility would likely be in their best interest for some period of time. MD PEPPER Thompson/BEE /[id number]
--- NOTE | 2019-01-22 05:33 | NUR ---
PT C/O PAIN AND GIVEN ORDERED PAIN MEDICATION .PT RESTING FAMILY AT THE BEDSIDE ..CALL LIGHT 2WITH IN REACH .CONTINUE TO MONITOR
[2019-01-22] MEDS: LEVOTHYROXINE SODIUM 25 MCG TABLET PO SCH (06:00)
--- NOTE | 2019-01-22 07:16 | NUR ---
Received patient lying in bed with eyes open. Family member at bedside. Respiration even and unlabored without SOB. Call light in reach. Go pain at this time.
--- NOTE | 2019-01-22 07:18 | NUR ---
BED SIDE REPORT GIVEN TO THE ONCOMING NURSE
[2019-01-22] MEDS: VERAPAMIL HCL 120 MG TABSR PO SCH (09:00)
[2019-01-22] MEDS: FUROSEMIDE INJ 10 MG/ML 2 ML VIAL IV SCH (09:00)
[2019-01-22] MEDS: DOCUSATE SODIUM 100 MG CAP PO SCH ×2 (09:32→17:30)
[2019-01-22] MEDS: PANTOPRAZOLE SOD 40 MG TABEC PO SCH (09:32)
[2019-01-22] MEDS: FAMOTIDINE 20 MG TAB PO SCH ×2 (09:32→17:30)
[2019-01-22] MEDS: LORATADINE 10 MG TAB PO SCH (09:32)
[2019-01-22] MEDS: CYCLOBENZAPRINE HCL 10 MG TAB PO SCH ×3 (09:33→20:09)
[2019-01-22] MEDS: MAGNESIUM OXIDE 400 MG TAB PO SCH ×2 (09:34→17:30)
[2019-01-22] MEDS: GABAPENTIN 400 MG CAP PO SCH ×3 (09:34→20:09)
[2019-01-22] MEDS: DIGOXIN 0.125 MG TAB PO SCH (09:34)
[2019-01-22] MEDS: OYST-CAL-D 500MG TABLET PO SCH ×2 (09:34→17:30)
[2019-01-22] MEDS: CLOPIDOGREL BISULFATE 75 MG TAB PO SCH (09:34)
[2019-01-22] MEDS: ACETAMINOPHEN/CODEINE 300MG - 30MG TAB PO SCH ×3 (09:35→20:08)
[2019-01-22] MEDS: CILOSTAZOL 100 MG TAB PO SCH ×2 (09:35→17:30)
[2019-01-22] MEDS: ASCORBIC ACID 500 MG TAB PO SCH ×2 (09:35→17:30)
--- NOTE | 2019-01-22 16:15 | NUR ---
WOUNDCARE CONSULT /NURSING AT BEDSIDE FOR ASSIST WITH NEGATIVE PRESSURE DRESSING TO RIGHT AND LEFT LOWER ABDOMINAL DEHISCED WOUNDS LIBIA REMOVED LEAVING 2 SEPARATE GRANULAR WOUNDS WIT A TUNNEL DEPTH TO RIGHT WOUND AND ALSO LEFT WOUND WOUND DESCRIPTIONS CAN BE FOUND ON WOUND ASSESSMENT FORMS KING AND NEPH NEGATIVE PRESSURE UNIT APPLIED AT 120 [facility] BASE SKIN PROTECTED WITH SKIN PREP AND DRAPE AND WHITE FOAM USED FOR TUNNELS X 2 AND BLACK FOAM COVERING IN FORM OF CONNECTIVE BRIDGE TO RT AND LFT LOWER ABDOMINAL WOUNDS UNIT OPERATIONAL WITH NO LEAKS DETECTED AND PLUGGED FOR CHARGE . PT AND FAMILY MEMBER EDUCATED ON HOW TO MOVE AND AMBULATE WITH UNIT AND HOW TO PREVENT AND REPORT LEAKS IF THEY SHOULD OCCUR Addendum: 01/22/19 at 1625 by Sudarshan Garcia RN Amended: Links added.
--- NOTE | 2019-01-22 16:23 | NUR ---
RECEIVED ORDER FOR LTAC AGAIN. CALL TO PT'S INSURER. SPOKE W JOSE R CULVER. STATES THE PT HAS NO STAFF FIELD ENGINEER BENEFITS; SNF OR LTACH. STATES THE PT WOULD HAVE REHAB BENEFITS, BUT SHE HAS EXHAUSTED ALL OF HER SKILLED DAYS. STATES IT APPEARS THE PT AND GONE FROM HOSPITAL TO HOSPITAL. DISCUSSED OTHER OPTIONS: HOME HEALTH OR THE WOUND CARE CLINIC. PT'S STATED HE WOULD BE WILLING TO TAKE THE PT TO THE WOUND CARE CLINIC IF THAT WAS THE BEST OPTION. JOSE R ALSO SAID THE PT HAS TRANSPORTATION BENEFITS WITH [facility] @ [phone]. THE PT WILL NEED TO CALL 24 - 48HRS IN ADVANCE TO SCHEDULE P/U FOR MEDICAL APPT'S ONLY. JUJU BABCOCK WAS NOTIFIED.
[2019-01-22] MEDS: ZINC SULFATE 220 MG CAP PO SCH (17:30)
--- NOTE | 2019-01-22 19:00 | NUR ---
patient received awake, alert, lying quietly in bed. no c/o pain noted. wound vac to lower abd c,d,i. pm assessment complete. patient instructed to call for assistance when needed.
--- NOTE | 2019-01-22 19:07 | NUR ---
Report given to assistant casino shift manager. Patient is lying in bed with eyes open. Respiration even and unlabored without SOB. Call light in reach.
--- NOTE | 2019-01-22 20:00 | NUR ---
patient ambulates to bathroom without difficulty. patient voids without difficulty.
[2019-01-22] MEDS: ZOLPIDEM TARTRATE 10 MG TAB PO PRN (20:08)
[2019-01-22] MEDS: ATORVASTATIN 40 MG TAB PO SCH (20:09)
[2019-01-22 21:02] LABS: INR 0.9; PROTHROMBIN TIME 12.6 seconds (11.9-14.5)
[2019-01-22 21:03] LABS: PARTIAL THROMBOPLASTIN TIME 27.2 seconds (23.8-35.5)
[2019-01-23] VITALS (8 sets, daily range): BP systolic 82–141; BP diastolic 58–74
--- NOTE | 2019-01-23 | NUR ---
patient appears to be resting quietly. no c/o pain noted at this time.
[2019-01-23] MEDS: METOPROLOL TARTRATE 25 MG TAB PO SCH ×2 (01:00→14:10)
[2019-01-23] MEDS: CEFEPIME 1GM/NS 0.9% 50 ML 50 ML IV SCH ×3 (01:00→16:32)
[2019-01-23] MEDS: MORPHINE SULFATE 2 MG/ML SYR 1ML IV PRN (01:31)
[2019-01-23] MEDS: ONDANSETRON HCL INJ 2MG/ML 2ML 2 MG/ML VIAL IV PRN (01:31)
--- NOTE | 2019-01-23 01:31 | NUR ---
patient medicated with morphine 2mg and zofran 4mg ivp for c/o mid back pain 10/31 at this time per patients request.
--- NOTE | 2019-01-23 03:00 | NUR ---
Right upper arm picc line site cleaned and dressing changed at this time. 0300 labs collected and taken to lab. no further c/o pain noted at this time.
[2019-01-23 03:04] LABS: BASOPHILS # (AUTO) 0.1 (0.0-0.1); BASOPHILS % 0.9 % (0.0-1.0); EOSINOPHILS # (AUTO) 0.5 (0.0-0.4); EOSINOPHILS % 9.2 % (0.0-6.0); HEMATOCRIT 29.1 % (34.2-44.1); HEMOGLOBIN 8.7 g/dL (12.0-16.0); LYMPHOCYTES # (AUTO) 1.7 (1.0-3.2); LYMPHOCYTES % 29.5 % (18.0-39.1); MEAN CORPUSCULAR HEMOGLOBIN 25.7 pg (28-32); MEAN CORPUSCULAR HGB CONC 29.9 g/dL (31-35); MEAN CORPUSCULAR VOLUME 86.1 fL (81-99); MONOCYTES # (AUTO) 0.6 (0.2-0.8); MONOCYTES % 9.5 % (4.4-11.3); NEUTROPHILS # (AUTO) 2.9 (2.1-6.9); NEUTROPHILS % 50.6 % (38.7-80.0); PLATELET COUNT 297 x10e3/uL (140-360); RED BLOOD COUNT 3.38 x10e6/uL (3.6-5.1); RED CELL DISTRIBUTION WIDTH 16.7 % (11.7-14.4)
[2019-01-23 03:20] LABS: ANION GAP 10.7 mmol/L (8-16); BLOOD UREA NITROGEN 7 mg/dL (7-26); BUN/CREATININE RATIO 9 (6-25); CALCIUM 8.8 mg/dL (8.4-10.2); CARBON DIOXIDE 29 mmol/L (22-29); CHLORIDE 103 mmol/L (98-107); CREATININE, SERUM 0.75 mg/dL (0.57-1.11); EST GLOMERULAR FILTRATION RATE > 60 ML/MIN (60-); GLUCOSE 125 mg/dL (74-118); POTASSIUM 3.7 mmol/L (3.5-5.1); SODIUM 139 mmol/L (136-145)
[2019-01-23] MEDS: LEVOTHYROXINE SODIUM 25 MCG TABLET PO SCH (05:04)
--- NOTE | 2019-01-23 06:58 | NUR ---
received bedside report from shift supervisor rn RN, pt resting in bed, semi-fowlers position, easily awakened, oriented X3, no distress noted, call light within reach, will continue to assess.
[2019-01-23] MEDS: FLUTICASONE PROPIONATE 110MCG INH INH SCH (08:28)
[2019-01-23] MEDS: SODIUM CHLORIDE 0.9% 1000ML 1,000 ML IV SCH (08:42)
[2019-01-23] MEDS: FAMOTIDINE 20 MG TAB PO SCH ×2 (08:50→16:33)
[2019-01-23] MEDS: PANTOPRAZOLE SOD 40 MG TABEC PO SCH (08:51)
[2019-01-23] MEDS: FUROSEMIDE INJ 10 MG/ML 2 ML VIAL IV SCH (08:53)
[2019-01-23] MEDS: LORATADINE 10 MG TAB PO SCH (08:54)
[2019-01-23] MEDS: VERAPAMIL HCL 120 MG TABSR PO SCH (08:54)
[2019-01-23] MEDS: DOCUSATE SODIUM 100 MG CAP PO SCH ×2 (08:55→16:34)
[2019-01-23] MEDS: DIGOXIN 0.125 MG TAB PO SCH (08:56)
[2019-01-23] MEDS: CYCLOBENZAPRINE HCL 10 MG TAB PO SCH ×3 (08:56→21:00)
[2019-01-23] MEDS: MAGNESIUM OXIDE 400 MG TAB PO SCH ×2 (08:56→16:34)
[2019-01-23] MEDS: GABAPENTIN 400 MG CAP PO SCH ×3 (08:57→21:00)
[2019-01-23] MEDS: CILOSTAZOL 100 MG TAB PO SCH ×2 (08:57→16:34)
[2019-01-23] MEDS: CLOPIDOGREL BISULFATE 75 MG TAB PO SCH (08:57)
[2019-01-23] MEDS: OYST-CAL-D 500MG TABLET PO SCH ×2 (08:57→16:34)
[2019-01-23] MEDS: ASCORBIC ACID 500 MG TAB PO SCH ×2 (08:59→16:35)
--- NOTE | 2019-01-23 11:51 | NUR ---
LIZETTE Jacobs, spoke with Dr. madsen who wants CT guided aspiration cancelled.
--- NOTE | 2019-01-23 12:55 | NUR ---
CALL TO [facility] @ [phone]. SPOKE W MARY. STATES SHE COULD NOT SEE THE PT FOR 4 WEEKS; THEY ONLY HAVE [address] REZA'S OFFICE @ [phone] TO INFORM OF DELAY IN CARE AT [facility]. SPOKE W LASER PRINT OPERATOR. SHE WILL PAGE THE DOC AND HAVE HIM GIVE ME A CALL BACK. MARY CALLED BACK AND STATES SHE CAN WORK THE PT IN BY THE AND ASKED IF WE COULD ARRANGE HOME HEALTH UNTIL THEY WERE ABLE TO SEE THE PT. INFORMED HER CM WILL SPEAK W DR. REZA FIRST TO SEE IF THIS WOULD BE OK.
--- NOTE | 2019-01-23 14:55 | NUR ---
SPOKE W . OK TO INITIATE HOME WOUND VAC UNTIL 02/06/2019, WHEN [facility] HAS SPACE FOR THE PT.
--- NOTE | 2019-01-23 15:15 | NUR ---
MET W THE PT AT THE BEDSIDE AND INFORMED OF HOME IV ABX AND WOUND VAC TIL 02/06 AT HOME. PT VERBALIZED UNDERSTANDING. DISCUSSED CHOICE FOR IV AND HH AGENDCY. PT WANTED AN AGENCY IN NETWORK W HER INSURANCE. CHOSE [facility]. CHOICE LETTER WAS SIGNED AND COPY TO PT AND COPY TO THE CHART. CALL TO [employer] @ OFF: [phone] / FAX: [phone]; REP DULCE Weinberg @ [phone]. ORDERS WERE FAXED. WILL AWAIT CALL BACK WITH AUTH AND HH AGENCY TO PROVIDE SN SERVICES.
[2019-01-23] MEDS: ZINC SULFATE 220 MG CAP PO SCH (16:33)
[2019-01-23] MEDS: HYDROCODONE/APAP 5MG-325MG TAB PO PRN ×2 (16:40→23:03)
--- NOTE | 2019-01-23 19:15 | NUR ---
BS rounds completed with morning nurse. Pt alert to name. Lying in bed HOB 30 degrees. c/o mild pain bilateral groin, repositioned in bed. Call blas within reach. Bed low and locked. Will continue to monitor.
[2019-01-23] MEDS: ZOLPIDEM TARTRATE 10 MG TAB PO PRN (20:45)
[2019-01-23] MEDS: ATORVASTATIN 40 MG TAB PO SCH (21:00)
[2019-01-24] VITALS: BP 97/69
[2019-01-24] MEDS: CEFEPIME 1GM/NS 0.9% 50 ML 50 ML IV SCH ×2 (01:00→09:23)
[2019-01-24] MEDS: METOPROLOL TARTRATE 25 MG TAB PO SCH ×2 (01:00→12:59)
[2019-01-24 03:33] LABS: BASOPHILS # (AUTO) 0.1 (0.0-0.1); BASOPHILS % 0.8 % (0.0-1.0); EOSINOPHILS # (AUTO) 0.5 (0.0-0.4); EOSINOPHILS % 7.4 % (0.0-6.0); HEMATOCRIT 29.1 % (34.2-44.1); HEMOGLOBIN 8.8 g/dL (12.0-16.0); LYMPHOCYTES % 31.9 % (18.0-39.1); MEAN CORPUSCULAR HGB CONC 30.2 g/dL (31-35); MEAN CORPUSCULAR VOLUME 85.8 fL (81-99); MONOCYTES # (AUTO) 0.5 (0.2-0.8); MONOCYTES % 8.7 % (4.4-11.3); NEUTROPHILS # (AUTO) 3.2 (2.1-6.9); NEUTROPHILS % 50.9 % (38.7-80.0); PLATELET COUNT 307 x10e3/uL (140-360); RED BLOOD COUNT 3.39 x10e6/uL (3.6-5.1); RED CELL DISTRIBUTION WIDTH 16.5 % (11.7-14.4)
[2019-01-24 03:51] LABS: ANION GAP 10.8 mmol/L (8-16); BLOOD UREA NITROGEN 8 mg/dL (7-26); BUN/CREATININE RATIO 11 (6-25); CARBON DIOXIDE 29 mmol/L (22-29); CHLORIDE 105 mmol/L (98-107); CREATININE, SERUM 0.75 mg/dL (0.57-1.11); EST GLOMERULAR FILTRATION RATE > 60 ML/MIN (60-); GLUCOSE 113 mg/dL (74-118); POTASSIUM 3.8 mmol/L (3.5-5.1); SODIUM 141 mmol/L (136-145)
[2019-01-24 04:00] VITALS: BP 149/90
[2019-01-24] MEDS: LEVOTHYROXINE SODIUM 25 MCG TABLET PO SCH (06:00)
[2019-01-24] MEDS ORDERED: Calcium Carbonate PO (06:01)
[2019-01-24] MEDS ORDERED: TYLENOL WITH C1 EACH PO (06:01)
[2019-01-24] MEDS ORDERED: LOPRESSOR25 MG PO (06:01)
[2019-01-24] MEDS ORDERED: LEVOTHYROXINE25 MCG PO (06:01)
[2019-01-24] MEDS ORDERED: ROCEPHIN IV (06:01)
[2019-01-24] MEDS ORDERED: MAGNESIUM OXID400 MG PO (06:01)
[2019-01-24] MEDS ORDERED: ASCORBIC ACID500 MG PO (06:01)
[2019-01-24] MEDS ORDERED: ZINC SULFATE220 M1 PO (06:01)
[2019-01-24] MEDS ORDERED: LASIX20 MG PO (06:01)
--- NOTE | 2019-01-24 06:04 | NUR ---
Patient lying quietly in bed. RR even and unlabored. No acute distress noted. Call blas within reach. Will continue to monitor.
[2019-01-24] MEDS: SODIUM CHLORIDE 0.9% 1000ML 1,000 ML IV SCH (06:13)
[2019-01-24 08:08] VITALS: BP 161/91
[2019-01-24] MEDS: FLUTICASONE PROPIONATE 110MCG INH INH SCH (08:16)
[2019-01-24] MEDS: FAMOTIDINE 20 MG TAB PO SCH ×2 (09:12→15:38)
[2019-01-24] MEDS: PANTOPRAZOLE SOD 40 MG TABEC PO SCH (09:12)
[2019-01-24] MEDS: VERAPAMIL HCL 120 MG TABSR PO SCH (09:14)
[2019-01-24] MEDS: LORATADINE 10 MG TAB PO SCH (09:14)
[2019-01-24] MEDS: DOCUSATE SODIUM 100 MG CAP PO SCH (09:15)
[2019-01-24] MEDS: CYCLOBENZAPRINE HCL 10 MG TAB PO SCH ×2 (09:15→15:39)
[2019-01-24] MEDS: OYST-CAL-D 500MG TABLET PO SCH (09:16)
[2019-01-24] MEDS: MAGNESIUM OXIDE 400 MG TAB PO SCH (09:16)
[2019-01-24] MEDS: GABAPENTIN 400 MG CAP PO SCH ×2 (09:16→15:38)
[2019-01-24] MEDS: DIGOXIN 0.125 MG TAB PO SCH (09:16)
[2019-01-24] MEDS: CLOPIDOGREL BISULFATE 75 MG TAB PO SCH (09:17)
[2019-01-24] MEDS: CILOSTAZOL 100 MG TAB PO SCH (09:18)
[2019-01-24] MEDS: FUROSEMIDE INJ 10 MG/ML 2 ML VIAL IV SCH (09:20)
[2019-01-24] MEDS: ASCORBIC ACID 500 MG TAB PO SCH (09:23)
[2019-01-24 09:38] VITALS: BP 161/91
[2019-01-24 11:41] VITALS: BP 143/83
--- NOTE | 2019-01-24 13:43 | NUR ---
HOME HEALTH DISCHARGE NOTE PATIENT ADDRESS WHERE SERVICE WILL BE RECEIVED: [address] [place] [address] [address] PATIENT CONTACT NUMBER: [phone] NAME OF [employer] COMPANY: [facility] TELEPHONE/FAX NUMBER OF COMPANY: OFF: [phone] / FAX: [phone] ADDRESS OF COMPANY: [id number], [place] [address] SERVICES TO RECEIVE: IV INFUSION ANTICIPATED DATE SERVICES WILL BEGIN: 01/23/2019; TEACH DONE AT THE BEDSIDE NAME OF [employer] COMPANY: [employer] TELEPHONE/FAX NUMBER OF COMPANY: OFF: [phone] / FAX: [phone] SERVICES TO RECEIVE: SN FOR IV ABX MGMT AND LINE CARE, WOUND VAC DRESSING CHANGES MJosé LOVELACE PT ABLE TO GO TO [facility] @ OFF: [phone]. PLEASE CALL TO SEE IF SPACE IS AVAILABLE FOR 02/06/2019. ANTICIPATED DATE SERVICES WILL BEGIN: 01/24/2019 Please call the company above if you have not received a call to schedule a home visit within 24 hours of discharge. Please call the [employer] above if you have not received a call to schedule a home visit within 24 hours of discharge.
[2019-01-24] MEDS ORDERED: CEFTRIAXONE SOD 2 GM/NS 100 ML 100 ML IV SCH (15:00)
[2019-01-24] MEDS: ZINC SULFATE 220 MG CAP PO SCH (15:39)
[2019-01-24 15:47] VITALS: BP 143/76
--- NOTE | 2019-01-26 20:04 | Discharge Summary ---
DISCHARGE DIAGNOSES: 1. Bilateral axillofemoral wounds with Klebsiella pneumoniae and Proteus mirabilis present on admission. 2. Hypertension. 3. Coronary artery disease. 4. Gastroesophageal reflux disease. 5. Atrial fibrillation. 6. Peripheral neuropathy. 7. Insomnia. 8. Transient ischemic attack. 9. Small bowel obstruction. SURGICAL HISTORY: Carotid endarterectomy, aortic bifurcation grafting. HOSPITAL COURSE: A 68-year-old female with history of CAD, had a CTA of the abdomen and aorta performed on 09/04/2018, which showed chronic bilateral common iliac artery occlusions and an occluded aortoiliac graft, proximal left external iliac artery occlusion and preserved femoropopliteal runoff bilaterally with bilateral 3-vessel trifurcation runoff. Subsequent abdominal aortogram with bilateral runoff showed 60% stenosis of the and infrarenal aorta, 60% left common iliac artery stenosis, occlusion of the left common femoral artery, and 60% stenosis of the right common femoral artery as well as the patent right SFA stent with 40% stenosis just beyond the stent. The popliteal arteries were patent bilaterally with good runoff. Because of increasing claudication and pain with the rest of right axillary bifemoral graft was performed at [facility]. At the conclusion of the surgery, the patient became hypotensive and required resuscitation. She recovered well and the perfusion of bilateral lower extremities improved markedly. She returns because she has developed erythema at both groin wound sites with some drainage. Her was doing the wound care, but it is becoming increasingly difficult. On admission, the Internal Medicine was consulted, CV surgery as well as Infectious Disease and Wound Care. Chest x-ray on admission showed mildly prominent interstitial lung markings. Wound cultures came back positive for Klebsiella and Proteus. Wound care recommended a wound VAC bilaterally with the left groin with black foam and the right groin with white foam. The patient had a PICC line placed due to long-term antibiotics. CT of the abdomen showed a small 2.7 cm gas containing fluid collection in the right inguinal region. Initially, CT-guided aspiration was ordered, but CV surgery canceled the order. LTAC was initially ordered, but the patient did not have benefit, so she had to return home with wound VAC per Wound Care recommendations and IV antibiotics per ID recommendation. She will get 6 weeks of 2 g Rocephin q.24 hours. She will follow up with Dr. Richard's office and she will follow up with Dr. Joya 3 times a week for wound care. The patient and understand discharge instructions and agreed to plan. Vital signs stable and patient afebrile. Dictated by Mirela Hoffman, SOLUTION MIXER MD KALPANA Varela/BEE /[id number]
== END 2019-01-24 16:03 | disposition home health service (06) | DRG 863 ==
LOC: MED/SURG3 19:24
PROVIDERS: ADMIT Internal Medicine; ATTEND Internal Medicine
PROC: 02HV33Z Insertion of Infusion Device into Superior Vena Cava, Percutaneous Approach (ICD-10-PCS; principal; 2019-01-16)
DX: T81.41XA Infection following a procedure, superficial incisional surgical site, initial encounter (principal); Z68.41 Body mass index [BMI] 40.0-44.9, adult; T81.30XA Disruption of wound, unspecified, initial encounter; T82.7XXA Infection and inflammatory reaction due to other cardiac and vascular devices, implants and grafts, initial encounter; K56.609 Unspecified intestinal obstruction, unspecified as to partial versus complete obstruction; B96.1 Klebsiella pneumoniae [K. pneumoniae] as the cause of diseases classified elsewhere; I10 Essential (primary) hypertension; I25.10 Atherosclerotic heart disease of native coronary artery without angina pectoris; Z86.73 Personal history of transient ischemic attack (TIA), and cerebral infarction without residual deficits; B96.4 Proteus (mirabilis) (morganii) as the cause of diseases classified elsewhere; G62.9 Polyneuropathy, unspecified; G47.00 Insomnia, unspecified; Z95.820 Peripheral vascular angioplasty status with implants and grafts; K21.9 Gastro-esophageal reflux disease without esophagitis; E66.01 Morbid (severe) obesity due to excess calories; I48.0 Paroxysmal atrial fibrillation; Z79.01 Long term (current) use of anticoagulants
CPT/HCPCS: 36415; 36569; 71045; 71046; 74176; 80048; 80076; 82746; 83036; 83540; 84443; 84466; 85025; 85610; 85730; 87071; 87075; 87186; 87205; 93005; 94664; 97605; J0692; J0696; J1940; J2270; J2405; J3370; J7030; J7050

== ENCOUNTER 2019-03-26 06:07 | Inpatient (IN) | payer OTHER ==
[~2019-03-26] VITALS: Ht 172.7 cm; Wt 118.4 kg
[~2019-03-26 06:07] MED LIST: AMBIEN10 MG PO; ASCORBIC ACID500 MG PO; ATORVASTATIN CA20 MG PO; CEPHALEXIN250 MG PO; CILOSTAZOL100 MG PO; CYCLOBENZAPRINE10 MG PO; Calcium Carbonate PO; DEXILANT60 MG; DIGOXIN125 MCG PO; FLOVENT HFA12 G1; FUROSEMIDE10 MG/1 M1 IV; GABAPENTIN800 MG PO; LASIX20 MG PO; LEVOTHYROXINE25 MCG PO; LOPRESSOR25 MG PO; MAGNESIUM OXID400 MG PO; METOPROLOL TART25 MG PO; PLAVIX75 MG PO; PROAIR HFA INH8.5 GM IH; ROCEPHIN IV; TYLENOL WITH C1 EACH PO; VERAPAMIL ER120 MG; ZINC SULFATE220 M1 PO; ZYRTEC10 M3
[2019-03-26] MEDS ORDERED: CEFEPIME 2 GM/NS 0.9% 100 ML 100 ML IV ONE (07:15)
[2019-03-26 07:28] LABS: BASOPHILS % 0.6 % (0.0-1.0); EOSINOPHILS # (AUTO) 0.3 (0.0-0.4); EOSINOPHILS % 4.1 % (0.0-6.0); HEMATOCRIT 33.6 % (34.2-44.1); HEMOGLOBIN 9.9 g/dL (12.0-16.0); LYMPHOCYTES # (AUTO) 1.8 (1.0-3.2); LYMPHOCYTES % 26.7 % (18.0-39.1); MEAN CORPUSCULAR HEMOGLOBIN 23.4 pg (28-32); MEAN CORPUSCULAR HGB CONC 29.5 g/dL (31-35); MEAN CORPUSCULAR VOLUME 79.4 fL (81-99); MONOCYTES # (AUTO) 0.7 (0.2-0.8); MONOCYTES % 10.1 % (4.4-11.3); NEUTROPHILS % 58.2 % (38.7-80.0); PLATELET COUNT 342 x10e3/uL (140-360); RED BLOOD COUNT 4.23 x10e6/uL (3.6-5.1); RED CELL DISTRIBUTION WIDTH 17.2 % (11.7-14.4)
[2019-03-26 07:39] LABS: INR 0.85; PROTHROMBIN TIME 12.1 seconds (11.9-14.5)
[2019-03-26 07:40] LABS: PARTIAL THROMBOPLASTIN TIME 28.3 seconds (23.8-35.5)
[2019-03-26] MEDS ORDERED: VANCOMYCIN 1GM/NS 250 ML 250 ML IV ONE (07:45)
[2019-03-26 07:46] LABS: ALANINE AMINOTRANSFERASE 18 IU/L (0-55); ALBUMIN/GLOBULIN RATIO 0.9 (0.8-2.0); ALKALINE PHOSPHATASE 179 IU/L (40-150); ANION GAP 12.3 mmol/L (8-16); BLOOD UREA NITROGEN 13 mg/dL (7-26); BUN/CREATININE RATIO 17 (6-25); CALCIUM 9.2 mg/dL (8.4-10.2); CARBON DIOXIDE 24 mmol/L (22-29); CHLORIDE 106 mmol/L (98-107); CREATININE, SERUM 0.77 mg/dL (0.57-1.11); EST GLOMERULAR FILTRATION RATE > 60 ML/MIN (60-); GLUCOSE 94 mg/dL (74-118); POTASSIUM 4.3 mmol/L (3.5-5.1); SODIUM 138 mmol/L (136-145)
[2019-03-26] MEDS ORDERED: DEXTROSE 50% SYRINGE 50 ML IV PRN (08:15)
[2019-03-26] MEDS ORDERED: SODIUM CHLORIDE 0.9% 1000ML 1,000 ML IV ONE (08:15)
[2019-03-26 08:44] LABS: CLARITY,URINE CLEAR (CLEAR); COLOR,URINE YELLOW (YELLOW)
[2019-03-26 08:46] LABS: BILIRUBIN,URINE NEGATIVE (NEGATIVE); KETONES,URINE NEGATIVE (NEGATIVE); LEUKOCYTE ESTERASE ,URINE NEGATIVE (NEGATIVE); NITRITE,URINE NEGATIVE (NEGATIVE); PROTEIN,URINE DIPSTICK NEGATIVE (NEGATIVE); URINE UROBILINOGEN 0.2 mg/dL (0.2 - 1)
[2019-03-26 08:53] LABS: BACTERIA,URINE RARE /HPF; RBC,URINE 0-5 /HPF (0-5); WBC,URINE (MAN) 0-5 /HPF (0-5)
[2019-03-26 08:54] LABS: EPITHELIAL CELLS,URINE FEW /LPF
--- NOTE | 2019-03-26 09:19 | Diagnostic Imaging Report ---
CT of the abdomen and pelvis, without contrast. History: Infected left inguinal surgical site. Comparison: 01/21/2019. Technique: Multidetector CT scanning of the abdomen and pelvis was performed from the level of the lung bases to the inferior pubic rami after intravenous and oral administration of contrast. Coronal and sagittal multiplanar reformations were obtained. RADIATION DOSE: Total DLP: 1355.17 mGy*cm Dose modulation, iterative reconstruction, and/or weight based adjustment of the mA/kV was utilized to reduce the radiation dose to as low as reasonably achievable. FINDINGS: The visualized lungs are unremarkable. The imaged portion of the heart demonstrates no significant abnormalities. The liver is normal in size and attenuation on this noncontrast enhanced examination. The gallbladder surgically absent. There is no biliary ductal dilatation. The stomach, spleen, pancreas, and bilateral adrenal glands demonstrate an unremarkable noncontrast appearance. The kidneys are normal in size and location. There is no evidence for nephrolithiasis or hydronephrosis. The ureters are normal caliber. The urinary bladder demonstrates no significant abnormalities. The uterus is surgically absent. No abnormal adnexal masses are identified. The abdominal aorta is normal in caliber with atherosclerotic calcifications. The IVC is normal in caliber. Partially visualized right axillofemoral bypass graft and femoral-femoral bypass graft noted. Please no patency cannot be evaluated on this noncontrast enhanced examination. Please note evaluation the bowel is limited without the use of enteric contrast material. The visualized loops of small and large bowel demonstrate no evidence of obstruction or inflammation. Moderate amount of stool noted within the colon. There is no ascites or intraperitoneal free air. No abnormally enlarged lymph nodes are identified within the abdomen or pelvis. Stable compression deformity noted of the L1 vertebral body. Healed/chronic bilateral rib fractures noted. The osseous structures otherwise demonstrate degenerative changes without evidence for acute fracture or destructive process. IMPRESSION: Stranding noted within the subcutaneous tissues of the bilateral inguinal regions, more prominent on the left. Findings are suggestive of postsurgical/postprocedural change. No evidence for organized/drainable fluid collection to suggest abscess formation. Signed by: Dr. Lalo Huddleston MD on 03/26/2019 9:16 AM
[2019-03-26] MEDS: INSULIN LISPRO 100 UNIT/1 ML 3ML VIAL SQ SCH ×3 (11:30→20:05)
[2019-03-26 15:30] VITALS: BP 127/66
[2019-03-26] MEDS ORDERED: CEFEPIME 2 GM/NS 0.9% 100 ML 100 ML IV SCH (16:00)
[2019-03-26 16:12] VITALS: BP 107/57
[2019-03-26 16:24] VITALS: BP 107/57
[2019-03-26] MEDS ORDERED: SODIUM CHLORIDE 0.9% 250ML 250 ML ONE (16:35)
[2019-03-26] MEDS: MORPHINE SULFATE INJ 4 MG/ML INJ 1ML IV PRN ×2 (16:37→20:40)
[2019-03-26] MEDS: ONDANSETRON HCL INJ 2MG/ML 2ML 2 MG/ML VIAL IV PRN ×2 (16:37→20:40)
[2019-03-26] MEDS: CEFEPIME 2 GM/NS 0.9% 100 ML 100 ML IV SCH (16:58)
[2019-03-26] MEDS ORDERED: ALBUTEROL/IPRATROPIUM 3 ML NEB NEB PRN (17:00)
[2019-03-26] MEDS: METOPROLOL TARTRATE 25 MG TAB PO SCH (17:53)
[2019-03-26 19:15] VITALS: BP 109/58
--- NOTE | 2019-03-26 19:15 | NUR ---
three small wounds to lower abd due to tape per patient. patient states, " I'm very allergic to tape. " sites red, dry with no drainage noted. left groin infected surgical site noted with minimal drainage. dressing c,d,i.
--- NOTE | 2019-03-26 19:15 | NUR ---
patient received awake, alert, lying quietly in bed. no c/o pain noted. pm assessment complete. patient instructed to call for assistance when needed.
[2019-03-26 20:00] VITALS: BP 109/58
[2019-03-26] MEDS: ATORVASTATIN 40 MG TAB PO SCH (20:06)
[2019-03-26] MEDS: VANCOMYCIN HCL IV SCH (20:06)
[2019-03-26] MEDS: SODIUM CHLORIDE 0.9% IV SCH (20:06)
[2019-03-26] MEDS ORDERED: VANCOMYCIN 1GM/NS 250 ML 250 ML IV SCH (21:00)
--- NOTE | 2019-03-26 21:15 | NUR ---
slight redness noted to iv site to right upper arm/shoulder area. iv abx continue to infuse without difficulty. no pain noted to site at this time. will continue to monitor. new iv #24 gauge placed to right hand x 1 stick at this time.
[2019-03-26] MEDS: ZOLPIDEM TARTRATE 10 MG TAB PO PRN (21:24)
--- NOTE | 2019-03-26 22:30 | NUR ---
here to see patient. new orders noted.
--- NOTE | 2019-03-26 23:00 | NUR ---
consent obtained for picc line at this time. radiology notified.
[2019-03-27] VITALS (8 sets, daily range): BP systolic 98–140; BP diastolic 55–63
--- NOTE | 2019-03-27 | NUR ---
patient appears to be resting quietly. no c/o pain noted at this time.
--- NOTE | 2019-03-27 01:09 | Consultation ---
DATE OF CONSULTATION: REASON FOR CONSULTATION: Infected left groin wound. HISTORY OF PRESENT ILLNESS: This patient who is a 69-year-old white female, morbidly obese patient with atherosclerosis disease, diabetes mellitus, chronic kidney disease, DVT, PE, hyperlipidemia, COPD. The patient had a bilateral aortic femoral-popliteal bypass surgery done a few months ago. At that time, she got infected and I recommended surgical debridement and IV antibiotic. The patient refused surgery. She received antibiotic for a few weeks and then she was discharged home with oral antibiotic. She had both wounds on both femoral area. She was here on January 17 and January 22. The patient who is known to have history of severe peripheral vascular disease, coronary artery disease, hypertension, TIA, carotid endarterectomy, aortic bifurcation grafting, small bowel obstruction before, who came back in December with severe lower extremity pain. She had a CT of abdomen, aorta, showed chronic bilateral common iliac artery occlusion. The patient at that time underwent surgery as mentioned above. The patient underwent surgery back in August and is having problem with her wound since then. She was here in December,, but due to her obesity and the patient's refusal for surgery, she was treated conservatively, but now she is coming with redness, swelling, and drainage of the left femur. The patient is currently lying in bed. PAST MEDICAL HISTORY: As above. PAST SURGICAL HISTORY: As above. ALLERGIES: PENICILLIN, CIPRO, BUT SHE DID WELL WITH CEPHALOSPORIN. LABORATORY DATA: Reviewed. Her wound cultures showed gram-positive cocci. Her white count on admission was 6.8, hemoglobin 9.9. Sodium 130, potassium 4.3, creatinine 0.77. SOCIAL HISTORY: There is no smoking, drug abuse, or alcohol abuse. FAMILY HISTORY: Hypertension and diabetes. REVIEW OF SYSTEMS: At the present time: HEENT: Negative. PULMONARY: Negative. CARDIAC: Negative. : Negative. SKIN: There is no other rash. PHYSICAL EXAMINATION: GENERAL: She is currently alert, oriented, does not seem to be in acute distress, morbidly obese patient. There is redness and swelling noted on the left side of the groin. EXTREMITIES: In bilateral lower extremities, there is no edema, but there is significant erythema in the left groin as mentioned above. IMPRESSION: Infection of the groin, concerned about surgical wound infection. The patient did have a graft. She had this problem for some time. I discussed with her again. I reiterated she would need surgical debridement. The problem is that she has severe peripheral vascular disease and if we have still the graft on, she may lose circulation to the left lower extremity. Agree with vancomycin. Agree with cefepime. We will increase the dose of vancomycin. Please refer to the orders. We will discuss with Dr. Chiu. Other medical problem seemed to be stable. We will follow with you. MD GEORGETTE Lemus/MODL /[id number]
[2019-03-27] MEDS: METOPROLOL TARTRATE 25 MG TAB PO SCH ×2 (05:00→18:49)
[2019-03-27] MEDS: SODIUM CHLORIDE 0.9% IV SCH ×2 (05:12→18:49)
[2019-03-27] MEDS: VANCOMYCIN HCL IV SCH ×2 (05:12→18:49)
[2019-03-27] MEDS: MORPHINE SULFATE INJ 4 MG/ML INJ 1ML IV PRN ×3 (06:00→19:43)
[2019-03-27] MEDS: ONDANSETRON HCL INJ 2MG/ML 2ML 2 MG/ML VIAL IV PRN ×2 (06:00→19:43)
--- NOTE | 2019-03-27 06:00 | NUR ---
iv to right hand d/c'd. iv to right upper arm/shoulder remains patent. iv vancomycin infusing at this time. patient medicated with morphine 4mg and zofran 4mg ivp for c/o bilateral legs and feet pain 6/10 at this time.
--- NOTE | 2019-03-27 06:50 | NUR ---
right arm picc line placed at this time. waiting on cxr results for placement confirmation.
--- NOTE | 2019-03-27 06:58 | Diagnostic Imaging Report ---
EXAMINATION: CHEST XRAY LINE PLACEMENT INDICATION: ^picc line placement. ^Y COMPARISON: 01/19/2019 FINDINGS: AP view TUBES and LINES: Right PICC in place with tip projecting over mid SVC. LUNGS: Limited by body habitus. Lungs are well inflated. There is no evidence of pneumonia or pulmonary edema. PLEURA: No pleural effusion or pneumothorax. HEART AND MEDIASTINUM: The cardiac silhouette is prominent. BONES AND SOFT TISSUES: No acute osseous lesion. Soft tissues are unremarkable. UPPER ABDOMEN: No free air under the diaphragm. IMPRESSION: Right PICC in place with tip projecting over mid SVC. No visible pneumothorax. Signed by: Dr. Alessoi Mahoney MD on 03/27/2019 6:55 AM
[2019-03-27] MEDS: INSULIN LISPRO 100 UNIT/1 ML 3ML VIAL SQ SCH ×4 (07:30→20:14)
[2019-03-27] MEDS: VERAPAMIL HCL 120 MG TABSR PO SCH (08:47)
[2019-03-27] MEDS: CLOPIDOGREL BISULFATE 75 MG TAB PO SCH (08:47)
[2019-03-27] MEDS: PANTOPRAZOLE SOD 40 MG TABEC PO SCH (08:47)
[2019-03-27 08:53] LABS: BASOPHILS % 0.6 % (0.0-1.0); EOSINOPHILS # (AUTO) 0.3 (0.0-0.4); EOSINOPHILS % 4.7 % (0.0-6.0); HEMATOCRIT 34.3 % (34.2-44.1); HEMOGLOBIN 9.9 g/dL (12.0-16.0); LYMPHOCYTES # (AUTO) 1.6 (1.0-3.2); LYMPHOCYTES % 23.1 % (18.0-39.1); MEAN CORPUSCULAR HEMOGLOBIN 23.2 pg (28-32); MEAN CORPUSCULAR HGB CONC 28.9 g/dL (31-35); MEAN CORPUSCULAR VOLUME 80.5 fL (81-99); MONOCYTES # (AUTO) 0.6 (0.2-0.8); NEUTROPHILS # (AUTO) 4.2 (2.1-6.9); NEUTROPHILS % 62.3 % (38.7-80.0); PLATELET COUNT 309 x10e3/uL (140-360); RED BLOOD COUNT 4.26 x10e6/uL (3.6-5.1); RED CELL DISTRIBUTION WIDTH 17.6 % (11.7-14.4)
[2019-03-27 09:19] LABS: ALANINE AMINOTRANSFERASE 15 IU/L (0-55); ALBUMIN 2.9 g/dL (3.5-5.0); ALBUMIN/GLOBULIN RATIO 0.9 (0.8-2.0); ALKALINE PHOSPHATASE 186 IU/L (40-150); ANION GAP 11.4 mmol/L (8-16); BLOOD UREA NITROGEN 13 mg/dL (7-26); BUN/CREATININE RATIO 16 (6-25); CALCIUM 8.7 mg/dL (8.4-10.2); CARBON DIOXIDE 27 mmol/L (22-29); CHLORIDE 105 mmol/L (98-107); CREATININE, SERUM 0.82 mg/dL (0.57-1.11); EST GLOMERULAR FILTRATION RATE > 60 ML/MIN (60-); GLUCOSE 94 mg/dL (74-118); POTASSIUM 4.4 mmol/L (3.5-5.1); SODIUM 139 mmol/L (136-145)
[2019-03-27 10:08] LABS: ANISOCYTOSIS SLIGHT; HYPOCHROMASIA SLIGHT; POIKILOCYTOSIS SLIGHT; POLYCHROMASIA FEW
[2019-03-27 10:09] LABS: MICROCYTOSIS SLIGHT; OVALOCYTES FEW
[2019-03-27 10:10] LABS: RBC MORPHOLOGY COMMENT ABNORMAL
[2019-03-27] MEDS: NYSTATIN 15 GM POWDER UD BTL TOP SCH ×3 (10:12→20:15)
[2019-03-27] MEDS: CEFEPIME 2 GM/NS 0.9% 100 ML 100 ML IV SCH ×4 (10:12→23:43)
--- NOTE | 2019-03-27 18:46 | Progress Note ---
DATE: SUBJECTIVE: Ms. Alonzo is feeling slightly better. The redness is slightly better. There is still some drainage coming from her left groin. The patient was seen yesterday with Dr. Chiu. No plan for surgery apparently. The patient is currently on cefepime and Protonix, vancomycin. REVIEW OF SYSTEMS: At the present time: HEENT: Negative. PULMONARY: Negative. CARDIAC: Negative. PHYSICAL EXAMINATION: GENERAL: She is currently alert, oriented, does not seem in acute distress. VITAL SIGNS: Stable. Afebrile. HEENT: Normocephalic. Not icteric. NECK: Supple. CHEST: Clear. HEART: S1, S2. No murmur. ABDOMEN: Soft, obese. The left groin wound is still erythema, edema, minimal drainage on dressing. LABORATORY DATA: Reviewed. White count 6.79, hemoglobin of 9.9. Sodium 139, potassium 4.4, creatinine 0.82. Blood cultures negative. Wound cultures still pending. IMPRESSION AND PLAN: Recurrent cellulitis, recurrent infection, abscess of the groin. Discussed with the patient, she is hesitant for surgery. I told her that it could be risk of surgery, so the plan is give IV antibiotic for the time being. We will get a PICC line. Continue with IV antibiotic. Consider LTAC. We will follow. MD GEORGETTE Lemus/BEE /[id number]
--- NOTE | 2019-03-27 19:15 | NUR ---
Patient received awake, alert, lying quietly in bed. no c/o pain noted. iv vancomycin infusing to right picc line without difficulty. vancomycin trough level ordered for tonight but vancomyin is already infusing. vancomycin trough level rescheduled for 0600 in am before the am dose. pm assessment complete. patient instructed to call for assistance when needed.
[2019-03-27] MEDS: ZOLPIDEM TARTRATE 10 MG TAB PO PRN (20:14)
[2019-03-27] MEDS: ATORVASTATIN 40 MG TAB PO SCH (20:14)
[2019-03-28] VITALS (7 sets, daily range): BP systolic 96–123; BP diastolic 55–68
[2019-03-28] MEDS: ONDANSETRON HCL INJ 2MG/ML 2ML 2 MG/ML VIAL IV PRN ×4 (00:30→20:09)
[2019-03-28] MEDS: MORPHINE SULFATE INJ 4 MG/ML INJ 1ML IV PRN ×2 (00:30→08:20)
[2019-03-28] MEDS: METOPROLOL TARTRATE 25 MG TAB PO SCH ×2 (05:00→17:08)
[2019-03-28 05:51] LABS: ANION GAP 9.6 mmol/L (8-16); BLOOD UREA NITROGEN 12 mg/dL (7-26); BUN/CREATININE RATIO 16 (6-25); CALCIUM 8.6 mg/dL (8.4-10.2); CARBON DIOXIDE 28 mmol/L (22-29); CHLORIDE 103 mmol/L (98-107); CREATININE, SERUM 0.74 mg/dL (0.57-1.11); EST GLOMERULAR FILTRATION RATE > 60 ML/MIN (60-); GLUCOSE 98 mg/dL (74-118); POTASSIUM 4.6 mmol/L (3.5-5.1); SODIUM 136 mmol/L (136-145)
[2019-03-28] MEDS: SODIUM CHLORIDE 0.9% IV SCH (06:00)
[2019-03-28] MEDS: VANCOMYCIN HCL IV SCH (06:00)
--- NOTE | 2019-03-28 06:00 | NUR ---
Vancomycin trough level 24.7 this am. Vancomycin held this am due to elevated trough level.
--- NOTE | 2019-03-28 07:00 | NUR ---
BEDSIDE SHIFT REPORT RECEIVED FROM OFF GOING NURSE. PATIENT IS RESTING IN BED. NO ACUTE DISTRESS NOTED. CALL LIGHT WITHIN REACH. BED IN THE LOWEST POSITION.
[2019-03-28] MEDS: INSULIN LISPRO 100 UNIT/1 ML 3ML VIAL SQ SCH ×4 (07:30→20:09)
[2019-03-28] MEDS ORDERED: TRAMADOL HCL 50 MG TAB PO PRN (08:30)
[2019-03-28] MEDS: PANTOPRAZOLE SOD 40 MG TABEC PO SCH (08:31)
[2019-03-28] MEDS: NYSTATIN 15 GM POWDER UD BTL TOP SCH ×3 (08:31→21:00)
[2019-03-28] MEDS: CEFEPIME 2 GM/NS 0.9% 100 ML 100 ML IV SCH ×2 (08:31→17:00)
[2019-03-28] MEDS: CLOPIDOGREL BISULFATE 75 MG TAB PO SCH (08:31)
[2019-03-28] MEDS: VERAPAMIL HCL 120 MG TABSR PO SCH (08:31)
[2019-03-28] MEDS ORDERED: ACETAMINOPHEN/CODEINE 300MG - 30MG TAB PO PRN (08:45)
--- NOTE | 2019-03-28 13:14 | NUR ---
Reason For Consult: Aorto-iliac occlusive disease & left groin wound. 03/26/2019 SQL DATA ARCHITECT: Brijesh Muse MD. HISTORY: I saw & evaluated the patient on 03/26/2019. This is a 69-year-old lady with a long history of peripheral arterial disease as well as CAD, hypertension, TIA, history of carotid endarterectomy, aortic bifurcation grafting, and small bowel obstruction. She developed progressive pain in both lower extremities. A CTA of the abdomen and aorta performed on 09/04/2018 showed chronic bilateral common iliac artery occlusions and an occluded aortoiliac graft, a patent right external iliac artery stent, a proximal left external iliac artery occlusion, preserved femoropopliteal runoff bilaterally with bilateral three-vessel trifurcation runoff. A subsequent abdominal aortogram with bilateral runoff performed by Dr. Calos Negron on 09/03/2018 showed a 60% stenosis of the infrarenal aorta, a 60% left common iliac artery stenosis, occlusion of the left common femoral artery, a 60% stenosis of the right common femoral artery, and a patent right SFA stent with a 40% to 50% stenosis just beyond the stent. The popliteal arteries were patent bilaterally with good runoff. The patient had been having increasing claudication and rest pain. A right axillary bifemoral graft was performed at [facility]. At the conclusion of surgery, the patient became hypotensive requiring resuscitation (possibly due to protamine reaction). She subsequently recovered and did well. The perfusion of both lower extremities improved markedly and her rest pain and claudication have resolved. However, she has developed erythema at both groin wounds with some drainage, complicated by her diabetes and obesity. At home, the wounds have been difficult to care for. They have started to drain serous fluid superficially. She has been on & off oral antibiotics. She has been hospitalized for wound care previously. Her has been doing the wound care, but this has become increasingly difficult. She developed some eythema around the left groin incision, came to the ER, and has been admitted for wound evaluation. No fevers or chills There is a history of carotid endarterectomy that I performed about 10 years ago. She had an aortic bifurcation graft in 2006. Last year, she had a small bowel obstruction, which required abdominal surgery. Her GI problems resolved, but after the operation, she had an open draining wound at the laparotomy site, which took months to heal as well as a wound VAC. REVIEW OF SYSTEMS: GENERAL: Negative for chills or fatigue. HEENT: Negative for decreased vision or decreased hearing. CARDIAC: Negative for chest pain or palpitation. PULMONARY: Negative for shortness of breath or wheezing. GI: No constipation or diarrhea. : Negative for hematuria or dysuria. ENDOCRINE: Negative for polyuria or polydipsia. VASCULAR: Negative for claudication. SKIN: Negative for rashes or angioedema. HEMATOLOGIC: Negative for clotting or bleeding. INFECTIOUS: Negative for fevers or chills. PSYCHIATRIC: Negative for depression or anxiety. PHYSICAL EXAMINATION: GENERAL: Obese lady lying flat in bed. is at the bedside. VITAL SIGNS: Blood pressure 140/70, pulse 80 and regular, respirations 16 and unlabored. NECK: Supple. Nontender. No JVD. CARDIAC: Shows a regular rate and rhythm. There is a normal S1 and S2. There is no S3, S4, rub, or murmur. LUNGS: Clear to auscultation and percussion bilaterally. ABDOMEN: Obese and benign. The midline laparotomy is well healed. BACK: No CVA tenderness. No muscle spasm. EXTREMITIES: Both groin wounds have some surrounding erythema inferiorly (L>R). There is some minimal drainage on the left. Both lower extremities are warm and well perfused. VASCULAR: Carotids and radials 2+/2+ bilaterally. Femoral pulses are not palpable. This is secondary to the bilateral groin wounds, obesity and some minimal edema. MUSCULOSKELETAL: Full range of motion at all joints. No joint swelling. NEUROLOGIC: Cranial nerves 2 through 12 are intact. Sensation intact to light touch and pinprick bilaterally. Strength is 5/5 in all extremities. LYMPHATICS: Negative for cervical, clavicular, or femoral adenopathy. LABORATORY DATA: White count 8.4, hemoglobin 10.7, hematocrit 35.9, and platelet count 340,000. Sodium 139, BUN 9, creatinine 0.8, and potassium 3.8. IMPRESSION: Problematic left groin wound in an obese diabetic patient with an axillobifemoral graft. I agree with admission for wound care. Does not appear infected at present. Wound care initiated.. Bassam Chiu MD Mar 28, 2019/13:13 Provider - Electronically Signed Date/Time
--- NOTE | 2019-03-28 14:05 | NUR ---
WOUND CARE CONSULT 69 YO FEMALE HX OF ADHESIVE CELLULITIS AND INFECTION OF ABDOMINAL SURGICAL WOUND SHAHNAZ 17 ON CONSERVATIVE PUP AND VISCO MATTRESS LABS: WBC- 6.79,HGB- 9.9, GLUCOSE- [address] OF ABDOMEN R/O ABSCESS SKIN ASSESSMENT COMPLETE PATIENT PRESENTS WITH (1)RIGHT ABDOMEN WOUND .5CM X1CM DARK DRY ESCHAR COVER (2) LEFT MID ABDOMEN 1CM X1CM X .2CM (3) LEFT LATERAL ABDOMEN 1CM X2CM X DARK ESCHAR COVER (4) LEFT OUTER ABDOMEN 1.5 CM X 1.5CM SLOUGH COVERED RECOMMENDATIONS : NURSING TO CONTINUE TO MAINTAIN CONSERVATIVE PUP STATUS NURSING TO CONTINUE TO ASSIST PATIENT OUT OF BED FOR MEALS AND MUCH TOLERATED NURSING TO APPLY DAILY SANTYL TO SLOUGH COVERED ULCERATIONS TO ABDOMINAL FOLD PLACE GAUZE TOP WITH ABSORBANT PAD TUCKED IN SKIN FOLD DO NOT USE ANY TAPE TO SECURE PATIENT SEVERELY REACTIVE TO TAPES AND ADHESIVE NURSING TO PAINT DRY ESCHAR COVERED WOUNDS WITH BETADINE DAILY DO NOT COVER OR USE ANY TAPE ON PATIENT SKIN DUE TO PATIENT HAS SEVERE TAPE AND ADHESIVE ALLERGIES Addendum: 03/28/19 at 1428 by Sudarshan Garcia RN Amended: Links added.
--- NOTE | 2019-03-28 16:50 | NUR ---
NOTIFIED [facility] OF VANC RANDOM RESULTS OF 15.6, PER PA OK TO START PATIENT ON VANC 1.25GM Q12H.
[2019-03-28] MEDS: COLLAGENASE 5 GM TUBE TOP SCH (16:54)
[2019-03-28] MEDS: FAMOTIDINE 20 MG TAB PO SCH (17:08)
[2019-03-28] MEDS: VANCOMYCIN HCL 1.25 GM in SODIUM CHLORIDE 0.9% 250ML 250 ML IV SCH (17:48)
[2019-03-28] MEDS ORDERED: VANCOMYCIN 1GM/NS 250 ML 250 ML IV SCH ×2 (18:30)
--- NOTE | 2019-03-28 19:12 | NUR ---
BEDSIDE SHIFT REPORT GIVEN TO ONCOMING NURSE. PATIENT IS IN STABLE CONDITION, NO ACUTE DISTRESS NOTED. NO S/S OF PAIN NOTED. CALL LIGHT WITHIN REACH. BED IN THE LOWEST POSITION.
--- NOTE | 2019-03-28 19:42 | NUR ---
Received change of shift report from AM nurse. Walking rounds completed.
[2019-03-28] MEDS: MORPHINE SULFATE 2 MG/ML SYR 1ML IV PRN (20:08)
[2019-03-28] MEDS: ATORVASTATIN 40 MG TAB PO SCH (20:08)
--- NOTE | 2019-03-28 20:11 | Progress Note ---
DATE: REASON FOR ADMISSION: Aortoiliac occlusive disease, left groin wound; requested by Dr. Sadaf Muse. SUBJECTIVE: Feeling better. Dressing changes continue. OBJECTIVE: CARDIAC: Exam shows a regular rate and rhythm. LUNGS: Clear to auscultation and percussion. ABDOMEN: Globoid and benign. The left groin wound erythema is resolving with good wound care and has almost disappeared. There is very minimal drainage from either of the wounds. Neither of the wound is deep on probing. EXTREMITIES: No cyanosis, clubbing, or edema. LABORATORY DATA: None obtained today. IMPRESSION: Doing well with wound care. Home health to be arranged. MD PEPPER Thompson/BEE /[id number]
--- NOTE | 2019-03-28 20:14 | NUR ---
Patient AAOx3. C/O gen. pain. Pain meds given as ordered by MD. Continue monitor.
[2019-03-28] MEDS: ZOLPIDEM TARTRATE 10 MG TAB PO PRN (21:24)
--- NOTE | 2019-03-28 21:33 | NUR ---
Dressing change done to both groin areas. Patient given pain meds and sleep pill prior. Repositioned patient in bed for comfort. Continue monitor.
[2019-03-29] VITALS: BP 128/63
[2019-03-29] MEDS: MORPHINE SULFATE 2 MG/ML SYR 1ML IV PRN ×2 (01:18→08:39)
[2019-03-29] MEDS: ONDANSETRON HCL INJ 2MG/ML 2ML 2 MG/ML VIAL IV PRN (01:18)
[2019-03-29 04:00] VITALS: BP 112/72
[2019-03-29] MEDS: METOPROLOL TARTRATE 25 MG TAB PO SCH (05:00)
--- NOTE | 2019-03-29 05:00 | NUR ---
Patient received pain med for pain=8 to abd. Continue monitor.
[2019-03-29] MEDS: VANCOMYCIN HCL 1.25 GM in SODIUM CHLORIDE 0.9% 250ML 250 ML IV SCH (05:38)
[2019-03-29] MEDS: INSULIN LISPRO 100 UNIT/1 ML 3ML VIAL SQ SCH ×2 (07:30→11:30)
[2019-03-29] MEDS ORDERED: TYLENOL WITH C1 EACH PO (07:41)
[2019-03-29 07:45] LABS: BASOPHILS % 0.6 % (0.0-1.0); EOSINOPHILS # (AUTO) 0.2 (0.0-0.4); EOSINOPHILS % 3.6 % (0.0-6.0); HEMOGLOBIN 9.8 g/dL (12.0-16.0); LYMPHOCYTES # (AUTO) 1.5 (1.0-3.2); LYMPHOCYTES % 23.4 % (18.0-39.1); MEAN CORPUSCULAR HEMOGLOBIN 23.4 pg (28-32); MEAN CORPUSCULAR HGB CONC 29.7 g/dL (31-35); MEAN CORPUSCULAR VOLUME 78.9 fL (81-99); MONOCYTES # (AUTO) 0.5 (0.2-0.8); MONOCYTES % 8.4 % (4.4-11.3); NEUTROPHILS # (AUTO) 4.1 (2.1-6.9); NEUTROPHILS % 63.8 % (38.7-80.0); PLATELET COUNT 273 x10e3/uL (140-360); RED BLOOD COUNT 4.18 x10e6/uL (3.6-5.1); RED CELL DISTRIBUTION WIDTH 17.5 % (11.7-14.4)
[2019-03-29 08:00] VITALS: BP 119/64
[2019-03-29 08:04] LABS: ANION GAP 11.1 mmol/L (8-16); BLOOD UREA NITROGEN 14 mg/dL (7-26); BUN/CREATININE RATIO 18 (6-25); CALCIUM 8.7 mg/dL (8.4-10.2); CARBON DIOXIDE 27 mmol/L (22-29); CHLORIDE 103 mmol/L (98-107); EST GLOMERULAR FILTRATION RATE > 60 ML/MIN (60-); GLUCOSE 100 mg/dL (74-118); MAGNESIUM 2.1 MG/DL (1.3-2.1); POTASSIUM 4.1 mmol/L (3.5-5.1); SODIUM 137 mmol/L (136-145)
[2019-03-29] MEDS: FAMOTIDINE 20 MG TAB PO SCH (08:28)
[2019-03-29] MEDS: CEFEPIME 2 GM/NS 0.9% 100 ML 100 ML IV SCH ×2 (08:30)
[2019-03-29] MEDS: VERAPAMIL HCL 120 MG TABSR PO SCH (08:31)
[2019-03-29] MEDS: NYSTATIN 15 GM POWDER UD BTL TOP SCH (08:31)
[2019-03-29] MEDS: COLLAGENASE 5 GM TUBE TOP SCH (08:31)
[2019-03-29] MEDS: CLOPIDOGREL BISULFATE 75 MG TAB PO SCH (08:31)
[2019-03-29 08:32] VITALS: BP 119/64
[2019-03-29 11:58] VITALS: BP 122/64
--- NOTE | 2019-03-29 14:36 | NUR ---
HOME HEALTH DISCHARGE NOTE PATIENT ADDRESS WHERE SERVICE WILL BE RECEIVED: [facility] [place] [address] [id number] PATIENT CONTACT NUMBER: [phone] NAME OF HOME HEALTH COMPANY: [facility] TELEPHONE/FAX NUMBER OF COMPANY: OFF: [phone] / FAX: [phone] SERVICES TO RECEIVE: SN FOR WOUND CARE. ANTICIPATED DATE SERVICES WILL BEGIN: 03/30/2019 Please call the company above if you have not received a call to schedule a home visit within 24 hours of discharge. Please call the [employer] above if you have not received a call to schedule a home visit within 24 hours of discharge.
[2019-03-29] MEDS ORDERED: ZYVOX600 MG PO (14:41)
--- NOTE | 2019-03-29 15:20 | NUR ---
Pt discharged home at this time. o0 s/s of acute distress noted at time of discharge. Right PICC line discontinued per physician orders. Lumen intact 44cm in length, pressure dressing applied to insertion site and instructed pt not to remove for 24hrs. Pt is going home with home health for wound care. Wound care teaching provided for pt and and both verbalized understanding of wound care treatment. Pt and family verbalized understanding of all discharge instructions and follow up appts.
--- NOTE | 2019-03-30 03:05 | Discharge Summary ---
ADMISSION DIAGNOSES: 1. Left lower quadrant abdominal cellulitis and open wound with drainage. 2. Hypertension. 3. Chronic back pain. 4. Gastroesophageal reflux disease. DISCHARGE DIAGNOSES: 1. Left lower quadrant abdominal cellulitis and open wound with drainage. 2. Hypertension. 3. Chronic back pain. 4. Gastroesophageal reflux disease. HISTORY: CVA, hypertension, CAD, COPD, migraine, CHF, anemia, hyperlipidemia, DVT/PE, CKD, chronic back pain, osteoarthritis, GERD, atrial fibrillation, insomnia. SURGICAL HISTORY: Hernia repair, cataract removal, cholecystectomy, appendectomy, hysterectomy, colon resection, and bilateral axillofemoral graft. FAMILY HISTORY: Noncontributory. HOSPITAL COURSE: A 69-year-old female with multiple comorbidities, admitted for left lower quadrant draining wounds after bilateral double bypass done on 12/09/2018. No fever or chills was no noted. ID and Dr. Chiu were consulted. On admission, the patient was started on vancomycin and cefepime. CV surgery recommended nystatin. CT of the abdomen and pelvis showed stranding noted with subcutaneous tissue of the bilateral inguinal region more prominent on the left. Findings are suggestive of postsurgical/postprocedural change. No evidence of organized or drainable fluid collection to suggest abscess formation. The patient then had a right PICC line placed. Blood cultures were negative. Wound cultures were negative and urine culture was negative. The patient will discharge home with home health for wound care and Zyvox q.12 hours x21 days per Infectious Disease recommendation. Infectious Disease and CV surgery agreed to discharge plan. The patient understands discharge instructions and agrees. She will follow up with primary care CV surgery and Infectious Disease in 1 to 2 weeks. Dictated by Mirela Hoffman NP MD KALPANA Varela/BEE /[id number]
== END 2019-03-29 15:20 | disposition home or self-care (01) | DRG 863 ==
LOC: ER 06:07 → ERHOLD 08:08 → MED/SURG3 15:03
PROVIDERS: ADMIT Internal Medicine; ATTEND Internal Medicine
PROC: B548ZZA Ultrasonography of Superior Vena Cava, Guidance (ICD-10-PCS; principal; 2019-03-27)
PROC: 02HV33Z Insertion of Infusion Device into Superior Vena Cava, Percutaneous Approach (ICD-10-PCS; principal; 2019-03-27)
DX: T81.41XA Infection following a procedure, superficial incisional surgical site, initial encounter (principal); L03.311 Cellulitis of abdominal wall; L03.314 Cellulitis of groin; K21.9 Gastro-esophageal reflux disease without esophagitis; M54.9 Dorsalgia, unspecified; E66.01 Morbid (severe) obesity due to excess calories; Z68.39 Body mass index [BMI] 39.0-39.9, adult; Z88.0 Allergy status to penicillin; Z88.2 Allergy status to sulfonamides; Z88.8 Allergy status to other drugs, medicaments and biological substances; Z88.1 Allergy status to other antibiotic agents; Z91.041 Radiographic dye allergy status; Z91.040 Latex allergy status; Z91.011 Allergy to milk products; E11.22 Type 2 diabetes mellitus with diabetic chronic kidney disease; N18.9 Chronic kidney disease, unspecified; Z95.828 Presence of other vascular implants and grafts; Z86.718 Personal history of other venous thrombosis and embolism; E78.5 Hyperlipidemia, unspecified; J44.9 Chronic obstructive pulmonary disease, unspecified; D64.9 Anemia, unspecified; I12.9 Hypertensive chronic kidney disease with stage 1 through stage 4 chronic kidney disease, or unspecified chronic kidney disease
CPT/HCPCS: 36415; 36569; 71045; 74176; 80048; 80053; 80202; 81001; 82948; 83735; 85025; 85610; 85730; 87040; 87071; 87086; 87205; 97602; 99284; J2270; J2405; J3370; J7040; J7050

== ENCOUNTER 2023-12-19 07:34 | Emergency (ER) | payer MEDICARE, OTHER ==
[~2023-12-19] VITALS: Ht 172.7 cm; Wt 118.4 kg
[~2023-12-19 07:34] MED LIST changes: +ULTRAM50 MG PO; +ZYVOX600 MG PO
[2023-12-19 07:57] VITALS: PULSE 87; RESP 16; TEMP 97.6
[2023-12-19] MEDS: HYDROCODONE/APAP 5MG-325MG TAB PO ONE (08:23)
[2023-12-19 10:42] VITALS: BP 134/78; PULSE 78; RESP 16; O2SAT 100
== END 2023-12-19 10:44 | disposition home or self-care (01) ==
LOC: ER 07:51
DX: S00.83XA Contusion of other part of head, initial encounter (principal); S70.02XA Contusion of left hip, initial encounter; S90.02XA Contusion of left ankle, initial encounter; S90.32XA Contusion of left foot, initial encounter; W06.XXXA Fall from bed, initial encounter; Y93.84 Activity, sleeping; Y92.89 Other specified places as the place of occurrence of the external cause; I12.9 Hypertensive chronic kidney disease with stage 1 through stage 4 chronic kidney disease, or unspecified chronic kidney disease; N18.9 Chronic kidney disease, unspecified; J44.9 Chronic obstructive pulmonary disease, unspecified; Z99.81 Dependence on supplemental oxygen; I50.9 Heart failure, unspecified; I25.10 Atherosclerotic heart disease of native coronary artery without angina pectoris; E78.5 Hyperlipidemia, unspecified; M54.9 Dorsalgia, unspecified; G89.29 Other chronic pain; Z86.73 Personal history of transient ischemic attack (TIA), and cerebral infarction without residual deficits
CPT/HCPCS: 70450; 72125; 99283